=== PATIENT | male | born 1960 | race Caucasian/White ===

== ENCOUNTER → 2020-02-02 14:37 | Outpatient (BNVA) | payer BC, SELFPAY | PROVIDERS: Family Provider Nurse Practitioner Family; PCP Nurse Practitioner Family; Visit Provider Nurse Practitioner Family | DX: Z20.828 Contact with and (suspected) exposure to other viral communicable diseases (principal); R50.9 Fever, unspecified | CPT/HCPCS: 87400; 87635 ==

== ENCOUNTER 2020-03-08 12:53 | Emergency (ER) | payer BC, SELFPAY ==
[2020-03-08 13:03] VITALS: BP 117/81; PULSE 88; RESP 22; TEMP 36.5; O2SAT 94; BMI 27.3
--- NOTE | 2020-03-08 13:23 | XR_ITS ---
WS: [id number] PORTABLE CHEST HISTORY: dyspnea COMPARISON: None available. Chronic emphysema. No pneumonia. Normal vasculature. Benign-appearing granuloma RIGHT lower lobe. No pleural effusion or pneumothorax. Cardiac size: Normal. Mediastinum/Aorta: Mild atherosclerosis aorta. No osseous abnormality seen. XR/XR chest 1V portable [id number] IMPRESSION: Chronic emphysema. No pneumonia.
--- NOTE | 2020-03-08 13:25 | ECG_ITS ---
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1960 Requested By: Gerald Gonzalez Order Number: [id number] Reading MD: ALLYSON HUBER Measurements Intervals [place] Rate: 90 P: 60 LA: 179 QRS: 35 QRSD: 102 T: 56 QT: 361 QTc: 442 Interpretive Statements SINUS RHYTHM INFERIOR MYOCARDIAL INFARCTION , OF INDETERMINATE AGE [40+ ms Q WAVE AND/OR ST/T ABNORMALITY IN II/aVF] No previous ECG available for comparison Electronically Signed On 03-08-2020 18:36:05 ADVERTISING PRODUCTION MANAGER by ALLYSON HUBER [email or web address] [email or web address] county hospitalNexstimcleveland clinic union hospital.[employer]/store/NU/[id number] f
--- NOTE | 2020-03-08 13:31 | W.ED.SOB ---
HPI - SOB/Dyspnea General: Chief Complaint: Shortness of Breath/Dyspnea Stated Complaint: SOB Time Seen by Provider: 03/08/20 13:00 History of Present Illness: HPI Narrative: 60-year-old male comes in after being seen in the local clinic. He was complaining of a sore throat and being short of breath. He was short of breath and felt weak and had a near syncopal episode at the clinic EMS was called and he was brought into the ER. He has had nausea vomiting and diarrhea with diarrhea persisting. Denies any hematochezia melena hematemesis cough consciousness denies any productive cough no abdominal pain no anosmia. He was swabbed a month ago for Covid and it was negative he was reswabbed today not sure what type of swab was used other than that it was a send out PCR MD elicited complaint: shortness of breath Pertinent past history: COPD Onset (ago): day(s) Context: recent illness Timing: constant Severity: severe Exacerbating factors: exertion Relieving factors: rest and upright position Known history of: COPD Associated symptoms: Reports dizziness, lightheadedness, myalgias, nausea and vomiting; Deny abdominal pain, chest congestion, chest pain, cough, diaphoresis, extremity pain, fever(s), hemoptysis, orthopnea, palpitations, paresthesias, polydipsia, polyuria, rash, sense of impending doom or syncope Treatment prior to arrival: none Review of Systems Const: Denies: fever(s) or diaphoresis ENMT: Denies: throat pain, ear or mastoid pain, nasal discharge or nasal congestion Card: Reports: lightheadedness; Denies: chest pain, palpitations, syncope or orthopnea Resp: Denies: hemoptysis or chest congestion GI: Reports: nausea, vomiting and diarrhea; Denies: abdominal pain : Denies: flank pain, dysuria, urinary frequency or urinary urgency Musc: Denies: extremity pain Skin/Breast: Denies: rash or pruritus Neuro: Reports: dizziness Endo: Denies: polyuria or polydipsia PFSH ED PFSH: Medical History (Updated 03/08/20 @ 18:12 by Gerald Duenas DO) Chronic pharyngitis Close exposure to 2019 novel coronavirus Fatigue Lower respiratory infection Shortness of Breath Vitamin D deficiency Surgical History Status post cervical disc replacement Status post tonsillectomy Family History Brother Cancer Father Cancer Social History Smoking and tobacco status: current every day smoker Alcohol intake: never Physical Exam Const: COMMON NORMALS: no acute distress GENERAL APPEARANCE: cooperative and comfortable ORIENTATION/CONSCIOUSNESS: Yes awake, Yes oriented to person, Yes oriented to place and Yes oriented to time HENMT: COMMON NORMALS: normocephalic, atraumatic and hearing grossly normal bilaterally HEAD & SCALP: normocephalic and atraumatic Neck/C-Spine: COMMON NORMALS: no JVD Resp: COMMON NORMALS: normal respiratory effort, No retractions and No use of accessory muscles AUSCULTATION: rhonchi, wheezes and diminished lung sounds Cardio: COMMON NORMALS: no JVD, regular rate, regular rhythm and No murmurs present (Cardio) RATE: regular rate RHYTHM: regular rhythm GI: COMMON NORMALS: Soft to palpation and No hepatosplenomegaly present AUSCULTATION: Yes normoactive bowel sounds PALPATION: Yes Soft to palpation, No Tenderness to palpation present (GI), No Guarding due to palpation present (GI) and Yes No hepatosplenomegaly present Extremity: COMMON NORMALS: normal to inspection, capillary refill normal, no clubbing, cyanosis or edema, no calf tenderness and no pedal edema Neuro: SENSORIUM/ORIENTATION: Yes oriented to person, Yes oriented to place and Yes oriented to time Skin: COMMON NORMALS: no rashes or lesions noted GENERAL SKIN EXAM: no rashes or lesions noted Course Vital Signs: Vital signs: Vital Signs Temperature 97.7 F 03/08/20 13:03 Pulse Rate 84 03/08/20 16:53 Respiratory Rate 14 03/08/20 16:53 Blood Pressure 141/97 03/08/20 16:53 Pulse Oximetry 94 03/08/20 16:53 MDM - SOB/Dyspnea MDM Narrative: Medical decision making narrative: Rapid swab was negative I still strongly suspect he has Covid. Some of his inflammatory markers and D-dimer are elevated. His CTA of the chest looked okay. We will go and discharge him home on dexamethasone will also cover him with doxycycline use albuterol aggressively at home. He does have a finger sat monitor recommend that he monitor his saturations closely at home if he has any sats that dipped below 90 he should return to the emergency room. Discussed with him the possibility of monoclonal antibody therapy if he does have a positive PCR he is interested in pursuing that if it is positive. Lab Data: Attestation: I reviewed the patient's lab results. Labs: Lab Results 03/08/20 03/08/20 03/08/20 Range/Units 14:30 14:30 14:30 WBC Cancelled Corrected WBC Cancelled RBC Cancelled Hgb Cancelled Hct Cancelled MCV Cancelled MCH Cancelled MCHC Cancelled RDW Cancelled Plt Count Cancelled MPV Cancelled Gran % Cancelled Neut % (Auto) Cancelled Lymph % (Auto) Cancelled [place] % (Auto) Cancelled Eos % (Auto) Cancelled Baso % (Auto) Cancelled Neut # (Auto) Cancelled Lymph # (Auto) Cancelled [place] # (Auto) Cancelled Eos # (Auto) Cancelled Baso # (Auto) Cancelled Absolute Gran (aut o) Cancelled Nucleated RBC % (a uto) Cancelled Nucleated RBCs # Cancelled Fibrinogen 518 H (174-498) mg/dL D-Dimer 0.90 H (0-0.59) ug/mIFE U Sodium 140 (136-145) mmol/L Potassium 4.0 (3.5-5.1) mmol/L Chloride 100 (98-107) mmol/L Carbon Dioxide 29 (22-29) mmol/L Anion Gap 15.0 (5-19) BUN 10 (8-23) mg/dL Creatinine 0.7 (0.7-1.2) mg/dL GFR Calculation 114.6 (90-130) mL/min Glucose 122 H (65-115) mg/dL Calculated Osmolal ity 290 (285-295) mOsm/k g Lactic Acid (0.5-2.2) mmol/L Calcium 9.6 (8.5-10.5) mg/dL Total Bilirubin 0.4 (0.15-1.2) mg/dL AST 12 (0-40) U/L ALT 7 (0-41) U/L Alkaline Phosphata se 112 (40-130) IU/L Lactate Dehydrogen ase 182 (135-225) U/L Troponin T Baselin e (0-15) ng/L Troponin T 120 Min [place] (0-15) ng/L Delta Troponin T (0-10) ABS# C-Reactive Protein 25.5 H (0.0-4.9) mg/L Total Protein 7.2 (6.6-8.7) g/dL Albumin 4.3 (3.5-5.2) g/dL Globulin 2.9 (1.3-4.6) g/dL SARS-CoV-2 Ag (Rap id) (Negative) 03/08/20 03/08/20 03/08/20 Range/Units 14:30 14:30 14:48 WBC Corrected WBC RBC Hgb Hct MCV MCH MCHC RDW Plt Count MPV Gran % Neut % (Auto) Lymph % (Auto) [place] % (Auto) Eos % (Auto) Baso % (Auto) Neut # (Auto) Lymph # (Auto) [place] # (Auto) Eos # (Auto) Baso # (Auto) Absolute Gran (aut o) Nucleated RBC % (a uto) Nucleated RBCs # Fibrinogen (174-498) mg/dL D-Dimer (0-0.59) ug/mIFE U Sodium (136-145) mmol/L Potassium (3.5-5.1) mmol/L Chloride (98-107) mmol/L Carbon Dioxide (22-29) mmol/L Anion Gap (5-19) BUN (8-23) mg/dL Creatinine (0.7-1.2) mg/dL GFR Calculation (90-130) mL/min Glucose (65-115) mg/dL Calculated Osmolal ity (285-295) mOsm/k g Lactic Acid 0.7 (0.5-2.2) mmol/L Calcium (8.5-10.5) mg/dL Total Bilirubin (0.15-1.2) mg/dL AST (0-40) U/L ALT (0-41) U/L Alkaline Phosphata se (40-130) IU/L Lactate Dehydrogen ase (135-225) U/L Troponin T Baselin e 10 (0-15) ng/L Troponin T 120 Min [place] (0-15) ng/L Delta Troponin T (0-10) ABS# C-Reactive Protein (0.0-4.9) mg/L Total Protein (6.6-8.7) g/dL Albumin (3.5-5.2) g/dL Globulin (1.3-4.6) g/dL SARS-CoV-2 Ag (Rap id) Negative (Negative) 03/08/20 03/08/20 03/08/20 Range/Units 14:50 17:02 17:02 WBC Cancelled 12.3 H Corrected WBC Cancelled RBC Cancelled 4.63 Hgb Cancelled 14.2 Hct Cancelled 44.3 MCV Cancelled 95.7 H MCH Cancelled 30.7 MCHC Cancelled 32.1 RDW Cancelled 12.5 Plt Count Cancelled 210 MPV Cancelled 11.6 H Gran % Cancelled Neut % (Auto) Cancelled 77.2 Lymph % (Auto) Cancelled 16.4 [place] % (Auto) Cancelled 5.6 Eos % (Auto) Cancelled 0.1 Baso % (Auto) Cancelled 0.4 Neut # (Auto) Cancelled 9.46 H Lymph # (Auto) Cancelled 2.0 [place] # (Auto) Cancelled 0.7 Eos # (Auto) Cancelled 0.0 Baso # (Auto) Cancelled 0.1 Absolute Gran (aut o) Cancelled Nucleated RBC % (a uto) Cancelled 0 Nucleated RBCs # Cancelled 0.0 Fibrinogen (174-498) mg/dL D-Dimer (0-0.59) ug/mIFE U Sodium (136-145) mmol/L Potassium (3.5-5.1) mmol/L Chloride (98-107) mmol/L Carbon Dioxide (22-29) mmol/L Anion Gap (5-19) BUN (8-23) mg/dL Creatinine (0.7-1.2) mg/dL GFR Calculation (90-130) mL/min Glucose (65-115) mg/dL Calculated Osmolal ity (285-295) mOsm/k g Lactic Acid (0.5-2.2) mmol/L Calcium (8.5-10.5) mg/dL Total Bilirubin (0.15-1.2) mg/dL AST (0-40) U/L ALT (0-41) U/L Alkaline Phosphata se (40-130) IU/L Lactate Dehydrogen ase (135-225) U/L Troponin T Baselin e (0-15) ng/L Troponin T 120 Min [place] 9.44 (0-15) ng/L Delta Troponin T -0.56 L (0-10) ABS# C-Reactive Protein (0.0-4.9) mg/L Total Protein (6.6-8.7) g/dL Albumin (3.5-5.2) g/dL Globulin (1.3-4.6) g/dL SARS-CoV-2 Ag (Rap id) (Negative) Discharge Plan Discharge Patient Disposition: Home Clinical Impression: Acute exacerbation of chronic obstructive airways disease, Suspected COVID-19 virus infection Condition: Stable Prescriptions: New dexamethasone 6 mg tablet 6 mg PO DAILY Qty: 7 RF: 0 doxycycline hyclate 100 mg capsule 100 mg PO BID 10 Days Qty: 20 RF: 0 No Action guaifenesin [Mucinex] 600 mg tablet extended release 12hr 600 mg PO BID RF: 0 omeprazole 20 mg capsule,delayed release(DR/EC) 20 mg PO DAILY RF: 0 ibuprofen 200 mg Tablet 400 - 600 mg PO PRN RF: 0 Vitamin D3 6 cap PO BID RF: 0 Discharge Orders: Discharge ED (Routine); Ordered 03/08/20 Ordered By: Gerald Duenas Referrals: MIAN Jonas, REEL FED PRINTER [Primary Care Provider] - Discharge Diet: Usual diet Discharge Activity: Limit activity as instructed Activity Restrictions/Additional Instructions: You were tested today for COVID-19. Recommend that you maintain self quarantine until results are available. Monitor your oxygen sat at home if it falls below 90 consistently return to the emergency room. If you have any more difficulty breathing return to the emergency room. Take the steroids as prescribed as well as antibiotics you were given today. Continue to use albuterol aggressively at home to improve your breathing. If these are not successful return to the emergency room. Coding Level of Care Code ED 3D Specialist for Lili Ahn Exam Comprehensive
[2020-03-08 14:33] VITALS: BP 120/86; PULSE 93; RESP 18; O2SAT 94
[2020-03-08 14:56] LABS: SARS Covid-2 Antigen Negative (Negative)
[2020-03-08 15:08] LABS: Alanine Aminotransferase 7 U/L (0-41); Albumin Level 4.3 g/dL (3.5-5.2); Alkaline Phosphatase 112 IU/L (40-130); Aspartate Amino Transferase 12 U/L (0-40); Blood Urea Nitrogen 10 mg/dL (8-23); C Reactive Protein 25.5 mg/L (0.0-4.9); Calcium 9.6 mg/dL (8.5-10.5); Carbon Dioxide 29 mmol/L (22-29); Chloride 100 mmol/L (98-107); Globulin 2.9 g/dL (1.3-4.6); Glomerular Filtration Rate 114.6 mL/min (90-130); Glucose 122 mg/dL (65-115); Lactate Dehydrogenase 182 U/L (135-225); Osmolality Calculated 290 mOsm/kg (285-295); Sodium 140 mmol/L (136-145); Total Bilirubin 0.4 mg/dL (0.15-1.2); Total Protein 7.2 g/dL (6.6-8.7)
[2020-03-08 15:09] LABS: Troponin(5th) Baseline 10 ng/L (0-15)
[2020-03-08 15:17] VITALS: BP 137/93; PULSE 89; RESP 14; O2SAT 94
[2020-03-08 15:23] LABS: Lactic Sepsis W/Reflex 0.7 mmol/L (0.5-2.2)
[2020-03-08 15:23] LABS: Fibrinogen 518 mg/dL (174-498)
--- NOTE | 2020-03-08 15:25 | ECG_ITS ---
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 Measurements Intervals [place] Rate: 89 P: 61 UT: 176 QRS: 37 QRSD: 99 T: 51 QT: 375 QTc: 457 Interpretive Statements SINUS RHYTHM INFERIOR MYOCARDIAL INFARCTION , OF INDETERMINATE AGE [40+ ms Q WAVE AND/OR ST/T ABNORMALITY IN II/aVF] Compared to ECG 03/08/2020 14:20:32 No significant changes Electronically Signed On 03-09-2020 17:15:47 OPTICAL MANUFACTURING TECHNICIAN by Vivian Khan M.D. [email or web address] regional medical [email or web address] riverside methodist hospital.[employer]/store/NU/[id number]/ecg/[id number] f
[2020-03-08 15:41] VITALS: BP 140/83; PULSE 82; RESP 16; O2SAT 95
--- NOTE | 2020-03-08 16:24 | CT_ITS ---
WS: [id number] CT angio chest PE protcl [id number] REASON FOR EXAM: dyspnea TECHNIQUE: Coronal and sagittal 2-D and MIP reformations. IV CONTRAST ADMINISTERED: 74 mL of Omnipaque 350. TOTAL EXAM DLP: 724.[address] scans at [facility] use at least one of these dose optimization techniques: automat ed exposure control; mA and/or kV adjustment per patient size (includes targeted exams where dose is matched to clinical indication); or iterative reconstruction. FINDINGS: There are no pulmonary emboli. Thoracic aorta is moderately tortuous and ectatic. No aneurysmal dilat ation. No dissection identified. Moderate calcification within the coronary arteries. No mediastinal or hilar adenopathy. The lungs demonstrate multiple areas of cystic change. There are multiple calcified granulomas in the lungs without other lung nodule, lung mass, or infiltrate. There is irregular apical pleural thickening without definite mass. There is no pleural fluid. Moderate changes of degenerative spondylosis in the thoracic spine. CT/CT angio chest PE protcl [id number] IMPRESSION: Chronic lung disease, most likely central lobar emphysema. No acute abnormality identified.
[2020-03-08 16:53] VITALS: BP 141/97; PULSE 84; RESP 14; O2SAT 94
[2020-03-08 17:06] LABS: Basophils # 0.1 10^3/uL (0.0-0.1); Basophils % 0.4 %; Eosinophils % 0.1 %; Hematocrit 44.3 % (42.0-52.0); Hemoglobin 14.2 g/dL (11.7-16.6); Lymphocytes % 16.4 %; Mean Corpuscular HGB Conc 32.1 g/dL (30.0-36.0); Mean Corpuscular Hemoglobin 30.7 pg (28.0-34.0); Mean Corpuscular Volume 95.7 fL (80-94); Mean Platelet Volume 11.6 fL (7.4-10.4); Monocytes # 0.7 10^3/uL (0.2-0.9); Monocytes % 5.6 %; Neutrophils # 9.46 10^3/uL (1.8-7.7); Neutrophils % 77.2 %; Nucleated Red Blood Cells % 0 %; Platelet Count 210 10^3/cmm (130-400); Red Blood Count 4.63 10^6/uL (4.1-5.3); Red Cell Distribution Width 12.5 % (12.1-15.1); White Blood Count 12.3 10^3/uL (4.0-10.0)
[2020-03-08] MEDS: iohexol 350 mg/mL 100 mL Btl IV (17:20)
[2020-03-08 17:30] LABS: Troponin 5 2HR 9.44 ng/L (0-15)
[2020-03-08 17:32] LABS: Troponin 5 2HR Delta -0.56 ABS# (0-10)
[2020-03-08] MEDS: dexamethasone 4 mg/mL INJ 6 MG IVP (18:27)
[2020-03-08 19:00] VITALS: BP 123/91; PULSE 83; RESP 14; O2SAT 96
[2020-03-11 07:39] LABS: Coronavirus Lab Test PTC Negative
== END 2020-03-08 19:00 | disposition home or self-care (01) ==
PROVIDERS: Emergency Provider Family Medicine; PCP Nurse Practitioner Family
DX: J44.1 Chronic obstructive pulmonary disease with (acute) exacerbation (principal); Z20.828 Contact with and (suspected) exposure to other viral communicable diseases; F17.210 Nicotine dependence, cigarettes, uncomplicated
CPT/HCPCS: 12345; 36415; 71045; 71275; 80053; 83605; 83615; 84484; 85025; 85378; 85384; 86140; 87040; 87400; 87426; 87635; 93005; 96374; 99282; 99284; J1100; Q9967

== ENCOUNTER 2020-03-10 11:32 | Inpatient (IN) | payer BC, MEDICAID, SELFPAY ==
[2020-03-10] VITALS (14 sets, daily range): BP systolic 108–158; BP diastolic 60–101; PULSE 62–83; RESP 14–19; TEMP 36.4–37.1; O2SAT 91–98; BMI 29.2
--- NOTE | 2020-03-10 11:38 | CT_ITS ---
WS: [id number] CT HEAD NONCONTRAST HISTORY: cva TECHNIQUE: Contiguous axial imaging performed through the brain in 2.5 mm imaging. Bone and soft tiss ue windows. Sagittal and coronal reformats reviewed. All CT scans at [facility] use at ast one of these dose optimization techniques: automated exposure control; mA and/or kV adjustment pe r patient size (includes targeted exams where dose is matched to clinical indication); or iterative r econstruction. DLP: 1070.47 mGy.cm COMPARISON: None available. No acute intracranial hemorrhage, midline shift or mass effect. Mild atrophy and mild chronic microvascular ischemic disease. Prior lacunar infarct involving the an terior limb of the external capsule on the RIGHT. Ventricles: Normal size with no hydrocephalus. Paranasal sinuses: As visualized are clear. Mastoid air cells: Well pneumatized. Calvarium and scalp: Skull is intact with no soft tissue edema or swelling. CT/CT head wo con* [id number] IMPRESSION: 1. No acute intracranial hemorrhage or edema. 2. Remote lacunar infarct RIGHT external capsule. 3. Mild atrophy.
--- NOTE | 2020-03-10 11:38 | XR_ITS ---
WS: [id number] PORTABLE CHEST HISTORY: Chest pain and confusion. Facial drooping. COMPARISON: 03/08/2020 Hyperinflated lungs from emphysema. Benign granulomata RIGHT lower lobe. No pneumonia. Normal vascula ture. No pleural effusion or pneumothorax. Cardiac size: Normal. Mediastinum/Aorta: Normal mediastinum. No osseous abnormality seen. XR/XR chest 1V portable [id number] IMPRESSION: Chronic emphysema and prior granulomatous disease. No acute pneumonia.
--- NOTE | 2020-03-10 11:40 | ECG_ITS ---
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 Measurements Intervals [place] Rate: 78 P: 60 MA: 159 QRS: -10 QRSD: 105 T: 77 QT: 383 QTc: 437 Interpretive Statements SINUS RHYTHM PROBABLE INFERIOR WALL MYOCARDIAL INFARCTION [35 ms Q WAVE IN I/aVL/V5/V6], OF INDETERMINATE AGE Compared to ECG 03/08/2020 15:39:24 No significant changes Electronically Signed On 03-10-2020 19:41:19 PUBLIC WORKS INSPECTOR by Kailyn Waters M.D. [email or web address]/[id number] f
--- NOTE | 2020-03-10 11:44 | PC.NURSE ---
Pt to CT
--- NOTE | 2020-03-10 12:04 | ED_ITS ---
HPI - Weakness General: Chief complaint: Weakness Stated complaint: STROKE LIKE SYMPTOMS Time Seen by Provider: 03/10/20 11:37 Source: patient and EMS Mode of arrival: EMS Limitations: no limitations History of Present Illness: HPI Narrative: 10 is a 60-year-old male who presents here by EMS states that he has had some facial droop and drooling left- sided weakness over the last day. States he is also had some hallucinations. He states that he is improved and is able answer all my questions here appropriately. He also has a history of COPD and was recently diagnosed with bronchitis and started on doxycycline. He did have Covid testing that was negative. Denies any worsening improving factors. Associated symptoms: Denies chest pain, chills, dysuria, easy bruising, fever(s), headache(s), nausea or vomiting Review of Systems Const: Denies: fever(s), chills, body aches or change in appetite Eyes: Denies: blurry vision or eye discomfort ENMT: Denies: throat pain or dental pain Card: Denies: chest pain Resp: Denies: dyspnea GI: Denies: abdominal pain, nausea, vomiting or diarrhea : Denies: dysuria Musc: Denies: neck pain or back pain Skin/Breast: Denies: rash Neuro: Reports: weakness in extremities; Denies: headache(s) Psych: Denies: depression Ez/Lymph: Denies: easy bruising All/Imm: Denies: urticaria PFSH ED PFSH: Medical History Chronic pharyngitis Close exposure to 2019 novel coronavirus Fatigue Lower respiratory infection Shortness of Breath Vitamin D deficiency Surgical History Status post cervical disc replacement Status post tonsillectomy Family History Brother Cancer Father Cancer Social History Smoking and tobacco status: current every day smoker Alcohol intake: never Physical Exam Const: COMMON NORMALS: no acute distress, patient oriented x3 and healthy appearing HENMT: COMMON NORMALS: normocephalic and atraumatic HEAD & SCALP: normocephalic and atraumatic Eye: COMMON NORMALS: Equal, round and reactive pupils present and EOMs intact bilaterally PUPIL: Yes Equal, round and reactive pupils present Neck/C-Spine: COMMON NORMALS: full ROM and supple Chest: COMMONS NORMALS: normal inspection of the chest and normal palpation of entire chest wall Resp: COMMON NORMALS: normal respiratory effort, No retractions, No use of accessory muscles and clear to auscultation bilaterally AUSCULTATION: clear to auscultation bilaterally Cardio: COMMON NORMALS: regular rate, regular rhythm and No murmurs present (Cardio) RATE: regular rate RHYTHM: regular rhythm GI: COMMON NORMALS: Normal to inspection, nondistended, normoactive bowel sounds present, Soft to palpation, non-tender and no masses PALPATION: Yes Soft to palpation Extremity: COMMON NORMALS: normal to inspection and full ROM Neuro: COMMON NORMALS: patient oriented x3, moves all extremities and no focal motor deficits Psych: COMMON NORMALS: mental status grossly normal, Normal thought process present and cooperative THOUGHT PROCESS: Normal thought process present Skin: COMMON NORMALS: no rashes or lesions noted and no wounds GENERAL SKIN EXAM: no rashes or lesions noted Course Vital Signs: Vital signs: Vital Signs Temperature 97.6 F 03/10/20 11:33 Pulse Rate 73 03/10/20 11:43 Respiratory Rate 18 03/10/20 11:43 Blood Pressure 131/79 03/10/20 11:43 Pulse Oximetry 96 03/10/20 11:43 MDM - Weakness MDM Narrative: Medical decision making narrative: Patient presents here with some hallucinations and altered mental status. Seems to have resolved is able answer most my questions appropriately here. He also has a history of COPD and does have some cough. Patient's x-ray here is normal and CT head is normal. I spoke to hospitalist will admit for observation. Lab Data: Labs: Lab Results 03/10/20 03/10/20 03/10/20 Range/Units 10:20 10:20 10:20 WBC Cancelled Corrected WBC Cancelled RBC Cancelled Hgb Cancelled Hct Cancelled MCV Cancelled MCH Cancelled MCHC Cancelled RDW Cancelled Plt Count Cancelled MPV Cancelled Gran % Cancelled Neut % (Auto) Cancelled Lymph % (Auto) Cancelled [place] % (Auto) Cancelled Eos % (Auto) Cancelled Baso % (Auto) Cancelled Neut # (Auto) Cancelled Lymph # (Auto) Cancelled [place] # (Auto) Cancelled Eos # (Auto) Cancelled Baso # (Auto) Cancelled Absolute Gran (aut o) Cancelled Nucleated RBC % (a uto) Cancelled Nucleated RBCs # Cancelled PT Cancelled INR Cancelled Sodium 139 (136-145) mmol/L Potassium 4.3 (3.5-5.1) mmol/L Chloride 101 (98-107) mmol/L Carbon Dioxide 27 (22-29) mmol/L Anion Gap 15.3 (5-19) BUN 18 (8-23) mg/dL Creatinine 0.7 (0.7-1.2) mg/dL GFR Calculation 114.6 (90-130) mL/min Glucose 76 (65-115) mg/dL Calculated Osmolal ity 289 (285-295) mOsm/k g Calcium 9.8 (8.5-10.5) mg/dL Total Bilirubin 0.2 (0.15-1.2) mg/dL AST 11 (0-40) U/L ALT 9 (0-41) U/L Alkaline Phosphata se 94 (40-130) IU/L Total Protein 6.8 (6.6-8.7) g/dL Albumin 4.4 (3.5-5.2) g/dL Globulin 2.4 (1.3-4.6) g/dL Urine Color (Yellow) Urine Appearance (CLEAR) Urine pH (5-7) Ur Specific Gravit y (1.005-1.030) Urine Protein (Negative) Urine Glucose (UA) (Normal) Urine Ketones (Negative) Urine Blood (Negative) Urine Nitrate (Negative) Urine Bilirubin (Negative) Urine Urobilinogen (Negative) mg/dL Ur Leukocyte [place] ase (Negative) 03/10/20 03/10/20 03/10/20 Range/Units 12:14 12:18 12:20 WBC 14.2 H Corrected WBC RBC 4.44 Hgb 13.7 Hct 41.7 L MCV 93.9 MCH 30.9 MCHC 32.9 RDW 12.7 Plt Count 177 MPV 10.5 H Gran % Neut % (Auto) 89.6 Lymph % (Auto) 7.9 [place] % (Auto) 1.9 Eos % (Auto) 0.0 Baso % (Auto) 0.1 Neut # (Auto) 12.76 H Lymph # (Auto) 1.1 [place] # (Auto) 0.3 Eos # (Auto) 0.0 Baso # (Auto) 0.0 Absolute Gran (aut o) Nucleated RBC % (a uto) 0 Nucleated RBCs # 0.0 PT 13.00 INR 0.95 Sodium (136-145) mmol/L Potassium (3.5-5.1) mmol/L Chloride (98-107) mmol/L Carbon Dioxide (22-29) mmol/L Anion Gap (5-19) BUN (8-23) mg/dL Creatinine (0.7-1.2) mg/dL GFR Calculation (90-130) mL/min Glucose (65-115) mg/dL Calculated Osmolal ity (285-295) mOsm/k g Calcium (8.5-10.5) mg/dL Total Bilirubin (0.15-1.2) mg/dL AST (0-40) U/L ALT (0-41) U/L Alkaline Phosphata se (40-130) IU/L Total Protein (6.6-8.7) g/dL Albumin (3.5-5.2) g/dL Globulin (1.3-4.6) g/dL Urine Color Yellow (Yellow) Urine Appearance Clear (CLEAR) Urine pH 5 (5-7) Ur Specific Gravit y 1.025 (1.005-1.030) Urine Protein Neg (Negative) Urine Glucose (UA) Norm (Normal) Urine Ketones Negative (Negative) Urine Blood Neg (Negative) Urine Nitrate Negative (Negative) Urine Bilirubin Neg (Negative) Urine Urobilinogen Norm (Negative) mg/dL Ur Leukocyte Marion ase Negative (Negative) Imaging Data^: CXR: Attestation: I personally reviewed and interpreted this imaging study as follows: Radiologist's impression: [address] [address] XRay Report Signed Patient: Hitesh Dai Unit #: [id number] : 1960 Age/Sex: 60 / M ADM Date: 03/10/20 Loc: ER Room/Bed: Attending Dr: Ordering Provider/Ordering MD: Omar Valdovinos MD Date of Service: 03/10/20 Procedure(s): XR chest 1V portable [id number] Accession Number(s): [id number] Report Number: [id number] WS: [id number] PORTABLE CHEST HISTORY: Chest pain and confusion. Facial drooping. COMPARISON: 03/08/2020 Hyperinflated lungs from emphysema. Benign granulomata RIGHT lower lobe. No pneumonia. Normal vasculature. No pleural effusion or pneumothorax. Cardiac size: Normal. Mediastinum/Aorta: Normal mediastinum. No osseous abnormality seen. XR/XR chest 1V portable [id number] IMPRESSION: Chronic emphysema and prior granulomatous disease. No acute pneumonia. EKG Data^: EKG 1: Attestation: I personally reviewed and interpreted this EKG as follows: EKG interpretation date: 03/10/20 EKG interpretation time: 11:59 Interpretation: Normal sinus rhythm heart rate [address] or T wave abnormalities QRS 105 QTc 416 Discharge Plan Discharge Patient Disposition: Admitted As Inpatient Clinical Impression: Altered mental status, COPD exacerbation Condition: Stable Coding Level of Care Code ED Deputy Editor In Chief for Chg Fwd Exam Comprehensive
[2020-03-10 12:31] LABS: Basophils % 0.1 %; Hematocrit 41.7 % (42.0-52.0); Hemoglobin 13.7 g/dL (11.7-16.6); Lymphocytes # 1.1 10^3/uL (0.8-4.8); Lymphocytes % 7.9 %; Mean Corpuscular HGB Conc 32.9 g/dL (30.0-36.0); Mean Corpuscular Hemoglobin 30.9 pg (28.0-34.0); Mean Corpuscular Volume 93.9 fL (80-94); Mean Platelet Volume 10.5 fL (7.4-10.4); Monocytes # 0.3 10^3/uL (0.2-0.9); Monocytes % 1.9 %; Neutrophils # 12.76 10^3/uL (1.8-7.7); Neutrophils % 89.6 %; Nucleated Red Blood Cells % 0 %; Platelet Count 177 10^3/cmm (130-400); Red Blood Count 4.44 10^6/uL (4.1-5.3); Red Cell Distribution Width 12.7 % (12.1-15.1); White Blood Count 14.2 10^3/uL (4.0-10.0)
[2020-03-10 12:44] LABS: Add Urine Microscopic? NO
[2020-03-10 12:46] LABS: Alanine Aminotransferase 9 U/L (0-41); Albumin Level 4.4 g/dL (3.5-5.2); Alkaline Phosphatase 94 IU/L (40-130); Anion Gap 15.3 (5-19); Aspartate Amino Transferase 11 U/L (0-40); Blood Urea Nitrogen 18 mg/dL (8-23); Calcium 9.8 mg/dL (8.5-10.5); Carbon Dioxide 27 mmol/L (22-29); Chloride 101 mmol/L (98-107); Creatinine Clr Calc Pharmacy 149.8881; Globulin 2.4 g/dL (1.3-4.6); Glomerular Filtration Rate 114.6 mL/min (90-130); Glucose 76 mg/dL (65-115); Osmolality Calculated 289 mOsm/kg (285-295); Potassium 4.3 mmol/L (3.5-5.1); Sodium 139 mmol/L (136-145); Total Bilirubin 0.2 mg/dL (0.15-1.2); Total Protein 6.8 g/dL (6.6-8.7)
[2020-03-10 12:51] LABS: INR 0.95 (0.8-1.2)
[2020-03-10 13:10] LABS: Bilirubin Urine Neg (Negative); Blood Urine Neg (Negative); Glucose Urine UA Norm (Normal); Ketones Urine Negative (Negative); Leukocyte Esterase Urine Negative (Negative); Nitrate Urine Negative (Negative); Protein Urine Neg (Negative); Specific Gravity, Urine 1.025 (1.005-1.030); Urine Appearance Clear (CLEAR); Urine Color Yellow (Yellow); Urobilinogen Urine Norm (Negative); pH Urine 5 (5-7)
[2020-03-10] MEDS: nicotine 21 mg Patch 1 PATCH TRANSDERMA (13:57)
[2020-03-10] MEDS: morphine 4 mg/mL SDV 1 mL IVP (13:58)
[2020-03-10 14:19] LABS: ABG PCO2 44.1 mmHg (35-45); ABG PH Result 7.43 (7.35-7.45); Arterial Blood Gas Hematocrit 45.1 % (42-52); Base Excess ABG 4.3 mmol/L (-2.0-2.0); Blood Gas Allen Test Pos; Blood Gas Operator Identificat GD; Blood Gas Sample Site Radial, right; Blood Gas Sample Type Arterial; HCO3 ABG 29.3 mmol/L (22-26); Oxygen Device ROOM AIR; PO2 ABG 73.8 mmHg (80.0-100.0)
[2020-03-10 14:27] LABS: Ammonia 30 umol/L (16-60)
--- NOTE | 2020-03-10 15:47 | PM.HP ---
Providers/Chief Complaint Admitting Physician: Lorenzo Haley MD Primary Care Provider: ESTHER Peña Chief Complaint: STROKE LIKE SYMPTOMS History of Present Illness Hitesh Dai is a 60 year old male presents to emerge department with concern for facial droop and left-sided weakness over the last day and some confusion that was concerning to patient's . Patient denies any focal weakness. 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 Reports that last night he got slightly confused as to where [place] tree was standing and pulled the cord but otherwise he denies seeing or hearing things that are not there. He has a very hoarse and raspy voice for the last 1 month ever since he started having signs and symptoms of upper respiratory infection. Reports some sore throat but denies cough above his normal baseline with occasional clear phlegm production. He denies chest pain or shortness of breath at rest. He does have chronic dyspnea on exertion which is unchanged. He has been having diarrhea for the last 1 week but now it is improving and his bowel movements now soft without evidence of melena or hematochezia. He denies any difficulty swallowing except when he eats crackers or chips. He denies any night sweats. He smokes for 45 years, at least 1 pack/day. He has been recently checked multiple times for COVID-19 and always been negative. He denies previous history of diabetes, heart disease or stroke. Interestingly he always leans to the right whenever he sits and this been going on for many many years and confirmed by patient's daughter at bedside. He showed no evidence of focal neurological findings. He had no cerebellar signs and had good peripheral vision. He had episodes of fever and chills last weekend. Mother is alive and doing well. Father from complications of metastatic cancer of unknown primary. Reports occasionally he takes ibuprofen for phantom toothache after his teeth were pulled long time ago. Review of Systems Narrative: Except as mentioned in HPI. Eyes: Denies: change in vision (Has cataract that he was planning to address.) ENMT: Denies: throat pain or change in hearing Card: Denies: chest pain, edema or lightheadedness Resp: Denies: dyspnea or productive cough GI: Denies: abdominal pain, nausea, vomiting, dysphagia, diarrhea, constipation, hematochezia or melena Musc: Denies: joint pain or joint swelling Skin/Breast: Denies: rash or erythema Neuro: Denies: headache(s) or weakness in extremities Psych: Denies: depression Endo: Denies: excessive sweating Ez/Lymph: Denies: easy bleeding or tender lymph nodes All/Imm: Denies: throat swelling Medications/Allergies Home Medications Medication Instructions Recorded Confirmed Last Taken Type guaifenesin 600 mg tablet, 600 mg PO BID@1000,1800 01/30/20 03/10/20 03/09/20 History extended release 12 hr omeprazole 20 mg capsule,delayed 20 mg PO DAILY@1000 01/30/20 03/10/20 03/09/20 History release Vitamin D3 6 cap PO BID 03/08/20 03/10/20 03/09/20 History ibuprofen 400 - 600 mg PO PRN 03/08/20 03/10/20 03/09/20 History albuterol sulfate 2 puff INHALATION QID PRN 03/10/20 03/10/20 03/10/20 History dexamethasone 6 mg PO DAILY@1000 03/10/20 03/10/20 03/09/20 History doxycycline hyclate 100 mg PO BID@1000,1800 03/10/20 03/10/20 03/09/20 History Allergies Allergy/AdvReac Type Severity Reaction Status Date / Time cephalexin [From Keflex] Allergy hives Verified 03/08/20 13:41 PFSH Acute PFSH: Medical History Chronic pharyngitis Close exposure to 2019 novel coronavirus Fatigue Lower respiratory infection Shortness of Breath Vitamin D deficiency Surgical History Status post cervical disc replacement Status post tonsillectomy Family History Brother Cancer Father Cancer Social History Smoking and tobacco status: current every day smoker Alcohol intake: never Vitals/I&O/Wt Last Vital Signs Temp 97.6 F 03/10/20 11:33 Pulse 76 03/10/20 15:25 Resp 18 03/10/20 15:25 BP 158/101 03/10/20 15:25 Pulse Ox 93 03/10/20 15:25 Weight last 48 hrs Weight 108.862 kg Physical Exam Const: COMMON NORMALS: no acute distress, patient oriented x3 and alert HENMT: COMMON NORMALS: normocephalic and atraumatic HEAD & SCALP: normocephalic and atraumatic OTHER: Mucous membranes dry. Eye: COMMON NORMALS: EOMs intact bilaterally, conjunctivae normal and no scleral icterus CONJUNCTIVA: Yes conjunctivae normal Neck/C-Spine: COMMON NORMALS: no lymphadenopathy and no meningeal signs Lymph: LYMPHATIC: no lymphadenopathy noted Chest: COMMONS NORMALS: normal palpation of entire chest wall Resp: COMMON NORMALS: No use of accessory muscles and clear to auscultation bilaterally AUSCULTATION: clear to auscultation bilaterally Cardio: COMMON NORMALS: regular rate, regular rhythm and No murmurs present (Cardio) RATE: regular rate RHYTHM: regular rhythm OTHER: No lower extremity edema GI: COMMON NORMALS: Soft to palpation and non-tender PALPATION: Yes Soft to palpation RECTAL EXAM: Yes deferred : COMMON NORMALS: Yes no CVA tenderness BLADDER/KIDNEY EXAM: Yes no CVA tenderness Back/Pelvis: COMMON NORMALS: no CVA tenderness and thoracic and lumbar spine normal to inspection Extremity: COMMON NORMALS: normal to inspection and capillary refill normal Neuro: COMMON NORMALS: patient oriented x3 and no focal motor deficits SENSORIUM/ORIENTATION: Yes alert MENINGEAL SIGNS: Yes no meningeal signs Psych: COMMON NORMALS: mental status grossly normal, Normal thought process present and cooperative THOUGHT PROCESS: Normal thought process present Skin: COMMON NORMALS: no rashes or lesions noted GENERAL SKIN EXAM: no rashes or lesions noted Data : 03/10/20 12:20 03/10/20 10:20 A&P Assessment and plan (1) Pharyngitis: Status: Acute (2) Acute viral syndrome: Status: Acute (3) Tobacco abuse: Status: Acute (4) Dehydration, mild: Status: Acute (5) COPD (chronic obstructive pulmonary disease): Not in exacerbation. Status: Acute Additional A&P Information PLAN: We will request rapid strep test and continue doxycycline for now. Will gently hydrate with LR. Place patient for observation and obtain carotid artery ultrasound and echocardiogram for further evaluation. Cannot perform CT head and neck with contrast as patient already received contrast with chest exam. Start patient on statin and aspirin. Discussed regarding importance of smoking cessation. Patient voiced understanding and agreed to try nicotine patch. Patient will require to have outpatient ENT follow-up Attestations Medical Necessity Statement*: Patient with strokelike symptoms requires observation for monitoring, treatment and evaluation. I expect patient will require less than two midnights. Time Spent in Patient Care: Greater than 35 minutes Coding Level of Care Code Acute Channel Development Director for [facility] Diagnoses Pharyngitis J02.9 Acute viral syndrome B34.9 Tobacco abuse Z72.0 Dehydration, mild E86.0 COPD (chronic obstructive pulmonary disease) J44.9
[2020-03-10] MEDS: albuterol 8 gm MDI 2 PUFF INHALATION ×2 (17:53→19:27)
[2020-03-10] MEDS: enoxaparin 40 mg/0.4 mL Syringe SUBCUT (18:03)
[2020-03-10] MEDS: doxycycline 100 mg Tablet PO (18:03)
[2020-03-10] MEDS: guaiFENesin 600 mg Tablet PO (18:03)
[2020-03-10] MEDS: lactated ringers 1,000 ML 100 ML IV (18:03)
[2020-03-10] MEDS: atorvastatin 40 mg Tablet 20 MG PO (20:57)
[2020-03-11] VITALS (9 sets, daily range): BP systolic 134–166; BP diastolic 70–107; PULSE 65–95; RESP 17–18; TEMP 36.3–36.7; O2SAT 94–96
[2020-03-11] MEDS: lactated ringers 1,000 ML 100 ML IV ×2 (03:50→21:17)
[2020-03-11 05:14] LABS: Basophils % 0.3 %; Eosinophils % 0.1 %; Hematocrit 41.7 % (42.0-52.0); Hemoglobin 13.5 g/dL (11.7-16.6); Lymphocytes # 2.9 10^3/uL (0.8-4.8); Lymphocytes % 19.6 %; Mean Corpuscular HGB Conc 32.4 g/dL (30.0-36.0); Mean Corpuscular Hemoglobin 30.9 pg (28.0-34.0); Mean Corpuscular Volume 95.4 fL (80-94); Mean Platelet Volume 9.6 fL (7.4-10.4); Monocytes # 0.9 10^3/uL (0.2-0.9); Monocytes % 5.8 %; Neutrophils # 11.08 10^3/uL (1.8-7.7); Neutrophils % 73.7 %; Nucleated Red Blood Cells % 0 %; Platelet Count 119 10^3/cmm (130-400); Red Blood Count 4.37 10^6/uL (4.1-5.3); Red Cell Distribution Width 12.7 % (12.1-15.1)
[2020-03-11 05:39] LABS: Alanine Aminotransferase 8 U/L (0-41); Alkaline Phosphatase 84 IU/L (40-130); Aspartate Amino Transferase 12 U/L (0-40); Blood Urea Nitrogen 18 mg/dL (8-23); Calcium 9.5 mg/dL (8.5-10.5); Carbon Dioxide 29 mmol/L (22-29); Chloride 102 mmol/L (98-107); Creatinine Clr Calc Pharmacy 149.8881; Globulin 2.9 g/dL (1.3-4.6); Glomerular Filtration Rate 114.6 mL/min (90-130); Glucose 105 mg/dL (65-115); Osmolality Calculated 290 mOsm/kg (285-295); Sodium 139 mmol/L (136-145); Total Bilirubin 0.2 mg/dL (0.15-1.2); Total Protein 6.9 g/dL (6.6-8.7)
[2020-03-11 06:18] LABS: Rapid Strep A Test Negative (Negative)
[2020-03-11 06:30] LABS: Estmated Average Glucose 108; Hemoglobin A1C 5.4 % (4.0-6.0)
--- NOTE | 2020-03-11 08:40 | CT_ITS ---
WS: [id number] CT NECK WITH CONTRAST HISTORY: Prolonged laryngitis/pharyngitis TECHNIQUE: Contiguous 5 mm axial images are performed through the neck with intravenous contrast. Sag ittal and coronal reformats are also submitted. All CT scans at [facility] use at least o ne of these dose optimization techniques: automated exposure control; mA and/or kV adjustment per pat ient size (includes targeted exams where dose is matched to clinical indication); or iterative recons truction. CONTRAST: CONTRAST: Omnipaque 300; 95 mL IV. DLP: 862.76 mGy.cm COMPARISON: None available. Significant abnormal appearance of the pharyngeal mucosal space. There is circumferential soft tissue thickening greatest on the RIGHT measuring up to 1.4 cm. There is marked soft tissue thickening invo lving the epiglottis with obliteration or near obliteration of the vallecula and piriform sinuses ulysses aterally. There is extension posteriorly into the retropharyngeal space on the RIGHT. There is distor tion of the central airway and extension of tumor into the pharyngeal fat. This soft tissue mass abut s the hyoid bone with complete obliteration of the fat on the RIGHT. Near complete obliteration on th e LEFT. Soft tissue thickening continues into the larynx. At the level of the thyroid cartilage there is continued soft tissue thickening involving the vocal cords. There is significant compromise of th e airway and near complete obliteration at the level of the inferior hyoid bone. Large necrotic level 2 lymph nodes bilaterally measuring up to 18 mm transversely. LEFT level 3 lymph node measures 2.0 cm. Anterior cervical fusion at C5-6 with interbody spacer. 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 Visualized portions of the skull base demonstrate no abnormalities. Orbits and globes are within norm al limits. No soft tissue masses. Visualized paranasal sinuses and mastoid air cells are normal. Severe emphysema. CT/CT neck w con* [id number] IMPRESSION: 1. Circumferential soft tissue mass involving the larynx and supraglottic airw ay as described above. Causing significant narrowing of the airway at the level of the inferior hyoid bone. Suspect neoplasm. Recommend ENT evaluation and bio psy. 2. Level 2 lymphadenopathy and LEFT level 3 adenopathy. 3. Chronic emphysema.
--- NOTE | 2020-03-11 08:51 | PC.NURSE ---
Pt COVID results called to Med/Surg nurse Sheba.
[2020-03-11] MEDS: iohexol 300 mg/mL 100 mL Btl IV (09:31)
--- NOTE | 2020-03-11 09:31 | PC.OT ---
OT note: Attempted eval but pt not in room. Will attempt again later as able.
--- NOTE | 2020-03-11 09:36 | PC.NURSE ---
PT OFF UNIT FOR CT SCAN
[2020-03-11 10:06] LABS: Cholesterol 209 mg/dL (0-200); HDL Cholesterol 41 mg/dL (60-100); LDL Cholesterol Calculated 149 mg/dL (50-129); Triglycerides 97 mg/dL (0-150); VLDL Cholestrol Calculation 19 mg/dL (0-30)
[2020-03-11] MEDS: doxycycline 100 mg Tablet PO ×2 (10:20→19:20)
[2020-03-11] MEDS: pantoprazole DR 40 mg Tablet PO (10:20)
[2020-03-11] MEDS: guaiFENesin 600 mg Tablet PO ×2 (10:20→19:19)
[2020-03-11] MEDS: aspirin 81 mg EC Tablet PO (10:21)
[2020-03-11] MEDS: dexamethasone 4 mg Tablet 6 MG PO (10:25)
--- NOTE | 2020-03-11 10:52 | PC.CHAP ---
Pastoral Care Encounter/Spiritual Assessment Type of Contact [] Declined nuclear instructor visit [] Patient/Family/Request visit [] Outpatient visit [] Follow-up visit [] Physician referral [] Code/Alert [] Routine visit [] Staff referral [] Actively dying [] Patient sleeping [] Family support [] [] Out of room [] Palliative care [] [] Receiving care in room [] Pre-surgical visit [] Trauma [] Long length of stay [] ICU visit [x] Other: Isolation Relational/Emotional Strength [] Patient feels connected with others/family/visitors/staff [] Distress [] Loneliness/isolation [] Abandonment Spirituality of Patient [] Person of Radha [] Attends Druze of their Radha [] Believes in Prayer [] Reads Bible or Mu-Ism materials [] There are Spiritual issues to be addressed Dental Technologist Interventions [] Prayer [] Active listening [] Non-anxious presence [] Spiritual/emotional support [] Crisis/trauma care [] Spiritual counseling [] Bereavement support [] Provided bereavement packet [] Provided Bible/devotional materials [] Provided toy/stuffed animal, coloring book to patient or family member [] Provided Communion [] Anointing/Eagle [] Salvation [] Completed spiritual assessment [] Other: Impact on Illness or Injury [] Angry [] Fearful [] Anxious [] Often cries [] Exhaustion [] Unable to work [] Unable to attend adventism [] Unable to walk/stand [] Unable to read [] Unable to drive [] Unable to eat/drink [] Unable to sleep [] Unable to be with family [] Patient intubated [] Other: Summary Isolation Time spent with patient 5 mins
--- NOTE | 2020-03-11 10:58 | PC.OT ---
OT screen completed. Pt independently opened food container, ambulated to bathroom without device, completed toilet transfer independently, washed hands independently, and returned to bedside chair. BUE equal ROM and strength at this time. Pt voiced no concerns or needs for self-cares at this time. No further OT recommended.
--- NOTE | 2020-03-11 11:10 | PM.PN ---
Subjective Subjective: Interval history: Patient denies any change in his symptoms. Denies shortness of breath or chest pain at rest. He is getting echocardiogram this morning. His white blood cell count increased to 15 and platelets are down to 119. Patient had CT scan of the neck this morning showing soft tissue mass involving the larynx and supraglottic airway with evidence of significant narrowing and concerning for neoplasm. Vitals/I&O/Wt Last Vital Signs Temp 97.7 F 03/11/20 10:51 Pulse 65 03/11/20 10:51 Resp 18 03/11/20 10:51 BP 166/107 03/11/20 10:51 Pulse Ox 95 03/11/20 10:51 03/10/20 03/11/20 03/11/20 22:59 06:59 14:59 Intake Total 240 / 240 978.333 / 1218.333 Output Total 400 / 400 Balance -160 / -160 978.333 / 818.333 Weight last 48 hrs Weight 108.862 kg Physical Exam Narrative: EXAM NARRATIVE: Patient is alert and oriented x3. Lungs are clear and heart is regular. Patient continues to have very coarse and raspy voice. No lower extremity edema. Data : 03/11/20 04:54 03/11/20 04:54 Micro: Microbiology 03/11/20 06:12 Gram Stain - Final Sputum - Expectorated Sputum A&P Assessment and plan (1) Pharyngitis: Status: Acute (2) Acute viral syndrome: Status: Acute (3) Tobacco abuse: Status: Acute (4) Dehydration, mild: Status: Acute (5) COPD (chronic obstructive pulmonary disease): Not in exacerbation. Status: Acute (6) Laryngeal mass: Present on admission. Status: Acute Additional A&P Information PLAN: Given significant findings of CT scan patient's admission status will be changed to inpatient. Case discussed with Dr. Robledo who will see patient in consultation. Patient may require tracheostomy. At this point patient appears stable and breathing without any distress therefore he will not be transferred to ICU. Attestations Medical Necessity Statement*: Patient with laryngeal mass and airway obstruction requires close inpatient monitoring and treatment. 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
--- NOTE | 2020-03-11 16:38 | USCV_ITS ---
Hitesh Dai Age: 60 Gender: M : 1960 Exam Date: 03/11/2020 08:52 Ordering Phys: Lorenzo Haley MD Technologist: Ro Corbin Exam Location: [facility] [place] Indication: STROKE LIKE SIGNS BP: 151 / 81 HR: 74 Rhythm: Sinus Technical Quality: Adequate MEASUREMENTS (Male / Female) Normal Values 2D ECHO LV Diastolic Diameter PLAX 4.0 cm 4.2 - 5.9 / 3.9 - 5.3 cm LV Systolic Diameter PLAX 3.4 cm LV Chamber Size 4.3 cm IVS Diastolic Thickness 1.7 cm 0.6 - 1.0 / 0.6 - 0.9 cm IVS Systolic Thickness 2.1 cm LVPW Diastolic Thickness 2.5 cm 0.6 - 1.0 / 0.6 - 0.9 cm LVPW Systolic Thickness 2.8 cm RV Chamber Size 3.2 cm LVOT Diameter 2.1 cm LV Ejection Fraction 2D Teich 9.2 % LV Ejection Fraction MOD 2C 47.2 % LV Ejection Fraction 2C AL 45.4 % LA Diameter 3.9 cm LA Width 3.8 cm LA Height 4.7 cm RA Width 3.4 cm RA Height 4.0 cm M-MODE LV Diastolic Diameter MM 6.5 cm 4.2 - 5.9 / 3.9 - 5.3 cm LV Systolic Diameter MM 4.8 cm LV Ejection Fraction MM Teich 49.6 % IVS Diastolic Thickness MM 1.1 cm 0.6 - 1.0 / 0.6 - 0.9 cm IVS Systolic Thickness MM 1.6 cm LVPW Diastolic Thickness MM 1.1 cm 0.6 - 1.0 / 0.6 - 0.9 cm LVPW Systolic Thickness MM 1.7 cm Aortic Annulus Diameter 3.8 cm LA Ao Ratio MM 1.2 MV E Point Septal Separation 2.0 cm DOPPLER AV Peak Velocity 103.0 cm/s LVOT Peak Velocity 82.0 cm/s AV Area Cont Eq vti 2.9 cm squared AV Area Cont Eq pk 2.7 cm squared MV Area PHT 4.9 cm squared Mitral E to A Ratio 1.4 MV E' Velocity 42.0 cm/s Mitral E to MV E' Ratio 4.5 Mitral E to LV E' Lateral Ratio 3.7 Mitral E to LV E' Septal Ratio 5.8 TR Peak Velocity 149.0 cm/s TR Peak Gradient 8.9 mmHg TV Peak E Velocity 51.0 cm/s Right Atrial Pressure 3.0 mmHg Pulmonary Artery Systolic Pressu 11.9 mmHg PV Peak Velocity 55.0 cm/s RV Acceleration Time 0.2 s RV Ejection Time 0.3 s RV AcT/ET 0.6 FINDINGS Left Ventricle LV size with diminished ejection fraction of 45%. Severe hypokinesis of the mid and apical septum and anteroseptal segments. Right Ventricle The right ventricle is normal in size and function. Right Atrium The right atrium is normal in size. Left Atrium The left atrium is normal in size. Mitral Valve Thickened mitral valve. Mild mitral valve regurgitation. Aortic Valve Thickened aortic valve. Tricuspid Valve No gross abnormalities noted Pulmonic Valve No gross abnormalities noted Pericardium Normal pericardium without effusion. Aorta Normal ascending aorta dimension. CONCLUSIONS LV size with diminished ejection fraction of 45%. Severe hypokinesis of the mid and apical septum and anteroseptal segments. Thickened mitral valve. Mild mitral valve regurgitation. Thickened aortic valve. There is no pericardial effusion. There are no intracardiac masses. No previous study is available for comparison. Dr Kailyn Waters MD [facility] (Electronically Signed) Final Date: 11 March 2020 20:28 S
--- NOTE | 2020-03-11 16:38 | USCV_ITS ---
SuhasHitesh Age: 60 Gender: M : 1960 Exam Date: 03/11/2020 09:04 Ordering Phys: Lorenzo Haley MD Technologist: Ro Corbin [place] [facility] [place]: STROKE LIKE SIGNS Risk Factors: Previous Vascular Surgery: Right Brachial BP: / Left Brachial BP: / Right Left Velocity (cm/s) Spectral Plaque Velocity (cm/s) Spectral Plaque Syst/Diast Broadening Syst/Diast Broadening 86.00/ 4.40 Prox CCA 70.60 / 5.50 63.90/ 20.90 Mid CCA 57.30 / 17.60 54.40/ 10.10 Distal CCA 30.30 / 10.10 30.30/ 10.90 Prox ICA 41.60 / 17.80 64.50/ 18.60 Mid ICA 47.00 / 17.80 51.30/ 19.40 Distal ICA 56.20 / 18.90 61.40 ECA 66.80 1.01 ICA/CCA 0.98 Antegrade Vertebral Antegrade 21.00/ 7.90 cm/s 50.20/ 12.40 cm/s Tri Subclavian Tri 89.30 72.20 FINDINGS Intimal thickening in the common carotid and internal carotid arteries bilaterally. Minimal plaques of the bifurcations bilaterally antegrade flow in the vertebral arteries bilaterally. Normal Doppler flow velocities in the external carotid arteries bilaterally CONCLUSIONS Intimal thickening in the common carotid and internal carotid arteries bilaterally. Minimal plaques of the bifurcations bilaterally . No significant stenosis, based on the above findings. Dr Kailyn Waters MD [facility] (Electronically Signed) Final Date: 11 March 2020 20:31 S
--- NOTE | 2020-03-11 18:05 | P.CONIM_ITS ---
Providers/Reason For Consult Consulting Physican/Specialty*: Dr. Rodney Robledo MD Otolaryngology, Head & Neck Surgery Reason for Consult*: Throat pain, Hoarseness Requesting Physcian: Dr. Lorenzo Haley MD Attending Physician: Lorenzo Haley MD Primary Care Provider: ESTHER Peña History of Present Illness History of Present Illness Hitesh Dai is a 60 year old male with a h/o tobacco abuse with a one month h/o throat pain and hoarseness. I was consulted to further evaluate the patient's larynx. The patient reports some difficulty swallowing and mild shortness of breath. The patient denies any noted neck masses, odynophagia, or other related symptoms. He denies any other known palliative or provcative factors, and describes his current symptoms as moderate. He just at his supper. Review of Systems General: Reports: 10 or more systems reviewed and unremarkable except in HPI and below Meds/Allergies Home Medications and Allergies Home Medications Medication Instructions Recorded Confirmed Last Taken Type guaifenesin 600 mg tablet, 600 mg PO BID@1000,1800 01/30/20 03/10/20 03/09/20 History extended release 12 hr omeprazole 20 mg capsule,delayed 20 mg PO DAILY@1000 01/30/20 03/10/20 03/09/20 History release Vitamin D3 6 cap PO BID 03/08/20 03/10/20 03/09/20 History ibuprofen 400 - 600 mg PO PRN 03/08/20 03/10/20 03/09/20 History albuterol sulfate 2 puff INHALATION QID PRN 03/10/20 03/10/20 03/10/20 History dexamethasone 6 mg PO DAILY@1000 03/10/20 03/10/20 03/09/20 History doxycycline hyclate 100 mg PO BID@1000,1800 03/10/20 03/10/20 03/09/20 History Allergies Allergy/AdvReac Type Severity Reaction Status Date / Time cephalexin [From Keflex] Allergy hives Verified 03/08/20 13:41 Current Medications Current Medications Generic Name Dose Route Start Last Admin Trade Name Freq PRN Reason Stop Dose Admin Albuterol Sulfate 2 puff 03/10/20 16:35 03/10/20 19:27 Albuterol 8 Gm Mdi INHALATION 2 puff QID.RESPIRATORY PRN Administration Shortness Of Breath Aspirin 81 mg 03/11/20 09:00 03/11/20 10:21 Aspirin 81 Mg Ec Tablet PO 81 mg DAILY KEVIN Administration Atorvastatin Calcium 20 mg 03/10/20 21:00 03/10/20 20:57 Atorvastatin 40 Mg Tablet PO 20 mg BEDTIME KEVIN Administration Dexamethasone 6 mg 03/11/20 10:00 03/11/20 10:25 Dexamethasone 4 Mg Tablet PO 6 mg DAILY@1000 KEVIN Administration Doxycycline Monohydrate 100 mg 03/10/20 18:00 03/11/20 10:20 Doxycycline 100 Mg Tablet PO 100 mg BID@1000,1800 KEVIN Administration Enoxaparin Sodium 40 mg 03/10/20 18:00 03/10/20 18:03 Enoxaparin 40 Mg/0.4 Ml Syringe SUBCUT 40 mg Q24H KEVIN Administration Guaifenesin 600 mg 03/10/20 18:00 03/11/20 10:20 Guaifenesin 600 Mg Tablet PO 600 mg BID@1000,1800 KEVIN Administration Lactated Ringer's 1,000 mls @ 100 mls/hr 03/10/20 16:45 03/11/20 03:50 Lactated Ringers IV 100 mls/hr .Q10H KEVIN Administration Pantoprazole Sodium 40 mg 03/11/20 10:00 03/11/20 10:[address] 40 Mg Tablet PO 40 mg DAILY@1000 KEVIN Administration PFSH Acute PFSH: Medical History (Updated 03/11/20 @ 11:16 by Lorenzo Haley MD) Chronic pharyngitis Close exposure to 2019 novel coronavirus Fatigue Lower respiratory infection Shortness of Breath Tobacco abuse Vitamin D deficiency Surgical History Status post cervical disc replacement Status post tonsillectomy Family History Brother Cancer Father Cancer Social History Smoking and tobacco status: current every day smoker Alcohol intake: never Vitals/I&O/Wt Last Vital Signs Temp 98.1 F 03/11/20 15:28 Pulse 65 03/11/20 15:28 Resp 18 12/10/20 15:28 BP 134/76 03/11/20 15:28 Pulse Ox 94 03/11/20 15:28 03/11/20 03/11/20 03/11/20 06:59 14:59 22:59 Intake Total 978.333 / 1218.333 Balance 978.333 / 818.333 Weight last 48 hrs Weight 108.862 kg Physical Exam Const: COMMON NORMALS: no acute distress, patient oriented x3 and well nourished GENERAL APPEARANCE: cooperative HENMT: COMMON NORMALS: normocephalic HEAD & SCALP: normocephalic Eye: COMMON NORMALS: EOMs intact bilaterally, conjunctivae normal and no scleral icterus CONJUNCTIVA: Yes conjunctivae normal Neck/C-Spine: COMMON NORMALS: full ROM, supple and Thyroid normal GENERAL: Yes trachea midline and Yes lymphadenopathy (Mild bilateral jugulodigastric adenopathy) THYROID: Thyroid normal CAROTIDS: Yes normal carotid upstroke Resp: COMMON NORMALS: normal respiratory effort, No use of accessory muscles and clear to auscultation bilaterally AUSCULTATION: clear to auscultation bilaterally Cardio: COMMON NORMALS: regular rate and regular rhythm RATE: regular rate RHYTHM: regular rhythm GI: COMMON NORMALS: Normal to inspection, nondistended, normoactive bowel sounds present Extremity: COMMON NORMALS: normal to inspection GENERAL: Yes normal exam except as noted Neuro: COMMON NORMALS: patient oriented x3 and CN's II-XII intact bilaterally Psych: COMMON NORMALS: mental status grossly normal, Normal thought process present, cooperative and normal affect ATTITUDE: Yes calm THOUGHT PROCESS: Normal thought process present Skin: COMMON NORMALS: no rashes or lesions noted GENERAL SKIN EXAM: no rashes or lesions noted Data Micro: Micro: Microbiology 03/11/20 06:12 Gram Stain - Final Sputum - Expector ated Sputum Other Data: Attestation for Other Data: I personally reviewed and interpreted the following: (Neck CT: partially obstructing supraglottic mass suspicious for supraglottic malignancy; bilateral J-D adenopathy) A&P Additional A&P Information Impression: 60 yo wm with a h/o tobacco abuse and a suspicious partially obstructing supraglottic mass with associated cervical adenopathy. 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 Plan: I recommend the following: - Transfer to the ICU for Cardiopulmonary monitoring and oxygen therapy - NPO after midnight - Awake tracheotomy with Direct/microdirect laryngoscopy and esophagoscopy with biopsy/biopsies under anesthesia tomorrow - I will make further recommendations after the laryngoscopy with biopsies Consult Attestations Medical Necessity Statement: I was consulted to evaluate the patient's airway Coding Level of Care Code Acute Named Account Executive for Lili Ahn
--- NOTE | 2020-03-11 18:20 | P.ANESASSM_ITS ---
Pre-Anesthetic Assessment Pre-Anesthetic Assessment: Height/Weight: Height 1.93 m Weight 108.862 kg Temp Pulse Resp BP Pulse Ox 98.1 F 65 18 134/76 94 03/11/20 15:28 03/11/20 15:28 03/11/20 15:28 03/11/20 15:28 03/11/20 15:28 Was Beta Corina taken within 24 hours: N/A Social: Social History: Tobacco and No alcohol Exam: Pre-Anes Outpt Exam: alert, oriented x 3 and regular rate & rhythm Additional Exam Findings (including area of procedure): Decreased BS, Rhonchi- heavy smoker Airway: Cervical ROM: Other (Some limitation to extenson--h/o ACDF) MP: 3 Additional comments: upper denture, lower partial--laryngeal mass with airway obstruction Pulmonary: Pulmonary: COPD CV/HEM: CV/HEM: None reported : : None reported Hepatic: Hepatic: None reported GI: GI: GERD Metabolic: Metabolic: None reported Musc/skel: Musc/skel: None reported Neuropsych: Neuropsych: None reported Anesthetic Plan: ASA status: 3 Anesthesia: Local Only Other: Scheduled for awake trach Risk of > 500 ml blood loss (7ml/kg in children): No Meds/Allergies Current Medications: Current Medications Generic Name Dose Route Start Last Admin Trade Name Larsq PRN Reason Stop Dose Admin Albuterol Sulfate 2 puff 03/10/20 16:35 03/10/20 19:27 Albuterol 8 Gm M di INHALATION 2 puff QID.RESPIRATORY P RN Administration Shortness Of Jaylin th Aspirin 81 mg 03/11/20 09:00 03/11/20 10:21 Aspirin 81 Mg Ec Tablet PO 81 mg DAILY KEVIN Administration Atorvastatin Calci um 20 mg 03/10/20 21:00 03/10/20 20:57 Atorvastatin 40 Mg Tablet PO 20 mg BEDTIME KEVIN Administration Dexamethasone 6 mg 03/11/20 10:00 03/11/20 10:25 Dexamethasone 4 Mg Tablet PO 6 mg DAILY@1000 KEVIN Administration Doxycycline Monohy drate 100 mg 03/10/20 18:00 03/11/20 10:20 Doxycycline 100 Mg Tablet PO 100 mg BID@1000,1800 KEVIN Administration Enoxaparin Sodium 40 mg 03/10/20 18:00 03/10/20 18:03 Enoxaparin 40 Mg /0.4 Ml Syringe SUBCUT 40 mg Q24H KEVIN Administration Guaifenesin 600 mg 03/10/20 18:00 03/11/20 10:20 Guaifenesin 600 Mg Tablet PO 600 mg BID@1000,1800 KEVIN Administration Lactated Ringer's 1,000 mls @ 100 m ls/hr 03/10/20 16:45 03/11/20 03:50 Lactated Ringers IV 100 mls/hr .Q10H KEVIN Administration Pantoprazole Sodiu m 40 mg 03/11/20 10:00 03/11/20 10:[address] 40 Mg Tablet PO 40 mg DAILY@1000 KEVIN Administration PFSH Anesthesia PFSH: Medical History (Updated 03/11/20 @ 11:16 by Lorenzo Haley MD) Chronic pharyngitis Close exposure to 2019 novel coronavirus Fatigue Lower respiratory infection Shortness of Breath Tobacco abuse Vitamin D deficiency Surgical History Status post cervical disc replacement Status post tonsillectomy Family History Brother Cancer Father Cancer Social History Smoking and tobacco status: current every day smoker Alcohol intake: never Data Anesthesia CBC & Chem 7: 03/11/20 04:54 03/11/20 04:54 Other Labs: Laboratory Results - last 48 hr 03/10/20 03/10/20 03/10/20 10:20 10:20 10:20 WBC Cancelled Corrected WBC Cancelled RBC Cancelled Hgb Cancelled Hct Cancelled MCV Cancelled MCH Cancelled MCHC Cancelled RDW Cancelled Plt Count Cancelled MPV Cancelled Gran % Cancelled Neut % (Auto) Cancelled Lymph % (Auto) Cancelled [place] % (Auto) Cancelled Eos % (Auto) Cancelled Baso % (Auto) Cancelled Neut # (Auto) Cancelled Lymph # (Auto) Cancelled [place] # (Auto) Cancelled Eos # (Auto) Cancelled Baso # (Auto) Cancelled Absolute Gran (auto) Cancelled Nucleated RBC % (auto) Cancelled Nucleated RBCs # Cancelled PT Cancelled INR Cancelled Specimen Type Sample Site ABG pH ABG pCO2 ABG pO2 ABG HCO3 ABG Base Excess Tarik Test Hematocrit O2 Delivery Device Nurse Executive ID Sodium 139 Potassium 4.3 Chloride 101 Carbon Dioxide 27 Anion Gap 15.3 BUN 18 Creatinine 0.7 GFR Calculation 114.6 Glucose 76 Estimat Average Glucose Hemoglobin A1c Calculated Osmolality 289 Calcium 9.8 Magnesium Total Bilirubin 0.2 AST 11 ALT 9 Alkaline Phosphatase 94 Ammonia Total Protein 6.8 Albumin 4.4 Globulin 2.4 Triglycerides Cholesterol LDL Cholesterol, Calc Total VLDL Cholesterol HDL Cholesterol Cholesterol/HDL Ratio Urine Color Urine Appearance Urine pH Ur Specific [place] Urine Protein Urine Glucose (UA) Urine Ketones Urine Blood Urine Nitrate Urine Bilirubin Urine Urobilinogen Ur Leukocyte Esterase Group A Strep Rapid 03/10/20 03/10/20 03/10/20 12:14 12:18 12:20 WBC 14.2 H Corrected WBC RBC 4.44 Hgb 13.7 Hct 41.7 L MCV 93.9 MCH 30.9 MCHC 32.9 RDW 12.7 Plt Count 177 MPV 10.5 H Gran % Neut % (Auto) 89.6 Lymph % (Auto) 7.9 [place] % (Auto) 1.9 Eos % (Auto) 0.0 Baso % (Auto) 0.1 Neut # (Auto) 12.76 H Lymph # (Auto) 1.1 [place] # (Auto) 0.3 Eos # (Auto) 0.0 Baso # (Auto) 0.0 Absolute Gran (auto) Nucleated RBC % (auto) 0 Nucleated RBCs # 0.0 PT 13.00 INR 0.95 Specimen Type Sample Site ABG pH ABG pCO2 ABG pO2 ABG HCO3 ABG Base Excess Tarik Test Hematocrit O2 Delivery Device Nurse Executive ID Sodium Potassium Chloride Carbon Dioxide Anion Gap BUN Creatinine GFR Calculation Glucose Estimat Average Glucose Hemoglobin A1c Calculated Osmolality Calcium Magnesium Total Bilirubin AST ALT Alkaline Phosphatase Ammonia Total Protein Albumin Globulin Triglycerides Cholesterol LDL Cholesterol, Calc Total VLDL Cholesterol HDL Cholesterol Cholesterol/HDL Ratio Urine Color Yellow Urine Appearance Clear Urine pH 5 Ur Specific [place] 1.025 Urine Protein Neg Urine Glucose (UA) Norm Urine Ketones Negative Urine Blood Neg Urine Nitrate Negative Urine Bilirubin Neg Urine Urobilinogen Norm Ur Leukocyte Esterase Negative Group A Strep Rapid 03/10/20 03/10/20 03/11/20 13:50 14:03 04:54 WBC 15.0 H Corrected WBC RBC 4.37 Hgb 13.5 Hct 41.7 L MCV 95.4 H MCH 30.9 MCHC 32.4 RDW 12.7 Plt Count 119 L MPV 9.6 Gran % Neut % (Auto) 73.7 Lymph % (Auto) 19.6 [place] % (Auto) 5.8 Eos % (Auto) 0.1 Baso % (Auto) 0.3 Neut # (Auto) 11.08 H Lymph # (Auto) 2.9 [place] # (Auto) 0.9 Eos # (Auto) 0.0 Baso # (Auto) 0.0 Absolute Gran (auto) Nucleated RBC % (auto) 0 Nucleated RBCs # 0.0 PT INR Specimen Type Arterial Sample Site Radial, right ABG pH 7.43 ABG pCO2 44.1 ABG pO2 73.8 L ABG HCO3 29.3 H ABG Base Excess 4.3 H Tarik Test Pos Hematocrit 45.1 O2 Delivery Device Room air Nurse Executive ID Gd Sodium Potassium Chloride Carbon Dioxide Anion Gap BUN Creatinine GFR Calculation Glucose Estimat Average Glucose Hemoglobin A1c Calculated Osmolality Calcium Magnesium Total Bilirubin AST ALT Alkaline Phosphatase Ammonia 30 Total Protein Albumin Globulin Triglycerides Cholesterol LDL Cholesterol, Calc Total VLDL Cholesterol HDL Cholesterol Cholesterol/HDL Ratio Urine Color Urine Appearance Urine pH Ur Specific [place] Urine Protein Urine Glucose (UA) Urine Ketones Urine Blood Urine Nitrate Urine Bilirubin Urine Urobilinogen Ur Leukocyte Esterase Group A Strep Rapid 03/11/20 03/11/20 03/11/20 04:54 04:54 04:54 WBC Corrected WBC RBC Hgb Hct MCV MCH MCHC RDW Plt Count MPV Gran % Neut % (Auto) Lymph % (Auto) [place] % (Auto) Eos % (Auto) Baso % (Auto) Neut # (Auto) Lymph # (Auto) [place] # (Auto) Eos # (Auto) Baso # (Auto) Absolute Gran (auto) Nucleated RBC % (auto) Nucleated RBCs # PT INR Specimen Type Sample Site ABG pH ABG pCO2 ABG pO2 ABG HCO3 ABG Base Excess Tarik Test Hematocrit O2 Delivery Device Nurse Executive ID Sodium 139 Potassium 4.0 Chloride 102 Carbon Dioxide 29 Anion Gap 12.0 BUN 18 Creatinine 0.7 GFR Calculation 114.6 Glucose 105 Estimat Average Glucose 108 Hemoglobin A1c 5.4 Calculated Osmolality 290 Calcium 9.5 Magnesium 2.0 Total Bilirubin 0.2 AST 12 ALT 8 Alkaline Phosphatase 84 Ammonia Total Protein 6.9 Albumin 4.0 Globulin 2.9 Triglycerides 97 Cholesterol 209 H LDL Cholesterol, Calc 149 H Total VLDL Cholesterol 19 HDL Cholesterol 41 L Cholesterol/HDL Ratio 5.10 H Urine Color Urine Appearance Urine pH Ur Specific [place] Urine Protein Urine Glucose (UA) Urine Ketones Urine Blood Urine Nitrate Urine Bilirubin Urine Urobilinogen Ur Leukocyte Esterase Group A Strep Rapid 03/11/20 05:43 WBC Corrected WBC RBC Hgb Hct MCV MCH MCHC RDW Plt Count MPV Gran % Neut % (Auto) Lymph % (Auto) [place] % (Auto) Eos % (Auto) Baso % (Auto) Neut # (Auto) Lymph # (Auto) [place] # (Auto) Eos # (Auto) Baso # (Auto) Absolute Gran (auto) Nucleated RBC % (auto) Nucleated RBCs # PT INR Specimen Type Sample Site ABG pH ABG pCO2 ABG pO2 ABG HCO3 ABG Base Excess Tarik Test Hematocrit O2 Delivery Device Nurse Executive ID Sodium Potassium Chloride Carbon Dioxide Anion Gap BUN Creatinine GFR Calculation Glucose Estimat Average Glucose Hemoglobin A1c Calculated Osmolality Calcium Magnesium Total Bilirubin AST ALT Alkaline Phosphatase Ammonia Total Protein Albumin Globulin Triglycerides Cholesterol LDL Cholesterol, Calc Total VLDL Cholesterol HDL Cholesterol Cholesterol/HDL Ratio Urine Color Urine Appearance Urine pH Ur Specific [place] Urine Protein Urine Glucose (UA) Urine Ketones Urine Blood Urine Nitrate Urine Bilirubin Urine Urobilinogen Ur Leukocyte Esterase Group A Strep Rapid Negative Micro: Microbiology 03/11/20 06:12 Gram Stain - Final Sputum - Expectorated Sputum Cardiac Studies: No Data to Display
--- NOTE | 2020-03-11 18:33 | PC.NURSE ---
PT HAS CHANGED HIS MIND ON HIS VISITOR, HE WAS UNCLEAR ON THE POLICY. HE WOULD LIKE FOR HIS MORAIMA CRUZ TO BE HIS VISITOR.
[2020-03-11] MEDS: enoxaparin 40 mg/0.4 mL Syringe SUBCUT (19:20)
[2020-03-11] MEDS: atorvastatin 40 mg Tablet 20 MG PO (21:13)
[2020-03-11] MEDS: nicotine 21 mg Patch 1 PATCH TRANSDERMA (21:13)
[2020-03-11] MEDS: albuterol 8 gm MDI 2 PUFF INHALATION (22:14)
[2020-03-12] VITALS (27 sets, daily range): BP systolic 96–167; BP diastolic 79–116; PULSE 66–122; RESP 13–32; TEMP 36–36.7; O2SAT 92–96
--- NOTE | 2020-03-12 00:16 | PC.NURSE ---
arrived from med surg via wheel chair, ambulated self to bed, AO x4, no C/O of pain or SOB RA, answers questions appropriately, follows commands, supine 45 degrees call light within reach
[2020-03-12 04:22] LABS: Basophils % 0.2 %; Hemoglobin 13.4 g/dL (11.7-16.6); Lymphocytes # 2.3 10^3/uL (0.8-4.8); Lymphocytes % 17.6 %; Mean Corpuscular HGB Conc 32.7 g/dL (30.0-36.0); Mean Corpuscular Hemoglobin 30.5 pg (28.0-34.0); Mean Corpuscular Volume 93.4 fL (80-94); Monocytes # 0.9 10^3/uL (0.2-0.9); Monocytes % 6.5 %; Neutrophils # 9.95 10^3/uL (1.8-7.7); Neutrophils % 75.5 %; Nucleated Red Blood Cells % 0 %; Platelet Count 354 10^3/cmm (130-400); Red Blood Count 4.39 10^6/uL (4.1-5.3); Red Cell Distribution Width 12.3 % (12.1-15.1); White Blood Count 13.2 10^3/uL (4.0-10.0)
[2020-03-12 04:42] LABS: Alanine Aminotransferase 8 U/L (0-41); Alkaline Phosphatase 85 IU/L (40-130); Aspartate Amino Transferase 11 U/L (0-40); Blood Urea Nitrogen 19 mg/dL (8-23); Calcium 9.6 mg/dL (8.5-10.5); Carbon Dioxide 28 mmol/L (22-29); Chloride 99 mmol/L (98-107); Creatinine Clr Calc Pharmacy 149.8881; Globulin 2.6 g/dL (1.3-4.6); Glomerular Filtration Rate 114.6 mL/min (90-130); Glucose 102 mg/dL (65-115); Magnesium 2.1 mg/dL (1.7-2.3); Osmolality Calculated 286 mOsm/kg (285-295); Sodium 137 mmol/L (136-145); Total Bilirubin 0.3 mg/dL (0.15-1.2); Total Protein 6.6 g/dL (6.6-8.7)
--- NOTE | 2020-03-12 05:11 | PC.NURSE ---
Refusing to wear VS leads, pacing around unit, requesting a cigarette, denied wanting an increase in nicotine patch or gum, request for anti anxiety medication sent to Hospitalist
[2020-03-12] MEDS: LORazepam 2 mg/mL INJ 1 mL 1 MG IVP (05:29)
--- NOTE | 2020-03-12 05:39 | PC.NURSE ---
Dr. Love ordered PRN Lorazepam for anxiety, administered per order, patient currently sitting up to chair in room
--- NOTE | 2020-03-12 06:04 | PC.NURSE ---
patient rook of VS leads, had Assistant Director Of Nursing in hand, refuses to give to this nurse, refuses to wear gown and leave IV NS hooked up
--- NOTE | 2020-03-12 06:19 | PC.NURSE ---
Dr. Robledo notified of patient's status and refusing care, this nurse advised to call the hospitalist
--- NOTE | 2020-03-12 06:26 | PC.NURSE ---
Dr. Herbert notified of patient refusing IV fluids, VS, increasing anxiety, PRN ativan not decreasing anxiety, this nurse was advised to give patient anything to make him happy except giving food
--- NOTE | 2020-03-12 06:41 | PC.NURSE ---
This nurse contacted anaesthesia and was informed that patient could eat this AM if it is a light meal
--- NOTE | 2020-03-12 06:44 | PC.NURSE ---
Nursing Shift Report given to Malika SORIANO, Security notified of patient condition
--- NOTE | 2020-03-12 06:48 | PC.NURSE ---
Cigarettes and rn pediatric icu placed chart folder, patient attempted to self ambulate off unit, redirected to room
--- NOTE | 2020-03-12 07:50 | PC.PT ---
late entry for 03/11 ; PT note;PT screen completed. Pt demonstrated good safety awareness and abilities without deficits, ambulated to bathroom without device, completed toilet transfer independently, washed hands independently, and returned to bedside chair. No further PT recommended
--- NOTE | 2020-03-12 07:55 | PC.NURSE ---
recd. very restless. up walking. indicated he wanted some fresh air. ambulated around hospital with pt. w.c. obtained and pt. taken outside for about 1 min. then back to room. is back and forth from bed to up ambulating.
--- NOTE | 2020-03-12 08:44 | PC.NURSE ---
recd. dressed in full clothing.
[2020-03-12] MEDS: nicotine 21 mg Patch 1 PATCH TRANSDERMA (09:35)
--- NOTE | 2020-03-12 09:35 | PC.NURSE ---
unable to scan. oral meds not given d/t npo
--- NOTE | 2020-03-12 09:47 | PC.NURSE ---
v not hooked up d/t pt. ambulating, truing to leave.
--- NOTE | 2020-03-12 10:29 | PM.PN ---
Subjective Subjective: Interval history: Patient denies any change in his symptoms. Patient has been hallucinating and seeing things that are not there. He received Ativan earlier today and during my evaluation he is somnolent. He denies any chest pain or abdominal pain. He is ambulating without difficulty as per nursing staff. He wanted to go home. I had extensive discussion with patient this morning regarding importance of appropriate evaluation of his laryngeal mass and very high risk for airway compromise requiring tracheostomy placement today. This mass is likely a neoplasm and I will go ahead and request MRI to evaluate for metastasis. Patient will also need chest abdomen pelvis CT imaging. Vitals/I&O/Wt Last Vital Signs Temp 98.0 F 03/12/20 00:20 Pulse 82 03/12/20 09:30 Resp 18 03/12/20 09:30 BP 160/102 03/12/20 07:09 Pulse Ox 94 03/12/20 09:30 03/11/20 03/12/20 03/12/20 22:59 06:59 14:59 Intake Total 1000 / 1000 Output Total 400 / 400 Balance -400 / 1020 1000 / 1000 Weight last 48 hrs Weight 108.862 kg Physical Exam Narrative: EXAM NARRATIVE: Patient is alert and oriented x3. Lungs are clear and heart is regular. Patient continues to have very coarse and raspy voice. No lower extremity edema. Data : 03/12/20 03:50 03/12/20 03:50 Micro: Microbiology 03/11/20 05:43 Group A Streptococcus Rapid Screen - Preliminary Throat 03/11/20 06:12 Gram Stain - Final Sputum - Expectorated Sputum A&P Assessment and plan (1) Pharyngitis: Status: Acute (2) Acute viral syndrome: Status: Acute (3) Tobacco abuse: Status: Acute (4) Dehydration, mild: Status: Acute (5) COPD (chronic obstructive pulmonary disease): Not in exacerbation. Status: Acute (6) Laryngeal mass: Present on admission. Status: Acute Additional A&P Information PLAN: Patient scheduled for tracheostomy later today. Patient reports having claustrophobia and is not sure if he will be able to tolerate the MRI procedure but agreed to try. We will give patient hydroxyzine 50 mg prior to procedure and have 0.5 mg Ativan ready if needed. Patient will also need to have CT scan of abdomen/pelvis if diagnosed with malignancy and this can be done on outpatient basis. Discussed case with patient's at bedside and updated. Attestations Medical Necessity Statement*: Patient with laryngeal mass and airway obstruction requires close ICU monitoring and treatment due to risk of deterioration. Coding Level of Care Code Acute Welding Inspector for Chg Fwd Diagnoses Pharyngitis J02.9 Acute viral syndrome B34.9 Tobacco abuse Z72.0 Dehydration, mild E86.0 COPD (chronic obstructive pulmonary disease) J44.9 Laryngeal mass J38.7
--- NOTE | 2020-03-12 10:34 | PC.NURSE ---
here. says pt. doesnt drink and his attitude is very abnormal.
--- NOTE | 2020-03-12 11:22 | PC.NURSE ---
more content since here. she states his behavior is not normal for him at all.
--- NOTE | 2020-03-12 13:30 | PC.RESP ---
Smoking Cessation and Pulmonary Rehab treatment information sent to patient.
[2020-03-12] MEDS: hyDROXYzine 25 mg Capsule 50 MG PO (14:07)
--- NOTE | 2020-03-12 14:08 | PC.NURSE ---
hydroxyzine given at 1145 prior to going to MRI. 2 mg ativan given over in mri. still unable to get pt. to lay still long enough to get mri.
--- NOTE | 2020-03-12 14:24 | PC.NURSE ---
remains very restless in bed. stridor at times.
[2020-03-12] MEDS: LORazepam 2 mg/mL INJ 1 mL 1 MG IV (14:39)
--- NOTE | 2020-03-12 15:18 | PC.NURSE ---
becoming more restless. wants to go smoke. at bedside. attempting to keep pt. quiet.
[2020-03-12] MEDS: haloperidol inj 5 mg/mL INJ 1 mL IM (15:50)
[2020-03-12] MEDS: haloperidol inj 5 mg/mL INJ 1 mL (16:10)
--- NOTE | 2020-03-12 16:16 | PC.NURSE ---
pt. anxious trying to go in pt. rm. next door. ambulated to waiting room with and nurse, became agitated when staff tried to assist him back to bed. code ten called. security came, pt pulled iv out after 2 mg. ativan given. restarted 18 ga. to right forearm. dr. marc here and haldol given im.
--- NOTE | 2020-03-12 17:14 | P.PN_ITS ---
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 The patient was scheduled for awake tracheotomy with direct/microdirect laryngoscopy with biopsy tonight, but has had progressive, worsening mental status changes throughout the day requiring 4 point restraints. The patient is partially sedated and combative at present. Vitals/I&O/Wt Last Vital Signs Temp 98.0 F 03/12/20 00:20 Pulse 82 03/12/20 09:30 Resp 18 03/12/20 09:30 BP 151/107 03/12/20 14:00 Pulse Ox 94 03/12/20 13:56 03/12/20 03/12/20 03/12/20 06:59 14:59 22:59 Intake Total 1000 / 1000 Balance 1000 / 1000 Physical Exam Const: GENERAL APPEARANCE: other (The patient is sedated and combative.) ORIENTATION/CONSCIOUSNESS: Yes confused and Yes patient obtunded HENMT: HEAD & SCALP: other (The patient's head and neck exam is unchanged.) Data : 03/12/20 03:50 03/12/20 03:50 Micro: Microbiology 03/11/20 06:12 Gram Stain - Final Sputum - Expectorated Sputum Sputum Culture - Preliminary Gram Negative Rods Gram Negative Rods#2 03/11/20 05:43 Group A Streptococcus Rapid Screen - Preliminary Throat A&P Additional A&P Information Impression: 1) 60 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 Haley. I do not feel that the patient would be safe post operatively given his current level of distress as he would most likely self d/c the trachetomy tube. I recommend that we defer surgery until the patient's mental status can be stabilized. 2) Dr. Haley to work to stablize the patient's mental status. He will contact me once this is stabilized. I emphasized that time is of the essence. Attestations Medical Necessity Statement*: I was consulted to manage the patient's airway. Coding Level of Care Code Acute General Car Supervisor Yard for Lili Ahn
[2020-03-12] MEDS: haloperidol inj 5 mg/mL INJ 1 mL IVP (17:53)
[2020-03-12] MEDS: enoxaparin 40 mg/0.4 mL Syringe SUBCUT (18:05)
--- NOTE | 2020-03-12 18:08 | PC.NURSE ---
erum sal work for [employer]
[2020-03-12] MEDS: ziprasidone 20 mg/mL SDV 10 MG IM (18:50)
--- NOTE | 2020-03-12 18:52 | PC.NURSE ---
antwan started. scanner isnt working, nor all day. remais restless, pulling at restraints. upper denture and lower partial.
[2020-03-12] MEDS: efferdent effervescent 1 EACH DENTAL (19:06)
--- NOTE | 2020-03-12 20:35 | PC.NURSE ---
Patient more audible so far thus shift. Nurse has reorientated patient several times, when informing patient he was in the hospital and was sick, patient stated again? 1:1 staff still present and patient is in 4 point restraints. Patient continues to try to remove all lines and and consistently becomes aggressive and behavioral, and pulls on restraints and shakes rails to attempt to exit bed.
[2020-03-12] MEDS: diphenhydrAMINE 50 mg/mL SDV 1mL 25 MG IVP (22:39)
[2020-03-12] MEDS: dexmedetomidine 400 MCG in sodium chloride 0.9% (100 ml) 100 ML IV (23:45)
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
[2020-03-12 23:50] LABS: Glucose Point of Care 115 mg/dL (70-110)
[2020-03-13] VITALS (36 sets, daily range): BP systolic 101–182; BP diastolic 62–122; PULSE 74–113; RESP 16–31; TEMP 36.4–36.8; O2SAT 90–100
--- NOTE | 2020-03-13 03:07 | PC.NURSE ---
Patient still agitated. Any attempt to reposition or move patient for comfort measures patient becomes combative and pulls constantly at restraints. Patient still have 1:1 sitter. Precedex is currently running per protocol. Continue care.
--- NOTE | 2020-03-13 04:57 | PC.NURSE ---
Dr. Navarro at bedside at 0430 for face to face, gave verbal orders to administer zyprexa 10mg IM one time order for patients continued agitation and behaviors of pulling lines, and leads, even with 1:1 sitter at bedside. Precedex still running per protocol. Continue care.
[2020-03-13] MEDS: OLANZapine 10 mg VIAL IM (05:02)
[2020-03-13 05:18] LABS: Glucose Point of Care 99 mg/dL (70-110)
[2020-03-13 05:19] LABS: Alanine Aminotransferase 13 U/L (0-41); Alkaline Phosphatase 103 IU/L (40-130); Anion Gap 15.7 (5-19); Aspartate Amino Transferase 22 U/L (0-40); Blood Urea Nitrogen 15 mg/dL (8-23); Calcium 9.4 mg/dL (8.5-10.5); Carbon Dioxide 29 mmol/L (22-29); Chloride 97 mmol/L (98-107); Globulin 3.4 g/dL (1.3-4.6); Glucose 112 mg/dL (65-115); Magnesium 2.1 mg/dL (1.7-2.3); Osmolality Calculated 288 mOsm/kg (285-295); Potassium 3.7 mmol/L (3.5-5.1); Sodium 138 mmol/L (136-145); Total Bilirubin 0.6 mg/dL (0.15-1.2); Total Protein 7.4 g/dL (6.6-8.7)
[2020-03-13] MEDS: dexmedetomidine 400 MCG in sodium chloride 0.9% (100 ml) 100 ML 19.8 MCG IV (05:24)
--- NOTE | 2020-03-13 06:03 | PC.NURSE ---
Patient continues to struggle against restraints and staff when performing cares and becomes aggressive. Patient was given Zyprexa per orders, so held Geodon order at 0600 to decrease chances of over sedation. Patient continues on precedex gtt per protocol. Patient still has 1:1 sitter and restraints in place. Continue care.
--- NOTE | 2020-03-13 06:33 | PC.NURSE ---
Patient now resting soundly after zyprexa administration. Patient now in non violent wrist restraints per orders and DC'd violent restraint protocol at 0625. Continue care.
[2020-03-13 07:36] LABS: Basophils % 0.1 %; Hematocrit 43.9 % (42.0-52.0); Hemoglobin 14.4 g/dL (11.7-16.6); Lymphocytes # 1.3 10^3/uL (0.8-4.8); Lymphocytes % 8.5 %; Mean Corpuscular HGB Conc 32.8 g/dL (30.0-36.0); Mean Corpuscular Hemoglobin 30.6 pg (28.0-34.0); Mean Corpuscular Volume 93.2 fL (80-94); Mean Platelet Volume 10.6 fL (7.4-10.4); Monocytes # 0.9 10^3/uL (0.2-0.9); Monocytes % 5.6 %; Neutrophils # 13.15 10^3/uL (1.8-7.7); Neutrophils % 85.5 %; Nucleated Red Blood Cells % 0 %; Platelet Count 210 10^3/cmm (130-400); Red Blood Count 4.71 10^6/uL (4.1-5.3); Red Cell Distribution Width 12.1 % (12.1-15.1); White Blood Count 15.4 10^3/uL (4.0-10.0)
--- NOTE | 2020-03-13 08:22 | PC.NURSE ---
titrated precedex down 0.1mg. pt. more active, resp. became more tachynepic.
[2020-03-13] MEDS: LORazepam 2 mg/mL INJ 1 mL IVP (10:02)
[2020-03-13] MEDS: efferdent effervescent 1 EACH DENTAL (10:27)
[2020-03-13] MEDS: lactated ringers 1,000 ML 100 ML IV (10:28)
--- NOTE | 2020-03-13 10:44 | PM.PN ---
Subjective Subjective: Interval history: Patient was quite agitated and restless throughout the night and was started on Precedex drip. This morning patient is tachycardic, hypotensive and diaphoretic. Patient behaves like he is withdrawing from alcohol although patient and his yesterday denied drinking alcohol. Continues to have four-point restraints. He pulled his IV line yesterday. He still remains at risk for harming self and nursing staff. Vitals/I&O/Wt Last Vital Signs Temp 97.7 F 03/13/20 08:34 Pulse 94 03/13/20 09:00 Resp 22 H 03/13/20 09:00 BP 167/101 03/13/20 09:00 Pulse Ox 91 03/13/20 09:00 03/12/20 03/13/20 03/13/20 22:59 06:59 14:59 Intake Total 30 / 1030 91.09 / 1121.09 35.184 / 35.184 Output Total 1500 / 1500 180 / 180 Balance 30 / 1030 -1408.91 / -378.91 -144.816 / -144.816 Physical Exam Resp: COMMON NORMALS: normal respiratory effort and clear to auscultation bilaterally AUSCULTATION: clear to auscultation bilaterally Cardio: COMMON NORMALS: regular rate, regular rhythm and S2 normal heart sound present RATE: regular rate RHYTHM: regular rhythm HEART SOUNDS: S2 normal heart sound present OTHER: No lower extremity edema GI: COMMON NORMALS: Normal to inspection, nondistended, normoactive bowel sounds present, Soft to palpation and non-tender PALPATION: Yes Soft to palpation Neuro: COMMON NORMALS: no focal motor deficits OTHER: Sedated and restless. Not responding or following commands. Urinary Catheter Management^: Ramirez: Cath Placed During This Visit: yes Reason for Continuing Indwelling Catheter: Accurate Measurement of Urinary Output in Critically Ill Patients Urinary Catheter Date of Insertion: 03/12/20 Urinary Catheter Time of Insertion: 22:47 Data : 03/13/20 07:10 03/13/20 03:57 Micro: Microbiology 03/11/20 05:43 Group A Streptococcus Rapid Screen - Final Throat 03/11/20 06:12 Gram Stain - Final Sputum - Expectorated Sputum Sputum Culture - Preliminary Klebsiella pneumoniae Gram Negative Rods#2 A&P Assessment and plan (1) Pharyngitis: Status: Acute (2) Acute viral syndrome: Status: Acute (3) Tobacco abuse: Status: Acute (4) Dehydration, mild: Status: Acute (5) COPD (chronic obstructive pulmonary disease): Not in exacerbation. Status: Acute (6) Laryngeal mass: Present on admission. Status: Acute Additional A&P Information PLAN: Tracheostomy will need to be postponed. Awaiting psychiatric evaluation later today. Continue patient on LR at 100 mill per hour. We will try to milligrams Ativan with close monitoring of his respiratory status. He is definitely at risk and will need to be closely monitored. Attestations Medical Necessity Statement*: Patient with acute psychosis requires close ICU monitoring and treatment due to airway obstruction and risk for deterioration. Time Spent in Patient Care: 16 - 35 minutes Coding Level of Care Code Acute Surveillance Camera Technician for [facility] Fwd Diagnoses Pharyngitis J02.9 Acute viral syndrome B34.9 Tobacco abuse Z72.0 Dehydration, mild E86.0 COPD (chronic obstructive pulmonary disease) J44.9 Laryngeal mass J38.7
[2020-03-13] MEDS: nicotine 21 mg Patch 1 PATCH TRANSDERMA (10:47)
--- NOTE | 2020-03-13 10:50 | PC.NURSE ---
approx. 1 hr after precedex turned to 0.5 mcg/kg/hr pt. became increasingly restless to a point of kicking and setting straight up in bed. o2 sat dropped to 84% flow increased to 6l, cannula remains in his mouth d/t mouth breather. haldol drawn up and in meantime dr. tracey here and orders to give onetime dose of ativan instead of haldol. as per wifes instructions informed of pt having adverse reaction to sedatives when he was 17 yrs old. diaphoretic and becoming more calm.
--- NOTE | 2020-03-13 11:21 | PC.NURSE ---
aware of b/p and diaphoresis
[2020-03-13] MEDS: dexmedetomidine 400 MCG in sodium chloride 0.9% (100 ml) 100 ML 11.3 MCG IV (12:06)
--- NOTE | 2020-03-13 12:25 | P.TS_ITS ---
Transfer Summary Providers Date of Admission: 03/11/20 11:36 Date of Discharge: 03/13/20 Attending Provider at Admission: Lorenzo Haley MD Attending Provider at Transfer: Lorenzo Haley MD Primary Care Provider: ESTHER Peña Anticipated Date of Transfer: Anticipated date of transfer: 03/13/20 Receiving Facility & Provider: Receiving Provider: [] Receiving facility: [] Diagnoses at Discharge Discharge Diagnosis (1) Pharyngitis: Status: Acute (2) Acute viral syndrome: Status: Acute (3) Tobacco abuse: Status: Acute (4) Dehydration, mild: Status: Acute (5) COPD (chronic obstructive pulmonary disease): Status: Acute (6) Laryngeal mass: Status: Acute (7) Acute psychosis: Status: Acute (8) Cardiomyopathy: Status: Acute Permanent problem details: Systolic, present on admission. Chronicity unknown. Currently compensated. Reason for Visit Reason for Visit: STROKE LIKE SYMPTOMS Hospital Course Hospital Course Patient presented with 1 month off and on visual hallucinations as per family and hoarse voice. He had several COVID-19 test performed in the last several weeks which were all negative. 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 He was seen by Dr. Robledo, ENT and tracheostomy was recommended but unfortunately can only be done while locally sedated as patient cannot be intubated. Unfortunately right before procedure patient became acutely psychotic requiring involvement of security and four-point restraints. He has been treated with Haldol and started on 10 mg Geodon twice daily. Overnight Precedex drip was started. Patient still somewhat restless and requires to be restrained for now. Dr. Robledo wants to postpone tracheostomy placement until patient's mental status improves as he can pull tracheostomy tube out. He was tachycardic and hypertensive as well as diaphoretic this morning and last night as per RN. Withdrawal was suspected and patient improved after he was given 2 mg Ativan. Patient absolutely denied drinking alcohol and this was also confirmed by patient's . We were unable to obtain MRI yesterday as patient could not keep himself still. His head CT on presentation showed remote lacunar infarct of right external capsule but otherwise no acute findings. I have requested repeat troponin and gave 1 dose of Levaquin. Family requested transfer to [facility] and I have discussed with family services coordinator who graciously accepted patient for transfer pending bed availability. Physical Exam Narrative: EXAM NARRATIVE: Patient is currently calm after he received Ativan. He was agitated despite being on Precedex drip prior to that. He is saturating in the mid 90s on 4 L by nasal cannula. His lungs otherwise clear. Heart is regular. No lower extremity edema. Abdomen is soft and nontender with positive bowel sounds. Urinary Catheter Management^: Ramirez: Cath Placed During This Visit: yes Reason for Continuing Indwelling Catheter: Accurate Measurement of Urinary Output in Critically Ill Patients Urinary Catheter Date of Insertion: 03/12/20 Urinary Catheter Time of Insertion: 22:47 TS Data Data Completed and Pending: Completed Studies During Hospitalization Category Date Time Status CT head wo con* 7 0450 Urgent Cat Scan 03/10/20 11:[address] neck w con* 70 491 Routine Cat Scan 03/11/20 08:40 Completed XR chest 1V katelyn ble [id number] Urgent Exams 03/10/20 11:38 Completed CV carotid duplex BI* [id number] Routine Ultrasound 03/11/20 16:38 Completed CV echo complete* [id number] Routine Ultrasound 03/11/20 16:38 Completed Pending at discharge Category Date Time Status ES surgery / GI i mages Routine Exams 03/12/20 14:03 Ordered Enteric Bacterial Panel by PCR Antonio ine Lab 03/11/20 05:50 Received Sputum Culture an d Gram Stain Desiree ne Lab 03/11/20 06:12 Results Troponin(5th) 2 H our. Timed Lab 03/13/20 13:35 Ordered Troponin(5th) 6 h our. Timed Lab 03/13/20 17:35 Ordered Troponin(5th) Tigre frank Stat Lab 03/13/20 11:35 Ordered Labs from last 24 hours 03/13/20 03/13/20 03/13/20 07:10 03:57 03:57 WBC 15.4 H Cancelled Corrected WBC Cancelled RBC 4.71 Cancelled Hgb 14.4 Cancelled Hct 43.9 Cancelled MCV 93.2 Cancelled MCH 30.6 Cancelled MCHC 32.8 Cancelled RDW 12.1 Cancelled Plt Count 210 Cancelled MPV 10.6 H Cancelled Gran % Cancelled Neut % (Auto) 85.5 Cancelled Lymph % (Auto) 8.5 Cancelled Trego % (Auto) 5.6 Cancelled Eos % (Auto) 0.0 Cancelled Baso % (Auto) 0.1 Cancelled Neut # (Auto) 13.15 H Cancelled Lymph # (Auto) 1.3 Cancelled Trego # (Auto) 0.9 Cancelled Eos # (Auto) 0.0 Cancelled Baso # (Auto) 0.0 Cancelled Absolute Gran (aut o) Cancelled Nucleated RBC % (a uto) 0 Cancelled Nucleated RBCs # 0.0 Cancelled Sodium 138 Potassium 3.7 Chloride 97 L Carbon Dioxide 29 Anion Gap 15.7 BUN 15 Creatinine 0.6 L GFR Calculation 137.0 H Glucose 112 POC Glucose Calculated Osmolal ity 288 Calcium 9.4 Magnesium 2.1 Total Bilirubin 0.6 AST 22 ALT 13 Alkaline Phosphata se 103 Total Protein 7.4 Albumin 4.0 Globulin 3.4 03/13/20 03/12/20 03:31 23:40 WBC Corrected WBC RBC Hgb Hct MCV MCH MCHC RDW Plt Count MPV Gran % Neut % (Auto) Lymph % (Auto) Trego % (Auto) Eos % (Auto) Baso % (Auto) Neut # (Auto) Lymph # (Auto) Trego # (Auto) Eos # (Auto) Baso # (Auto) Absolute Gran (aut o) Nucleated RBC % (a uto) Nucleated RBCs # Sodium Potassium Chloride Carbon Dioxide Anion Gap BUN Creatinine GFR Calculation Glucose POC Glucose 99 115 Calculated Osmolal ity Calcium Magnesium Total Bilirubin AST ALT Alkaline Phosphata se Total Protein Albumin Globulin Vitals: Last Vital Signs Temp 97.7 F 03/13/20 08:34 Pulse 97 03/13/20 11:00 Resp 23 H 03/13/20 11:00 BP 182/122 03/13/20 11:00 Pulse Ox 92 03/13/20 11:00 TS Medications Medications Home Medications guaifenesin 600 mg tablet, extended release 12 hr 600 mg PO BID@1000,1800 01/30/20 [History Confirmed 03/10/20] omeprazole 20 mg capsule,delayed release 20 mg PO DAILY@1000 01/30/20 [History Confirmed 03/10/20] Vitamin D3 6 cap PO BID 03/08/20 [History Confirmed 03/10/20] ibuprofen 400 - 600 mg PO PRN 03/08/20 [History Confirmed 03/10/20] albuterol sulfate 2 puff INHALATION QID PRN 03/10/20 [History Confirmed 03/10/20] dexamethasone 6 mg PO DAILY@1000 03/10/20 [History Confirmed 03/10/20] doxycycline hyclate 100 mg PO BID@1000,1800 03/10/20 [History Confirmed 03/10/20] Active Medications Acetaminophen (Acetaminophen 325 Mg Tablet) 650 mg PO Q6H PRN PRN Reason: Mild/Mod Pain Or Temp >/= 101 Albuterol Sulfate (Albuterol 8 Gm Mdi) 2 puff INHALATION QID.RESPIRATORY PRN PRN Reason: Shortness Of Breath Last Admin: 03/11/20 22:14 Dose: 2 puff Documented by: Aspirin (Aspirin 81 Mg Ec Tablet) 81 mg PO DAILY [facility] Last Admin: 03/13/20 10:38 Dose: Not Given Documented by: Atorvastatin Calcium (Atorvastatin 40 Mg Tablet) 20 mg PO BEDTIME [facility] Last Admin: 03/12/20 20:22 Dose: Not Given Documented by: Bisacodyl (Bisacodyl 5 Mg Tablet) 10 mg PO DAILY PRN PRN Reason: CONSTIPATION Dexamethasone (Dexamethasone 4 Mg Tablet) 6 mg PO DAILY@1000 [facility] Last Admin: 03/13/20 10:38 Dose: Not Given Documented by: Doxycycline Monohydrate (Doxycycline 100 Mg Tablet) 100 mg PO BID@1000,1800 [facility] Last Admin: 03/13/20 10:38 Dose: Not Given Documented by: Enoxaparin Sodium (Enoxaparin 40 Mg/0.4 Ml Syringe) 40 mg SUBCUT Q24H [facility] Last Admin: 03/12/20 18:05 Dose: 40 mg Documented by: Guaifenesin (Guaifenesin 600 Mg Tablet) 600 mg PO BID@1000,1800 [facility] Last Admin: 03/13/20 10:39 Dose: Not Given Documented by: Haloperidol Lactate (Haloperidol Inj 5 Mg/Ml Inj 1 Ml) 5 mg IVP Q4H PRN PRN Reason: AGITATION Last Admin: 03/12/20 17:53 Dose: 5 mg Documented by: Sodium Chloride (Sodium Chloride 0.9%) 1,000 mls @ 30 mls/hr IV .Q24H ONE Stop: 03/13/20 16:32 Last Admin: 03/13/20 08:20 Dose: Not Given Documented by: Dexmedetomidine HCl 400 mcg/ (Sodium Chloride) 104 mls @ 0 mls/hr IV .Q0M [facility]; Protocol Last Titration: 03/13/20 12:14 Dose: 0.2 mcg/kg/hr, 5.7 mls/hr Documented by: Levofloxacin/Dextrose (Levaquin-D5w) 750 mg in 150 mls @ 100 mls/hr IV Q24H [facility]; Protocol Lorazepam (Lorazepam 2 Mg/Ml Inj 1 Ml) 1 mg IVP Q8H PRN PRN Reason: ANXIETY Last Admin: 03/12/20 05:29 Dose: 1 mg Documented by: Nicotine (Nicotine 21 Mg Patch) 1 patch TRANSDERMA DAILY [facility] Last Admin: 03/13/20 10:47 Dose: 1 patch Documented by: Ondansetron HCl (Ondansetron 2 Mg/Ml Sdv 2 Ml) 4 mg IVP Q8H PRN PRN Reason: vomiting, or N/V if npo Pantoprazole Sodium (Pantoprazole Dr 40 Mg Tablet) 40 mg PO DAILY@1000 [facility] Last Admin: 03/13/20 10:39 Dose: Not Given Documented by: Ziprasidone (Ziprasidone 20 Mg/Ml Sdv) 10 mg IM Q12H [facility] Last Admin: 03/13/20 05:42 Dose: Not Given Documented by: Discharge Plan Discharge Patient Disposition: Home Condition: Stable Prescriptions: No Action guaifenesin [Mucinex] 600 mg tablet extended release 12hr 600 mg PO BID@1000,1800 RF: 0 omeprazole 20 mg capsule,delayed release(DR/EC) 20 mg PO DAILY@1000 RF: 0 albuterol sulfate 90 mcg/actuation Hfa Aerosol Inhaler 2 puff INHALATION QID PRN (Reason: Shortness Of Breath) RF: 0 doxycycline hyclate 100 mg capsule 100 mg PO BID@1000,1800 RF: 0 dexamethasone 6 mg tablet 6 mg PO DAILY@1000 RF: 0 ibuprofen 200 mg Tablet 400 - 600 mg PO PRN RF: 0 Vitamin D3 6 cap PO BID RF: 0 Referrals: MIAN Jonas, DRINKING WATER TECHNICIAN [Primary Care Provider] - Activity Restrictions/Additional Instructions: You will be given further instructions upon discharge from [facility]. Transfer Attestations Time Spent in Transfer Care*: greater than 30 min Quality Metrics Clinical Quality Measures: During this hospital stay, did patient experience: None Coding Level of Care Code Acute Food Safety Auditor for [facility] Fwd Diagnoses Pharyngitis J02.9 Acute viral syndrome B34.9 Tobacco abuse Z72.0 Dehydration, mild E86.0 COPD (chronic obstructive pulmonary disease) J44.9 Laryngeal mass J38.7 Acute psychosis F23 Cardiomyopathy I42.9
[2020-03-13] MEDS: levofloxacin-dextrose 5 % 750 MG/150 ML PREMIX 100 MG IV (12:30)
--- NOTE | 2020-03-13 13:22 | PC.NURSE ---
rapid covid to lab.
[2020-03-13 13:23] LABS: Troponin(5th) Baseline 16 ng/L (0-15)
--- NOTE | 2020-03-13 13:35 | ECG_ITS ---
[facility] Test Date: 2020-03-13 Pat Name: Hitesh Dai Department: Room: ICU07 Gender: Male Cooker Chip: : 1960 Requested By: Lorenzo Haley Order Number: [id number] Reading MD: ALLYSON HUBER Measurements Intervals [place] Rate: 82 P: 63 GA: 183 QRS: 15 QRSD: 102 T: 80 QT: 388 QTc: 455 Interpretive Statements SINUS RHYTHM WITH SINUS ARRHYTHMIA INFERIOR MYOCARDIAL INFARCTION [40+ ms Q WAVE AND/OR ST/T ABNORMALITY IN II/aVF], OF INDETERMINATE AGE Compared to ECG 03/13/2020 11:50:59 No significant changes Electronically Signed On 03-13-2020 18:55:30 ACCOUNT RELATIONSHIP MANAGER by ALLYSON HUBER [id number]
[2020-03-13 15:16] LABS: Troponin 5 2HR 23.61 ng/L (0-15); Troponin 5 2HR Delta 7.61 ABS# (0-10)
--- NOTE | 2020-03-13 15:16 | PC.NURSE ---
resting much quieter only0.2 of precedex. resp remain hard.
[2020-03-13 15:34] LABS: SARS Covid-2 Antigen Negative (Negative)
--- NOTE | 2020-03-13 17:35 | ECG_ITS ---
[facility] Test Date: 2020-03-13 Pat Name: Hitesh Dai Department: Room: ICU07 Gender: Male Metal Can Inspector: : 1960 Requested By: Lorenzo Haley Order Number: [id number] Reading MD: ALLYSON HUBER Measurements Intervals [place] Rate: 93 P: 56 WV: 179 QRS: 13 QRSD: 112 T: 55 QT: 357 QTc: 446 Interpretive Statements SINUS RHYTHM WITH OCCASIONAL SUPRAVENTRICULAR PREMATURE COMPLEXES INFERIOR MYOCARDIAL INFARCTION [40+ ms Q WAVE AND/OR ST/T ABNORMALITY IN II/aVF], PROBABLY OLD Compared to ECG 03/10/2020 11:59:50 No significant changes Electronically Signed On 03-13-2020 18:55:37 BILINGUAL ACCOUNT MANAGER by ALLYSON HUBER [id number]
[2020-03-13] MEDS: enoxaparin 40 mg/0.4 mL Syringe SUBCUT (17:59)
[2020-03-13 18:10] LABS: Glucose Point of Care 146 mg/dL (70-110)
[2020-03-13 18:10] LABS: Glucose Point of Care 106 mg/dL (70-110)
[2020-03-13 18:10] LABS: Glucose Point of Care 188 mg/dL (70-110)
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
[2020-03-13] MEDS: LORazepam 2 mg/mL INJ 1 mL 1 MG IVP (20:00)
--- NOTE | 2020-03-13 20:05 | PC.NURSE ---
transpor instructed to not give any more than 1 mg. ativan at a time enroute to [facility]
--- NOTE | 2020-03-13 20:37 | PC.NURSE ---
Flight crew arrived to ICU at 193. Got patient ready for transport and patient left with flight crew at 1999. Malika SORIANO called with update.
--- NOTE | 2020-03-13 20:38 | PC.NURSE ---
Patient had a 1mg ativan IVP order for transport from Dr. Haley, 1 mg ativan IVP pulled from [facility] sent with flight nurse.
--- NOTE | 2020-03-22 09:08 | PC.SOCIAL ---
Called [facility] to update of sputum culture results. Asked to be connected to nurses station where patient is currently located which is [phone] spoke with Jillian. Explained sputum culture results returned after patient was transferred and requested who to send results to and fax number so they can be reviewed with attending provider. Fax number given is [phone] and pt to Att[facility] Walsh and she will make sure the correct team gets the information. Faxed results with confirmation that fax was transmitted successfully.
== END 2020-03-13 20:00 | disposition short-term general hospital (02) | DRG 181 ==
LOC: ER 13:43 → MEDSURG 15:18 → ICU 03-11 23:55
PROVIDERS: Specialist; Admitting Provider Internal Medicine; Emergency Provider Emergency Medicine; PCP Nurse Practitioner Family; Visit Provider Internal Medicine
PROC: 0CJS8ZZ Inspection of Larynx, Via Natural or Artificial Opening Endoscopic (ICD-10-PCS; 2020-03-12 18:00)
DX: D49.1 Neoplasm of unspecified behavior of respiratory system (principal); F23 Brief psychotic disorder; I42.9 Cardiomyopathy, unspecified; J38.7 Other diseases of larynx; J02.9 Acute pharyngitis, unspecified; B34.9 Viral infection, unspecified; E86.0 Dehydration; J44.9 Chronic obstructive pulmonary disease, unspecified; F17.210 Nicotine dependence, cigarettes, uncomplicated
CPT/HCPCS: 12345; 36415; 36416; 36600; 51702; 70450; 70491; 71045; 80053; 80061; 81003; 82140; 82803; 82962; 83036; 83735; 84484; 85025; 85610; 87070; 87077; 87081; 87186; 87205; 87426; 87506; 87880; 92523; 92524; 92610; 93005; 93306; 93880; 94640; 96372; 96375; 99282; G0378; J1200; J1630; J1650; J1956; J2060; J2270; J3486; J3490; J3535; J8540; Q9967

== ENCOUNTER 2020-03-26 01:29 | Inpatient (IN) | payer BC, MEDICAID, SELFPAY ==
[2020-03-26] VITALS (232 sets, daily range): BP systolic 111–159; BP diastolic 64–105; PULSE 67–114; RESP 0–35; TEMP 36.7–37.6; O2SAT 87–100; BMI 26.3
--- NOTE | 2020-03-26 02:59 | P.HP_ITS ---
Providers/Chief Complaint Admitting Physician: Vanita Navarro MD Primary Care Provider: ESTHER Peña Chief Complaint: post surgery History of Present Illness Hitesh Dai is a 60 year old male who was transferred to [facility] 03/13 for placement of tracheostomy tube for supraglottic mass(small cell neuroendocrine tumor). Patient was admitted at [facility] on 03/10 for work-up for stroke and pharyngitis, his hospital course got complicated due to psychosis, he could not finish his work-up other than the neck and head CT scan which showed supraglottic mass because he was requiring four-point restraints, could not get MRI of brain and there was concern that if we had placed tracheostomy tube during his psychosis he could have pulled it out. Carotid Doppler did not reveal any stenosis, echo showed ejection fraction 45% with severe hypokinesia of mid and apical septum. 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, MRI 03/14 showed multiple scattered areas of acute infarct involving supra tentorial and infratentorial brain including left internal capsule erwin radiata bilateral occipital lobe cerebral hemispheres no intraparenchymal hemorrhage was identified he was started on aspirin and atorvastatin, 03/16 left ventricular thrombus noted on TTE which possibly is the source of multiple embolic strokes, he could not tolerate cardiac MRI, he was started on metoprolol along aspirin and atorvastatin initially he was treated with heparin after ruling out intrapa renchymal hemorrhage then was switched to Lovenox 1 mg/kg twice a day, oncology service wanted to start chemoradiotherapy which was put on hold secondary to tracheitis which was diagnosed 03/22 after copious thick secretions and worsening cough and rising white count chest x-ray right middle lobe op acification, pleural effusion, showed changes concerning with aspiration versus atelectasis, cultures were taken(Gram stain of secretions noted mixed valdemar and contaminated specimen), cisplatin/etoposide chemotherapy regimen was put on hold secondary to tracheitis and Dr. Hernandez was asked to follow-up, they also recommended speech evaluation for dysphagia and oromaxillary facial consult for tooth extraction before initiation of palliative radiation, patient has Shiley #6 uncuffed trach, uses speaking valve, patient remained on 4 L oxygen via trach collar, his trach collar was dislodged multiple times which was replaced by ENT, PEG tube was placed 03/22 by interventional radiologist At the time of my evaluation normal hemodynamics patient is very somnolent, but opens his eyes move all of his extremities but will not cooperate and give me detailed answers. Documents reviewed, will notify Dr. Hernandez in the morning Review of Systems General: Reports: Other (Patient is very somnolent not able to give me detailed answers) Medications/Allergies Home Medications Medication Instructions Recorded Confirmed Last Taken Type aspirin 81 mg PEG-TUBE DAILY 03/26/20 03/26/20 Unknown History atorvastatin 80 mg G-TUBE BEDTIME 03/26/20 03/26/20 Unknown History bisacodyl 10 mg DIRECTED PRN 03/26/20 03/26/20 Unknown History cefepime 1 g IV BID 03/26/20 03/26/20 Unknown History enoxaparin 110 mg SUBCUT BID 03/26/20 03/26/20 Unknown History metoprolol tartrate 12.5 mg G-TUBE BID 03/26/20 03/26/20 Unknown History nicotine 7 mg TOPICAL DAILY 03/26/20 03/26/20 Unknown History olanzapine 5 mg G-TUBE BEDTIME PRN 03/26/20 03/26/20 Unknown History oxycodone 5 mg G-TUBE Q4H PRN 03/26/20 03/26/20 Unknown History polyethylene glycol 17 g G-TUBE DAILY 03/26/20 03/26/20 Unknown History vancomycin in 0.9 % sodium chl 1.5 g IV BID 03/26/20 03/26/20 Unknown History Allergies Allergy/AdvReac Type Severity Reaction Status Date / Time cephalexin [From Keflex] Allergy hives Verified 03/08/20 13:41 PFSH Acute PFSH: Medical History (Updated 03/26/20 @ 03:56 by Vanita Navarro MD) Chronic pharyngitis Close exposure to 2019 novel coronavirus Fatigue Laryngeal mass Lower respiratory infection Shortness of Breath Tobacco abuse Vitamin D deficiency Surgical History Status post cervical disc replacement Status post tonsillectomy Family History Brother Cancer Father Cancer Social History (Updated 03/26/20 @ 03:56 by Vanita Navarro MD) Smoking and tobacco status: current every day smoker Alcohol intake: never Substance/Drug Use: never Household members: spouse Housing: House Physical Exam Narrative: EXAM NARRATIVE: Middle-age male who appears more than stated age Does not look dehydrated In deep sleep not cooperative during my evaluation Shiley #6 trach collar, humidified 4 L oxygen saturating well Heart rate in 70s sinus rhythm S1, S2 I was not able to appreciate any murmur Abdomen soft, PEG tube site without active drainage no signs of peritonitis Bilateral breath sounds with rhonchi at the bases bilaterally, his breathing is not labored no acute respite distress Lower extremity no edema gangrene or ulcer noted Neuro exam is limited however he open his eyes to verbal command able to move all of his extremity, slight deviation of angle of mouth, right-sided hemiparesis Somnolent behavior Data : 03/26/20 04:18 03/26/20 04:18 A&P Assessment and plan (1) Supraglottic mass: Status: Acute (2) Tracheitis: Status: Acute (3) Embolic stroke: Status: Acute (4) Left ventricular thrombus: Status: Acute (5) Dysphagia: Status: Acute Additional A&P Information Supraglottic mass, Biopsy 03/14 small cell neuroendocrine tumor, status post tracheostomy 03/14 Cisplatin/etoposide treatment was not initiated secondary to tracheitis, OMF consult was requested for tooth extraction as well before starting palliative radiotherapy Status post Shiley #6 uncuffed trach no active secretions currently saturating well on 4 L trach collar We will inform Dr. Hernandez in the morning We will need speech pathology for dysphagia as well, from the records it seems that he has been trying to eat orally and does not like tube feeding Tracheitis Vancomycin and cefepime started on 03/22 Would obtain cultures, previous Gram stain of secretions noted mixed valdemar and contaminated specimens Continue regimen for at least 7 days Obtain chest x-ray tomorrow Trach collar dislodged 03/23 #6 cuffless which was replaced by ENT Embolic stroke Most likely source left ventricular thrombus continue Lovenox therapeutic dose Patient has been having intermittent hallucinations with impulsive behavior Continue aspirin, statins Will need long-term rehab as well right-sided hemiparesis Left ventricular thrombus Noted 03/16 TTE was not clearly visualized but left apical expansion and akinesia noted, patient did not tolerate cardiac MRI, was started on metoprolol 12.5 twice daily along aspirin and statin COPD without acute exacerbation We will keep him on DuoNeb for as needed use Full code Tube feeding diet, resume oral diet once cleared by speech evaluation DVT prophylaxis not needed currently on therapeutic dose of Lovenox Attestations Medical Necessity Statement*: Anticipating stay in the hospital cross more than 2 midnights will need initiation of chemoradiotherapy and need ENT consult Time Spent in Patient Care: (>than 50% of time spent in counselling and/or direct pt care on unit) . 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
--- NOTE | 2020-03-26 03:41 | ECG_ITS ---
[facility] Test Date: 2020-03-26 Pat Name: Hitesh Dai Department: Room: ICU11 Gender: Male Founder And President: : 1960 Requested By: Vanita Navarro Order Number: [id number] Earnest MD: Brandon Streeter M.D. Measurements Intervals [place] Rate: 80 P: 55 [place]: 168 QRS: 34 QRSD: 107 T: 70 QT: 385 QTc: 445 Interpretive Statements SINUS RHYTHM WITH OCCASIONAL SUPRAVENTRICULAR PREMATURE COMPLEXES INFERIOR MYOCARDIAL INFARCTION [40+ ms Q WAVE AND/OR ST/T ABNORMALITY IN II/aVF], PROBABLY OLD Compared to ECG 03/13/2020 15:21:46 Sinus arrhythmia no longer present Myocardial infarct finding still present Electronically Signed On 03-28-2020 11:12:06 [employer] by Brandon Streeter M.D. [id number]
[2020-03-26 04:35] LABS: Basophils % 0.3 %; Eosinophils # 0.1 10^3/uL (0.0-0.8); Eosinophils % 0.6 %; Hematocrit 36.8 % (42.0-52.0); Hemoglobin 11.8 g/dL (11.7-16.6); Lymphocytes # 1.1 10^3/uL (0.8-4.8); Lymphocytes % 12.9 %; Mean Corpuscular HGB Conc 32.1 g/dL (30.0-36.0); Mean Corpuscular Hemoglobin 30.5 pg (28.0-34.0); Mean Corpuscular Volume 95.1 fL (80-94); Mean Platelet Volume 9.9 fL (7.4-10.4); Monocytes # 0.8 10^3/uL (0.2-0.9); Monocytes % 9.4 %; Neutrophils # 6.64 10^3/uL (1.8-7.7); Neutrophils % 76.6 %; Nucleated Red Blood Cells % 0 %; Platelet Count 180 10^3/cmm (130-400); Red Blood Count 3.87 10^6/uL (4.1-5.3); Red Cell Distribution Width 12.7 % (12.1-15.1); White Blood Count 8.7 10^3/uL (4.0-10.0)
[2020-03-26] MEDS: enoxaparin 100 mg/mL Syringe SUBCUT ×2 (04:46→16:04)
[2020-03-26] MEDS: cefepime 2,000 MG in sodium chloride 0.9% (plus) 50 ML 100 MG IV ×2 (04:46→16:05)
[2020-03-26 04:59] LABS: Anion Gap 12.2 (5-19); Blood Urea Nitrogen 9 mg/dL (8-23); Calcium 8.5 mg/dL (8.5-10.5); Carbon Dioxide 29 mmol/L (22-29); Chloride 103 mmol/L (98-107); Glucose 94 mg/dL (65-115); Osmolality Calculated 290 mOsm/kg (285-295); Potassium 3.2 mmol/L (3.5-5.1); Sodium 141 mmol/L (136-145)
[2020-03-26 06:26] LABS: Phosphorus 3.8 mg/dL (2.5-4.5); Triglycerides 69 mg/dL (0-150)
[2020-03-26] MEDS: lidocaine 1% 5 ML in potassium chloride premix 100 ML 25 ML IV (06:28)
[2020-03-26 07:07] LABS: Lactate (Lactic Acid level) 0.6 mmol/L (0.5-2.2)
--- NOTE | 2020-03-26 07:59 | XRR_ITS ---
PROCEDURE INFORMATION: Exam: XR Chest, 1 View Exam date and time: 03/26/2020 8:15 AM Age: 60 years old Clinical indication: Chest pain; Additional info: SOB TECHNIQUE: Imaging protocol: XR of the chest Views: 1 view. COMPARISON: CR XR chest 1V portable [id number] 03/10/2020 11:44 AM FINDINGS: Tubes, catheters and devices: Placement of a tracheostomy cannula tip residing 7.9 cm above the ignacio. Tracheostomy cannula material obscures the right upper lung superiorly. Lungs: Small infiltrate or atelectasis right lower lobe with possible adjacent pleural effusion blunting the right costophrenic angle. Mild elevation of right hemidiaphragm. Linear scarring or chronic bronchiectasis left upper lobe. Pleural space: No pneumothorax. Heart/Mediastinum: Unremarkable. No cardiomegaly. Bones/joints: Degenerative change of the spine. XR/XR chest 1V portable [id number] IMPRESSION: Infiltrate or atelectasis right lower lobe with pleural thickening or small right pleural effusion.
[2020-03-26 08:48] LABS: NT Pro B Type Natriuretic Pept 2565 pg/mL (0-125); Procalcitonin 0.15 ng/mL (0-0.5)
[2020-03-26] MEDS: metoprolol tartrate 25 mg Tablet 12.5 MG PO ×2 (08:53→21:14)
[2020-03-26] MEDS: nicotine 21 mg Patch 1 PATCH TRANSDERMA (08:53)
[2020-03-26] MEDS: sennosides-docusate Tablet 1 TAB PO (08:53)
[2020-03-26] MEDS: aspirin 325 mg EC Tablet PO (08:53)
[2020-03-26] MEDS: vancomycin 1,500 MG/300 ML PIGGYBACK 200 MG IV ×2 (08:53→21:13)
--- NOTE | 2020-03-26 09:48 | PC.CHAP ---
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 [] Patient/Family/Request visit [] Outpatient visit [] Follow-up visit [] Physician referral [] Code/Alert [] Routine visit [] Staff referral [] Actively dying [] Patient sleeping [] Family support [] [] Out of room [] Palliative care [] [] Receiving care in room [] Pre-surgical visit [] Trauma [] Long length of stay [x] ICU visit [] Other: Relational/Emotional Strength [] Patient feels connected with others/family/visitors/staff [] Distress [] Loneliness/isolation [] Abandonment Spirituality of Patient [] Person of Radha [] Attends Protestant of their Radha [] Believes in Prayer [] Reads Bible or Adventist materials [] There are Spiritual issues to be addressed Hoop Machine Operator Interventions [x] Prayer [] Active listening [] Non-anxious presence [] Spiritual/emotional support [] Crisis/trauma care [] Spiritual counseling [] Bereavement support [] Provided bereavement packet [] Provided Bible/devotional materials [] Provided toy/stuffed animal, coloring book to patient or family member [] Provided Communion [] Anointing/[place] [] Salvation [x] Completed spiritual assessment [] Other: Impact on Illness or Injury [] Angry [] Fearful [] Anxious [] Often cries [] Exhaustion [] Unable to work [] Unable to attend tenriism [] Unable to walk/stand [] Unable to read [] Unable to drive [] Unable to eat/drink [] Unable to sleep [] Unable to be with family [] Patient intubated [] Other: Summary Time spent with patient
[2020-03-26] MEDS: ipratropium-albuterol 3 mL Neb INHALATION ×3 (10:46→20:10)
--- NOTE | 2020-03-26 10:59 | PC.NURSE ---
Cares Patient is resting in bed this shift. PT and ST have been with patient. Alert and oriented x 4. Pt is calm and pleasant with staff. Moderate weakness is noted to right extremities.
[2020-03-26 11:41] LABS: ABG PCO2 40.9 mmHg (35-45); ABG PH Result 7.47 (7.35-7.45); Base Excess ABG 5.3 mmol/L (-2.0-2.0); Blood Gas Allen Test Pos; Blood Gas Operator Identificat AMH; Blood Gas Sample Site Radial, right; Blood Gas Sample Type Arterial; HCO3 ABG 29.6 mmol/L (22-26); Oxygen Device HAG; PO2 ABG 64.3 mmHg (80.0-100.0)
--- NOTE | 2020-03-26 14:11 | P.PN_ITS ---
Subjective Subjective: Interval history: This morning patient was examined in the ICU, trach is in place, has copious secretions, PEG tube is in place, PEG tube feedings have not been started, patient follows commands, squeezes my fingers, to voice understanding, no episodes of agitation overnight, he did not try to pull out his trach overnight, currently is on 6 L, nods no to shortness of davida th, nods yes to pain Vitals/I&O/Wt Last Vital Signs Temp 98.0 F 03/26/20 02:30 Pulse 80 03/26/20 11:00 Resp 27 H 03/26/20 11:00 BP 138/64 03/26/20 09:15 Pulse Ox 97 03/26/20 11:00 03/25/20 03/26/20 03/26/20 22:59 06:59 14:59 Output Total 400 / 400 550 / 550 Balance -400 / -400 -550 / -550 Weight last 48 hrs Weight 98.118 kg Physical Exam Narrative: EXAM NARRATIVE: Trach in place, copious secretions around trach Const: COMMON NORMALS: no acute distress ORIENTATION/CONSCIOUSNESS: Yes awake and Yes oriented to person; not oriented to place and not oriented to time HENMT: COMMON NORMALS: normocephalic HEAD & SCALP: normocephalic Neck/C-Spine: COMMON NORMALS: no JVD Resp: COMMON NORMALS: normal respiratory effort, No retractions, No use of accessory muscles and clear to auscultation bilaterally AUSCULTATION: clear to auscultation bilaterally Cardio: COMMON NORMALS: no JVD, regular rate, regular rhythm, S1 normal heart sound present and S2 normal heart sound present RATE: regular rate RHYTHM: regular rhythm HEART SOUNDS: S1 normal heart sound present and S2 normal heart sound present GI: COMMON NORMALS: Normal to inspection, nondistended, normoactive bowel sounds present, Soft to palpation, non-tender, No hepatosplenomegaly present, no masses and no bruits PALPATION: Yes Soft to palpation and Yes No hepatosplenomegaly present Extremity: COMMON NORMALS: capillary refill normal, no clubbing, cyanosis or edema, no calf tenderness and no pedal edema Neuro: SENSORIUM/ORIENTATION: Yes oriented to person, No oriented to place and No oriented to time OTHER: Right upper extremity strength 3 out of 5 compared to 5 out of 5 on the left Right lower extremity strength 3 out of 5 compared to 5 out of 5 on the left No facial droop Psych: COMMON NORMALS: mental status grossly normal Data : 03/26/20 04:18 03/26/20 04:18 Micro: Microbiology 03/26/20 09:00 Gram Stain - Final Sputum - Expectorated Sputum 03/26/20 09:14 Blood Culture - Preliminary Blood SPECIMEN COLLECTED 03/26/20 09:18 Blood Culture - Preliminary Blood SPECIMEN COLLECTED A&P Assessment and plan (1) Supraglottic mass: Status: Acute (2) Tracheitis: Status: Acute (3) Embolic stroke: Status: Acute (4) Left ventricular thrombus: Status: Acute (5) Dysphagia: Status: Acute Additional A&P Information Supraglottic mass, Biopsy 03/14 small cell neuroendocrine tumor, status post tracheostomy 03/14 Cisplatin/etoposide treatment was not initiated secondary to tracheitis, OMF consult was requested for tooth extraction as well before starting palliative radiotherapy Status post Shiley #6 uncuffed trach no active secretions currently saturating well on [address] Hernandez has been informed, he will kindly see the patient Speech pathology has been consulted Tracheitis Vancomycin and cefepime started on 03/22 Follow blood cultures, sputum cultures Continue regimen for at least 7 days Obtain a chest x-ray this morning Trach collar dislodged 03/23 #6 cuffless which was replaced by ENT Embolic stroke Most likely source left ventricular thrombus continue Lovenox therapeutic dose Patient has been having intermittent hallucinations with impulsive behavior Continue aspirin, statins Will need long-term rehab as well right-sided hemiparesis PT OT Left ventricular thrombus Noted 03/16 TTE was not clearly visualized but left apical expansion and akinesia noted, patient did not tolerate cardiac MRI, was started on metoprolol 12.5 twice daily along aspirin and statin COPD without acute exacerbation We will keep him on DuoNeb for as needed use Full code Tube feeding diet, resume oral diet once cleared by speech evaluation DVT prophylaxis not needed currently on therapeutic dose of Lovenox Attestations Medical Necessity Statement*: Patient requires hospitalization for supraglottic mass, tracheitis, embolic stroke, left ventricular thrombus, receiving inpatient chemotherapy Coding Level of Care Code Acute It Communications Specialist for [facility] Diagnoses Supraglottic mass J38.7 Tracheitis J04.10 Embolic stroke I63.9 Left ventricular thrombus I51.3 Dysphagia R13.10
--- NOTE | 2020-03-26 14:24 | PM.CONSULT ---
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 On 03/10/2020 he was admitted to the hospital after presenting to the emergency room with weakness and confusion. He has been having gradually worsening sore throat, hoarseness, cough, and difficulty swallowing. His CT pulmonary angiogram showed evidence of chronic lung disease, but there was no acute pathology noted. Noncontrasted head CT showed no acute intracranial hemorrhage or edema. There was remote lacunar infarct involving the right external capsule. His neck CT showed marked soft tissue thickening involving the epiglottis with obliteration or near obliteration of the vallecula and piriform sinuses bilaterally. There was extension posteriorly into the retropharyngeal space on the right and there was distortion of the central airway and extension of tumor into the pharyngeal fat. The soft tissue mass was noted to abut the hyoid bone with complete obliteration of the fat plane on the right. There was near complete obliteration on the left. Soft tissue thickening was noted to continue into the larynx. At the level of the thyroid cartilage there was continued soft tissue thickening involving the vocal cords. Overall the findings were consistent with neoplasm involving the larynx and supraglottic airway with significant narrowing of the airway at the level of the inferior hyoid bone. Enlarged level 2 lymph nodes were noted bilaterally measuring up to 18 mm and a level 3 lymph node on the left measured 2.0 cm. His further management was complicated by acute psychosis, necessitating transfer to [facility] for further management. He subsequently underwent tracheostomy placement and biopsy of the mass, with pathology showing invasive poorly differentiated carcinoma felt to be most consistent with small cell neuroendocrine carcinoma. His staging PET/CT on 03/18/2020 showed primary malignancy in the supraglottic larynx with local regional cervical lymph node involvement. There was indeterminate uptake noted in the distal sigmoid colon. His brain MRI showed multiple infarcts but no evidence of metastatic involvement. There was suspected left ventricular thrombus, presumed to be a source of embolic strokes. During that time, he had developed right hemiparesis. He began on anticoagulation with a heparin infusion, subsequently transitioned to therapeutic Lovenox. During the hospitalization he also underwent PEG tube placement, and he was started on IV antibiotic therapy for tracheitis. Is now returned to [facility] to continue further management. At this point he has very limited activity. His ECOG score is 3. He does have appetite, and he has been allowed oral intake under supervision. He has not had fever or night sweats. He does have cough. He does not complain of shortness of breath or chest pain. He has not been having nausea. He does have acid reflux symptoms, that has been a longstanding complaint. Bowel and bladder function have been okay. He reports having soreness from sitting, but he is not having any significant joint or bone pain. He does not complain of headache. He still has weakness in the right arm and right leg. Review of Systems Const: Reports: fatigue; Denies: fever(s), night sweats or other (no hot flashes) Eyes: Denies: change in vision ENMT: Reports: throat pain and hoarseness; Denies: odynophagia, oral sores, change in hearing or tinnitus Card: Reports: lightheadedness; Denies: chest pain, palpitations, swelling of feet/ankles, orthopnea or leg pain with exertion Resp: Reports: productive cough; Denies: dyspnea, wheezing, pain on inspiration or hemoptysis GI: Reports: dysphagia and heartburn; Denies: abdominal pain, nausea, vomiting, diarrhea, constipation, hematochezia or melena : Denies: difficulty urinating, dysuria, urinary frequency, urinary urgency, urinary hesitancy, urinary incontinence or hematuria Musc: Denies: neck pain, back pain, joint pain, joint stiffness or muscle cramps Skin/Breast: Denies: rash or new lesions Neuro: Reports: weakness in extremities; Denies: headache(s), sensory changes or dizziness Psych: Denies: anxiety or depression Ez/Lymph: Denies: easy bruising or easy bleeding Meds/Allergies Home Medications and Allergies Home Medications Medication Instructions Recorded Confirmed Last Taken Type aspirin 81 mg PEG-TUBE DAILY 03/26/20 03/26/20 Unknown History atorvastatin 80 mg G-TUBE BEDTIME 03/26/20 03/26/20 Unknown History bisacodyl 10 mg DIRECTED PRN 03/26/20 03/26/20 Unknown History cefepime 1 g IV BID 03/26/20 03/26/20 Unknown History enoxaparin 110 mg SUBCUT BID 03/26/20 03/26/20 Unknown History metoprolol tartrate 12.5 mg G-TUBE BID 03/26/20 03/26/20 Unknown History nicotine 7 mg TOPICAL DAILY 03/26/20 03/26/20 Unknown History olanzapine 5 mg G-TUBE BEDTIME PRN 03/26/20 03/26/20 Unknown History oxycodone 5 mg G-TUBE Q4H PRN 03/26/20 03/26/20 Unknown History polyethylene glycol 17 g G-TUBE DAILY 03/26/20 03/26/20 Unknown History vancomycin in 0.9 % sodium chl 1.5 g IV BID 03/26/20 03/26/20 Unknown History Allergies Allergy/AdvReac Type Severity Reaction Status Date / Time cephalexin [From [place]asso] Allergy hives Verified 03/08/20 13:41 Current Medications Current Medications Generic Name Dose Route Start Last Admin Trade Name Freq PRN Reason Stop Dose Admin Albuterol/Ipratropium 3 ml 03/26/20 09:00 03/26/20 10:46 Ipratropium-Albuterol 3 Ml Neb INHALATION 3 ml Q6H.RESPIRATORY KEVIN Administration Aspirin 325 mg 03/26/20 09:00 03/26/20 08:53 Aspirin 325 Mg Ec Tablet PO 325 mg DAILY KEVIN Administration Enoxaparin Sodium 100 mg 03/26/20 04:45 03/26/20 04:46 Enoxaparin 100 Mg/Ml Syringe SUBCUT 100 mg Q12H KEVIN Administration Cefepime HCl 2,000 mg/ Sodium 50 mls @ 100 mls/hr 03/26/20 04:45 03/26/20 04:46 Chloride IV 100 mls/hr Q12H KEVIN Administration Vancomycin/PEG/NADA/Lysine/Water 1,500 mg in 300 mls @ 200 mls/hr 03/26/20 07:30 03/26/20 08:53 Vancocin IV 200 mls/hr Q12H KEVIN Administration Metoprolol Tartrate 12.5 mg 03/26/20 09:00 03/26/20 08:53 Metoprolol Tartrate 25 Mg Tablet PO 12.5 mg BID@0900,2100 KEVIN Administration Nicotine 1 patch 03/26/20 09:00 03/26/20 08:53 Nicotine 21 Mg Patch TRANSDERMA 1 patch DAILY KEVIN Administration Senna/Docusate Sodium 1 tab 03/26/20 09:00 03/26/20 08:53 Sennosides-Docusate Tablet PO 1 tab DAILY KEVIN Administration PFSH Acute PFSH: Medical History (Updated 03/26/20 @ 14:58 by Linwood Hernandez MD) Chronic pharyngitis Close exposure to 2019 novel coronavirus Fatigue Laryngeal mass Lower respiratory infection Shortness of Breath Tobacco abuse Vitamin D deficiency Surgical History Status post cervical disc replacement Status post tonsillectomy Family History Brother Cancer Father Cancer Social History (Updated 03/26/20 @ 03:56 by Vanita Navarro MD) Smoking and tobacco status: current every day smoker Alcohol intake: never Substance/Drug Use: never Household members: spouse Housing: House Vitals/I&O/Wt Last Vital Signs Temp 98.0 F 03/26/20 02:30 Pulse 80 03/26/20 11:00 Resp 27 H 03/26/20 11:00 BP 138/64 03/26/20 09:15 Pulse Ox 97 03/26/20 11:00 03/25/20 03/26/20 03/26/20 22:59 06:59 14:59 Output Total 400 / 400 550 / 550 Balance -400 / -400 -550 / -550 Weight last 48 hrs Weight 98.118 kg Physical Exam Const: COMMON NORMALS: no acute distress HENMT: MOUTH: Normal oral and palatal mucosa present TEETH & GINGIVA: Yes other (There are 3 remaining lower teeth which are in poor repair.) THROAT: posterior oropharynx normal Eye: COMMON NORMALS: conjunctivae normal and no scleral icterus CONJUNCTIVA: Yes conjunctivae normal Lymph: LYMPHATIC: no lymphadenopathy noted (No cervical, clavicular, axillary, or inguinal lymphadenopathy) Resp: OTHER: Lungs show coarse upper airway noise bilaterally. Cardio: COMMON NORMALS: regular rate, regular rhythm, No gallops present (Cardio), No murmurs present (Cardio) and No rub (Cardio) RATE: regular rate RHYTHM: regular rhythm GI: COMMON NORMALS: Soft to palpation, non-tender, No hepatosplenomegaly present and no masses PALPATION: Yes Soft to palpation and Yes No hepatosplenomegaly present : COMMON NORMALS: Yes no CVA tenderness BLADDER/KIDNEY EXAM: Yes no CVA tenderness Back/Pelvis: COMMON NORMALS: no CVA tenderness and no thoracic nor lumbar tenderness Extremity: NARRATIVE EXTREMITY EXAM: No edema. Pedal pulses are palpable bilaterally. Neuro: OTHER: There is significant weakness of the right arm and right leg. Skin: NARRATIVE SKIN EXAM: No evidence of skin eruption. No suspicious skin lesions noted. Data Micro: Micro: Microbiology 03/26/20 09:00 Gram Stain - Final Sputum - Expector ated Sputum 03/26/20 09:14 Blood Culture - Pr eliminary Blood SPECIMEN [facility] 03/26/20 09:18 Blood Culture - Pr eliminary Blood SPECIMEN [facility] A&P Assessment and plan (1) Tracheitis: Status: Acute (2) Left ventricular thrombus: Status: Acute (3) Embolic stroke: Status: Acute (4) Cardiomyopathy: Status: Acute (5) Acute psychosis: Status: Acute (6) COPD (chronic obstructive pulmonary disease): Status: Acute (7) Primary malignant neoplasm of supraglottis: Status: Acute Additional A&P Information Patient with recently diagnosed 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 He had associated airway obstruction requiring tracheostomy placement. His management was complicated by acute psychosis and subsequently by right hemiparesis. He was found on MRI to have multiple embolic strokes, apparently originating from a left ventricular thrombus. There was no evidence of metastatic involvement in the brain. His staging PET/CT showed the primary malignancy in the supraglottic larynx with regional cervical lymph node involvement but with no evidence of other metastatic disease. Uptake in the sigmoid colon was indeterminate. He currently is on anticoagulation with Lovenox for the embolic strokes, and he is on antibiotic therapy for tracheitis. It has been recommended that he proceed with cisplatin/etoposide chemotherapy for the small cell neuroendocrine carcinoma, with addition of concurrent radiation beginning at cycle 2. The recommended dosages of chemotherapy will be 75 mg of cisplatin by IV infusion on day 1 together with etoposide 100 mg by IV infusion on days 1, 2, and 3. He will require some type of IV access for the chemotherapy, as his peripheral venous access appears to be poor. I have discussed this with Dr. Krause, and the tentative plan is to proceed with placement of Port-A-Cath venous access device tomorrow. His Lovenox will be held temporarily for the procedure. I did review anticipated side effects with the chemotherapy including the potential for neutropenia/infection. Coding Level of Care Code Acute Programs Director for [employer] Fwd Exam Comprehensive Diagnoses Tracheitis J04.10 Left ventricular thrombus I51.3 Embolic stroke I63.9 Cardiomyopathy I42.9 Acute psychosis F23 COPD (chronic obstructive pulmonary disease) J44.9 Primary malignant neoplasm of supraglottis C32.1
--- NOTE | 2020-03-26 16:12 | PM.CONSULT ---
Providers/Reason For Consult Consulting Physican/Specialty*: General Surgery Kole Krause MD Reason for Consult*: Requesting Port-A-Cath for treatment of supraglottic small cell neuroendocrine tumor. Attending Physician: Denver Lynch MD Primary Care Provider: ESTHER Peña History of Present Illness History of Present Illness Hitesh Dai is a 60 year old male who was recently diagnosed with a supraglottic small cell neuroendocrine tumor. He was recently seen here for work-up which followed a CVA and pharyngitis. He ended up having problem with psychosis and eventually had to be transferred to [facility] for placement of a tracheostomy. He is now back and Dr. Hernandez has requested Port-A-Cath placement for treatment. The patient denies any previous history of central line placement. He denies any history of clavicular injury. Review of Systems Const: Denies: fever(s) ENMT: Reports: throat pain GI: Denies: abdominal pain Meds/Allergies Home Medications and Allergies Home Medications Medication Instructions Recorded Confirmed Last Taken Type aspirin 81 mg PEG-TUBE DAILY 03/26/20 03/26/20 Unknown History atorvastatin 80 mg G-TUBE BEDTIME 03/26/20 03/26/20 Unknown History bisacodyl 10 mg DIRECTED PRN 03/26/20 03/26/20 Unknown History cefepime 1 g IV BID 03/26/20 03/26/20 Unknown History enoxaparin 110 mg SUBCUT BID 03/26/20 03/26/20 Unknown History metoprolol tartrate 12.5 mg G-TUBE BID 03/26/20 03/26/20 Unknown History nicotine 7 mg TOPICAL DAILY 03/26/20 03/26/20 Unknown History olanzapine 5 mg G-TUBE BEDTIME PRN 03/26/20 03/26/20 Unknown History oxycodone 5 mg G-TUBE Q4H PRN 03/26/20 03/26/20 Unknown History polyethylene glycol 17 g G-TUBE DAILY 03/26/20 03/26/20 Unknown History vancomycin in 0.9 % sodium chl 1.5 g IV BID 03/26/20 03/26/20 Unknown History Allergies Allergy/AdvReac Type Severity Reaction Status Date / Time cephalexin [From Keflex] Allergy hives Verified 03/08/20 13:41 Current Medications Current Medications Generic Name Dose Route Start Last Admin Trade Name Freq PRN Reason Stop Dose Admin Albuterol/Ipratropium 3 ml 03/26/20 09:00 03/26/20 15:22 Ipratropium-Albuterol 3 Ml Neb INHALATION 3 ml Q6H.RESPIRATORY KEVIN Administration Aspirin 325 mg 03/26/20 09:00 03/26/20 08:53 Aspirin 325 Mg Ec Tablet PO 325 mg DAILY KEVIN Administration Enoxaparin Sodium 100 mg 03/26/20 04:45 03/26/20 16:04 Enoxaparin 100 Mg/Ml Syringe SUBCUT 100 mg Q12H KEVIN Administration Cefepime HCl 2,000 mg/ Sodium 50 mls @ 100 mls/hr 03/26/20 04:45 03/26/20 16:05 Chloride IV 100 mls/hr Q12H KEVIN Administration Vancomycin/PEG/NADA/Lysine/Water 1,500 mg in 300 mls @ 200 mls/hr 03/26/20 07:30 03/26/20 15:55 Vancocin IV Infused Q12H KEVIN Infusion Metoprolol Tartrate 12.5 mg 03/26/20 09:00 03/26/20 08:53 Metoprolol Tartrate 25 Mg Tablet PO 12.5 mg BID@0900,2100 KEVIN Administration Nicotine 1 patch 03/26/20 09:00 03/26/20 08:53 Nicotine 21 Mg Patch TRANSDERMA 1 patch DAILY KEVIN Administration Senna/Docusate Sodium 1 tab 03/26/20 09:00 03/26/20 08:53 Sennosides-Docusate Tablet PO 1 tab DAILY KEVIN Administration PFSH Acute PFSH: Medical History Chronic pharyngitis Close exposure to 2019 novel coronavirus Fatigue Laryngeal mass Lower respiratory infection Shortness of Breath Tobacco abuse Vitamin D deficiency Surgical History Status post cervical disc replacement Status post tonsillectomy Family History Brother Cancer Father Cancer Social History Smoking and tobacco status: current every day smoker Alcohol intake: never Substance/Drug Use: never Household members: spouse Housing: House Vitals/I&O/Wt Last Vital Signs Temp 98.0 F 03/26/20 02:30 Pulse 95 03/26/20 15:24 Resp 20 H 03/26/20 15:22 BP 138/64 03/26/20 09:15 Pulse Ox 95 03/26/20 15:22 03/26/20 03/26/20 03/26/20 06:59 14:59 22:59 Intake Total 50 / 50 300 / 300 Output Total 400 / 400 550 / 550 Balance -350 / -350 -550 / -250 300 / -250 Weight last 48 hrs Weight 216 lb 5 oz Physical Exam Narrative: EXAM NARRATIVE: The patient was encountered in his ICU room. He is sitting up in the chair and does not appear to be in any distress. The pupils are equal. No carotid bruits are heard. There is a tracheostomy in place. The chest seems clear but he has diminished breath sounds bilaterally. The heart seems regular. The abdomen is mildly obese but is soft and nontender. There is a gastrostomy in place. The extremities reveal no significant edema. The patient can move all limbs to command. Data Micro: Micro: Microbiology 03/26/20 09:00 Gram Stain - Final Sputum - Expector ated Sputum 03/26/20 09:14 Blood Culture - Pr eliminary Blood SPECIMEN [facility] 03/26/20 09:18 Blood Culture - Pr eliminary Blood SPECIMEN [facility] A&P Assessment and plan (1) Primary malignant neoplasm of supraglottis: I discussed Port-A-Cath and Port-A-Cath placement with the patient in some detail. Risks of placement including pneumothorax with possible need for chest tube, bleeding, infection, thrombosis, etc. were all gone over. The patient seems understand and is agreeable to undergoing Port-A-Cath placement tomorrow morning. After discussing the situation with Dr. Hernandez, I am going to hold the patient's Lovenox after his afternoon dose today (currently receiving every 12 hours) in preparation for surgery tomorrow morning. This can be safely resumed after the Port-A-Cath is in place tomorrow. The patient apparently has a cuffed tracheostomy in place, but I am still going to hold the patient's tube feeding after midnight tonight until after the procedure. Status: Acute Consult Attestations Medical Necessity Statement: See admitting service's notation. Coding Level of Care Code Acute Tester Waste Disposal Leakage for g Fwd Diagnoses Primary malignant neoplasm of supraglottis C32.1
[2020-03-26] MEDS: OLANZapine 10 mg TABLET PO (21:13)
[2020-03-26] MEDS: atorvastatin 40 mg Tablet 80 MG PO (21:13)
[2020-03-26 23:03] LABS: Gastricult Occult Blood Positive (Negative)
[2020-03-26 23:04] LABS: Glucose Point of Care 102 mg/dL (70-110)
[2020-03-27] VITALS (25 sets, daily range): BP systolic 113–138; BP diastolic 71–88; PULSE 79–107; RESP 15–22; TEMP 36.2–36.9; O2SAT 90–98
--- NOTE | 2020-03-27 | SCC_ITS ---
Procedure Done: Port-A-Cath placement into the right subclavian vein with intraoperative fluoroscopy interpretation. 11.2 seconds of fluoroscopic guidance, for a cumulative dose of 1.13 mGy, was provided to Dr. Krause by the radiology department. C-arm images of the chest were saved for the patient's permanent record. LATOYA
--- NOTE | 2020-03-27 | SC_ITS ---
WS: [id number] Limited C-arm images of the upper right chest are submitted for evaluation. Final images depict a rig ht subclavian port in place extending into the SVC. The tip of the catheter is difficult to identify. No pneumothorax is seen. SC/C-arm FL for CVA 16901 IMPRESSION: 1. Right subclavian port extending into the SVC. The distal tip of the catheter is out of the [id number].
[2020-03-27] MEDS: ipratropium-albuterol 3 mL Neb INHALATION ×4 (02:00→20:11)
--- NOTE | 2020-03-27 02:10 | PC.NURSE ---
Trach suctioning Pt has productive sputum, suctioned pt 2 times, IV flushed. Pt tolerated well. will continue to monitor o2 stats. improved from 90 to 96.
[2020-03-27] MEDS: cefepime 2,000 MG in sodium chloride 0.9% (plus) 50 ML 100 MG IV ×2 (06:05→19:02)
[2020-03-27 06:45] LABS: Glucose Point of Care 110 mg/dL (70-110)
[2020-03-27 07:05] LABS: Basophils % 0.3 %; Eosinophils % 0.2 %; Hematocrit 38.9 % (42.0-52.0); Hemoglobin 12.4 g/dL (11.7-16.6); Lymphocytes # 1.4 10^3/uL (0.8-4.8); Mean Corpuscular HGB Conc 31.9 g/dL (30.0-36.0); Mean Corpuscular Hemoglobin 30.5 pg (28.0-34.0); Mean Corpuscular Volume 95.8 fL (80-94); Mean Platelet Volume 10.7 fL (7.4-10.4); Monocytes # 0.7 10^3/uL (0.2-0.9); Monocytes % 6.2 %; Neutrophils # 9.08 10^3/uL (1.8-7.7); Neutrophils % 80.9 %; Nucleated Red Blood Cells % 0 %; Platelet Count 193 10^3/cmm (130-400); Positive C 1; Red Blood Count 4.06 10^6/uL (4.1-5.3); Red Cell Distribution Width 12.5 % (12.1-15.1); White Blood Count 11.2 10^3/uL (4.0-10.0)
[2020-03-27 07:34] LABS: Vancomycin Trough 10.8 ug/mL (10-15)
[2020-03-27 07:35] LABS: Blood Urea Nitrogen 14 mg/dL (8-23); Calcium 8.4 mg/dL (8.5-10.5); Carbon Dioxide 25 mmol/L (22-29); Chloride 102 mmol/L (98-107); Glucose 101 mg/dL (65-115); Osmolality Calculated 289 mOsm/kg (285-295); Sodium 139 mmol/L (136-145)
[2020-03-27 07:40] LABS: Anion Gap 15.4 (5-19); Potassium 3.4 mmol/L (3.5-5.1)
--- NOTE | 2020-03-27 07:57 | PM.PN ---
Subjective Subjective: Interval history: The patient indicates he is ready to proceed with a Port-A-Cath placement today. Vitals/I&O/Wt Last Vital Signs Temp 98.5 F 03/27/20 05:00 Pulse 96 03/27/20 06:00 Resp 20 H 03/27/20 05:00 BP 117/78 03/27/20 05:00 Pulse Ox 93 03/27/20 05:00 03/26/20 03/27/20 03/27/20 22:59 06:59 14:59 Intake Total 350 / 350 Output Total 1100 / 1950 300 / 1950 Balance -750 / -1600 -300 / -1600 Weight last 48 hrs Weight 208 lb Weight 216 lb 5 oz Physical Exam Narrative: EXAM NARRATIVE: No significant change. Data : 03/27/20 06:47 03/27/20 06:47 Micro: Microbiology 03/26/20 09:00 Gram Stain - Final Sputum - Expectorated Sputum 03/26/20 09:14 Blood Culture - Preliminary Blood SPECIMEN COLLECTED 03/26/20 09:18 Blood Culture - Preliminary Blood SPECIMEN COLLECTED A&P Assessment and plan (1) Primary malignant neoplasm of supraglottis: Port-A-Cath placement later this morning. Nursing has asked if we will access the port and surgery so that they can start chemotherapy right afterwards. Status: Acute Attestations Medical Necessity Statement*: See admitting service's notation. Coding Level of Care Code Acute Optometric Coordinator for Lili Ahn Diagnoses Primary malignant neoplasm of supraglottis C32.1
[2020-03-27] MEDS: vancomycin 1,500 MG/300 ML PIGGYBACK 200 MG IV ×2 (08:51→22:20)
--- NOTE | 2020-03-27 11:05 | ANES.PREANE2 ---
Pre-Anesthetic Assessment Pre-Anesthetic Assessment: Height/Weight: Height 1.93 m Weight 94.347 kg Temp Pulse Resp BP Pulse Ox 97.6 F 84 18 126/81 93 03/27/20 11:00 03/27/20 10:59 03/27/20 10:59 03/27/20 10:59 03/27/20 10:59 Proposed Procedure: Operation Date: 03/27/20 10:50 Proposed Procedures p Portacath Placement(Not Applicable) - Kole Krause MD Was Beta Corina taken within 24 hours: Yes Last intake: Intake Last Liquid Date 03/26/20 Last Liquid Time 18:00 Last Solid Date 03/26/20 Last Solid Time 18:00 Social: Social History: Tobacco and No alcohol Comment: h/o smoking Exam: Pre-Anes Outpt Exam: alert, oriented x 3 and regular rate & rhythm Additional Exam Findings (including area of procedure): Rhonchi Airway: Submandibular: WNL Cervical ROM: WNL MP: 2 Dentition: False Additional comments: Mature trach, Moran Pulmonary: Pulmonary: COPD CV/HEM: CV/HEM: HTN : : None reported Hepatic: Hepatic: None reported GI: GI: None reported Metabolic: Metabolic: None reported Musc/skel: Comments: Right paraparesis Neuropsych: Neuropsych: Anxiety and CVA Anesthetic Plan: ASA status: 3 Anesthesia: MAC Risk of > 500 ml blood loss (7ml/kg in children): No Meds/Allergies Current Medications: Current Medications Generic Name Dose Route Start Last Admin Trade Name Freq PRN Reason Stop Dose Admin Albuterol/Ipratrop ium 3 ml 03/26/20 09:00 03/27/20 09:26 Ipratropium-Albu terol 3 Ml Neb INHALATION 3 ml Q6H.RESPIRATORY S CH Administration Aspirin 325 mg 03/26/20 09:00 03/27/20 10:39 Aspirin 325 Mg E c Tablet PO Not Given DAILY KEVIN Atorvastatin Calci um 80 mg 03/26/20 21:00 03/26/20 21:13 Atorvastatin 40 Mg Tablet PO 80 mg BEDTIME KEVIN Administration Enoxaparin Sodium 100 mg 03/26/20 04:45 03/26/20 16:04 Enoxaparin 100 M g/Ml Syringe SUBCUT 100 mg Q12H KEVIN Administration Cefepime HCl 2,000 mg/ Sodium 50 mls @ 100 mls/ hr 03/26/20 04:45 03/27/20 06:05 Chloride IV 100 mls/hr Q12H KEVIN Administration Vancomycin/PEG/NAD A/Lysine/Water 1,500 mg in 300 m ls @ 200 mls/hr 03/26/20 07:30 03/27/20 08:51 Vancocin IV 200 mls/hr Q12H KEIVN Administration Metoprolol Tartrat e 12.5 mg 03/26/20 09:00 03/27/20 10:44 Metoprolol Tartr ate 25 Mg Tablet PO Not Given BID@0900,2100 KEVIN Nicotine 1 patch 03/26/20 09:00 03/27/20 10:44 Nicotine 21 Mg P atch TRANSDERMA Not Given DAILY KEVIN Olanzapine 10 mg 03/26/20 21:00 03/26/20 21:13 Olanzapine 10 Mg Tablet PO 10 mg BEDTIME KEVIN Administration Senna/Docusate Sod ium 1 tab 03/26/20 09:00 03/27/20 10:44 Sennosides-Docus ate Tablet PO Not Given DAILY KEVIN PFSH Anesthesia PFSH: Medical History Chronic pharyngitis Close exposure to 2019 novel coronavirus Fatigue Laryngeal mass Lower respiratory infection Shortness of Breath Tobacco abuse Vitamin D deficiency Surgical History Status post cervical disc replacement Status post tonsillectomy Family History Brother Cancer Father Cancer Social History Smoking and tobacco status: current every day smoker Alcohol intake: never Substance/Drug Use: never Household members: spouse Housing: House Data Anesthesia CBC & Chem 7: 03/27/20 06:47 03/27/20 06:47 Other Labs: Laboratory Results - last 48 hr 03/26/20 03/26/20 03/26/20 04:18 04:18 04:18 WBC 8.7 RBC 3.87 L Hgb 11.8 Hct 36.8 L MCV 95.1 H MCH 30.5 MCHC 32.1 RDW 12.7 Plt Count 180 MPV 9.9 Neut % (Auto) 76.6 Lymph % (Auto) 12.9 Wright % (Auto) 9.4 Eos % (Auto) 0.6 Baso % (Auto) 0.3 Neut # (Auto) 6.64 Lymph # (Auto) 1.1 Wright # (Auto) 0.8 Eos # (Auto) 0.1 Baso # (Auto) 0.0 Nucleated RBC % (auto) 0 Nucleated RBCs # 0.0 Specimen Type Sample Site ABG pH ABG pCO2 ABG pO2 ABG HCO3 ABG Base Excess Tarik Test Hematocrit O2 Delivery Device FiO2 Application Internship ID Sodium 141 Potassium 3.2 L Chloride 103 Carbon Dioxide 29 Anion Gap 12.2 BUN 9 Creatinine 0.6 L GFR Calculation 137.0 H Glucose 94 POC Glucose Calculated Osmolality 290 Lactate Calcium 8.5 Phosphorus 3.8 Magnesium 2.0 C-Reactive Protein NT-Pro-B Natriuret Pep Triglycerides 69 Procalcitonin Gastric Occult Blood 03/26/20 03/26/20 03/26/20 04:18 06:38 11:29 WBC RBC Hgb Hct MCV MCH MCHC RDW Plt Count MPV Neut % (Auto) Lymph % (Auto) Wright % (Auto) Eos % (Auto) Baso % (Auto) Neut # (Auto) Lymph # (Auto) Wright # (Auto) Eos # (Auto) Baso # (Auto) Nucleated RBC % (auto) Nucleated RBCs # Specimen Type Arterial Sample Site Radial, right ABG pH 7.47 H ABG pCO2 40.9 ABG pO2 64.3 L ABG HCO3 29.6 H ABG Base Excess 5.3 H Tarik Test Pos Hematocrit 41.0 L O2 Delivery Device Hag FiO2 28.0 Application Internship ID Amh Sodium Potassium Chloride Carbon Dioxide Anion Gap BUN Creatinine GFR Calculation Glucose POC Glucose Calculated Osmolality Lactate 0.6 Calcium Phosphorus Magnesium C-Reactive Protein 34.0 H NT-Pro-B Natriuret Pep 2565 H Triglycerides Procalcitonin 0.15 Gastric Occult Blood 03/26/20 03/26/20 03/27/20 21:50 22:59 06:40 WBC RBC Hgb Hct MCV MCH MCHC RDW Plt Count MPV Neut % (Auto) Lymph % (Auto) Wright % (Auto) Eos % (Auto) Baso % (Auto) Neut # (Auto) Lymph # (Auto) Wright # (Auto) Eos # (Auto) Baso # (Auto) Nucleated RBC % (auto) Nucleated RBCs # Specimen Type Sample Site ABG pH ABG pCO2 ABG pO2 ABG HCO3 ABG Base Excess Tarik Test Hematocrit O2 Delivery Device FiO2 Application Internship ID Sodium Potassium Chloride Carbon Dioxide Anion Gap BUN Creatinine GFR Calculation Glucose POC Glucose 102 110 Calculated Osmolality Lactate Calcium Phosphorus Magnesium C-Reactive Protein NT-Pro-B Natriuret Pep Triglycerides Procalcitonin Gastric Occult Blood Positive H 03/27/20 03/27/20 06:47 06:47 WBC 11.2 H RBC 4.06 L Hgb 12.4 Hct 38.9 L MCV 95.8 H MCH 30.5 MCHC 31.9 RDW 12.5 Plt Count 193 MPV 10.7 H Neut % (Auto) 80.9 Lymph % (Auto) 12.0 Wright % (Auto) 6.2 Eos % (Auto) 0.2 Baso % (Auto) 0.3 Neut # (Auto) 9.08 H Lymph # (Auto) 1.4 Wright # (Auto) 0.7 Eos # (Auto) 0.0 Baso # (Auto) 0.0 Nucleated RBC % (auto) 0 Nucleated RBCs # 0.0 Specimen Type Sample Site ABG pH ABG pCO2 ABG pO2 ABG HCO3 ABG Base Excess Tarik Test Hematocrit O2 Delivery Device FiO2 Application Internship ID Sodium 139 Potassium 3.4 L Chloride 102 Carbon Dioxide 25 Anion Gap 15.4 BUN 14 Creatinine 0.6 L GFR Calculation 137.0 H Glucose 101 POC Glucose Calculated Osmolality 289 Lactate Calcium 8.4 L Phosphorus Magnesium C-Reactive Protein NT-Pro-B Natriuret Pep Triglycerides Procalcitonin Gastric Occult Blood Micro: Microbiology 03/26/20 09:00 Gram Stain - Final Sputum - Expectorated Sputum Sputum Culture - Preliminary 03/26/20 09:14 Blood Culture - Preliminary Blood NEGATIVE TO DATE 03/26/20 09:18 Blood Culture - Preliminary Blood NEGATIVE TO DATE Cardiac Studies: No Data to Display
[2020-03-27] MEDS: sodium chloride 0.9% 1,000 ML 30 ML IV (11:11)
[2020-03-27] MEDS: clindamycin 900 MG/50 ML PREMIX 100 MG IV (11:35)
[2020-03-27] MEDS: heparin, porcine 1,000 unit/mL INJ 10 mL 10000 UNIT (11:59)
--- NOTE | 2020-03-27 12:03 | XRR_ITS ---
PROCEDURE INFORMATION: Exam: XR Chest, 1 View Exam date and time: 03/27/2020 12:32 PM Age: 60 years old Clinical indication: Other vascular access device placement or adjustment; Port; Additional info: Post op TECHNIQUE: Imaging protocol: XR of the chest Views: 1 view. COMPARISON: CR XR chest 1V portable [id number] 03/26/2020 8:03 AM FINDINGS: Tubes, catheters and devices: A right central line extends into the right atrium. A tracheostomy tube is in place the tip is above the ignacio. Lungs: There is a interstitial congestion right apical region. Pleural space: Unremarkable. No pleural effusion. No pneumothorax. Heart/Mediastinum: Unremarkable. No cardiomegaly. Bones/joints: Metallic hardware is seen in the cervical spine. XR/XR chest 1V portable [id number] IMPRESSION: 1. Nonspecific right apical interstitial congestion. 2. Tracheostomy tube is in place above the ignacio. 3. Right central line extends into the right atrium
--- NOTE | 2020-03-27 12:08 | PM.OP ---
Operative Report Date of procedure: March 27, 2020 Pre-op Diagnosis: 1. Supraglottic small cell neuroendocrine tumor. 2. Poor peripheral venous access. Post-op diagnosis: same Procedure Done: Port-A-Cath placement into the right subclavian vein with intraoperative fluoroscopy interpretation. Specimens removed/disposition: None. Surgeon: Kole Krause Anesthesia: General Estimated blood loss (mL): 5 Complications: No immediate complications encountered. Condition: stable Disposition: PACU Procedure: The patient was brought to the Operating Room and was placed in a supine position on the operating room table. General anesthesia was induced via the patient's tracheostomy that was already in place. The shoulders were extended by means of a posterior shoulder roll. The anterior surface of both sides of the chest were prepped and draped in a sterile fashion. Attention was first directed to the left side. 0.5% bupivacaine was used to anesthetize a small area underneath the left clavicle. An attempt was made to access the left subclavian vein. After several passes no blood return was ever encountered. Attention was then directed to the right side. Once again, 0.5% bupivacaine was used to anesthetize a small area under the right clavicle. The right subclavian vein was accessed on the first pass with a needle and syringe as evidenced by the return of dark nonpulsatile blood. The J-wire was passed down the needle and the needle was removed. The C-arm was positioned and showed the wire extending down the vena cava. A site just inferiorly on the chest wall was anesthetized using a combination of 1% lidocaine and 0.5% bupivacaine with 1:200,000 parts of epinephrine. A transverse incision was made and an inferior pocket was created in the subcutaneous layer using cautery in preparation for port placement. The Port-A-Cath tubing was passed from the incision through the subcutaneous layer to the exit point of the J-wire. The tubing was attached to the port and was cut to an appropriate length. The introducer and sheath were passed over the J-wire, and the introducer and J-wire were removed. The Port-A-Cath tubing was passed down the sheath, which was torn away. The C-arm was positioned and showed good placement of the Port-A-Cath tubing tip in the superior vena cava. The port aspirated easily and flushed well with hep flush solution. The port was sewn in place with some interrupted sutures of 3-0 PDS. The transverse incision was closed at the dermis using a single inverted suture of 3-0 Vicryl and the skin was approximated using a running subcuticular suture of 4-0 Vicryl. The small incision under the clavicle at the previous insertion site of the J wire was closed using a single inverted suture of 4-0 Vicryl. Benzoin and Steri-Strips were placed over the incisions and a sterile bandage followed. The patient was taken to the recovery area in stable condition postoperatively. INTRAOPERATIVE FLUOROSCOPY FINDINGS: Intraoperative fluoroscopic images of a Port-A-Cath placement were reviewed. An initial image reveals a J-wire entering the right subclavian vein and extending down the vena cava. Subsequent images reveal a Port-A-Cath on that side of the chest with its tubing tip in good location in the superior vena cava. No obvious pneumothorax is identified.
--- NOTE | 2020-03-27 12:20 | ANE.PACU2 ---
Inpatient post-anesthesia follow up: Airway intact: Yes Vital signs: Temperature 97.6 F Pulse Rate 84 Respiratory Rate 18 Blood Pressure 126/81 Pulse Oximetry 93 Oxygen Delivery Me thod Room Air Oxygen Flow Rate 6 Fraction of Inspir ed Oxygen 28 Hydration adequate: Yes Nausea and vomiting: No Pain level: 1 Mental status: Baseline
--- NOTE | 2020-03-27 13:03 | PC.NURSE ---
Patient back from surgery at 2721)
[2020-03-27 14:19] LABS: INR 1.01 (0.8-1.2)
[2020-03-27 14:35] LABS: Alanine Aminotransferase 17 U/L (0-41); Albumin Level 2.9 g/dL (3.5-5.2); Alkaline Phosphatase 65 IU/L (40-130); Anion Gap 11.5 (5-19); Aspartate Amino Transferase 21 U/L (0-40); Blood Urea Nitrogen 12 mg/dL (8-23); Calcium 8.1 mg/dL (8.5-10.5); Carbon Dioxide 27 mmol/L (22-29); Chloride 104 mmol/L (98-107); Globulin 2.7 g/dL (1.3-4.6); Glucose 106 mg/dL (65-115); Magnesium 2.4 mg/dL (1.7-2.3); Osmolality Calculated 288 mOsm/kg (285-295); Phosphorus 3.7 mg/dL (2.5-4.5); Potassium 3.5 mmol/L (3.5-5.1); Sodium 139 mmol/L (136-145); Total Bilirubin 0.2 mg/dL (0.15-1.2); Total Protein 5.6 g/dL (6.6-8.7)
--- NOTE | 2020-03-27 14:38 | PC.NURSE ---
Patient given applesauce and tonya crackers. His daughter is feeding him
[2020-03-27] MEDS: ondansetron 2 mg/ML SDV 2 mL 8 MG IV (15:20)
[2020-03-27] MEDS: diphenhydrAMINE 50 mg/mL SDV 1mL 25 MG IV (15:21)
[2020-03-27] MEDS: famotidine 20 mg/2 mL INJ IVP (15:21)
--- NOTE | 2020-03-27 16:08 | PM.PN ---
Subjective Subjective: Interval history: No acute events overnight, did have a low-grade temperature overnight, patient tells me that he is doing okay, will have his port placement today Vitals/I&O/Wt Last Vital Signs Temp 98.1 F 03/27/20 12:45 Pulse 79 03/27/20 14:29 Resp 20 H 03/27/20 14:25 BP 129/81 03/27/20 12:45 Pulse Ox 95 03/27/20 14:25 03/27/20 03/27/20 03/27/20 06:59 14:59 22:59 Intake Total 350 / 350 Output Total 300 / 1950 Balance -300 / -1300 346 / 346 Weight last 48 hrs Weight 94.347 kg Weight 98.118 kg Physical Exam Narrative: EXAM NARRATIVE: Trach in place, copious secretions around trach Const: COMMON NORMALS: no acute distress and patient oriented x3 ORIENTATION/CONSCIOUSNESS: not oriented to place and not oriented to time HENMT: COMMON NORMALS: normocephalic HEAD & SCALP: normocephalic Neck/C-Spine: COMMON NORMALS: no JVD Resp: COMMON NORMALS: normal respiratory effort, No retractions, No use of accessory muscles and clear to auscultation bilaterally AUSCULTATION: clear to auscultation bilaterally Cardio: COMMON NORMALS: no JVD, regular rate, regular rhythm, S1 normal heart sound present and S2 normal heart sound present RATE: regular rate RHYTHM: regular rhythm HEART SOUNDS: S1 normal heart sound present and S2 normal heart sound present GI: COMMON NORMALS: Normal to inspection, nondistended, normoactive bowel sounds present, Soft to palpation, non-tender, No hepatosplenomegaly present, no masses and no bruits PALPATION: Yes Soft to palpation and Yes No hepatosplenomegaly present Extremity: COMMON NORMALS: capillary refill normal, no clubbing, cyanosis or edema, no calf tenderness and no pedal edema Neuro: COMMON NORMALS: patient oriented x3 SENSORIUM/ORIENTATION: No oriented to place and No oriented to time OTHER: Right upper extremity strength 3 out of 5 compared to 5 out of 5 on the left Right lower extremity strength 3 out of 5 compared to 5 out of 5 on the left No facial droop Psych: COMMON NORMALS: mental status grossly normal Urinary Catheter Management^: Ramirez: Cath Placed During This Visit: yes Urinary Catheter Date of Insertion: 03/27/20 Urinary Catheter Time of Insertion: 10:49 Data : 03/27/20 06:47 03/27/20 13:51 Micro: Microbiology 03/26/20 09:00 Gram Stain - Final Sputum - Expectorated Sputum Sputum Culture - Preliminary 03/26/20 09:14 Blood Culture - Preliminary Blood NEGATIVE TO DATE 03/26/20 09:18 Blood Culture - Preliminary Blood NEGATIVE TO DATE A&P Assessment and plan (1) Supraglottic mass: Status: Acute (2) Tracheitis: Status: Acute (3) Embolic stroke: Status: Acute (4) Left ventricular thrombus: Status: Acute (5) Dysphagia: Status: Acute Additional A&P Information Supraglottic mass, Biopsy 03/14 small cell neuroendocrine tumor, status post tracheostomy 03/14 Cisplatin/etoposide treatment was not initiated secondary to tracheitis, OMF consult was requested for tooth extraction as well before starting palliative radiotherapy Status post Shiley #6 uncuffed trach no active secretions currently saturating well on [address] Hernandez on consult Dr. Krause has been consulted for port placement Speech pathology has been consulted Tracheitis Vancomycin and cefepime started on 03/22 Follow blood cultures, sputum cultures Continue regimen for at least 7 days Temp 99.7 last night, continue to monitor Trach collar dislodged 03/23 #6 cuffless which was replaced by ENT Embolic stroke Most likely source left ventricular thrombus continue Lovenox therapeutic dose Patient has been having intermittent hallucinations with impulsive behavior Continue aspirin, statins Will need long-term rehab as well right-sided hemiparesis PT OT Left ventricular thrombus Noted 03/16 TTE was not clearly visualized but left apical expansion and akinesia noted, patient did not tolerate cardiac MRI, was started on metoprolol 12.5 twice daily along aspirin and statin COPD without acute exacerbation We will keep him on DuoNeb for as needed use Full code Tube feeding diet, resume oral diet once cleared by speech evaluation DVT prophylaxis not needed currently on therapeutic dose of Lovenox Attestations Medical Necessity Statement*: Patient requires hospitalization for supraglottic mass, tracheitis, embolic stroke, elliptical thrombus Coding Level of Care Code 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
--- NOTE | 2020-03-27 16:20 | PC.OT ---
OT tx attempted 2x today. Pt out of room getting picc line and now receiving chemo. Nursing requests OT to hold tx for today. Will attempt again tomorrow.
[2020-03-27 17:19] LABS: Glucose Point of Care 110 mg/dL (70-110)
--- NOTE | 2020-03-27 17:55 | W.ED.GENADLT ---
PFSH ED PFSH: Medical History Chronic pharyngitis Close exposure to 2019 novel coronavirus Fatigue Laryngeal mass Lower respiratory infection Shortness of Breath Tobacco abuse Vitamin D deficiency Surgical History Status post cervical disc replacement Status post tonsillectomy Family History Brother Cancer Father Cancer Social History Smoking and tobacco status: current every day smoker Alcohol intake: never Substance/Drug Use: never Household members: spouse Housing: House Course Vital Signs: Vital signs: Vital Signs Temperature 98.1 F 03/27/20 12:45 Pulse Rate 79 03/27/20 14:29 Respiratory Rate 20 H 03/27/20 14:25 Blood Pressure 129/81 03/27/20 12:45 Pulse Oximetry 95 03/27/20 14:25 MDM - General Adult MDM Narrative: Medical decision making narrative: 60-year-old male who is on the [facility] floor getting chemotherapy he has a tracheostomy tube in place I was called emergently by the staff concerned about the tracheostomy RT was at the bedside and arrived holding tracheostomy manually in place it was at the verge of coming out. The introducer was replaced into the tube and the tube was carefully advanced. Were able to get it back into position with minimal effort. Immediately after positioning and removing the introducer there was a significant amount of secretions that were expectorated. Suction was then done. Patient maintained good sats has bilateral good breath sounds. Lab Data: Labs: Lab Results 03/26/20 03/26/20 03/26/20 Range/Units 04:18 04:18 04:18 WBC 8.7 (4.0-10.0) 10^3/ uL RBC 3.87 L (4.1-5.3) 10^6/u L Hgb 11.8 (11.7-16.6) g/dL Hct 36.8 L (42.0-52.0) % MCV 95.1 H (80-94) fL MCH 30.5 (28.0-34.0) pg MCHC 32.1 (30.0-36.0) g/dL RDW 12.7 (12.1-15.1) % Plt Count 180 (130-400) 10^3/c mm MPV 9.9 (7.4-10.4) fL Neut % (Auto) 76.6 % Lymph % (Auto) 12.9 % [facility] % (Auto) 9.4 % Eos % (Auto) 0.6 % Baso % (Auto) 0.3 % Neut # (Auto) 6.64 (1.8-7.7) 10^3/u L Lymph # (Auto) 1.1 (0.8-4.8) 10^3/u L [facility] # (Auto) 0.8 (0.2-0.9) 10^3/u L Eos # (Auto) 0.1 (0.0-0.8) 10^3/u L Baso # (Auto) 0.0 (0.0-0.1) 10^3/u L Nucleated RBC % (a uto) 0 % Nucleated RBCs # 0.0 /100WBC PT (12.1-14.9) SECO NDS INR (0.8-1.2) Specimen Type Sample Site ABG pH (7.35-7.45) ABG pCO2 (35-45) mmHg ABG pO2 (80.0-100.0) mmH g ABG HCO3 (22-26) mmol/L ABG Base Excess (-2.0-2.0) mmol/ L Tarik Test Hematocrit (42-52) % O2 Delivery Device FiO2 % Eyeglass Lens Grinder ID Sodium 141 (136-145) mmol/L Potassium 3.2 L (3.5-5.1) mmol/L Chloride 103 (98-107) mmol/L Carbon Dioxide 29 (22-29) mmol/L Anion Gap 12.2 (5-19) BUN 9 (8-23) mg/dL Creatinine 0.6 L (0.7-1.2) mg/dL GFR Calculation 137.0 H (90-130) mL/min Glucose 94 (65-115) mg/dL POC Glucose (70-110) mg/dL Calculated Osmolal ity 290 (285-295) mOsm/k g Lactate (0.5-2.2) mmol/L Calcium 8.5 (8.5-10.5) mg/dL Phosphorus 3.8 (2.5-4.5) mg/dL Magnesium 2.0 (1.7-2.3) mg/dL Total Bilirubin (0.15-1.2) mg/dL AST (0-40) U/L ALT (0-41) U/L Alkaline Phosphata se (40-130) IU/L C-Reactive Protein (0.0-4.9) mg/L NT-Pro-B Natriuret Pep (0-125) pg/mL Total Protein (6.6-8.7) g/dL Albumin (3.5-5.2) g/dL Globulin (1.3-4.6) g/dL Triglycerides 69 (0-150) mg/dL Procalcitonin (0-0.5) ng/mL Gastric Occult Blo od (Negative) Vancomycin Trough (10-15) ug/mL 03/26/20 03/26/20 03/26/20 Range/Units 04:18 06:38 11:29 WBC (4.0-10.0) 10^3/ uL RBC (4.1-5.3) 10^6/u L Hgb (11.7-16.6) g/dL Hct (42.0-52.0) % MCV (80-94) fL MCH (28.0-34.0) pg MCHC (30.0-36.0) g/dL RDW (12.1-15.1) % Plt Count (130-400) 10^3/c mm MPV (7.4-10.4) fL Neut % (Auto) % Lymph % (Auto) % [facility] % (Auto) % Eos % (Auto) % Baso % (Auto) % Neut # (Auto) (1.8-7.7) 10^3/u L Lymph # (Auto) (0.8-4.8) 10^3/u L [facility] # (Auto) (0.2-0.9) 10^3/u L Eos # (Auto) (0.0-0.8) 10^3/u L Baso # (Auto) (0.0-0.1) 10^3/u L Nucleated RBC % (a uto) % Nucleated RBCs # /100WBC PT (12.1-14.9) SECO NDS INR (0.8-1.2) Specimen Type Arterial Sample Site Radial, right ABG pH 7.47 H (7.35-7.45) ABG pCO2 40.9 (35-45) mmHg ABG pO2 64.3 L (80.0-100.0) mmH g ABG HCO3 29.6 H (22-26) mmol/L ABG Base Excess 5.3 H (-2.0-2.0) mmol/ L Tarik Test Pos Hematocrit 41.0 L (42-52) % O2 Delivery Device Hag FiO2 28.0 % Eyeglass Lens Grinder ID Amh Sodium (136-145) mmol/L Potassium (3.5-5.1) mmol/L Chloride (98-107) mmol/L Carbon Dioxide (22-29) mmol/L Anion Gap (5-19) BUN (8-23) mg/dL Creatinine (0.7-1.2) mg/dL GFR Calculation (90-130) mL/min Glucose (65-115) mg/dL POC Glucose (70-110) mg/dL Calculated Osmolal ity (285-295) mOsm/k g Lactate 0.6 (0.5-2.2) mmol/L Calcium (8.5-10.5) mg/dL Phosphorus (2.5-4.5) mg/dL Magnesium (1.7-2.3) mg/dL Total Bilirubin (0.15-1.2) mg/dL AST (0-40) U/L ALT (0-41) U/L Alkaline Phosphata se (40-130) IU/L C-Reactive Protein 34.0 H (0.0-4.9) mg/L NT-Pro-B Natriuret Pep 2565 H (0-125) pg/mL Total Protein (6.6-8.7) g/dL Albumin (3.5-5.2) g/dL Globulin (1.3-4.6) g/dL Triglycerides (0-150) mg/dL Procalcitonin 0.15 (0-0.5) ng/mL Gastric Occult Blo od (Negative) Vancomycin Trough (10-15) ug/mL 03/26/20 03/26/20 03/27/20 Range/Units 21:50 22:59 06:40 WBC (4.0-10.0) 10^3/ uL RBC (4.1-5.3) 10^6/u L Hgb (11.7-16.6) g/dL Hct (42.0-52.0) % MCV (80-94) fL MCH (28.0-34.0) pg MCHC (30.0-36.0) g/dL RDW (12.1-15.1) % Plt Count (130-400) 10^3/c mm MPV (7.4-10.4) fL Neut % (Auto) % Lymph % (Auto) % [facility] % (Auto) % Eos % (Auto) % Baso % (Auto) % Neut # (Auto) (1.8-7.7) 10^3/u L Lymph # (Auto) (0.8-4.8) 10^3/u L [facility] # (Auto) (0.2-0.9) 10^3/u L Eos # (Auto) (0.0-0.8) 10^3/u L Baso # (Auto) (0.0-0.1) 10^3/u L Nucleated RBC % (a uto) % Nucleated RBCs # /100WBC PT (12.1-14.9) SECO NDS INR (0.8-1.2) Specimen Type Sample Site ABG pH (7.35-7.45) ABG pCO2 (35-45) mmHg ABG pO2 (80.0-100.0) mmH g ABG HCO3 (22-26) mmol/L ABG Base Excess (-2.0-2.0) mmol/ L Tarik Test Hematocrit (42-52) % O2 Delivery Device FiO2 % Eyeglass Lens Grinder ID Sodium (136-145) mmol/L Potassium (3.5-5.1) mmol/L Chloride (98-107) mmol/L Carbon Dioxide (22-29) mmol/L Anion Gap (5-19) BUN (8-23) mg/dL Creatinine (0.7-1.2) mg/dL GFR Calculation (90-130) mL/min Glucose (65-115) mg/dL POC Glucose 102 110 (70-110) mg/dL Calculated Osmolal ity (285-295) mOsm/k g Lactate (0.5-2.2) mmol/L Calcium (8.5-10.5) mg/dL Phosphorus (2.5-4.5) mg/dL Magnesium (1.7-2.3) mg/dL Total Bilirubin (0.15-1.2) mg/dL AST (0-40) U/L ALT (0-41) U/L Alkaline Phosphata se (40-130) IU/L C-Reactive Protein (0.0-4.9) mg/L NT-Pro-B Natriuret Pep (0-125) pg/mL Total Protein (6.6-8.7) g/dL Albumin (3.5-5.2) g/dL Globulin (1.3-4.6) g/dL Triglycerides (0-150) mg/dL Procalcitonin (0-0.5) ng/mL Gastric Occult Blo od Positive H (Negative) Vancomycin Trough (10-15) ug/mL 03/27/20 03/27/20 03/27/20 Range/Units 06:47 06:47 06:47 WBC 11.2 H (4.0-10.0) 10^3/ uL RBC 4.06 L (4.1-5.3) 10^6/u L Hgb 12.4 (11.7-16.6) g/dL Hct 38.9 L (42.0-52.0) % MCV 95.8 H (80-94) fL MCH 30.5 (28.0-34.0) pg MCHC 31.9 (30.0-36.0) g/dL RDW 12.5 (12.1-15.1) % Plt Count 193 (130-400) 10^3/c mm MPV 10.7 H (7.4-10.4) fL Neut % (Auto) 80.9 % Lymph % (Auto) 12.0 % [facility] % (Auto) 6.2 % Eos % (Auto) 0.2 % Baso % (Auto) 0.3 % Neut # (Auto) 9.08 H (1.8-7.7) 10^3/u L Lymph # (Auto) 1.4 (0.8-4.8) 10^3/u L [facility] # (Auto) 0.7 (0.2-0.9) 10^3/u L Eos # (Auto) 0.0 (0.0-0.8) 10^3/u L Baso # (Auto) 0.0 (0.0-0.1) 10^3/u L Nucleated RBC % (a uto) 0 % Nucleated RBCs # 0.0 /100WBC PT (12.1-14.9) SECO NDS INR (0.8-1.2) Specimen Type Sample Site ABG pH (7.35-7.45) ABG pCO2 (35-45) mmHg ABG pO2 (80.0-100.0) mmH g ABG HCO3 (22-26) mmol/L ABG Base Excess (-2.0-2.0) mmol/ L Tarik Test Hematocrit (42-52) % O2 Delivery Device FiO2 % Eyeglass Lens Grinder ID Sodium 139 (136-145) mmol/L Potassium 3.4 L (3.5-5.1) mmol/L Chloride 102 (98-107) mmol/L Carbon Dioxide 25 (22-29) mmol/L Anion Gap 15.4 (5-19) BUN 14 (8-23) mg/dL Creatinine 0.6 L (0.7-1.2) mg/dL GFR Calculation 137.0 H (90-130) mL/min Glucose 101 (65-115) mg/dL POC Glucose (70-110) mg/dL Calculated Osmolal ity 289 (285-295) mOsm/k g Lactate (0.5-2.2) mmol/L Calcium 8.4 L (8.5-10.5) mg/dL Phosphorus (2.5-4.5) mg/dL Magnesium (1.7-2.3) mg/dL Total Bilirubin (0.15-1.2) mg/dL AST (0-40) U/L ALT (0-41) U/L Alkaline Phosphata se (40-130) IU/L C-Reactive Protein (0.0-4.9) mg/L NT-Pro-B Natriuret Pep (0-125) pg/mL Total Protein (6.6-8.7) g/dL Albumin (3.5-5.2) g/dL Globulin (1.3-4.6) g/dL Triglycerides (0-150) mg/dL Procalcitonin (0-0.5) ng/mL Gastric Occult Blo od (Negative) Vancomycin Trough 10.8 (10-15) ug/mL 03/27/20 03/27/20 03/27/20 Range/Units 13:51 13:51 17:14 WBC (4.0-10.0) 10^3/ uL RBC (4.1-5.3) 10^6/u L Hgb (11.7-16.6) g/dL Hct (42.0-52.0) % MCV (80-94) fL MCH (28.0-34.0) pg MCHC (30.0-36.0) g/dL RDW (12.1-15.1) % Plt Count (130-400) 10^3/c mm MPV (7.4-10.4) fL Neut % (Auto) % Lymph % (Auto) % [facility] % (Auto) % Eos % (Auto) % Baso % (Auto) % Neut # (Auto) (1.8-7.7) 10^3/u L Lymph # (Auto) (0.8-4.8) 10^3/u L [facility] # (Auto) (0.2-0.9) 10^3/u L Eos # (Auto) (0.0-0.8) 10^3/u L Baso # (Auto) (0.0-0.1) 10^3/u L Nucleated RBC % (a uto) % Nucleated RBCs # /100WBC PT 13.60 (12.1-14.9) SECO NDS INR 1.01 (0.8-1.2) Specimen Type Sample Site ABG pH (7.35-7.45) ABG pCO2 (35-45) mmHg ABG pO2 (80.0-100.0) mmH g ABG HCO3 (22-26) mmol/L ABG Base Excess (-2.0-2.0) mmol/ L Tarik Test Hematocrit (42-52) % O2 Delivery Device FiO2 % Eyeglass Lens Grinder ID Sodium 139 (136-145) mmol/L Potassium 3.5 (3.5-5.1) mmol/L Chloride 104 (98-107) mmol/L Carbon Dioxide 27 (22-29) mmol/L Anion Gap 11.5 (5-19) BUN 12 (8-23) mg/dL Creatinine 0.6 L (0.7-1.2) mg/dL GFR Calculation 137.0 H (90-130) mL/min Glucose 106 (65-115) mg/dL POC Glucose 110 (70-110) mg/dL Calculated Osmolal ity 288 (285-295) mOsm/k g Lactate (0.5-2.2) mmol/L Calcium 8.1 L (8.5-10.5) mg/dL Phosphorus 3.7 (2.5-4.5) mg/dL Magnesium 2.4 H (1.7-2.3) mg/dL Total Bilirubin 0.2 (0.15-1.2) mg/dL AST 21 (0-40) U/L ALT 17 (0-41) U/L Alkaline Phosphata se 65 (40-130) IU/L C-Reactive Protein (0.0-4.9) mg/L NT-Pro-B Natriuret Pep (0-125) pg/mL Total Protein 5.6 L (6.6-8.7) g/dL Albumin 2.9 L (3.5-5.2) g/dL Globulin 2.7 (1.3-4.6) g/dL Triglycerides (0-150) mg/dL Procalcitonin (0-0.5) ng/mL Gastric Occult Blo od (Negative) Vancomycin Trough (10-15) ug/mL Discharge Plan Discharge Prescriptions: No Action aspirin 81 mg peg-tube DAILY RF: 0 atorvastatin 80 mg G-tube BEDTIME RF: 0 bisacodyl 10 mg as directed PRN RF: 0 cefepime 1 g IV BID RF: 0 enoxaparin 110 mg SUBCUT BID RF: 0 metoprolol tartrate 12.5 mg G-tube BID RF: 0 nicotine 7 mg topical DAILY RF: 0 olanzapine 5 mg G-tube BEDTIME PRN (Reason: Agitation) RF: 0 oxycodone 5 mg G-tube Q4H PRN (Reason: Pain) RF: 0 polyethylene glycol 17 g G-tube DAILY RF: 0 vancomycin in 0.9 % sodium chl 1.5 g IV BID RF: 0 Coding Level of Care Code ED Food Sales Clerk for [facility] Fwluis e
--- NOTE | 2020-03-27 18:12 | PC.NURSE ---
SHIFT SUMMARY Patient had port placement today with Dr. Krause. Tolerated procedure well. Has been alert and oriented x3 throughout shift. Had an issue where his trach had worked itself out a few inches, so had respiratory and Dr. Duenas come up and fix it. Patient tolerated it well. Patient received first chemotherapy treatment with cisplatin and etoposide. I education the patient and his daughter regarding common side effects of this treatment, including nausea/vomitting, hair loss, peripheral neuropathy, and possible kidney damage. Pre and post-hydration given. I notified the patient and his daughter that his urine/stool can be sources of chemotherapy secretion and should be disposed of properly for the next 72 hours. Once patient requested to sit on the bedside commode; nurse and ACTUARIAL MATHEMATICIAN transferred to bedside commode, but no output. Patient likes to drink tea and uses a stress ball in his right hand (side effected by stroke) in order to help build up his strength.
[2020-03-27] MEDS: sodium chlor 0.9% + KCl 20 mEq 20 MEQ/1,000 ML BAG 1000 MEQ IV (18:23)
[2020-03-27] MEDS: FUROsemide 10 mg/mL SDV 2mL 20 MG IV (18:31)
[2020-03-27] MEDS: enoxaparin 100 mg/mL Syringe SUBCUT (18:36)
[2020-03-27 21:05] LABS: Glucose Point of Care 152 mg/dL (70-110)
[2020-03-27] MEDS: atorvastatin 40 mg Tablet 80 MG PO (23:58)
[2020-03-27] MEDS: OLANZapine 10 mg TABLET PO (23:59)
[2020-03-27] MEDS: metoprolol tartrate 25 mg Tablet 12.5 MG PO (23:59)
[2020-03-28] VITALS (12 sets, daily range): BP systolic 96–125; BP diastolic 59–84; PULSE 68–82; RESP 16–19; TEMP 36.3–36.6; O2SAT 90–95
[2020-03-28 02:07] LABS: Gastricult Occult Blood Positive (Negative)
[2020-03-28] MEDS: ipratropium-albuterol 3 mL Neb INHALATION ×4 (03:05→20:30)
[2020-03-28] MEDS: enoxaparin 100 mg/mL Syringe SUBCUT ×2 (04:34→17:52)
[2020-03-28] MEDS: cefepime 2,000 MG in sodium chloride 0.9% (plus) 50 ML 100 MG IV (04:34)
[2020-03-28 06:09] LABS: Alanine Aminotransferase 17 U/L (0-41); Albumin Level 3.1 g/dL (3.5-5.2); Alkaline Phosphatase 70 IU/L (40-130); Anion Gap 11.6 (5-19); Aspartate Amino Transferase 29 U/L (0-40); Blood Urea Nitrogen 15 mg/dL (8-23); Calcium 8.5 mg/dL (8.5-10.5); Carbon Dioxide 28 mmol/L (22-29); Chloride 106 mmol/L (98-107); Glucose 158 mg/dL (65-115); Magnesium 2.4 mg/dL (1.7-2.3); Osmolality Calculated 298 mOsm/kg (285-295); Phosphorus 3.5 mg/dL (2.5-4.5); Potassium 3.6 mmol/L (3.5-5.1); Sodium 142 mmol/L (136-145); Total Bilirubin 0.3 mg/dL (0.15-1.2); Total Protein 6.1 g/dL (6.6-8.7)
[2020-03-28 06:29] LABS: INR 1.04 (0.8-1.2)
[2020-03-28 06:30] LABS: Glucose Point of Care 159 mg/dL (70-110)
[2020-03-28] MEDS: vancomycin 1,500 MG/300 ML PIGGYBACK 200 MG IV ×2 (08:41→21:51)
[2020-03-28] MEDS: aspirin 325 mg EC Tablet PO (08:42)
[2020-03-28] MEDS: nicotine 21 mg Patch 1 PATCH TRANSDERMA (08:42)
[2020-03-28] MEDS: metoprolol tartrate 25 mg Tablet 12.5 MG PO ×2 (08:43→22:05)
[2020-03-28 08:45] LABS: Basophils % 0.1 %; Hematocrit 36.4 % (42.0-52.0); Hemoglobin 11.6 g/dL (11.7-16.6); Lymphocytes # 0.7 10^3/uL (0.8-4.8); Lymphocytes % 10.1 %; Mean Corpuscular HGB Conc 31.9 g/dL (30.0-36.0); Mean Corpuscular Hemoglobin 30.4 pg (28.0-34.0); Mean Corpuscular Volume 95.5 fL (80-94); Monocytes # 0.3 10^3/uL (0.2-0.9); Monocytes % 4.2 %; Neutrophils # 5.78 10^3/uL (1.8-7.7); Neutrophils % 84.7 %; Nucleated Red Blood Cells % 0 %; Red Blood Count 3.81 10^6/uL (4.1-5.3); Red Cell Distribution Width 12.8 % (12.1-15.1); White Blood Count 6.8 10^3/uL (4.0-10.0)
[2020-03-28] MEDS: sennosides-docusate Tablet 1 TAB PO (08:45)
[2020-03-28 10:07] LABS: Platelet Count 200 10^3/cmm (130-400); Slide Review Slide Review Perform
[2020-03-28 11:15] LABS: Glucose Point of Care 159 mg/dL (70-110)
--- NOTE | 2020-03-28 13:31 | PM.PN ---
Subjective Subjective: Interval history: This morning patient was examined, he has received chemotherapy yesterday, has no complaints, no fevers overnight Vitals/I&O/Wt Last Vital Signs Temp 97.9 F 03/28/20 12:39 Pulse 68 03/28/20 12:39 Resp 18 03/28/20 12:39 BP 96/59 03/28/20 12:39 Pulse Ox 92 03/28/20 12:39 03/27/20 03/28/20 03/28/20 22:59 06:59 14:59 Intake Total 125 / 475 470 / 945 120 / 120 Output Total 3800 / 3804 1300 / 5104 400 / 400 Balance -3675 / -3329 -830 / -4159 -280 / -280 Weight last 48 hrs Weight 95.436 kg Weight 94.347 kg Physical Exam Narrative: EXAM NARRATIVE: Trach in place, Const: COMMON NORMALS: no acute distress and patient oriented x3 ORIENTATION/CONSCIOUSNESS: Yes awake and Yes oriented to person; not oriented to place and not oriented to time HENMT: COMMON NORMALS: normocephalic HEAD & SCALP: normocephalic Neck/C-Spine: COMMON NORMALS: no JVD Resp: COMMON NORMALS: normal respiratory effort, No retractions, No use of accessory muscles and clear to auscultation bilaterally AUSCULTATION: clear to auscultation bilaterally Cardio: COMMON NORMALS: no JVD, regular rate, regular rhythm, S1 normal heart sound present and S2 normal heart sound present RATE: regular rate RHYTHM: regular rhythm HEART SOUNDS: S1 normal heart sound present and S2 normal heart sound present GI: COMMON NORMALS: Normal to inspection, nondistended, normoactive bowel sounds present, Soft to palpation, non-tender, No hepatosplenomegaly present, no masses and no bruits PALPATION: Yes Soft to palpation and Yes No hepatosplenomegaly present Extremity: COMMON NORMALS: capillary refill normal, no clubbing, cyanosis or edema, no calf tenderness and no pedal edema Neuro: COMMON NORMALS: patient oriented x3 SENSORIUM/ORIENTATION: Yes oriented to person, No oriented to place and No oriented to time OTHER: Right upper extremity strength 3 out of 5 compared to 5 out of 5 on the left Right lower extremity strength 3 out of 5 compared to 5 out of 5 on the left No facial droop Psych: COMMON NORMALS: mental status grossly normal Urinary Catheter Management^: Ramirez: Cath Placed During This Visit: yes Urinary Catheter Date of Insertion: 03/27/20 Urinary Catheter Time of Insertion: 10:49 Data : 03/28/20 05:14 03/28/20 05:14 Micro: Microbiology 03/26/20 09:00 Gram Stain - Final Sputum - Expectorated Sputum Sputum Culture - Final 03/26/20 09:14 Blood Culture - Preliminary Blood NEGATIVE TO DATE 03/26/20 09:18 Blood Culture - Preliminary Blood NEGATIVE TO DATE A&P Assessment and plan (1) Supraglottic mass: Status: Acute (2) Tracheitis: Status: Acute (3) Embolic stroke: Status: Acute (4) Left ventricular thrombus: Status: Acute (5) Dysphagia: Status: Acute Additional A&P Information Supraglottic mass, 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 Hernandez on consult Dr. Krause has been consulted for port placement Speech pathology has been consulted Tracheitis Vancomycin and cefepime started on 03/22 Follow blood cultures, sputum cultures Continue regimen for at least 7 days Temp 99.7 last night, continue to monitor Trach collar dislodged 03/23 #6 cuffless which was replaced by ENT Embolic stroke Most likely source left ventricular thrombus continue Lovenox therapeutic dose Patient has been having intermittent hallucinations with impulsive behavior Continue aspirin, statins Will need long-term rehab as well right-sided hemiparesis PT OT Left ventricular thrombus Noted 03/16 TTE was not clearly visualized but left apical expansion and akinesia noted, patient did not tolerate cardiac MRI, was started on metoprolol 12.5 twice daily along aspirin and statin COPD without acute exacerbation We will keep him on DuoNeb for as needed use Full code Tube feeding diet, resume oral diet once cleared by speech evaluation DVT prophylaxis not needed currently on therapeutic dose of Lovenox Attestations Medical Necessity Statement*: Patient requires hospitalization for supraglottic mass, tracheitis, embolic stroke, left ventricular thrombus, recurrent chemotherapy and patient Coding Level of Care Code Acute 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
--- NOTE | 2020-03-28 15:45 | PC.NURSE ---
Checked for residual and got back 5cc of dark brown bloody content. Started tube feeding at 20ml/hr at 1535 on 03/28/20. Will increase in four hours by 10cc/hr until goal is reached.
[2020-03-28 17:37] LABS: Glucose Point of Care 133 mg/dL (70-110)
[2020-03-28 20:48] LABS: Glucose Point of Care 124 mg/dL (70-110)
[2020-03-28] MEDS: atorvastatin 40 mg Tablet 80 MG PO (22:05)
[2020-03-28] MEDS: OLANZapine 10 mg TABLET PO (22:11)
[2020-03-29] VITALS (15 sets, daily range): BP systolic 104–136; BP diastolic 67–80; PULSE 66–88; RESP 15–18; TEMP 35.9–37.2; O2SAT 90–95
[2020-03-29] MEDS: ipratropium-albuterol 3 mL Neb INHALATION ×4 (02:07→20:28)
[2020-03-29] MEDS: enoxaparin 100 mg/mL Syringe SUBCUT ×2 (06:23→17:17)
[2020-03-29 06:51] LABS: Glucose Point of Care 113 mg/dL (70-110)
[2020-03-29] MEDS: vancomycin 1,500 MG/300 ML PIGGYBACK 200 MG IV ×2 (09:00→17:56)
[2020-03-29] MEDS: nicotine 21 mg Patch 1 PATCH TRANSDERMA (09:13)
[2020-03-29] MEDS: sennosides-docusate Tablet 1 TAB PO (09:15)
[2020-03-29] MEDS: aspirin 325 mg EC Tablet PO (09:15)
[2020-03-29] MEDS: metoprolol tartrate 25 mg Tablet 12.5 MG PO ×2 (09:20→22:27)
[2020-03-29 10:44] LABS: INR 1.01 (0.8-1.2)
[2020-03-29 10:57] LABS: Alanine Aminotransferase 19 U/L (0-41); Albumin Level 3.3 g/dL (3.5-5.2); Alkaline Phosphatase 67 IU/L (40-130); Anion Gap 14.4 (5-19); Aspartate Amino Transferase 21 U/L (0-40); Blood Urea Nitrogen 22 mg/dL (8-23); Calcium 8.8 mg/dL (8.5-10.5); Carbon Dioxide 28 mmol/L (22-29); Chloride 103 mmol/L (98-107); Globulin 2.8 g/dL (1.3-4.6); Glucose 105 mg/dL (65-115); Magnesium 2.3 mg/dL (1.7-2.3); Osmolality Calculated 298 mOsm/kg (285-295); Phosphorus 2.4 mg/dL (2.5-4.5); Potassium 3.4 mmol/L (3.5-5.1); Sodium 142 mmol/L (136-145); Total Bilirubin 0.2 mg/dL (0.15-1.2); Total Protein 6.1 g/dL (6.6-8.7)
--- NOTE | 2020-03-29 11:34 | PM.PN ---
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 He also has multiple embolic strokes from suspected left ventricular thrombus. He tolerated day 1 chemotherapy with cisplatin/etoposide with no adverse effects. Vitals/I&O/Wt Last Vital Signs Temp 97.7 F 03/29/20 08:00 Pulse 75 03/29/20 08:03 Resp 18 03/29/20 08:02 BP 123/80 03/29/20 08:00 Pulse Ox 94 03/29/20 08:02 03/28/20 03/29/20 03/29/20 22:59 06:59 14:59 Intake Total 290 / 710 300 / 1010 240 / 240 Output Total 900 / 1300 Balance 290 / 310 -600 / -290 240 / 240 Weight last 48 hrs Weight 95.436 kg Physical Exam Skin: OTHER: He has a raised, pigmented lesion on the right lower facial area which appears suspicious. Urinary Catheter Management^: Ramirez: Cath Placed During This Visit: yes Urinary Catheter Date of Insertion: 03/27/20 Urinary Catheter Time of Insertion: 10:49 Data : 03/28/20 05:14 03/29/20 10:14 Micro: Microbiology 03/26/20 09:00 Gram Stain - Final Sputum - Expectorated Sputum Sputum Culture - Final A&P Assessment and plan (1) Primary malignant neoplasm of supraglottis: He will proceed with day 2 and day chemotherapy, as ordered. Status: Acute (2) Embolic stroke: He continues anticoagulation with Lovenox. Status: Acute (3) Left ventricular thrombus: Status: Acute (4) Tracheitis: He continues empiric antibiotic therapy. Status: Acute Attestations Medical Necessity Statement*: not applicable Coding Level of Care Code Acute Nuclear Instructor for [facility] Diagnoses Primary malignant neoplasm of supraglottis C32.1 Embolic stroke I63.9 Left ventricular thrombus I51.3 Tracheitis J04.10
[2020-03-29 11:39] LABS: Glucose Point of Care 109 mg/dL (70-110)
--- NOTE | 2020-03-29 12:03 | P.PN_ITS ---
Subjective Subjective: Interval history: Patient is sitting up beside the bed, much more alert and awake today Ramirez catheter is in place, trach was dislodged this morning, replaced by respiratory therapy, he has been having difficulty tolerating the diet he was placed on by speech therapy, which includes putting, applesauce, he does okay with liquids, his tube feedings was stopped this morning due to high residuals Vitals/I&O/Wt Last Vital Signs Temp 97.7 F 03/29/20 08:00 Pulse 75 03/29/20 08:03 Resp 18 03/29/20 08:02 BP 123/80 03/29/20 08:00 Pulse Ox 94 03/29/20 08:02 03/28/20 03/29/20 03/29/20 22:59 06:59 14:59 Intake Total 290 / 710 300 / 1010 240 / 240 Output Total 900 / 1300 Balance 290 / 310 -600 / -290 240 / 240 Weight last 48 hrs Weight 95.436 kg Physical Exam Narrative: EXAM NARRATIVE: Trach in place, Const: COMMON NORMALS: no acute distress and patient oriented x3 HENMT: COMMON NORMALS: normocephalic HEAD & SCALP: normocephalic Neck/C-Spine: COMMON NORMALS: no JVD Resp: COMMON NORMALS: normal respiratory effort, No retractions, No use of accessory muscles and clear to auscultation bilaterally AUSCULTATION: clear to auscultation bilaterally Cardio: COMMON NORMALS: no JVD, regular rate, regular rhythm, S1 normal heart sound present and S2 normal heart sound present RATE: regular rate RHYTHM: regular rhythm HEART SOUNDS: S1 normal heart sound present and S2 normal heart sound present GI: COMMON NORMALS: Normal to inspection, nondistended, normoactive bowel sounds present, Soft to palpation, non-tender, No hepatosplenomegaly present, no masses and no bruits PALPATION: Yes Soft to palpation and Yes No hepatosplenomegaly present Extremity: COMMON NORMALS: capillary refill normal, no clubbing, cyanosis or edema, no calf tenderness and no pedal edema Neuro: COMMON NORMALS: patient oriented x3 Psych: COMMON NORMALS: mental status grossly normal Urinary Catheter Management^: Ramirez: Cath Placed During This Visit: yes Urinary Catheter Date of Insertion: 03/27/20 Urinary Catheter Time of Insertion: 10:49 Data : 03/28/20 05:14 03/29/20 10:14 Micro: Microbiology 03/26/20 09:00 Gram Stain - Final Sputum - Expectorated Sputum Sputum Culture - Final A&P Assessment and plan (1) Supraglottic mass: Status: Acute (2) Tracheitis: Status: Acute (3) Embolic stroke: Status: Acute (4) Left ventricular thrombus: Status: Acute (5) Dysphagia: Status: Acute Additional A&P Information Supraglottic mass, 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 Hernandez on consult Dr. Krause was been consulted for port placement Speech pathology has been consulted Tracheitis Vancomycin and cefepime started on 03/22 Follow blood cultures, sputum cultures Continue regimen for at least 7 days Temp 99.7 last night, continue to monitor Trach collar dislodged 03/23 #6 cuffless which was replaced by ENT Embolic stroke Most likely source left ventricular thrombus continue Lovenox therapeutic dose Patient has been having intermittent hallucinations with impulsive behavior Continue aspirin, statins Will need long-term rehab as well right-sided hemiparesis PT OT Left ventricular thrombus Noted 03/16 TTE was not clearly visualized but left apical expansion and akinesia noted, patient did not tolerate cardiac MRI, was started on metoprolol 12.5 twice daily along aspirin and statin COPD without acute exacerbation We will keep him on DuoNeb for as needed use Full code Tube feeding diet, nectar thickened DVT prophylaxis not needed currently on therapeutic dose of Lovenox Attestations Medical Necessity Statement*: Patient requires hospitalization for super glottic neuroendocrine tumor. 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
[2020-03-29 12:12] LABS: Hematocrit 35.9 % (42.0-52.0); Hemoglobin 11.3 g/dL (11.7-16.6); Lymphocytes # 1.4 10^3/uL (0.8-4.8); Mean Corpuscular HGB Conc 31.5 g/dL (30.0-36.0); Mean Corpuscular Hemoglobin 30.1 pg (28.0-34.0); Mean Corpuscular Volume 95.5 fL (80-94); Mean Platelet Volume 11.5 fL (7.4-10.4); Monocytes # 0.4 10^3/uL (0.2-0.9); Monocytes % 3.4 %; Neutrophils # 8.42 10^3/uL (1.8-7.7); Neutrophils % 82.2 %; Nucleated Red Blood Cells % 0 %; Platelet Count 169 10^3/cmm (130-400); Red Blood Count 3.76 10^6/uL (4.1-5.3); Red Cell Distribution Width 12.6 % (12.1-15.1); White Blood Count 10.2 10^3/uL (4.0-10.0)
[2020-03-29 12:15] LABS: Uric Acid 4.3 mg/dL (3.4-7.0)
[2020-03-29] MEDS: phosphorus 250 mg Tablet PO ×2 (13:12→17:18)
[2020-03-29] MEDS: potassium chloride ER 20 mEq Tablet PO (13:12)
[2020-03-29] MEDS: sodium chloride 0.9% 250 ML 75 ML IV (14:11)
[2020-03-29] MEDS: prochlorperazine 10 mg Tablet PO (14:52)
--- NOTE | 2020-03-29 17:14 | PC.RESP ---
Smoking Cessation and Pulmonary Rehab information sent to patient.
[2020-03-29] MEDS: cefepime 2,000 MG in sodium chloride 0.9% (plus) 50 ML 100 MG IV (17:16)
[2020-03-29 18:06] LABS: Glucose Point of Care 119 mg/dL (70-110)
[2020-03-29 20:22] LABS: Vancomycin Trough 39.9 ug/mL (10-15)
[2020-03-29 22:03] LABS: Glucose Point of Care 134 mg/dL (70-110)
[2020-03-29] MEDS: morphine 4 mg/mL SDV 1 mL 2 MG IVP (22:13)
[2020-03-29] MEDS: atorvastatin 40 mg Tablet 80 MG PO (22:28)
[2020-03-29] MEDS: OLANZapine 10 mg TABLET PO (22:28)
[2020-03-30] VITALS (13 sets, daily range): BP systolic 110–132; BP diastolic 65–81; PULSE 75–95; RESP 17–22; TEMP 36.4–36.8; O2SAT 91–96
[2020-03-30] MEDS: ipratropium-albuterol 3 mL Neb INHALATION ×4 (02:32→20:18)
--- NOTE | 2020-03-30 04:20 | PC.NURSE ---
AT 0230 THE RESPIRATORY THERAPIST TATIANA CAME TO THIS NURSE AND REPORTED THE PATIENT WAS IN THE FLOOR. THE PATIENT WAS FOUND IN THE FLOOR ON HIS BUTTOCKS. HE DENIED HITTING HIS HEAD OR ANY PAIN. I CALLED THE CHARGE NURSE TO THE ROOM TO HELP WITH EVALUATION. THE PATIENT HAS SOME NEW CONFUSION PRESENT, THAT WAS NOT PRESENT AT THE BEGINNING OF THE SHIFT. UPON INSPECTION THE PATIENT HAD PULLED HIS ACCESS TO HIS PORT, HIS KUHN CATHETER WAS PULLED OUT, AND HIS PEG TUBE FEEDING TUBING HAD BEEN WELL. THIS NURSE AND THE RESPIRATORY THERAPIST ASSISTED THE PATIENT FROM THE FLOOR AND TO THE CHAIR. THERE WAS A SMALL BREAK IN THE SKIN TO THE RIGHT KNEE. THE PATIENT WAS ABLE TO TELL US WHO HE WAS AND HIS BIRTHDAY, BUT COULD NOT TELL US WHERE HE WAS. ONCE THE BED AND FLOOR WERE CLEAN, WE ASSISTED THE PATIENT BACK INTO BED. AT THIS POINT HE WAS ABLE TO TELL US WHERE HE WAS. I LEFT THE ROOM TO NOTIFY THE SWAGING MACHINE ADJUSTER HOSPITALIST AND THE PATIENT'S . PHYSICIAN STATED TO BLADDER SCAN THE PATIENT IF HE HAS NOT URINATED IN A FEW HOURS. THE WAS NOTIFIED AND REPORTED THE PATIENT HAS BEEN EXPERIENCING CONFUSION SINCE 03/07/20. 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 THE NURSE FROM THE PREVIOUS SHIFT REPORTED THE PATIENT HAD EXPERIENCED CONFUSION YESTERDAY WELL. THE CHARGE NURSE REACCESSED THE PORT AND TUBE FEEDINGS WERE RESUMED.
[2020-03-30] MEDS: cefepime 2,000 MG in sodium chloride 0.9% (plus) 50 ML 100 MG IV ×2 (05:43→15:57)
[2020-03-30] MEDS: enoxaparin 100 mg/mL Syringe SUBCUT ×2 (05:43→15:58)
[2020-03-30 06:33] LABS: Basophils % 0.1 %; Hemoglobin 11.3 g/dL (11.7-16.6); Lymphocytes # 0.7 10^3/uL (0.8-4.8); Lymphocytes % 6.1 %; Mean Corpuscular HGB Conc 32.3 g/dL (30.0-36.0); Mean Corpuscular Hemoglobin 30.2 pg (28.0-34.0); Mean Corpuscular Volume 93.6 fL (80-94); Mean Platelet Volume 10.2 fL (7.4-10.4); Monocytes # 0.2 10^3/uL (0.2-0.9); Monocytes % 1.8 %; Neutrophils # 10.03 10^3/uL (1.8-7.7); Neutrophils % 91.5 %; Nucleated Red Blood Cells % 0 %; Platelet Count 208 10^3/cmm (130-400); Red Blood Count 3.74 10^6/uL (4.1-5.3); Red Cell Distribution Width 12.4 % (12.1-15.1)
[2020-03-30 06:49] LABS: Glucose Point of Care 128 mg/dL (70-110)
[2020-03-30 06:50] LABS: Uric Acid 3.1 mg/dL (3.4-7.0)
[2020-03-30 06:53] LABS: Alanine Aminotransferase 21 U/L (0-41); Albumin Level 3.3 g/dL (3.5-5.2); Alkaline Phosphatase 76 IU/L (40-130); Anion Gap 13.6 (5-19); Aspartate Amino Transferase 21 U/L (0-40); Blood Urea Nitrogen 18 mg/dL (8-23); Calcium 8.9 mg/dL (8.5-10.5); Carbon Dioxide 28 mmol/L (22-29); Chloride 101 mmol/L (98-107); Globulin 2.3 g/dL (1.3-4.6); Glucose 124 mg/dL (65-115); Magnesium 2.2 mg/dL (1.7-2.3); Osmolality Calculated 291 mOsm/kg (285-295); Phosphorus 2.9 mg/dL (2.5-4.5); Potassium 3.6 mmol/L (3.5-5.1); Sodium 139 mmol/L (136-145); Total Bilirubin 0.4 mg/dL (0.15-1.2); Total Protein 5.6 g/dL (6.6-8.7)
[2020-03-30 06:55] LABS: Vancomycin Trough 14.7 ug/mL (10-15)
[2020-03-30] MEDS: vancomycin 1,500 MG/300 ML PIGGYBACK 200 MG IV ×2 (07:51→19:14)
[2020-03-30] MEDS: sennosides-docusate Tablet 1 TAB PO (09:22)
[2020-03-30] MEDS: aspirin 325 mg EC Tablet PO (09:22)
[2020-03-30] MEDS: nicotine 21 mg Patch 1 PATCH TRANSDERMA (09:22)
[2020-03-30] MEDS: metoprolol tartrate 25 mg Tablet 12.5 MG PO ×2 (09:26→22:27)
[2020-03-30 11:56] LABS: Glucose Point of Care 108 mg/dL (70-110)
[2020-03-30] MEDS: prochlorperazine 10 mg Tablet PO (13:11)
[2020-03-30] MEDS: sodium chloride 0.9% 250 ML 75 ML IV (13:54)
--- NOTE | 2020-03-30 13:57 | P.PN_ITS ---
Subjective Subjective: Interval history: Patient was examined this morning, overnight he had episodes of confusion, this morning he also fell, out of bed, did not hit his head,, currently sitting up in bed, alert oriented x3, having no complaints, he did also at night pull on his PEG, pull out his trach, pull on his port Vitals/I&O/Wt Last Vital Signs Temp 97.7 F 03/30/20 11:49 Pulse 75 03/30/20 11:49 Resp 18 03/30/20 11:49 BP 111/73 03/30/20 11:49 Pulse Ox 91 03/30/20 11:49 03/29/20 03/30/20 03/30/20 22:59 06:59 14:59 Intake Total 450 / 990 Output Total 1500 / 1500 900 / 2400 275 / 275 Balance -1050 / -510 -900 / -1410 -275 / -275 Physical Exam Narrative: EXAM NARRATIVE: Trach in place, Const: COMMON NORMALS: no acute distress and patient oriented x3 ORIENTATION/CONSCIOUSNESS: Yes oriented to person; not oriented to place and not oriented to time HENMT: COMMON NORMALS: normocephalic HEAD & SCALP: normocephalic Neck/C-Spine: COMMON NORMALS: no JVD Resp: COMMON NORMALS: normal respiratory effort, No retractions, No use of accessory muscles and clear to auscultation bilaterally AUSCULTATION: clear to auscultation bilaterally Cardio: COMMON NORMALS: no JVD, regular rate, regular rhythm, S1 normal heart sound present and S2 normal heart sound present RATE: regular rate RHYTHM: regular rhythm HEART SOUNDS: S1 normal heart sound present and S2 normal heart sound present GI: COMMON NORMALS: Normal to inspection, nondistended, normoactive bowel sounds present, Soft to palpation, non-tender, No hepatosplenomegaly present, no masses and no bruits PALPATION: Yes Soft to palpation and Yes No hepatosplenomegaly present Extremity: COMMON NORMALS: capillary refill normal, no clubbing, cyanosis or edema, no calf tenderness and no pedal edema Neuro: COMMON NORMALS: patient oriented x3 SENSORIUM/ORIENTATION: Yes oriented to person, No oriented to place and No oriented to time OTHER: Right upper extremity strength 4 out of 5 compared to 5 out of 5 on the left Right lower extremity strength 4 out of 5 compared to 5 out of 5 on the left No facial droop Psych: COMMON NORMALS: mental status grossly normal Urinary Catheter Management^: Ramirez: Cath Placed During This Visit: yes Urinary Catheter Date of Insertion: 03/27/20 Urinary Catheter Time of Insertion: 10:49 Data : 03/30/20 05:50 03/30/20 05:50 A&P Assessment and plan (1) Supraglottic mass: Status: Acute (2) Tracheitis: Status: Acute (3) Embolic stroke: Status: Acute (4) Left ventricular thrombus: Status: Acute (5) Dysphagia: Status: Acute Additional A&P Information Supraglottic mass, 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 Hernandez consult Continue tube feeds, change starting at 10 cc an hour, titrate by 10 cc every 4 hours to goal of 40 cc, free water flushes 150 cc every 4 hours Protein shakes for [address] Hernandez on consult Dr. Krause was been consulted for port placement Speech pathology has been consulted Tracheitis Vancomycin and cefepime started on 03/22 Follow blood cultures, sputum cultures Continue regimen for at least 7 days Currently afebrile Trach collar dislodged 03/23 #6 cuffless which was replaced by ENT Embolic stroke Most likely source left ventricular thrombus continue Lovenox therapeutic dose Patient has been having intermittent hallucinations with impulsive behavior Continue aspirin, statins Will need long-term rehab as well right-sided hemiparesis PT OT Left ventricular thrombus Noted 03/16 TTE was not clearly visualized but left apical expansion and akinesia noted, patient did not tolerate cardiac MRI, was started on metoprolol 12.5 twice daily along aspirin and statin COPD without acute exacerbation We will keep him on DuoNeb for as needed Acute on chronic delirium -Review of patient's records show that he has a history of delirium, and confusion, it pulls out his trach -Now is pulling on his trach, port, his PEG tube -Has fallen out of the bed -Is on Zyprexa 10 mg at night, Haldol as needed -We will do a CT scan of the head, follow blood cultures, monitor vitals Full code Tube feeding diet, nectar thickened DVT prophylaxis not needed currently on therapeutic dose of Lovenox Attestations Medical Necessity Statement*: Patient requires hospitalization for supraglottic cancer, tracheitis, embolic stroke, ventricular thrombus, now acute on chronic delirium Coding Level of Care Code Acute Merchandising Assistant for [facility] Diagnoses Supraglottic mass J38.7 Tracheitis J04.10 Embolic stroke I63.9 Left ventricular thrombus I51.3 Dysphagia R13.10
--- NOTE | 2020-03-30 13:57 | CTR_ITS ---
PROCEDURE INFORMATION: Exam: CT Head Without Contrast Exam date and time: 03/30/2020 5:12 PM Age: 60 years old Clinical indication: Altered mental status/memory loss; Patient HX: Worsening confusion. Patient unable to keep head still. ; Additional info: Increased confusion TECHNIQUE: Imaging protocol: Computed tomography of the head without contrast. Radiation optimization: All CT scans at this facility use at least one of these dose optimization techniques: automated exposure control; mA and/or kV adjustment per patient size (includes targeted exams where dose is matched to clinical indication); or iterative reconstruction. COMPARISON: CT head wo con* [id number] 03/10/2020 11:37 AM RADIATION DOSE METRICS: Total DLP (mGy-cm): 894.89 FINDINGS: Limitations: Study is significantly limited by patient motion. Brain: There is a old lacunar infarct in the right frontal region. There is a new focal area of hypodensity in the posterior aspect of the left basal ganglia region consistent with lunar infarct of uncertain age but likely subacute. There is no intracranial mass or hemorrhage. There is no extra-axial fluid collection. Cerebral ventricles: No ventriculomegaly. Bones/joints: Unremarkable. No acute fracture. Paranasal sinuses: Visualized sinuses are unremarkable. No fluid levels. Mastoid air cells: Visualized mastoid air cells are well aerated. Soft tissues: Unremarkable. CT/CT head wo con* [id number] IMPRESSION: There is a subacute lacunar infarct in the left basal ganglia region which is new compared with 03/10/2020. Radiation Dose CTDIVOL = (mGy): DLP = 894.89 (mGy-cm)
[2020-03-30 17:01] LABS: Glucose Point of Care 117 mg/dL (70-110)
--- NOTE | 2020-03-30 17:03 | XR_ITS ---
WS: [id number] Exam: XR chest 1V portable [id number] Date/Time of Exam: 03/30/2020 5:03 PM Reason For Exam: trach psotion Comparison 03/27/2020. A tracheostomy tube is in place unchanged in position. A right-sided subclavian port ends in the lowe r one third of the SVC. Infiltrate and atelectasis has developed in the left lower lobe since prior s tudy. Mild infiltrate and/or atelectasis in the right lower lobe. Normal heart size. The mediastinum is not widened. Bony structures are intact. XR/XR chest 1V portable [id number] IMPRESSION: 1. A tracheostomy tube in place unchanged. 2. Atelectasis and/or mild infiltrate has developed in the left lower lobe sinc e prior study. There may also be some infiltrate and/or plaque atelectasis in t he right lung base.
--- NOTE | 2020-03-30 18:01 | XR_ITS ---
WS: [id number] Exam: XR KUB portable [id number] Date/Time of Exam: 03/30/2020 6:13 PM Reason For Exam: peg tube A PEG tube is in place superimposing the gastric air bubble. No bowel obstruction or free air. Residu al radiographic contrast in the colon. Moderate amount stool in the remaining colon. Visualized organ margins are intact. Surgical clips in the pelvis. XR/XR KUB portable [id number] IMPRESSION: 1. PEG tube in place in the region of the stomach. 2. No acute abdominal process. 3. Constipation and residual radiographic contrast in the colon.
[2020-03-30] MEDS: cyclobenzaprine 10 mg Tablet 5 MG PO (18:05)
--- NOTE | 2020-03-30 19:38 | PC.NURSE ---
0978 Kell Tellez saw pt fall and I was walking out of another Pts room when I saw her hurry to the patients room. Pt was lying slighty on his right side with his head up. Pt denied pain and denied hitting his head. pt was examined and a sm skin tear on his left forearm was found. Dr cleaning and several nurses helped pt back to bed. Dr Lynch arrived when we just got him up. on order was put in to help keep pt safe. vitals signs were charted and wnl.
--- NOTE | 2020-03-30 20:34 | PC.NURSE ---
THE PSA AT BEDSIDE NOTIFIED THIS NURSE THAT THE PATIENT DISLODGED HIS PORT ACCESS. THIS NURSE WENT TO BEDSIDE AND DISPOSED OF THE ACCESS NEEDLE PROPERLY IN THE SHARPS CONTAINER. AT THIS TIME THIS NURSE ALSO UNTANGLED AND DECLUTTERED THE PATIENTS BEDSIDE AREA. THE IV POLE HAD 2 PUMPS ALONG WITH THE A [place]ANGAROO PUMP. ALL LINES WERE ENTANGLED AND PULLED TAUNT. A SECOND POLE WAS FOUND TO REDUCE THE CLUTTER AND PROVIDE MORE MOBILITY TO THE PATIENT IN THE BED. THE GASTRIC RESIDUAL WAS ALSO CHECKED AT THIS TIME. I STOPPED AT 300 ML AND CALLED THE SUPPLY ASSISTANT HOSPITALIST. A DESCRIPTION OF THE CONTENTS WERE DESCRIBED AND PICTURES WERE SENT. THE CONTENTS WERE BROWN IN COLOR AND DID NOT CONTAIN ANY COFFEE GROUND APPEARANCE. HE STATED SINCE THE PATIENT WAS TAKING IN PO FOOD SOURCES WELL, THAT THE APPEARANCE WAS TO BE EXPECTED. THE PATIENT'S HEMOGLOBIN HAS MAINTAINED A STABLE LEVEL ALSO. VERBAL ORDER TO GO AHEAD AND ADVANCE PEG FEEDING TO 30 ML PER HOUR.
--- NOTE | 2020-03-30 21:00 | PC.NURSE ---
This RN accessed patients R - Port a Cath with 22g Hueber Needle and central line dressing kit using aseptic technique. Access provided good blood return. Patient tolerated well.
[2020-03-30 21:21] LABS: Glucose Point of Care 145 mg/dL (70-110)
[2020-03-30] MEDS: atorvastatin 40 mg Tablet 80 MG PO (22:26)
[2020-03-30] MEDS: OLANZapine 10 mg TABLET PO (22:26)
[2020-03-30] MEDS: OLANZapine 10 mg VIAL 5 MG IM (23:40)
[2020-03-31] VITALS (12 sets, daily range): BP systolic 119–143; BP diastolic 67–88; PULSE 78–88; RESP 14–20; TEMP 36.2–36.5; O2SAT 91–100
[2020-03-31] MEDS: ipratropium-albuterol 3 mL Neb INHALATION ×3 (03:02→20:23)
[2020-03-31] MEDS: cefepime 2,000 MG in sodium chloride 0.9% (plus) 50 ML 100 MG IV ×2 (04:04→15:23)
--- NOTE | 2020-03-31 04:15 | PC.NURSE ---
AT 0300 RT CALLED THIS NURSE TO REPORT THE PATIENT HAD PULLED HIS PORT ACCESS OUT AGAIN. URBINA NEEDLE DISPOSED OF IN BIOHAZARD CONTAINER. ACCESS NOT REOBTAINED AT THIS TIME.
[2020-03-31] MEDS: enoxaparin 100 mg/mL Syringe SUBCUT ×2 (05:02→16:25)
[2020-03-31] MEDS: morphine 4 mg/mL SDV 1 mL 2 MG IVP (05:12)
[2020-03-31 05:26] LABS: Hematocrit 31.3 % (42.0-52.0); Hemoglobin 10.4 g/dL (11.7-16.6); Lymphocytes # 0.5 10^3/uL (0.8-4.8); Lymphocytes % 8.1 %; Mean Corpuscular HGB Conc 33.2 g/dL (30.0-36.0); Mean Corpuscular Hemoglobin 30.3 pg (28.0-34.0); Mean Corpuscular Volume 91.3 fL (80-94); Mean Platelet Volume 10.2 fL (7.4-10.4); Monocytes # 0.1 10^3/uL (0.2-0.9); Monocytes % 1.9 %; Neutrophils # 5.77 10^3/uL (1.8-7.7); Neutrophils % 89.8 %; Nucleated Red Blood Cells % 0 %; Platelet Count 250 10^3/cmm (130-400); Red Blood Count 3.43 10^6/uL (4.1-5.3); Red Cell Distribution Width 12.3 % (12.1-15.1); White Blood Count 6.4 10^3/uL (4.0-10.0)
[2020-03-31 06:13] LABS: Alanine Aminotransferase 22 U/L (0-41); Albumin Level 3.2 g/dL (3.5-5.2); Alkaline Phosphatase 65 IU/L (40-130); Anion Gap 14.5 (5-19); Aspartate Amino Transferase 27 U/L (0-40); Blood Urea Nitrogen 20 mg/dL (8-23); Calcium 8.7 mg/dL (8.5-10.5); Carbon Dioxide 25 mmol/L (22-29); Chloride 102 mmol/L (98-107); Globulin 2.6 g/dL (1.3-4.6); Glucose 126 mg/dL (65-115); Magnesium 2.1 mg/dL (1.7-2.3); Osmolality Calculated 290 mOsm/kg (285-295); Phosphorus 2.9 mg/dL (2.5-4.5); Potassium 3.5 mmol/L (3.5-5.1); Sodium 138 mmol/L (136-145); Total Bilirubin 0.4 mg/dL (0.15-1.2); Total Protein 5.8 g/dL (6.6-8.7)
[2020-03-31 06:14] LABS: Glucose Point of Care 134 mg/dL (70-110)
[2020-03-31 06:20] LABS: Uric Acid 2.7 mg/dL (3.4-7.0)
[2020-03-31] MEDS: vancomycin 1,500 MG/300 ML PIGGYBACK 200 MG IV ×2 (06:45→18:42)
[2020-03-31] MEDS: nicotine 21 mg Patch 1 PATCH TRANSDERMA (09:04)
[2020-03-31] MEDS: aspirin 325 mg EC Tablet PO (09:04)
[2020-03-31] MEDS: sennosides-docusate Tablet 1 TAB PO (09:05)
[2020-03-31] MEDS: metoprolol tartrate 25 mg Tablet 12.5 MG PO ×2 (09:18→22:34)
--- NOTE | 2020-03-31 11:20 | CT_ITS ---
WS: [id number] CT ABDOMEN PELVIS TECHNIQUE: Noncontrast CT of the abdomen and pelvis with coronal and sagittal reformatted images. CLINICAL INFORMATION: abodminal distention COMPARISON: None. DLP: 1514.[address] scans at [facility] use at least one of these dose optimization techniques: automat ed exposure control; mA and/or kV adjustment per patient size (includes targeted exams where dose is matched to clinical indication); or iterative reconstruction. FINDINGS: Percutaneous gastrostomy tube in place. This appears normal in position. Stomach and proximal duodenu m are normal. No evidence of high-grade small or large bowel obstruction. Scattered stool in the colo n. Hazy groundglass infiltrates in the lung bases. Correlation for pneumonia. Noncontrast liver is beatriz l. Gallbladder is contracted with cholelithiasis. Fatty atrophy of the pancreas. Adrenal glands are n ormal. No hydronephrosis in either kidney. Right adrenal adenoma measuring 2.1 CM. Normal caliber abd ominal aorta. Aortic calcification.Sigmoid diverticulosis. No evidence of acute diverticulitis. Residual contrast i n colon. No periaortic or inguinal lymphadenopathy.. CT/CT abdomen pelvis wo con [id number] IMPRESSION: 1. Percutaneous gastrostomy tube in normal position. 2. Gallbladder is contracted. Cholelithiasis. No fluid in the gallbladder jaja a. 3. 2.1 cm right adrenal adenoma. 4. No hydronephrosis in either kidney. 5. Hazy groundglass infiltrates in the lung bases. Recommend correlation for C OVID pneumonia.
[2020-03-31 11:59] LABS: Glucose Point of Care 98 mg/dL (70-110)
--- NOTE | 2020-03-31 16:03 | P.PN_ITS ---
Subjective Subjective: Interval history: Patient had a difficult night, did not get any sleep, he pulled out his trach, which was put back in, was pulling out his PEG tube, he pulled on his port access, this morning is alert to person, place, a bit confused, nurses tell me that the tube feedings have had a high residual, no nausea, no no vomiting, no headache, blurry vision, continues to have weakness on the right equal compared to yesterday, no facial droop I noticed, no slurring of his speech Vitals/I&O/Wt Last Vital Signs Temp 97.2 F L 03/31/20 11:50 Pulse 85 03/31/20 11:50 Resp 20 H 03/31/20 11:50 BP 126/77 03/31/20 11:50 Pulse Ox 100 03/31/20 11:50 03/31/20 03/31/20 03/31/20 06:59 14:59 22:59 Intake Total 290 / 940 300 / 300 Output Total 650 / 925 100 / 100 Balance -360 / 15 200 / 200 Physical Exam Narrative: EXAM NARRATIVE: Trach in place, Const: COMMON NORMALS: no acute distress ORIENTATION/CONSCIOUSNESS: Yes awake, Yes oriented to person and Yes confused; not oriented to place and not oriented to time HENMT: COMMON NORMALS: normocephalic HEAD & SCALP: normocephalic Neck/C-Spine: COMMON NORMALS: no JVD Resp: COMMON NORMALS: normal respiratory effort, No retractions, No use of accessory muscles and clear to auscultation bilaterally AUSCULTATION: clear to auscultation bilaterally Cardio: COMMON NORMALS: no JVD, regular rate, regular rhythm, S1 normal heart sound present and S2 normal heart sound present RATE: regular rate RHYTHM: regular rhythm HEART SOUNDS: S1 normal heart sound present and S2 normal heart sound present GI: COMMON NORMALS: Normal to inspection, nondistended, normoactive bowel sounds present, Soft to palpation, non-tender, No hepatosplenomegaly present, no masses and no bruits PALPATION: Yes Soft to palpation and Yes No hepatosplenomegaly present OTHER: PEG tube in place, injected air, heard bubbles Extremity: COMMON NORMALS: capillary refill normal, no clubbing, cyanosis or edema, no calf tenderness and no pedal edema Neuro: SENSORIUM/ORIENTATION: Yes oriented to person, No oriented to place and No oriented to time OTHER: Right upper extremity strength 4 out of 5 compared to 5 out of 5 on the left Right lower extremity strength 4 out of 5 compared to 5 out of 5 on the left No facial droop Psych: COMMON NORMALS: mental status grossly normal Urinary Catheter Management^: Ramirez: Cath Placed During This Visit: yes Urinary Catheter Date of Insertion: 03/27/20 Urinary Catheter Time of Insertion: 10:49 Data : 03/31/20 04:58 03/31/20 04:58 Micro: Microbiology 03/26/20 09:18 Blood Culture - Final Blood NO GROWTH AFTER 5 DAYS 03/26/20 09:14 Blood Culture - Final Blood NO GROWTH AFTER 5 DAYS A&P Assessment and plan (1) Supraglottic mass: Status: Acute (2) Tracheitis: Status: Acute (3) Embolic stroke: Status: Acute (4) Left ventricular thrombus: Status: Acute (5) Dysphagia: Status: Acute Additional A&P Information Supraglottic mass, 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 Hernandez consult PEG tube CT scan this morning confirmed position of PEG tube, no ileus, no small bowel obstruction Nurses report residuals over 60 cc Start tube feeds at 5 cc an hour, increase by 5 cc every 2 hours, goal will be 30 cc, free water flushes 50 cc every 4 hours Speech pathology has been consulted Monitor daily labs for refeeding syndrome Tracheitis Vancomycin and cefepime started on 03/22 Follow blood cultures, sputum cultures Continue regimen for at least 7 days Currently afebrile Trach collar dislodged 03/23 #6 cuffless which was replaced by ENT Trach was dislodged this morning, replaced Embolic stroke CT of the head showed: Brain: There is a old lacunar infarct in the right frontal region. There is a new focal area of hypodensity in the posterior aspect of the left basal ganglia region consistent with lunar infarct of uncertain age but likely subacute. There is no intracranial mass or hemorrhage. There is no extra-axial fluid collection. -Indications for subacute lacunar infarct in the left basal ganglia region -MRI of the brain and [facility] shows multiple scattered areas of acute infarct involving both the supratentorial and infra tentorial brain, including left internal capsule, left erwin radiata, bilateral septal lobes, and bilateral cerebral hemispheres -Patient's physical exam is about the same, has weakness on the right 4-5 compared to 5 out of 5 on the left, actually slightly improved, no facial droop, slurring of speech -Thus I clinically feel that this subacute lacunar infarct is likely old, but will continue neurochecks Most likely source left ventricular thrombus continue Lovenox therapeutic dose Patient has been having intermittent hallucinations with impulsive behavior Continue aspirin, statins Will need long-term rehab as well right-sided hemiparesis PT OT Left ventricular thrombus Noted 03/16 TTE was not clearly visualized but left apical expansion and akinesia noted, patient did not tolerate cardiac MRI, was started on metoprolol 12.5 twice daily along aspirin and statin COPD without acute exacerbation We will keep him on DuoNeb for as needed Acute on chronic delirium -Review of patient's records show that he has a history of delirium, and confusion, it pulls out his trach -Here he pulls on his port, PEG tube, on his trach -Has fallen out of the bed -Is on Zyprexa 10 mg at night, with switch to Ativan -Follow blood cultures, he might require Geodon instead of Zyprexa -Place abdominal binder Full code Tube feeding diet, nectar thickened DVT prophylaxis not needed currently on therapeutic dose of Lovenox Attestations Medical Necessity Statement*: Patient requires hospitalization for tracheitis, embolic stroke, left atrial thrombus, COPD, supraglottic malignancy requiring inpatient chemotherapy Coding Level of Care Code Acute Community Fundraiser for [facility] Fwd Diagnoses Supraglottic mass J38.7 Tracheitis J04.10 Embolic stroke I63.9 Left ventricular thrombus I51.3 Dysphagia R13.10
[2020-03-31 16:31] LABS: Glucose Point of Care 109 mg/dL (70-110)
[2020-03-31 21:28] LABS: Glucose Point of Care 116 mg/dL (70-110)
[2020-03-31] MEDS: atorvastatin 40 mg Tablet 80 MG PO (22:34)
[2020-03-31] MEDS: OLANZapine 10 mg TABLET PO (22:34)
[2020-04-01] VITALS (14 sets, daily range): BP systolic 100–131; BP diastolic 53–80; PULSE 91–109; RESP 16–28; TEMP 36.7–37; O2SAT 90–96
[2020-04-01] MEDS: ipratropium-albuterol 3 mL Neb INHALATION ×4 (02:18→20:39)
[2020-04-01] MEDS: enoxaparin 100 mg/mL Syringe SUBCUT ×2 (05:28→16:55)
[2020-04-01] MEDS: cefepime 2,000 MG in sodium chloride 0.9% (plus) 50 ML 100 MG IV ×2 (05:29→16:58)
[2020-04-01] MEDS: haloperidol inj 5 mg/mL INJ 1 mL IM (05:58)
[2020-04-01 06:34] LABS: Glucose Point of Care 117 mg/dL (70-110)
[2020-04-01] MEDS: vancomycin 1,500 MG/300 ML PIGGYBACK 200 MG IV ×2 (08:59→18:52)
[2020-04-01] MEDS: nicotine 21 mg Patch 1 PATCH TRANSDERMA (08:59)
[2020-04-01] MEDS: metoprolol tartrate 25 mg Tablet 12.5 MG PO ×2 (09:00→22:22)
[2020-04-01] MEDS: aspirin 325 mg EC Tablet PO (09:00)
[2020-04-01] MEDS: sennosides-docusate Tablet 1 TAB PO (09:02)
--- NOTE | 2020-04-01 09:03 | PC.OT ---
Patient demonstrating adverse behaviors and is not appropriate for therapy at this time, will re-evaluate later.
[2020-04-01 09:46] LABS: Hematocrit 29.6 % (42.0-52.0); Hemoglobin 9.7 g/dL (11.7-16.6); Lymphocytes # 0.6 10^3/uL (0.8-4.8); Lymphocytes % 7.5 %; Mean Corpuscular HGB Conc 32.8 g/dL (30.0-36.0); Mean Corpuscular Hemoglobin 30.7 pg (28.0-34.0); Mean Corpuscular Volume 93.7 fL (80-94); Mean Platelet Volume 10.1 fL (7.4-10.4); Monocytes # 0.1 10^3/uL (0.2-0.9); Monocytes % 0.7 %; Neutrophils # 6.68 10^3/uL (1.8-7.7); Neutrophils % 91.3 %; Nucleated Red Blood Cells % 0 %; Platelet Count 210 10^3/cmm (130-400); Red Blood Count 3.16 10^6/uL (4.1-5.3); Red Cell Distribution Width 12.4 % (12.1-15.1); White Blood Count 7.3 10^3/uL (4.0-10.0)
[2020-04-01 10:32] LABS: Alanine Aminotransferase 25 U/L (0-41); Albumin Level 3.2 g/dL (3.5-5.2); Alkaline Phosphatase 70 IU/L (40-130); Anion Gap 12.2 (5-19); Aspartate Amino Transferase 26 U/L (0-40); Blood Urea Nitrogen 19 mg/dL (8-23); Calcium 8.4 mg/dL (8.5-10.5); Carbon Dioxide 28 mmol/L (22-29); Chloride 102 mmol/L (98-107); Globulin 2.5 g/dL (1.3-4.6); Glucose 98 mg/dL (65-115); Magnesium 2.1 mg/dL (1.7-2.3); Osmolality Calculated 290 mOsm/kg (285-295); Phosphorus 3.6 mg/dL (2.5-4.5); Potassium 3.2 mmol/L (3.5-5.1); Sodium 139 mmol/L (136-145); Total Bilirubin 0.4 mg/dL (0.15-1.2); Total Protein 5.7 g/dL (6.6-8.7)
[2020-04-01 10:34] LABS: Uric Acid 3.4 mg/dL (3.4-7.0)
[2020-04-01 10:59] LABS: Glucose Point of Care 99 mg/dL (70-110)
--- NOTE | 2020-04-01 11:45 | P.PN_ITS ---
Subjective Subjective: Interval history: Patient continues to have episodes of agitation overnight, he pulled out his port access, required 5 mg of IM Haldol, no fevers, no chills, this morning is a bit sleepy, but follows commands Vitals/I&O/Wt Last Vital Signs Temp 98.1 F 04/01/20 07:57 Pulse 101 H 04/01/20 08:20 Resp 16 04/01/20 08:20 BP 105/73 04/01/20 07:57 Pulse Ox 94 04/01/20 08:20 03/31/20 04/01/20 04/01/20 22:59 06:59 14:59 Intake Total 710 / 1130 50 / 1180 500 / 500 Output Total 300 / 400 200 / 200 Balance 410 / 730 50 / 780 300 / 300 Weight last 48 hrs Weight 93.803 kg Physical Exam Narrative: EXAM NARRATIVE: Trach in place, Const: COMMON NORMALS: no acute distress GENERAL APPEARANCE: cooperative ORIENTATION/CONSCIOUSNESS: Yes awake, Yes oriented to person and Yes confused; not oriented to place and not oriented to time HENMT: COMMON NORMALS: normocephalic HEAD & SCALP: normocephalic Neck/C-Spine: COMMON NORMALS: no JVD Chest: OTHER: Right chest port in place Resp: COMMON NORMALS: normal respiratory effort, No retractions, No use of accessory muscles and clear to auscultation bilaterally AUSCULTATION: clear to auscultation bilaterally Cardio: COMMON NORMALS: no JVD, regular rate, regular rhythm, S1 normal heart sound present and S2 normal heart sound present RATE: regular rate RHYTHM: regular rhythm HEART SOUNDS: S1 normal heart sound present and S2 normal heart sound present GI: COMMON NORMALS: Normal to inspection, nondistended, normoactive bowel sounds present, Soft to palpation, non-tender, No hepatosplenomegaly present, no masses and no bruits PALPATION: Yes Soft to palpation and Yes No hepatosplenomegaly present OTHER: PEG tube in place, injected air, heard bubbles Extremity: COMMON NORMALS: capillary refill normal, no clubbing, cyanosis or edema, no calf tenderness and no pedal edema Neuro: SENSORIUM/ORIENTATION: Yes oriented to person, No oriented to place and No oriented to time OTHER: Right upper extremity strength 4 out of 5 compared to 5 out of 5 on the left Right lower extremity strength 4 out of 5 compared to 5 out of 5 on the left No facial droop Psych: COMMON NORMALS: mental status grossly normal Urinary Catheter Management^: Ramirez: Cath Placed During This Visit: yes Urinary Catheter Date of Insertion: 03/27/20 Urinary Catheter Time of Insertion: 10:49 Data : 04/01/20 09:33 04/01/20 09:33 Micro: Microbiology 03/26/20 09:18 Blood Culture - Final Blood NO GROWTH AFTER 5 DAYS 03/26/20 09:14 Blood Culture - Final Blood NO GROWTH AFTER 5 DAYS A&P Assessment and plan (1) Supraglottic mass: Status: Acute (2) Tracheitis: Status: Acute (3) Embolic stroke: Status: Acute (4) Left ventricular thrombus: Status: Acute (5) Dysphagia: Status: Acute Additional A&P Information Supraglottic mass, 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 Hernandez consult PEG tube CT scan this morning confirmed position of PEG tube, no ileus, no small bowel obstruction Nurses report residuals over 60 cc Hold tube feeds CT scan shows large stool burden, significant constipation Start bowel regimen, regular bowel movements, retry PEG tube feedings tonight if patient has regular bowel movements Speech pathology has been consulted Monitor daily labs for refeeding syndrome Tracheitis Vancomycin and cefepime started on 03/22 Follow blood cultures, sputum cultures Continue regimen for at least 7 days Currently afebrile Trach collar dislodged 03/23 #6 cuffless which was replaced by ENT Trach was dislodged this morning, replaced Embolic stroke CT of the head showed: Brain: There is a old lacunar infarct in the right frontal region. There is a new focal area of hypodensity in the posterior aspect of the left basal ganglia region consistent with lunar infarct of uncertain age but likely subacute. There is no intracranial mass or hemorrhage. There is no extra-axial fluid collection. -Indications for subacute lacunar infarct in the left basal ganglia region -MRI of the brain and [facility] shows multiple scattered areas of acute infarct involving both the supratentorial and infra tentorial brain, including left internal capsule, left erwni radiata, bilateral septal lobes, and bilateral cerebral hemispheres -Patient's physical exam is about the same, has weakness on the right 4-5 compared to 5 out of 5 on the left, actually slightly improved, no facial droop, slurring of speech -Thus I clinically feel that this subacute lacunar infarct is likely old, but will continue neurochecks Most likely source left ventricular thrombus continue Lovenox therapeutic dose Patient has been having intermittent hallucinations with impulsive behavior Continue aspirin, statins Will need long-term rehab as well right-sided hemiparesis PT OT Left ventricular thrombus Noted 03/16 TTE was not clearly visualized but left apical expansion and akinesia noted, patient did not tolerate cardiac MRI, was started on metoprolol 12.5 twice daily along aspirin and statin COPD without acute exacerbation We will keep him on DuoNeb for as needed Acute on chronic delirium -Review of patient's records show that he has a history of delirium, and confusion, it pulls out his trach -Here he pulls on his port, PEG tube, on his trach, port -Has fallen out of the bed -Is on Zyprexa 10 mg at night, schedule Haldol 0.5 mg every 8 hours, Ativan as needed -Follow blood cultures, he might require Geodon instead of Zyprexa -Place abdominal binder Full code Tube feeding diet, nectar thickened DVT prophylaxis not needed currently on therapeutic dose of Lovenox Attestations Medical Necessity Statement*: She requires hospitalization for supraglottic mass, tracheitis, embolic stroke, left ventricular thrombus Coding Level of Care Code Acute [place] Miller for [facility] Jimy Diagnoses Supraglottic mass J38.7 Tracheitis J04.10 Embolic stroke I63.9 Left ventricular thrombus I51.3 Dysphagia R13.10
[2020-04-01] MEDS: polyethylene glycol 3350 Pkt 17 gm PO (12:10)
[2020-04-01] MEDS: haloperidol 1 mg Tablet 0.5 MG PO ×2 (13:29→22:22)
[2020-04-01 13:55] LABS: Ammonia 26 umol/L (16-60)
[2020-04-01 17:31] LABS: Glucose Point of Care 104 mg/dL (70-110)
[2020-04-01] MEDS: LORazepam 2 mg/mL INJ 1 mL 0.5 MG IVP ×2 (18:19→23:33)
[2020-04-01] MEDS: lactulose oral liq 20 gm/30 mL UDC PO (18:52)
[2020-04-01 21:25] LABS: Glucose Point of Care 99 mg/dL (70-110)
[2020-04-01] MEDS: OLANZapine 10 mg TABLET PO (22:22)
[2020-04-01] MEDS: atorvastatin 40 mg Tablet 80 MG PO (22:22)
[2020-04-02] VITALS (15 sets, daily range): BP systolic 96–115; BP diastolic 63–68; PULSE 70–112; RESP 16–24; TEMP 36.4–37.3; O2SAT 92–97
[2020-04-02] MEDS: ipratropium-albuterol 3 mL Neb INHALATION ×4 (02:49→20:09)
[2020-04-02] MEDS: HYDROmorphone 1 mg/mL INJ 1 mL 0.4 MG IVP (03:09)
[2020-04-02] MEDS: lactulose oral liq 20 gm/30 mL UDC PO ×3 (03:09→17:40)
--- NOTE | 2020-04-02 03:37 | PC.NURSE ---
Notified doctor of patient having copious amounts of bloody substance coming from PEG tube. New orders received to hold lovenox and start protonix 40mg BID.
[2020-04-02] MEDS: LORazepam 2 mg/mL INJ 1 mL 1 MG IVP (04:36)
[2020-04-02] MEDS: ziprasidone 20 mg/mL SDV IM (04:39)
[2020-04-02] MEDS: cefepime 2,000 MG in sodium chloride 0.9% (plus) 50 ML 100 MG IV ×2 (04:39→15:46)
[2020-04-02] MEDS: pantoprazole 40 mg SDV IVP ×2 (04:39→16:14)
[2020-04-02 05:39] LABS: Basophils % 0.2 %; Hematocrit 29.4 % (42.0-52.0); Hemoglobin 9.6 g/dL (11.7-16.6); Lymphocytes # 0.6 10^3/uL (0.8-4.8); Lymphocytes % 10.6 %; Mean Corpuscular HGB Conc 32.7 g/dL (30.0-36.0); Mean Corpuscular Hemoglobin 30.4 pg (28.0-34.0); Mean Platelet Volume 10.6 fL (7.4-10.4); Monocytes % 0.6 %; Neutrophils # 4.63 10^3/uL (1.8-7.7); Neutrophils % 87.7 %; Nucleated Red Blood Cells % 0 %; Platelet Count 192 10^3/cmm (130-400); Red Blood Count 3.16 10^6/uL (4.1-5.3); Red Cell Distribution Width 12.2 % (12.1-15.1); White Blood Count 5.3 10^3/uL (4.0-10.0)
[2020-04-02 05:54] LABS: Alanine Aminotransferase 27 U/L (0-41); Albumin Level 3.2 g/dL (3.5-5.2); Alkaline Phosphatase 75 IU/L (40-130); Anion Gap 12.8 (5-19); Aspartate Amino Transferase 29 U/L (0-40); Blood Urea Nitrogen 16 mg/dL (8-23); C Reactive Protein 44.3 mg/L (0.0-4.9); Calcium 8.4 mg/dL (8.5-10.5); Carbon Dioxide 26 mmol/L (22-29); Chloride 103 mmol/L (98-107); Globulin 2.5 g/dL (1.3-4.6); Glucose 109 mg/dL (65-115); Magnesium 2.2 mg/dL (1.7-2.3); NT Pro B Type Natriuretic Pept 1155 pg/mL (0-125); Osmolality Calculated 290 mOsm/kg (285-295); Phosphorus 2.9 mg/dL (2.5-4.5); Sodium 139 mmol/L (136-145); Total Bilirubin 0.5 mg/dL (0.15-1.2); Total Protein 5.7 g/dL (6.6-8.7)
[2020-04-02 06:42] LABS: Potassium 2.8 mmol/L (3.5-5.1)
--- NOTE | 2020-04-02 07:00 | XR_ITS ---
WS: [id number] Exam: XR chest 1V portable [id number] Date/Time of Exam: 04/02/2020 7:00 AM Reason For Exam: sob Comparison 03/30/2020. Mild infiltrate and atelectasis in the right lower lobe unchanged. The left base is now clear. Remain ing lung cash are clear. Normal cardiomediastinal structures. A tracheostomy tube remains in place appearing to be in satisfactory position. A right subclavian port extends into region of the cavoatri al junction. XR/XR chest 1V portable [id number] IMPRESSION: 1. Infiltrate and atelectasis in the right base unchanged. The left lung base i s now clear. 2. No other change since previous exam.
[2020-04-02 07:06] LABS: Glucose Point of Care 99 mg/dL (70-110)
[2020-04-02] MEDS: vancomycin 1,500 MG/300 ML PIGGYBACK 200 MG IV ×2 (07:35→21:03)
[2020-04-02] MEDS: polyethylene glycol 3350 Pkt 17 gm PO (08:57)
[2020-04-02] MEDS: aspirin 325 mg EC Tablet PO (08:58)
[2020-04-02] MEDS: nicotine 21 mg Patch 1 PATCH TRANSDERMA (08:58)
[2020-04-02] MEDS: metoprolol tartrate 25 mg Tablet 12.5 MG PO ×2 (08:58→21:02)
[2020-04-02] MEDS: sennosides-docusate Tablet 1 TAB PO (08:58)
--- NOTE | 2020-04-02 09:12 | ECG_ITS ---
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 Measurements Intervals [place] Rate: 92 P: 50 CT: 179 QRS: 7 QRSD: 118 T: 60 QT: 367 QTc: 454 Interpretive Statements SINUS RHYTHM Inferior myocardial infarction, probably old Compared to ECG 03/26/2020 05:11:34 No significant changes are noted. Electronically Signed On 04-02-2020 18:28:16 MACHINIST OUTSIDE by Brandon Streeter M.D. [id number]
[2020-04-02] MEDS: lidocaine 1% 5 ML in potassium chloride premix 100 ML 25 ML IV ×2 (09:51→13:17)
--- NOTE | 2020-04-02 10:07 | PC.NURSE ---
per Dr. Lynch, started tube feedings with glucerna at 10mL/hr, with residual checks q4H, hold feeding if residual is greater than 20mL, free water flush 150mL q4h, increase feeding by 10mL/hr q4h after residual check. abdominal binder placed in order to prevent patient from pulling out peg tube.
[2020-04-02 10:53] LABS: Iron 92 ug/dL (59-158)
[2020-04-02 11:09] LABS: Vitamin B12 311 pg/mL (232-1245)
[2020-04-02 11:10] LABS: Folate Level 3.7 ng/mL (4.5-32.2)
[2020-04-02 11:10] LABS: Ferritin 1620 ng/mL (30-400)
[2020-04-02 11:40] LABS: Glucose Point of Care 100 mg/dL (70-110)
--- NOTE | 2020-04-02 12:11 | PC.OT ---
Patient held per nursing.
--- NOTE | 2020-04-02 12:45 | PM.PN ---
Subjective Subjective: Interval history: Patient was examined this morning, he is quite sleepy, from all the antipsychotic medications that he got last night, he had episodes of agitation, was quite difficult to control, is arousable, does follow commands, but falls back asleep, patient has hyperactive delirium, sundowning, Zyprexa has not been working, he did have a large bowel movement this morning, Vitals/I&O/Wt Last Vital Signs Temp 97.6 F 04/02/20 11:13 Pulse 96 04/02/20 11:13 Resp 17 04/02/20 11:13 BP 109/68 04/02/20 11:13 Pulse Ox 97 04/02/20 11:13 04/01/20 04/02/20 04/02/20 22:59 06:59 14:59 Intake Total 350 / 1090 Output Total 375 / 775 Balance -25 / 315 Weight last 48 hrs Weight 93.803 kg Physical Exam Narrative: EXAM NARRATIVE: Trach in place, Const: COMMON NORMALS: no acute distress GENERAL APPEARANCE: cooperative ORIENTATION/CONSCIOUSNESS: Yes awake, Yes oriented to person and Yes confused; not oriented to place and not oriented to time OTHER: Sleepy this morning HENMT: COMMON NORMALS: normocephalic HEAD & SCALP: normocephalic Neck/C-Spine: COMMON NORMALS: no JVD Chest: OTHER: Right chest port in place Resp: COMMON NORMALS: normal respiratory effort, No retractions, No use of accessory muscles and clear to auscultation bilaterally AUSCULTATION: clear to auscultation bilaterally Cardio: COMMON NORMALS: no JVD, regular rate, regular rhythm, S1 normal heart sound present and S2 normal heart sound present RATE: regular rate RHYTHM: regular rhythm HEART SOUNDS: S1 normal heart sound present and S2 normal heart sound present GI: COMMON NORMALS: Normal to inspection, nondistended, normoactive bowel sounds present, Soft to palpation, non-tender, No hepatosplenomegaly present, no masses and no bruits PALPATION: Yes Soft to palpation and Yes No hepatosplenomegaly present OTHER: PEG tube in place, injected air, heard bubbles Extremity: COMMON NORMALS: capillary refill normal, no clubbing, cyanosis or edema, no calf tenderness and no pedal edema Neuro: SENSORIUM/ORIENTATION: Yes oriented to person, No oriented to place and No oriented to time Urinary Catheter Management^: Ramirez: Cath Placed During This Visit: yes Urinary Catheter Date of Insertion: 03/27/20 Urinary Catheter Time of Insertion: 10:49 Data : 04/02/20 04:23 04/02/20 04:23 A&P Assessment and plan (1) Supraglottic mass: Status: Acute (2) Tracheitis: Status: Acute (3) Embolic stroke: Status: Acute (4) Left ventricular thrombus: Status: Acute (5) Dysphagia: Status: Acute Additional A&P Information Supraglottic mass, 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 Hernandez consult PEG tube CT scan this morning confirmed position of PEG tube, no ileus, no small bowel obstruction CT scan of the abdomen does show large stool burden, significant constipation Significant constipation, started on multiple bowel regimens, had a soft bowel movement this morning Start tube feeds at 10 cc an hour, titrate by 10 cc to goal of 40 cc, free water flushes 150 cc every 4 hours Continue bowel regimen, enema as needed Speech pathology has been consulted, soft mechanical Monitor daily labs for refeeding syndrome Tracheitis Vancomycin and cefepime started on 03/22 Follow blood cultures, sputum cultures Continue regimen for at least 7 days, I am continuing antibiotics given his hyperactive delirium Currently afebrile Trach collar dislodged 03/23 #6 cuffless which was replaced by ENT Trach was dislodged this morning, replaced Embolic stroke CT of the head showed: Brain: There is a old lacunar infarct in the right frontal region. There is a new focal area of hypodensity in the posterior aspect of the left basal ganglia region consistent with lunar infarct of uncertain age but likely subacute. There is no intracranial mass or hemorrhage. There is no extra-axial fluid collection. -Indications for subacute lacunar infarct in the left basal ganglia region -MRI of the brain and [facility] shows multiple scattered areas of acute infarct involving both the supratentorial and infra tentorial brain, including left internal capsule, left erwin radiata, bilateral septal lobes, and bilateral cerebral hemispheres -Patient's physical exam is about the same, has weakness on the right 4-5 compared to 5 out of 5 on the left, actually slightly improved, no facial droop, slurring of speech -Thus I clinically feel that this subacute lacunar infarct is likely old, but will continue neurochecks Most likely source left ventricular thrombus continue Lovenox therapeutic dose Patient has been having intermittent hallucinations with impulsive behavior Continue aspirin, statins Will need long-term rehab as well right-sided hemiparesis PT OT Left ventricular thrombus Noted 03/16 TTE was not clearly visualized but left apical expansion and akinesia noted, patient did not tolerate cardiac MRI, was started on metoprolol 12.5 twice daily along aspirin and statin COPD without acute exacerbation We will keep him on DuoNeb for as needed Acute on chronic hyperactive delirium -Review of patient's records show that he has a history of delirium, and confusion, it pulls out his trach -Here he pulls on his port, PEG tube, on his trach, port -Has fallen out of the bed -Is on Zyprexa 10 mg at night, schedule Haldol 0.5 mg every 8 hours, Ativan as needed which have not been working during the night -Follow blood cultures, continue antibiotics -Place abdominal binder -Start Geodon 20 mg tonight, Ativan and Haldol as needed, but this will be quite difficult to manage, will consider moving down to the ICU for Precedex drip Acute anemia -Hemoglobin down to 9.6 -Iron, ferritin, B12 within normal limits, folate level low, replace folate -On Protonix, Carafate -Will monitor hemoglobin -Continue Lovenox, given left ventricular thrombus, high risk of embolic events, monitor hemoglobin closely Full code Tube feeding diet, soft mechanical DVT prophylaxis Lovenox on hold Attestations Medical Necessity Statement*: Patient requires hospitalization for hyper active delirium, acute anemia, left atrial thrombus, embolic stroke, supraglottic malignancy Coding Level of Care Code Acute Putty Mixer And Applier for [facility] Jimy Diagnoses Supraglottic mass J38.7 Tracheitis J04.10 Embolic stroke I63.9 Left ventricular thrombus I51.3 Dysphagia R13.10
--- NOTE | 2020-04-02 14:10 | PC.NURSE ---
Gastric residual check noted 7mL. glucerna tube feeding increased to 20mL/hr per doctors orders,PEG tube site cleaned with warm water and soap and drain sponge applied, abdominal binder in place to keep patient from pulling tube.
[2020-04-02] MEDS: enoxaparin 100 mg/mL Syringe SUBCUT (15:48)
[2020-04-02 16:28] LABS: Glucose Point of Care 125 mg/dL (70-110)
[2020-04-02] MEDS: folic acid 1 mg Tablet PO (17:40)
[2020-04-02] MEDS: sucralfate 1 gm Tablet PO (17:40)
--- NOTE | 2020-04-02 19:02 | PC.NURSE ---
Increased tube feeding to 30mL/hr after gastric residual check of 11mL per doctors orders.
[2020-04-02 19:35] LABS: Vancomycin Trough 9.7 ug/mL (10-15)
[2020-04-02] MEDS: ziprasidone hcl 20 mg Capsule PO (21:03)
[2020-04-02] MEDS: atorvastatin 40 mg Tablet 80 MG PO (21:03)
[2020-04-02 21:28] LABS: Glucose Point of Care 121 mg/dL (70-110)
[2020-04-03] VITALS (10 sets, daily range): BP systolic 90–111; BP diastolic 57–70; PULSE 72–95; RESP 16–19; TEMP 36.4–37.2; O2SAT 90–97
[2020-04-03] MEDS: ipratropium-albuterol 3 mL Neb INHALATION ×4 (02:32→21:34)
[2020-04-03] MEDS: cefepime 2,000 MG in sodium chloride 0.9% (plus) 50 ML 100 MG IV (03:53)
[2020-04-03] MEDS: enoxaparin 100 mg/mL Syringe SUBCUT (03:58)
[2020-04-03] MEDS: pantoprazole 40 mg SDV IVP ×2 (04:13→17:03)
--- NOTE | 2020-04-03 06:00 | ECG_ITS ---
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 Measurements Intervals [place] Rate: 97 P: 71 FL: 158 QRS: -19 QRSD: 105 T: 82 QT: 361 QTc: 459 Interpretive Statements SINUS RHYTHM INFERIOR MYOCARDIAL INFARCTION [40+ ms Q WAVE AND/OR ST/T ABNORMALITY IN II/aVF], PROBABLY OLD Compared to ECG 04/02/2020 09:46:25 No significant changes Electronically Signed On 04-03-2020 18:05:51 DOPE HEATER by Brandon Streeter M.D. [id number]
[2020-04-03 06:08] LABS: Alanine Aminotransferase 28 U/L (0-41); Alkaline Phosphatase 70 IU/L (40-130); Anion Gap 12.9 (5-19); Aspartate Amino Transferase 31 U/L (0-40); Blood Urea Nitrogen 11 mg/dL (8-23); C Reactive Protein 38.7 mg/L (0.0-4.9); Calcium 8.3 mg/dL (8.5-10.5); Carbon Dioxide 24 mmol/L (22-29); Chloride 102 mmol/L (98-107); Globulin 2.4 g/dL (1.3-4.6); Glucose 99 mg/dL (65-115); Osmolality Calculated 281 mOsm/kg (285-295); Phosphorus 2.8 mg/dL (2.5-4.5); Sodium 136 mmol/L (136-145); Total Bilirubin 0.3 mg/dL (0.15-1.2); Total Protein 5.4 g/dL (6.6-8.7)
[2020-04-03 06:11] LABS: Basophils % 0.2 %; Eosinophils % 0.4 %; Hematocrit 26.3 % (42.0-52.0); Hemoglobin 8.5 g/dL (11.7-16.6); Lymphocytes # 0.7 10^3/uL (0.8-4.8); Lymphocytes % 14.1 %; Mean Corpuscular HGB Conc 32.3 g/dL (30.0-36.0); Mean Corpuscular Hemoglobin 29.9 pg (28.0-34.0); Mean Corpuscular Volume 92.6 fL (80-94); Mean Platelet Volume 10.4 fL (7.4-10.4); Monocytes % 0.8 %; Neutrophils # 4.11 10^3/uL (1.8-7.7); Neutrophils % 83.1 %; Nucleated Red Blood Cells % 0 %; Platelet Count 181 10^3/cmm (130-400); Red Blood Count 2.84 10^6/uL (4.1-5.3); Red Cell Distribution Width 12.4 % (12.1-15.1)
[2020-04-03] MEDS: sucralfate 1 gm Tablet PO ×2 (06:18→17:00)
[2020-04-03 06:20] LABS: Potassium 2.9 mmol/L (3.5-5.1)
[2020-04-03 06:49] LABS: Glucose Point of Care 102 mg/dL (70-110)
[2020-04-03 07:36] LABS: NT Pro B Type Natriuretic Pept 930 pg/mL (0-125)
[2020-04-03] MEDS: nicotine 21 mg Patch 1 PATCH TRANSDERMA (08:23)
[2020-04-03] MEDS: folic acid 1 mg Tablet PO ×2 (08:24→17:00)
[2020-04-03] MEDS: metoprolol tartrate 25 mg Tablet 12.5 MG PO ×2 (08:25→20:00)
[2020-04-03] MEDS: aspirin 325 mg EC Tablet PO (08:25)
[2020-04-03] MEDS: vancomycin 1,500 MG/300 ML PIGGYBACK 200 MG IV (08:27)
[2020-04-03] MEDS: amoxicillin-clav 875-125 mg Tablet 1 TAB PO ×2 (08:38→16:59)
[2020-04-03] MEDS: doxycycline 100 mg Tablet PO ×2 (08:38→17:00)
[2020-04-03] MEDS: lidocaine 1% 5 ML in potassium chloride premix 100 ML 25 ML IV ×2 (08:40→13:02)
[2020-04-03 11:13] LABS: Glucose Point of Care 113 mg/dL (70-110)
--- NOTE | 2020-04-03 12:46 | PM.PN ---
Subjective Subjective: Interval history: Patient had an uneventful night, no episodes of agitation overnight, he he tells me this morning he really wants to go home, is a bit upset when I tell him he is not clinically ready to go home, he has had several large bowel movements overnight, his tube feeds have had minimal residuals, no nausea, no vomiting, no fevers, this continues to have weakness on the right side Vitals/I&O/Wt Last Vital Signs Temp 98.0 F 04/03/20 11:12 Pulse 82 04/03/20 11:12 Resp 17 04/03/20 11:12 BP 109/66 04/03/20 11:12 Pulse Ox 97 04/03/20 11:12 04/02/20 04/03/20 04/03/20 22:59 06:59 14:59 Intake Total 470 / 975.833 0 / 975.833 150 / 150 Output Total 75 / 525 350 / 875 Balance 395 / 450.833 -350 / 100.833 150 / 150 Physical Exam Narrative: EXAM NARRATIVE: Trach in place, Const: ORIENTATION/CONSCIOUSNESS: Yes oriented to person Neck/C-Spine: COMMON NORMALS: no JVD Chest: OTHER: Right chest port in place Resp: COMMON NORMALS: normal respiratory effort, No retractions, No use of accessory muscles and clear to auscultation bilaterally AUSCULTATION: clear to auscultation bilaterally Cardio: COMMON NORMALS: no JVD, regular rate, regular rhythm, S1 normal heart sound present and S2 normal heart sound present RATE: regular rate RHYTHM: regular rhythm HEART SOUNDS: S1 normal heart sound present and S2 normal heart sound present GI: COMMON NORMALS: Normal to inspection, nondistended, normoactive bowel sounds present, Soft to palpation, non-tender, No hepatosplenomegaly present, no masses and no bruits PALPATION: Yes Soft to palpation and Yes No hepatosplenomegaly present OTHER: PEG tube in place Extremity: COMMON NORMALS: capillary refill normal, no clubbing, cyanosis or edema, no calf tenderness and no pedal edema Neuro: SENSORIUM/ORIENTATION: Yes oriented to person OTHER: Right upper extremity strength 4 out of 5 compared to 5 out of 5 on the left Right lower extremity strength 4 out of 5 compared to 5 out of 5 on the left No facial droop Psych: COMMON NORMALS: mental status grossly normal Urinary Catheter Management^: Ramirez: Cath Placed During This Visit: yes, but has since been removed by the nurse Reason for Continuing Indwelling Catheter: Decision to DC Catheter Urinary Catheter Date of Insertion: 03/27/20 Urinary Catheter Time of Insertion: 10:49 Date Urinary Catheter Removed: 03/29/20 Time Urinary Catheter Discontinued: 09:00 Data : 04/03/20 04:56 04/03/20 04:56 Micro: Microbiology 04/02/20 12:35 Occult Blood (FIT) - Final Stool Routine Collection A&P Assessment and plan (1) Supraglottic mass: Status: Acute (2) Tracheitis: Status: Acute (3) Embolic stroke: Status: Acute (4) Left ventricular thrombus: Status: Acute (5) Dysphagia: Status: Acute Additional A&P Information Supraglottic mass, 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 Hernandez consult PEG tube CT scan this morning confirmed position of PEG tube, no ileus, no small bowel obstruction CT scan of the abdomen does show large stool burden, significant constipation Significant constipation, started on multiple bowel regimens, has had several bowel movements Start tube feeds at 10 cc an hour, titrate by 10 cc to goal of 40 cc, free water flushes 150 cc every 4 hours Continue bowel regimen, enema as needed Speech pathology has been consulted, soft mechanical Monitor daily labs for refeeding syndrome Tracheitis Vancomycin and cefepime started on 03/22 Follow blood cultures, sputum cultures De-escalate antibiotic therapy to Augmentin and doxycycline Currently afebrile Trach collar dislodged 03/23 #6 cuffless which was replaced by ENT Trach was dislodged this morning, replaced Embolic stroke CT of the head showed: Brain: There is a old lacunar infarct in the right frontal region. There is a new focal area of hypodensity in the posterior aspect of the left basal ganglia region consistent with lunar infarct of uncertain age but likely subacute. There is no intracranial mass or hemorrhage. There is no extra-axial fluid collection. -Indications for subacute lacunar infarct in the left basal ganglia region -MRI of the brain and [facility] shows multiple scattered areas of acute infarct involving both the supratentorial and infra tentorial brain, including left internal capsule, left erwin radiata, bilateral septal lobes, and bilateral cerebral hemispheres -Patient's physical exam is about the same, has weakness on the right 4-5 compared to 5 out of 5 on the left, actually slightly improved, no facial droop, slurring of speech -Thus I clinically feel that this subacute lacunar infarct is likely old, but will continue neurochecks Most likely source left ventricular thrombus continue Lovenox therapeutic dose Patient has been having intermittent hallucinations with impulsive behavior Continue aspirin, statins Will need long-term rehab as well right-sided hemiparesis PT OT Left ventricular thrombus Noted 03/16 TTE was not clearly visualized but left apical expansion and akinesia noted, patient did not tolerate cardiac MRI, was started on metoprolol 12.5 twice daily along aspirin and statin COPD without acute exacerbation We will keep him on DuoNeb for as needed Acute on chronic hyperactive delirium -Review of patient's records show that he has a history of delirium, and confusion, it pulls out his trach -Here he pulls on his port, PEG tube, on his trach, port -Has fallen out of the bed -Is on Zyprexa 10 mg at night, schedule Haldol 0.5 mg every 8 hours, Ativan as needed which have not been working during the night -Follow blood cultures, continue antibiotics -Place abdominal binder -Now doing quite well with Geodon 20 mg tonight, Ativan and Haldol as needed Acute anemia -Hemoglobin down to 8.5 -Iron, ferritin, B12 within normal limits, folate level low, replace folate -On Protonix, Carafate -Will monitor hemoglobin -Hold Lovenox -Transfuse PRBC if hemoglobin less than 7 Hypokalemia, will replace with potassium supplementation Full code Tube feeding diet, soft mechanical DVT prophylaxis Lovenox on hold Attestations Medical Necessity Statement*: She requires hospitalization for supraglottic mass requiring inpatient chemotherapy, left-ventricular thrombus, acute on chronic anemia, hemoglobin at 8.5, require monitoring, is on anticoagulation for left atrial thrombus, and embolic stroke Coding Level of Care Code Acute Information Tech for Lili Ahn Diagnoses Supraglottic mass J38.7 Tracheitis J04.10 Embolic stroke I63.9 Left ventricular thrombus I51.3 Dysphagia R13.10
[2020-04-03 13:50] LABS: Basophils % 0.2 %; Eosinophils % 0.5 %; Hematocrit 25.9 % (42.0-52.0); Hemoglobin 8.4 g/dL (11.7-16.6); Lymphocytes # 0.7 10^3/uL (0.8-4.8); Lymphocytes % 14.9 %; Mean Corpuscular HGB Conc 32.4 g/dL (30.0-36.0); Mean Corpuscular Hemoglobin 30.8 pg (28.0-34.0); Mean Corpuscular Volume 94.9 fL (80-94); Mean Platelet Volume 9.7 fL (7.4-10.4); Monocytes # 0.1 10^3/uL (0.2-0.9); Monocytes % 1.4 %; Neutrophils # 3.64 10^3/uL (1.8-7.7); Neutrophils % 82.1 %; Nucleated Red Blood Cells % 0 %; Platelet Count 194 10^3/cmm (130-400); Red Blood Count 2.73 10^6/uL (4.1-5.3); Red Cell Distribution Width 12.4 % (12.1-15.1); White Blood Count 4.4 10^3/uL (4.0-10.0)
--- NOTE | 2020-04-03 15:22 | PC.NURSE ---
Neptali notified this nurse that patient has had adequate intake but has not urinated yet this shift. Woke patient up to ask if he wanted to try and get up and pee and patient refused. Bladder scanned patient and found 561mL of urine in bladder. Notified Dr. Lynch.
--- NOTE | 2020-04-03 15:25 | PC.OT ---
OT tx attempted. Nursing with pt and preparing to place a Ramirez catheter. OT tx withheld at this time and will be attempted again tomorrow.
[2020-04-03 16:53] LABS: Glucose Point of Care 95 mg/dL (70-110)
[2020-04-03] MEDS: atorvastatin 40 mg Tablet 80 MG PO (20:00)
[2020-04-03] MEDS: ziprasidone hcl 20 mg Capsule PO (20:02)
[2020-04-03 21:30] LABS: Glucose Point of Care 111 mg/dL (70-110)
[2020-04-03 21:51] LABS: Basophils % 0.3 %; Eosinophils % 0.8 %; Hematocrit 25.3 % (42.0-52.0); Hemoglobin 8.2 g/dL (11.7-16.6); Lymphocytes # 0.7 10^3/uL (0.8-4.8); Lymphocytes % 16.5 %; Mean Corpuscular HGB Conc 32.4 g/dL (30.0-36.0); Mean Corpuscular Hemoglobin 30.6 pg (28.0-34.0); Mean Corpuscular Volume 94.4 fL (80-94); Mean Platelet Volume 9.8 fL (7.4-10.4); Monocytes # 0.1 10^3/uL (0.2-0.9); Monocytes % 1.5 %; Neutrophils # 3.16 10^3/uL (1.8-7.7); Neutrophils % 79.9 %; Nucleated Red Blood Cells % 0 %; Platelet Count 198 10^3/cmm (130-400); Red Blood Count 2.68 10^6/uL (4.1-5.3); Red Cell Distribution Width 12.4 % (12.1-15.1)
[2020-04-04] VITALS (17 sets, daily range): BP systolic 97–138; BP diastolic 58–83; PULSE 77–110; RESP 17–28; TEMP 36.3–37.4; O2SAT 91–99
[2020-04-04] MEDS: LORazepam 2 mg/mL INJ 1 mL 1 MG IVP ×2 (01:18→18:11)
[2020-04-04] MEDS: ipratropium-albuterol 3 mL Neb INHALATION ×4 (02:55→21:44)
[2020-04-04 05:50] LABS: Basophils % 0.5 %; Eosinophils % 0.7 %; Hematocrit 24.7 % (42.0-52.0); Lymphocytes # 0.7 10^3/uL (0.8-4.8); Lymphocytes % 16.5 %; Mean Corpuscular HGB Conc 32.4 g/dL (30.0-36.0); Mean Corpuscular Hemoglobin 30.3 pg (28.0-34.0); Mean Corpuscular Volume 93.6 fL (80-94); Mean Platelet Volume 10.1 fL (7.4-10.4); Monocytes # 0.1 10^3/uL (0.2-0.9); Monocytes % 1.7 %; Neutrophils % 78.7 %; Nucleated Red Blood Cells % 0 %; Platelet Count 183 10^3/cmm (130-400); Red Blood Count 2.64 10^6/uL (4.1-5.3); Red Cell Distribution Width 12.3 % (12.1-15.1); White Blood Count 4.2 10^3/uL (4.0-10.0)
--- NOTE | 2020-04-04 06:00 | ECG_ITS ---
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 Measurements Intervals [place] Rate: 98 P: 48 MS: 174 QRS: 18 QRSD: 103 T: 83 QT: 348 QTc: 444 Interpretive Statements SINUS RHYTHM INFERIOR MYOCARDIAL INFARCTION [40+ ms Q WAVE AND/OR ST/T ABNORMALITY IN II/aVF], PROBABLY OLD Compared to ECG 04/03/2020 05:24:52 NO SIGNIFICANT CHANGES Electronically Signed On 04-04-2020 17:59:29 OPERATOR HELPER by Brandon Streeter M.D. [id number]
[2020-04-04] MEDS: pantoprazole 40 mg SDV IVP ×2 (06:21→18:10)
[2020-04-04] MEDS: sucralfate 1 gm Tablet PO ×2 (06:21→16:18)
[2020-04-04 06:28] LABS: Alanine Aminotransferase 26 U/L (0-41); Albumin Level 2.8 g/dL (3.5-5.2); Alkaline Phosphatase 69 IU/L (40-130); Anion Gap 11.4 (5-19); Aspartate Amino Transferase 25 U/L (0-40); Blood Urea Nitrogen 8 mg/dL (8-23); C Reactive Protein 27.9 mg/L (0.0-4.9); Calcium 8.2 mg/dL (8.5-10.5); Carbon Dioxide 25 mmol/L (22-29); Chloride 103 mmol/L (98-107); Globulin 2.4 g/dL (1.3-4.6); Glucose 95 mg/dL (65-115); Magnesium 1.7 mg/dL (1.7-2.3); NT Pro B Type Natriuretic Pept 628 pg/mL (0-125); Osmolality Calculated 280 mOsm/kg (285-295); Phosphorus 2.5 mg/dL (2.5-4.5); Potassium 3.4 mmol/L (3.5-5.1); Sodium 136 mmol/L (136-145); Total Bilirubin 0.3 mg/dL (0.15-1.2); Total Protein 5.2 g/dL (6.6-8.7)
--- NOTE | 2020-04-04 06:32 | NUR.SHIFT ---
Patient complained of anxiety throughout the night, Geodon does not appear to be effective. Patient was admin antivan per mar, which appears to exacerbate the patients AMS. Patient has tried multiple times to get out of bed and would pull at his tubes.
--- NOTE | 2020-04-04 06:52 | PC.NURSE ---
The patient was attempting to transition out of bed, and was kicking the sitter who was attempting to redirect the patient. This nurse heard the sitter yell out for assistance, in which this nurse arrived and was able to redirect the patient back to bed. Patient became compliant.
[2020-04-04 07:27] LABS: Glucose Point of Care 104 mg/dL (70-110)
[2020-04-04] MEDS: doxycycline 100 mg Tablet PO ×2 (09:16→17:34)
[2020-04-04] MEDS: folic acid 1 mg Tablet PO ×2 (09:16→17:33)
[2020-04-04] MEDS: metoprolol tartrate 25 mg Tablet 12.5 MG PO ×2 (09:16→22:44)
[2020-04-04] MEDS: polyethylene glycol 3350 Pkt 17 gm PO (09:16)
[2020-04-04] MEDS: amoxicillin-clav 875-125 mg Tablet 1 TAB PO ×2 (09:16→17:34)
[2020-04-04] MEDS: sennosides-docusate Tablet 1 TAB PO (09:16)
[2020-04-04] MEDS: docusate sodium 100 mg Capsule PO ×2 (09:16→17:33)
[2020-04-04] MEDS: nicotine 21 mg Patch 1 PATCH TRANSDERMA (09:17)
[2020-04-04] MEDS: potassium chloride ER 20 mEq Tablet 40 MEQ PO (09:26)
[2020-04-04] MEDS: lactulose oral liq 20 gm/30 mL UDC PO ×2 (09:44→16:18)
--- NOTE | 2020-04-04 09:55 | PC.NURSE ---
Patient with PEG tube residual of 35 ml prior to morning medication administration at 0900. Patient current tube feeds running at 20 ml/hr. Per Dr. Lynch patient needs to have PRN dose of lactulose to help clear stool accumulation in bowels. Tube feeds to be held until patient has bowel movement. Once patient's bowels move patient may have tube feeds resumed at 10 ml/hr.
[2020-04-04 11:30] LABS: Glucose Point of Care 114 mg/dL (70-110)
[2020-04-04] MEDS: sodium chloride 0.9% (100 ml) 100 ML (12:16)
--- NOTE | 2020-04-04 12:32 | PM.PN ---
Subjective Subjective: Interval history: This morning patient was examined, he tells me that he really wants to go home, no fevers, no chills, no nausea, vomiting, did have a slight episode of confusion overnight and pulled out his port, but his mentation significantly better compared to the night before, had a few bowel movements yesterday, but continues to have some residual output from his PEG tube, good bowel sounds, has no abdominal complaints, no shortness of breath complaints Vitals/I&O/Wt Last Vital Signs Temp 98.3 F 04/04/20 12:29 Pulse 95 04/04/20 12:29 Resp 18 04/04/20 12:29 BP 97/58 04/04/20 12:29 Pulse Ox 97 04/04/20 12:29 04/03/20 04/04/20 04/04/20 22:59 06:59 14:59 Intake Total 225 / 780 720 / 720 Output Total 550 / 550 550 / 1100 Balance -325 / 230 -550 / -320 720 / 720 Physical Exam Narrative: EXAM NARRATIVE: Trach in place, Const: COMMON NORMALS: no acute distress GENERAL APPEARANCE: cooperative ORIENTATION/CONSCIOUSNESS: Yes awake, Yes oriented to person and Yes confused; not oriented to place and not oriented to time OTHER: Sleepy this morning HENMT: COMMON NORMALS: normocephalic HEAD & SCALP: normocephalic Neck/C-Spine: COMMON NORMALS: no JVD Chest: OTHER: Right chest port in place Resp: COMMON NORMALS: normal respiratory effort, No retractions, No use of accessory muscles and clear to auscultation bilaterally AUSCULTATION: clear to auscultation bilaterally Cardio: COMMON NORMALS: no JVD, regular rate, regular rhythm, S1 normal heart sound present and S2 normal heart sound present RATE: regular rate RHYTHM: regular rhythm HEART SOUNDS: S1 normal heart sound present and S2 normal heart sound present GI: COMMON NORMALS: Normal to inspection, nondistended, normoactive bowel sounds present, Soft to palpation, non-tender, No hepatosplenomegaly present, no masses and no bruits PALPATION: Yes Soft to palpation and Yes No hepatosplenomegaly present OTHER: PEG tube in place Extremity: COMMON NORMALS: capillary refill normal, no clubbing, cyanosis or edema, no calf tenderness and no pedal edema Neuro: SENSORIUM/ORIENTATION: Yes oriented to person, No oriented to place and No oriented to time OTHER: Right upper extremity strength 4 out of 5 compared to 5 out of 5 on the left Right lower extremity strength 4 out of 5 compared to 5 out of 5 on the left No facial droop Psych: COMMON NORMALS: mental status grossly normal Urinary Catheter Management^: Ramirez: Cath Placed During This Visit: yes, but has since been removed by the nurse Reason for Continuing Indwelling Catheter: Acute Urinary Retention or Obstruction Urinary Catheter Date of Insertion: 04/03/20 Urinary Catheter Time of Insertion: 15:43 Date Urinary Catheter Removed: 03/29/20 Time Urinary Catheter Discontinued: 09:00 Data : 04/04/20 05:20 04/04/20 05:20 A&P Assessment and plan (1) Supraglottic mass: Status: Acute (2) Tracheitis: Status: Acute (3) Embolic stroke: Status: Acute (4) Left ventricular thrombus: Status: Acute (5) Dysphagia: Status: Acute Additional A&P Information Supraglottic mass, 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 Hernandez consult PEG tube CT scan this morning confirmed position of PEG tube, no ileus, no small bowel obstruction CT scan of the abdomen does show large stool burden, significant constipation Significant constipation, started on multiple bowel regimens, has had several bowel movements Still having some residual output, reduced to feeds to 10 cc an hour, soft continue aggressive bowel regimen Continue bowel regimen, enema as needed Speech pathology has been consulted, soft mechanical Monitor daily labs for refeeding syndrome Tracheitis Vancomycin and cefepime started on 03/22 Sputum culture showing Klebsiella pneumonia, Klebsiella oxytocin De-escalate antibiotic therapy to Augmentin and doxycycline Currently afebrile Trach collar dislodged 03/23 #6 cuffless which was replaced by ENT Continues to have mucus drainage around trach collar Embolic stroke CT of the head showed: Brain: There is a old lacunar infarct in the right frontal region. There is a new focal area of hypodensity in the posterior aspect of the left basal ganglia region consistent with lunar infarct of uncertain age but likely subacute. There is no intracranial mass or hemorrhage. There is no extra-axial fluid collection. -Indications for subacute lacunar infarct in the left basal ganglia region -MRI of the brain and [facility] shows multiple scattered areas of acute infarct involving both the supratentorial and infra tentorial brain, including left internal capsule, left erwin radiata, bilateral septal lobes, and bilateral cerebral hemispheres -Patient's physical exam is about the same, has weakness on the right 4-5 compared to 5 out of 5 on the left, actually slightly improved, no facial droop, slurring of speech -Thus I clinically feel that this subacute lacunar infarct is likely old, but will continue neurochecks Most likely source left ventricular thrombus continue Lovenox therapeutic dose Patient has been having intermittent hallucinations with impulsive behavior Continue aspirin, statins Will need long-term rehab as well right-sided hemiparesis PT OT Left ventricular thrombus Noted 03/16 TTE was not clearly visualized but left apical expansion and akinesia noted, patient did not tolerate cardiac MRI, was started on metoprolol 12.5 twice daily along aspirin and statin COPD without acute exacerbation We will keep him on DuoNeb for as needed Acute on chronic hyperactive delirium -Review of patient's records show that he has a history of delirium, and confusion, it pulls out his trach -Here he pulls on his port, PEG tube, on his trach, port -Has fallen out of the bed -Is on Zyprexa 10 mg at night, schedule Haldol 0.5 mg every 8 hours, Ativan as needed which have not been working during the night -Follow blood cultures, continue antibiotics -Place abdominal binder -Now doing quite well with Geodon 20 mg tonight, Ativan and Haldol as needed Acute anemia -Hemoglobin down to 8.0 -Iron, ferritin, B12 within normal limits, folate level low, replace folate -On Protonix, Carafate -Will monitor hemoglobin -Hold Lovenox -We will transfuse 1 unit PRBC Hypokalemia, will replace with potassium supplementation Full code Tube feeding diet, soft mechanical DVT prophylaxis Lovenox on hold Attestations Medical Necessity Statement*: Patient requires hospitalization for anemia, supraglottic transfer for inpatient chemotherapy, tracheitis, embolic stroke Coding Level of Care Code Acute Cistern Room Working Supervisor for Chg Fwd Diagnoses Supraglottic mass J38.7 Tracheitis J04.10 Embolic stroke I63.9 Left ventricular thrombus I51.3 Dysphagia R13.10
--- NOTE | 2020-04-04 16:33 | PC.NURSE ---
Residual at 20 ml with no BM today. Dr. Lynch notified that tube feeds are still being held as instructed per previous note. Per patient to recieve another dose of lactulose and ok to resume tube feeds at 10 ml/hr
[2020-04-04 17:23] LABS: Glucose Point of Care 111 mg/dL (70-110)
[2020-04-04 21:04] LABS: Glucose Point of Care 106 mg/dL (70-110)
[2020-04-04] MEDS: atorvastatin 40 mg Tablet 80 MG PO (22:44)
[2020-04-04] MEDS: ziprasidone hcl 20 mg Capsule PO (22:45)
[2020-04-05] VITALS (13 sets, daily range): BP systolic 102–127; BP diastolic 51–72; PULSE 72–109; RESP 16–20; TEMP 36.6–38.3; O2SAT 90–95
--- NOTE | 2020-04-05 06:00 | ECG_ITS ---
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 Measurements Intervals [place] Rate: 96 P: 55 CO: 165 QRS: 1 QRSD: 110 T: 76 QT: 354 QTc: 447 Interpretive Statements SINUS RHYTHM WITH FREQUENT SUPRAVENTRICULAR PREMATURE COMPLEXES Compared to ECG 04/04/2020 06:38:08 Myocardial infarct finding no longer present Electronically Signed On 04-05-2020 19:09:07 FOOTBALL PAD REPAIRER by Brandon Streeter M.D. [email or web address] Onlnineacmc healthcare system [email or web address]/[id number]
[2020-04-05 06:02] LABS: INR 1.09 (0.8-1.2)
[2020-04-05 06:17] LABS: Alanine Aminotransferase 25 U/L (0-41); Alkaline Phosphatase 75 IU/L (40-130); Aspartate Amino Transferase 28 U/L (0-40); Blood Urea Nitrogen 7 mg/dL (8-23); C Reactive Protein 54.2 mg/L (0.0-4.9); Calcium 8.2 mg/dL (8.5-10.5); Carbon Dioxide 26 mmol/L (22-29); Chloride 97 mmol/L (98-107); Globulin 2.5 g/dL (1.3-4.6); Glucose 94 mg/dL (65-115); Magnesium 1.6 mg/dL (1.7-2.3); NT Pro B Type Natriuretic Pept 1483 pg/mL (0-125); Osmolality Calculated 272 mOsm/kg (285-295); Phosphorus 3.2 mg/dL (2.5-4.5); Sodium 132 mmol/L (136-145); Total Bilirubin 0.4 mg/dL (0.15-1.2); Total Protein 5.5 g/dL (6.6-8.7); Uric Acid 2.4 mg/dL (3.4-7.0)
[2020-04-05] MEDS: pantoprazole 40 mg SDV IVP ×2 (06:47→17:11)
[2020-04-05 06:58] LABS: Glucose Point of Care 99 mg/dL (70-110)
--- NOTE | 2020-04-05 07:00 | XR_ITS ---
WS: [id number] PORTABLE CHEST HISTORY: sob COMPARISON: 04/02/2020 RIGHT subclavian Port-A-Cath with tip overlying the RIGHT RIGHT hilar region. No change in position. Tracheostomy is noted unchanged. Mild interstitial thickening at the lung bases. No progression or pneumonia. Changes of emphysema. No pleural effusion or pneumothorax. Cardiac size: Normal. Mediastinum/Aorta: Normal mediastinum. No osseous abnormality seen. XR/XR chest 1V portable [id number] IMPRESSION: 1. Minimal interstitial thickening at the lung bases without change. May be at electasis. No pneumonia. 2. Tracheostomy and RIGHT Port-A-Cath remain in good positions.
[2020-04-05 08:08] LABS: Basophils % 0.3 %; Eosinophils % 0.3 %; Hematocrit 28.8 % (42.0-52.0); Hemoglobin 9.6 g/dL (11.7-16.6); Lymphocytes # 0.6 10^3/uL (0.8-4.8); Lymphocytes % 19.7 %; Mean Corpuscular HGB Conc 33.3 g/dL (30.0-36.0); Mean Platelet Volume 9.8 fL (7.4-10.4); Monocytes # 0.1 10^3/uL (0.2-0.9); Monocytes % 2.7 %; Neutrophils # 2.21 10^3/uL (1.8-7.7); Neutrophils % 75.3 %; Nucleated Red Blood Cells % 0 %; Platelet Count 157 10^3/cmm (130-400); Red Cell Distribution Width 13.1 % (12.1-15.1); White Blood Count 2.9 10^3/uL (4.0-10.0)
--- NOTE | 2020-04-05 08:58 | USCV_ITS ---
Hitesh Dai Age: 60 Gender: M : 1960 Exam Date: 04/05/2020 09:40 Ordering Phys: Denver Lynch MD Technologist: Imtiaz Gibbs [place] [facility]: ? LV THROMBUS BP: / HR: Rhythm: Sinus Technical Quality: Very technically difficult study MEASUREMENTS (Male / Female) Normal Values FINDINGS Left Ventricle Right Ventricle Right Atrium Left Atrium Mitral Valve Aortic Valve Tricuspid Valve Pulmonic Valve Pericardium Aorta CONCLUSIONS Please note that this is a limited study to rule out left ventricle thrombus. Left ventricle cavity is normal there is mid to distal anterior and apical hypokinesis, left ventricle ejection fraction is moderately reduced 45%. There is no left ventricle thrombus. Vanita Saucedo MD (Electronically Signed) Final Date: 12 April 2020 11:44 S
[2020-04-05] MEDS: metoprolol tartrate 25 mg Tablet 12.5 MG PO ×2 (09:31→22:20)
[2020-04-05] MEDS: docusate sodium 100 mg Capsule PO ×2 (09:31→17:10)
[2020-04-05] MEDS: aspirin 325 mg Tablet PO (09:31)
[2020-04-05] MEDS: folic acid 1 mg Tablet PO ×2 (09:32→17:11)
[2020-04-05] MEDS: doxycycline 100 mg Tablet PO ×2 (09:32→17:11)
[2020-04-05] MEDS: sennosides-docusate Tablet 1 TAB PO (09:33)
[2020-04-05] MEDS: amoxicillin-clav 875-125 mg Tablet 1 TAB PO ×2 (09:33→17:10)
[2020-04-05] MEDS: nicotine 21 mg Patch 1 PATCH TRANSDERMA (09:33)
[2020-04-05] MEDS: polyethylene glycol 3350 Pkt 17 gm PO (09:33)
[2020-04-05] MEDS: ipratropium-albuterol 3 mL Neb INHALATION ×3 (09:40→20:29)
[2020-04-05] MEDS: lidocaine 1% 5 ML in potassium chloride premix 100 ML 25 ML IV (09:41)
[2020-04-05] MEDS: magnesium sulfate premix 2 GM/50 ML PIGGYBACK IV (09:41)
[2020-04-05] MEDS: perflutren protein-a microsphr 0.22 mg/mL SDV 3 mL IV (09:59)
[2020-04-05 11:23] LABS: Glucose Point of Care 93 mg/dL (70-110)
--- NOTE | 2020-04-05 13:25 | P.PN_ITS ---
Subjective Subjective: Interval history: Patient was examined this morning, he keeps asking me when he can go home, continues to have weakness on the right upper and lower extremities, and unchanged compared to prior, his oral intake has improved, tube feeds have been difficult, continues to have high residuals, had several bowel movements yesterday, they were dark-colored, but Hemoccult was ne gative, hemoglobin is stabilized at 9.6, he did have some episodes of confusion overnight, pulled out his port, but no other aggressive episodes Vitals/I&O/Wt Last Vital Signs Temp 98.6 F 04/05/20 12:00 Pulse 78 04/05/20 12:00 Resp 17 04/05/20 12:00 BP 107/67 04/05/20 12:00 Pulse Ox 90 04/05/20 12:00 04/04/20 04/05/20 04/05/20 22:59 06:59 14:59 Intake Total 240 / 960 240 / 240 Output Total 500 / 1100 400 / 1500 Balance -260 / -140 -400 / -540 240 / 240 Physical Exam Narrative: EXAM NARRATIVE: Trach in place, Const: COMMON NORMALS: no acute distress GENERAL APPEARANCE: cooperative ORIENTATION/CONSCIOUSNESS: Yes awake, Yes oriented to person and Yes oriented to place; not oriented to time HENMT: COMMON NORMALS: normocephalic HEAD & SCALP: normocephalic Neck/C-Spine: COMMON NORMALS: no JVD Chest: OTHER: Right chest port in place Resp: COMMON NORMALS: normal respiratory effort, No retractions, No use of accessory muscles and clear to auscultation bilaterally AUSCULTATION: clear to auscultation bilaterally Cardio: COMMON NORMALS: no JVD, regular rate, regular rhythm, S1 normal heart sound present and S2 normal heart sound present RATE: regular rate RHYTHM: regular rhythm HEART SOUNDS: S1 normal heart sound present and S2 normal heart sound present GI: COMMON NORMALS: Normal to inspection, nondistended, normoactive bowel sounds present, Soft to palpation, non-tender, No hepatosplenomegaly present, no masses and no bruits PALPATION: Yes Soft to palpation and Yes No hepatosplenomegaly present OTHER: PEG tube in place Extremity: COMMON NORMALS: capillary refill normal, no clubbing, cyanosis or edema, no calf tenderness and no pedal edema Neuro: SENSORIUM/ORIENTATION: Yes oriented to person, Yes oriented to place and No oriented to time OTHER: Right upper extremity strength 4 out of 5 compared to 5 out of 5 on the left Right lower extremity strength 4 out of 5 compared to 5 out of 5 on the left No facial droop Psych: COMMON NORMALS: mental status grossly normal Urinary Catheter Management^: Ramirez: Cath Placed During This Visit: yes, but has since been removed by the nurse Reason for Continuing Indwelling Catheter: Acute Urinary Retention or Obstruction Urinary Catheter Date of Insertion: 04/03/20 Urinary Catheter Time of Insertion: 15:43 Date Urinary Catheter Removed: 03/29/20 Time Urinary Catheter Discontinued: 09:00 Data : 04/05/20 07:56 04/05/20 05:00 Micro: Microbiology 04/05/20 02:15 Occult Blood (FIT) - Final Stool A&P Assessment and plan (1) Supraglottic mass: Status: Acute (2) Tracheitis: Status: Acute (3) Embolic stroke: Status: Acute (4) Left ventricular thrombus: Status: Acute (5) Dysphagia: Status: Acute Additional A&P Information Supraglottic mass, 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 Hernandez consult PEG tube CT scan this morning confirmed position of PEG tube, no ileus, no small bowel obstruction CT scan of the abdomen does show large stool burden, significant constipation Significant constipation, started on multiple bowel regimens, has had several bowel movements Still having some residual output, reduced to feeds to 10 cc an hour, soft continue aggressive bowel regimen Continue bowel regimen, enema as needed Speech pathology has been consulted, soft mechanical Monitor daily labs for refeeding syndrome Tracheitis Vancomycin and cefepime started on 03/22 Sputum culture showing Klebsiella pneumonia, Klebsiella oxytocin De-escalate antibiotic therapy to Augmentin and doxycycline Currently afebrile Trach collar dislodged 03/23 #6 cuffless which was replaced by ENT Continues to have mucus drainage around trach collar Embolic stroke CT of the head showed: Brain: There is a old lacunar infarct in the right frontal region. There is a new focal area of hypodensity in the posterior aspect of the left basal ganglia region consistent with lunar infarct of uncertain age but likely subacute. There is no intracranial mass or hemorrhage. There is no extra-axial fluid collection. -Indications for subacute lacunar infarct in the left basal ganglia region -MRI of the brain and [facility] shows multiple scattered areas of acute infarct involving both the supratentorial and infra tentorial brain, including left internal capsule, left erwin radiata, bilateral septal lobes, and bilateral cerebral hemispheres -Patient's physical exam is about the same, has weakness on the right 4-5 com pared to 5 out of 5 on the left, actually slightly improved, no facial droop, slurring of speech -Thus I clinically feel that this subacute lacunar infarct is likely old, but will continue neurochecks Most likely source left ventricular thrombus continue Lovenox therapeutic dose, currently on hold Patient has been having intermittent hallucinations with impulsive behavior Continue aspirin, statins Will need long-term rehab as well right-sided hemiparesis PT OT Left ventricular thrombus Noted 03/16 TTE was not clearly visualized but left apical expansion and akinesia noted, patient did not tolerate cardiac MRI, was started on metoprolol 12.5 twice daily along aspirin and statin COPD without acute exacerbation We will keep him on DuoNeb for as needed Acute on chronic hyperactive delirium -Review of patient's records show that he has a history of delirium, and confusion, it pulls out his trach -Here he pulls on his port, PEG tube, on his trach, port -Has fallen out of the bed -Is on Zyprexa 10 mg at night, schedule Haldol 0.5 mg every 8 hours, Ativan as needed which have not been working during the night -Follow blood cultures, continue antibiotics -Place abdominal binder -Now doing well with Geodon 20 mgt, Ativan and Haldol as needed Acute anemia, likely multifactorial related to slow GI bleed and chemotherapy -Hemoglobin has increased to 9.6 status post 1 unit PRBC -Iron, ferritin, B12 within normal limits, folate level low, replace folate -On Protonix, Carafate -Will monitor hemoglobin -Hold Lovenox -Unfortunately this presents a difficult situation, in terms of his long-term management of his stroke/left ventricular thrombus versus GI bleed -I have discussed the case with Dr. Hernandez, he recommends to Dr. Chahal given his delirium and stroke -I have discussed the case with Dr. Chahal, will will await the records from [facility] to compare previous MRI and CT scan to the CT scan that was done on this admission, to see if there is any significant difference as it was read as an acute lacunar infarct, but she recommended to discuss with cardiology about left ventricular thrombus -I spoke to cardiology, Dr. Saucedo, who recommended to perform a transthoracic echocardiogram with contrast Hypokalemia, will replace with potassium supplementation Full code Tube feeding diet, soft mechanical DVT prophylaxis Lovenox on hold Attestations Medical Necessity Statement*: Patient requires hospitalization for supraglottic mass, delirium, anemia, left ventricular thrombus, embolic strokes Coding Level of Care Code Acute Computer Technology Trainer for Chg Fwd Diagnoses Supraglottic mass J38.7 Tracheitis J04.10 Embolic stroke I63.9 Left ventricular thrombus I51.3 Dysphagia R13.10
--- NOTE | 2020-04-05 13:37 | PC.NURSE ---
Gastric residual checked. Residual amount of [address] verma notified. Will recheck in 2 hours.
[2020-04-05] MEDS: metoclopramide 10 mg Tablet PO ×2 (17:09→23:43)
[2020-04-05] MEDS: sucralfate 1 gm Tablet PO (17:10)
[2020-04-05] MEDS: acetaminophen 325 mg Tablet PO (17:11)
[2020-04-05 18:08] LABS: Glucose Point of Care 110 mg/dL (70-110)
[2020-04-05 21:57] LABS: Glucose Point of Care 113 mg/dL (70-110)
[2020-04-05] MEDS: atorvastatin 40 mg Tablet 80 MG PO (22:18)
[2020-04-05] MEDS: ziprasidone hcl 20 mg Capsule PO (22:21)
[2020-04-06] VITALS (14 sets, daily range): BP systolic 93–109; BP diastolic 59–70; PULSE 62–108; RESP 17–28; TEMP 36.7–37.6; O2SAT 91–95
[2020-04-06] MEDS: ipratropium-albuterol 3 mL Neb INHALATION ×4 (02:38→21:25)
[2020-04-06] MEDS: acetaminophen 325 mg Tablet PO ×2 (03:50→21:57)
[2020-04-06 05:27] LABS: Basophils % 0.4 %; Hematocrit 28.2 % (42.0-52.0); Hemoglobin 9.3 g/dL (11.7-16.6); Lymphocytes # 0.4 10^3/uL (0.8-4.8); Lymphocytes % 15.7 %; Mean Corpuscular Hemoglobin 29.9 pg (28.0-34.0); Mean Corpuscular Volume 90.7 fL (80-94); Mean Platelet Volume 10.1 fL (7.4-10.4); Monocytes # 0.1 10^3/uL (0.2-0.9); Neutrophils # 2.14 10^3/uL (1.8-7.7); Neutrophils % 80.2 %; Nucleated Red Blood Cells % 0 %; Red Blood Count 3.11 10^6/uL (4.1-5.3); Red Cell Distribution Width 13.1 % (12.1-15.1); White Blood Count 2.7 10^3/uL (4.0-10.0)
[2020-04-06 05:41] LABS: INR 1.13 (0.8-1.2)
[2020-04-06] MEDS: pantoprazole 40 mg SDV IVP ×2 (05:57→18:20)
[2020-04-06 05:58] LABS: Alanine Aminotransferase 27 U/L (0-41); Albumin Level 3.1 g/dL (3.5-5.2); Alkaline Phosphatase 73 IU/L (40-130); C Reactive Protein 83.4 mg/L (0.0-4.9); Chloride 95 mmol/L (98-107); Potassium 3.3 mmol/L (3.5-5.1); Sodium 131 mmol/L (136-145)
[2020-04-06 06:02] LABS: NT Pro B Type Natriuretic Pept 1039 pg/mL (0-125); Uric Acid 2.7 mg/dL (3.4-7.0)
[2020-04-06] MEDS: sucralfate 1 gm Tablet PO ×2 (06:02→17:13)
[2020-04-06 06:23] LABS: Aspartate Amino Transferase 33 U/L (0-40); Blood Urea Nitrogen 9 mg/dL (8-23); Calcium 8.2 mg/dL (8.5-10.5); Carbon Dioxide 26 mmol/L (22-29); Glucose 120 mg/dL (65-115); Magnesium 1.9 mg/dL (1.7-2.3); Total Bilirubin 0.4 mg/dL (0.15-1.2); Total Protein 5.6 g/dL (6.6-8.7)
[2020-04-06] MEDS: metoclopramide 10 mg Tablet PO ×2 (06:35→17:13)
[2020-04-06 07:01] LABS: Anion Gap 13.3 (5-19)
[2020-04-06 07:01] LABS: Glucose Point of Care 134 mg/dL (70-110)
[2020-04-06 07:02] LABS: Globulin 2.5 g/dL (1.3-4.6); Osmolality Calculated 272 mOsm/kg (285-295)
[2020-04-06 07:22] LABS: Platelet Count 154 10^3/cmm (130-400); Slide Review Slide Review Perform
[2020-04-06] MEDS: folic acid 1 mg Tablet PO ×2 (08:35→17:13)
[2020-04-06] MEDS: doxycycline 100 mg Tablet PO ×2 (08:35→17:13)
[2020-04-06] MEDS: sennosides-docusate Tablet 1 TAB PO (08:35)
[2020-04-06] MEDS: aspirin 325 mg Tablet PO (08:35)
[2020-04-06] MEDS: metoprolol tartrate 25 mg Tablet 12.5 MG PO ×2 (08:35→21:57)
[2020-04-06] MEDS: amoxicillin-clav 875-125 mg Tablet 1 TAB PO ×2 (08:35→17:13)
[2020-04-06] MEDS: polyethylene glycol 3350 Pkt 17 gm PO (08:35)
[2020-04-06] MEDS: nicotine 21 mg Patch 1 PATCH TRANSDERMA (08:35)
[2020-04-06] MEDS: docusate sodium 100 mg Capsule PO (08:35)
--- NOTE | 2020-04-06 09:51 | XRR_ITS ---
PROCEDURE INFORMATION: Exam: XR Chest, 1 View Exam date and time: 04/06/2020 10:08 AM Age: 60 years old Clinical indication: Shortness of breath; Additional info: SOB TECHNIQUE: Imaging protocol: XR of the chest Views: 1 view. COMPARISON: CR XR chest 1V portable [id number] 04/05/2020 6:32 AM FINDINGS: Lungs: Mild airspace disease is present within the right lung base. Pleural space: Unremarkable. No pleural effusion. No pneumothorax. Heart/Mediastinum: Tracheostomy. Vasculature: Chest port via the right subclavian approach with the tip overlying the atrium. Bones/joints: Unremarkable. XR/XR chest 1V portable [id number] IMPRESSION: Mild airspace disease is present within the right lung base. Subtle atelectasis left lung base. Moderate subpulmonic effusion on the right. Stable.
[2020-04-06 10:39] LABS: Procalcitonin 0.26 ng/mL (0-0.5)
[2020-04-06 11:10] LABS: Glucose Point of Care 108 mg/dL (70-110)
--- NOTE | 2020-04-06 11:45 | P.PN_ITS ---
Subjective Subjective: Interval history: This morning patient was examined, he had a febrile episode yesterday afternoon, he has had increased secretions from his trach, he had a difficult night, did not get a lot of sleep, and this morning was sleeping, was arousable, did follow commands, did not have any complaints, went back to sleep, Vitals/I&O/Wt Last Vital Signs Temp 98.7 F 04/06/20 11:32 Pulse 62 04/06/20 11:32 Resp 18 04/06/20 11:32 BP 99/63 04/06/20 11:32 Pulse Ox 93 04/06/20 11:32 04/05/20 04/06/20 04/06/20 22:59 06:59 14:59 Intake Total 240 / 840 Output Total 800 / 800 550 / 1350 Balance -560 / 40 -550 / -510 Physical Exam Narrative: EXAM NARRATIVE: Trach in place, Const: COMMON NORMALS: no acute distress OTHER: Currently sleeping, is arousable, does follow commands HENMT: COMMON NORMALS: normocephalic HEAD & SCALP: normocephalic Neck/C-Spine: COMMON NORMALS: no JVD Chest: OTHER: Right chest port in place Resp: COMMON NORMALS: normal respiratory effort, No retractions, No use of accessory muscles and clear to auscultation bilaterally AUSCULTATION: clear to auscultation bilaterally Cardio: COMMON NORMALS: no JVD, regular rate, regular rhythm, S1 normal heart sound present and S2 normal heart sound present RATE: regular rate RHYTHM: regular rhythm HEART SOUNDS: S1 normal heart sound present and S2 normal heart sound present GI: COMMON NORMALS: Normal to inspection, nondistended, normoactive bowel so unds present, Soft to palpation, non-tender, No hepatosplenomegaly present, no masses and no bruits PALPATION: Yes Soft to palpation and Yes No hepatosplenomegaly present OTHER: PEG tube in place Extremity: COMMON NORMALS: capillary refill normal, no clubbing, cyanosis or edema, no calf tenderness and no pedal edema Psych: COMMON NORMALS: mental status grossly normal Urinary Catheter Management^: Ramirez: Cath Placed During This Visit: yes, but has since been removed by the nurse Reason for Continuing Indwelling Catheter: Acute Urinary Retention or Obstruction Urinary Catheter Date of Insertion: 04/03/20 Urinary Catheter Time of Insertion: 15:43 Date Urinary Catheter Removed: 03/29/20 Time Urinary Catheter Discontinued: 09:00 Data : 04/06/20 05:00 04/06/20 05:00 Micro: Microbiology 04/06/20 10:36 Blood Culture - Preliminary Blood SPECIMEN COLLECTED 04/06/20 10:42 Blood Culture - Preliminary Blood SPECIMEN COLLECTED A&P Assessment and plan (1) Supraglottic mass: Status: Acute (2) Tracheitis: Status: Acute (3) Embolic stroke: Status: Acute (4) Left ventricular thrombus: Status: Acute (5) Dysphagia: Status: Acute Additional A&P Information Supraglottic mass, 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 Hernandez consult PEG tube CT scan this morning confirmed position of PEG tube, no ileus, no small bowel obstruction CT scan of the abdomen does show large stool burden, significant constipation Significant constipation, started on multiple bowel regimens, has had several bowel movements Residuals have improved, continue Reglan, continue tube feedings at 40 cc an hour Continue bowel regimen, enema as needed Speech pathology has been consulted, soft mechanical Monitor daily labs for refeeding syndrome Tracheitis Vancomycin and cefepime started on 03/22, discontinued 2 days ago Sputum culture showing Klebsiella pneumonia, Klebsiella oxytocin De-escalate antibiotic therapy to Augmentin and doxycycline Febrile episode: -Repeat chest x-ray, urine cultures, blood cultures, sputum cultures, influenza, rapid Covid Trach collar dislodged 03/23 #6 cuffless which was replaced by ENT Continues to have mucus drainage around trach collar Embolic stroke CT of the head showed: Brain: There is a old lacunar infarct in the right frontal region. There is a new focal area of hypodensity in the posterior aspect of the left basal ganglia region consistent with lunar infarct of uncertain age but likely subacute. There is no intracranial mass or hemorrhage. There is no extra-axial fluid collection. -Indications for subacute lacunar infarct in the left basal ganglia region -MRI of the brain and [facility] shows multiple scattered areas of acute infarct involving both the supratentorial and infra tentorial brain, including left internal capsule, left erwin radiata, bilateral septal lobes, and bilateral cerebral hemispheres -Patient's physical exam is about the same, has weakness on the right 4-5 compared to 5 out of 5 on the left, actually slightly improved, no facial droop, slurring of speech -Thus I clinically feel that this subacute lacunar infarct is likely old, but will continue neurochecks, have requested MRI CD from [place] Most likely source left ventricular thrombus continue Lovenox therapeutic dose, currently on hold Patient has been having intermittent hallucinations with impulsive behavior Continue aspirin, statins Will need long-term rehab as well right-sided hemiparesis PT OT Left ventricular thrombus Noted 03/16 TTE was not clearly visualized but left apical expansion and akinesia noted, patient did not tolerate cardiac MRI, was started on metoprolol 12.5 twice daily along aspirin and statin Repeated transthoracic echocardiogram during this hospital admission with contrast, Dr. Chiu felt that there was no left ventricular thrombus, and there was good movement of the left apex Will request transthoracic echocardiogram CD report from [place], to compare to, and decide on anticoagulation COPD without acute exacerbation We will keep him on DuoNeb for as needed Acute on chronic hyperactive delirium -Review of patient's records show that he has a history of delirium, and confusion, it pulls out his trach -Here he pulls on his port, PEG tube, on his trach, port -Has fallen out of the bed -Is on Zyprexa 10 mg at night, schedule Haldol 0.5 mg every 8 hours, Ativan as needed which have not been working during the night -Follow blood cultures, continue antibiotics -Place abdominal binder -Now doing well with Geodon 20 mgt, Ativan and Haldol as needed Acute anemia, likely multifactorial related to slow GI bleed and chemotherapy -Hemoglobin has increased to 9.3 status post 1 unit PRBC -Iron, ferritin, B12 within normal limits, folate level low, replace folate -On Protonix, Carafate -Will monitor hemoglobin -Hold Lovenox -Unfortunately this presents a difficult situation, in terms of his long-term management of his stroke/left ventricular thrombus versus GI bleed -I have discussed the case with Dr. Hernandez, he recommends to Dr. Chahal given his delirium and stroke -I have discussed the case with Dr. Chahal, will will await the records from [facility] to compare previous MRI and CT scan to the CT scan that was done on this admission, to see if there is any significant difference as it was read as an acute lacunar infarct, but she recommended to discuss with cardiology about left ventricular thrombus -I spoke to cardiology, Dr. Saucedo, who recommended to perform a transthoracic echocardiogram with contrast which did not show left-ventricular thrombus good movement of the apex, we are requesting the echocardiogram images from [place], to compare to, Hypokalemia, will replace with potassium supplementation Full code Tube feeding diet, soft mechanical DVT prophylaxis Lovenox on hold Plan for today, will do fever work-up, continue physical therapy, hopefully can be discharged in the next 24 to 48 hours Attestations Medical Necessity Statement*: She requires hospitalization for embolic strokes, left ventricular thrombus, GI bleed, supraglottic neuroendocrine tumor, hopefully can be discharged in the next 24 to 48 hours Coding Level of Care Code Acute Desktop Specialist for [facility] Fwd Diagnoses Supraglottic mass J38.7 Tracheitis J04.10 Embolic stroke I63.9 Left ventricular thrombus I51.3 Dysphagia R13.10
[2020-04-06 13:14] LABS: Bilirubin Urine Neg (Negative); Blood Urine 2+ (Negative); Glucose Urine UA Norm (Normal); Ketones Urine Negative (Negative); Nitrate Urine Negative (Negative); Protein Urine Neg (Negative); Urine Appearance Clear (CLEAR); Urine Color Yellow (Yellow); Urobilinogen Urine Norm (Negative); pH Urine 5 (5-7)
[2020-04-06 13:15] LABS: Add Urine Microscopic? YES; Bacteria Urine 1+ /hpf; Hyaline Casts Urine 0-4 /lpf; Leukocyte Esterase Urine Negative (Negative); Mucus Urine 1+ /hpf; Squamous Epithelial Cell Urine 0-4 /hpf (0-5)
[2020-04-06 14:16] LABS: Ammonia 28 umol/L (16-60)
[2020-04-06 17:24] LABS: Glucose Point of Care 109 mg/dL (70-110)
[2020-04-06 19:02] LABS: Influenza A by IFA Negative (Negative); Influenza B by IFA Negative (Negative); SARS Covid-2 Antigen Positive (Negative)
[2020-04-06 21:42] LABS: Glucose Point of Care 112 mg/dL (70-110)
[2020-04-06] MEDS: atorvastatin 40 mg Tablet 80 MG PO (21:57)
[2020-04-06] MEDS: ziprasidone hcl 20 mg Capsule PO (21:57)
[2020-04-06] MEDS: remdesivir 200 MG in sodium chloride 0.9% (100 ml) 100 ML 100 MG IV (21:59)
[2020-04-07] VITALS (12 sets, daily range): BP systolic 101–112; BP diastolic 55–73; PULSE 75–107; RESP 17–24; TEMP 36.4–36.8; O2SAT 92–96
[2020-04-07] MEDS: morphine 4 mg/mL SDV 1 mL 2 MG IVP (01:46)
[2020-04-07] MEDS: metoclopramide 10 mg Tablet PO ×2 (01:47→09:14)
[2020-04-07 03:58] LABS: ABG PCO2 39.8 mmHg (35-45); ABG PH Result 7.46 (7.35-7.45); Arterial Blood Gas Hematocrit 30.1 % (42-52); Base Excess ABG 4.4 mmol/L (-2.0-2.0); Blood Gas Allen Test Pos; Blood Gas Sample Site Radial, right; Blood Gas Sample Type Arterial; HCO3 ABG 28.5 mmol/L (22-26); Oxygen Device HAG; PO2 ABG 68.1 mmHg (80.0-100.0)
[2020-04-07] MEDS: ipratropium-albuterol 3 mL Neb INHALATION ×3 (04:08→14:58)
[2020-04-07 06:40] LABS: Glucose Point of Care 111 mg/dL (70-110)
[2020-04-07] MEDS: pantoprazole 40 mg SDV IVP (06:47)
[2020-04-07] MEDS: sucralfate 1 gm Tablet PO ×2 (06:47→16:17)
--- NOTE | 2020-04-07 07:00 | XR_ITS ---
WS: [id number] PORTABLE CHEST HISTORY: sob COMPARISON: 04/06/2020 Port-A-Cath present with tip in distal SVC. Chest is rotated to the RIGHT. Increasing opacification at the RIGHT lung base. Mild interstitial thi ckening in the lower lung cash is unchanged otherwise. No pleural effusion or pneumothorax. Cardiac size: Normal. Mediastinum/Aorta: Mild atherosclerosis aorta. No osseous abnormality seen. XR/XR chest 1V portable [id number] IMPRESSION: 1. New opacification of the RIGHT lung base suspicious for developing pneumoni a. 2. Chronic emphysema. 3. Ectatic thoracic aorta.
--- NOTE | 2020-04-07 07:39 | NUR.SHIFT ---
With conference between this nurse and the process chemist hospitalist, we deemed the patient ok to have his sitter DC'd. At shift change, this nurse attempted to flush the patient's R port and was unable to flush it. Then this nurse attempted to re access the port and was unsuccessful. This nurse notified dayshift. Patient is compliant with care and at this time, understands that if he needs anything, to notify staff.
[2020-04-07] MEDS: docusate sodium 100 mg Capsule PO (09:14)
[2020-04-07] MEDS: amoxicillin-clav 875-125 mg Tablet 1 TAB PO (09:14)
[2020-04-07] MEDS: folic acid 1 mg Tablet PO ×2 (09:14→18:40)
[2020-04-07] MEDS: sennosides-docusate Tablet 1 TAB PO (09:14)
[2020-04-07] MEDS: doxycycline 100 mg Tablet PO (09:14)
[2020-04-07] MEDS: aspirin 325 mg Tablet PO (09:14)
[2020-04-07] MEDS: ascorbic acid 500 mg Tablet 1000 MG PO ×2 (09:17→18:40)
[2020-04-07] MEDS: nicotine 21 mg Patch 1 PATCH TRANSDERMA (09:18)
[2020-04-07] MEDS: metoprolol tartrate 25 mg Tablet 12.5 MG PO ×2 (09:22→20:11)
[2020-04-07] MEDS: dexamethasone 4 mg/mL INJ 6 MG IVP (10:13)
[2020-04-07 10:51] LABS: INR 1.03 (0.8-1.2)
[2020-04-07 11:02] LABS: Alanine Aminotransferase 34 U/L (0-41); Alkaline Phosphatase 77 IU/L (40-130); Anion Gap 13.2 (5-19); Aspartate Amino Transferase 38 U/L (0-40); Blood Urea Nitrogen 10 mg/dL (8-23); C Reactive Protein 110.4 mg/L (0.0-4.9); Carbon Dioxide 27 mmol/L (22-29); Chloride 99 mmol/L (98-107); Globulin 2.6 g/dL (1.3-4.6); Glucose 111 mg/dL (65-115); Magnesium 1.6 mg/dL (1.7-2.3); Osmolality Calculated 282 mOsm/kg (285-295); Potassium 3.2 mmol/L (3.5-5.1); Sodium 136 mmol/L (136-145); Total Bilirubin 0.4 mg/dL (0.15-1.2); Total Protein 5.6 g/dL (6.6-8.7)
[2020-04-07 11:12] LABS: Glucose Point of Care 136 mg/dL (70-110)
[2020-04-07 11:15] LABS: NT Pro B Type Natriuretic Pept 588 pg/mL (0-125); Procalcitonin 0.22 ng/mL (0-0.5)
[2020-04-07 11:25] LABS: Uric Acid 2.6 mg/dL (3.4-7.0)
[2020-04-07] MEDS: zinc gluconate 50 mg Tablet PO (12:00)
--- NOTE | 2020-04-07 12:49 | PM.PN ---
Subjective Subjective: Interval history: Patient tested positive for COVID-19, was moved into isolation, started on remdesivir, is currently on 10 L, 30%, now down to 8 L 30%, he is up into a chair, has received pulmonary toilet by respiratory therapy, he tells me that he feels about the same, he does have some fevers overnight, no nausea, no vomiting, no lightheaded, dizziness, he feels some degree of shortness of breath Vitals/I&O/Wt Last Vital Signs Temp 97.6 F 04/07/20 11:11 Pulse 102 H 04/07/20 11:11 Resp 17 04/07/20 11:11 BP 102/57 04/07/20 11:11 Pulse Ox 96 04/07/20 11:11 04/06/20 04/07/20 04/07/20 22:59 06:59 14:59 Intake Total 886 / 1276 360 / 1636 120 / 120 Output Total 1000 / 1000 1000 / 1000 Balance -114 / 276 360 / 636 -880 / -880 Physical Exam Narrative: EXAM NARRATIVE: Trach in place, Const: COMMON NORMALS: no acute distress and patient oriented x3 ORIENTATION/CONSCIOUSNESS: Yes oriented to person and Yes oriented to place; not oriented to time HENMT: COMMON NORMALS: normocephalic HEAD & SCALP: normocephalic Neck/C-Spine: COMMON NORMALS: no JVD Chest: OTHER: Right chest port in place Resp: COMMON NORMALS: normal respiratory effort, No retractions, No use of accessory muscles and clear to auscultation bilaterally AUSCULTATION: clear to auscultation bilaterally Cardio: COMMON NORMALS: no JVD, regular rate, regular rhythm, S1 normal heart sound present and S2 normal heart sound present RATE: regular rate RHYTHM: regular rhythm HEART SOUNDS: S1 normal heart sound present and S2 normal heart sound present GI: COMMON NORMALS: Normal to inspection, nondistended, normoactive bowel sounds present, Soft to palpation, non-tender, No hepatosplenomegaly present, no masses and no bruits PALPATION: Yes Soft to palpation and Yes No hepatosplenomegaly present OTHER: PEG tube in place Extremity: COMMON NORMALS: capillary refill normal, no clubbing, cyanosis or edema, no calf tenderness and no pedal edema Neuro: COMMON NORMALS: patient oriented x3 SENSORIUM/ORIENTATION: Yes oriented to person, Yes oriented to place and No oriented to time OTHER: Right upper extremity strength 4 out of 5 compared to 5 out of 5 on the left Right lower extremity strength 4 out of 5 compared to 5 out of 5 on the left No facial droop Psych: COMMON NORMALS: mental status grossly normal Urinary Catheter Management^: Ramirez: Cath Placed During This Visit: yes, but has since been removed by the nurse Reason for Continuing Indwelling Catheter: Acute Urinary Retention or Obstruction Urinary Catheter Date of Insertion: 04/03/20 Urinary Catheter Time of Insertion: 15:43 Date Urinary Catheter Removed: 03/29/20 Time Urinary Catheter Discontinued: 09:00 Data : 04/07/20 11:35 04/07/20 09:55 Micro: Microbiology 04/06/20 10:36 Blood Culture - Preliminary Blood NEGATIVE TO DATE 04/06/20 10:42 Blood Culture - Preliminary Blood NEGATIVE TO DATE 04/06/20 12:57 Urine Culture - Preliminary Urine Catheterized 04/06/20 14:25 Gram Stain - Final Sputum - Endotracheal Tube Aspirate A&P Assessment and plan (1) Supraglottic mass: Status: Acute (2) Tracheitis: Status: Acute (3) Embolic stroke: Status: Acute (4) Left ventricular thrombus: Status: Acute (5) Dysphagia: Status: Acute (6) Pneumonia due to COVID-19 virus: Status: Acute (7) Acute and chronic respiratory failure with hypoxia: Status: Acute (8) GI bleed: Status: Acute (9) Leukopenia: Status: Acute Additional A&P Information Acute respiratory failure secondary to COVID-19 pneumonia, with anemia, leukopenia Currently on 8 L, 30% FiO2 Anticoagulation contraindicated currently due to GI bleed Zinc, vitamin C Decadron Convalescent plasma Remdesivir, I am quite concerned about patient's risk of significant bone marrow suppression with remdesivir, and given his history of chemotherapy and recurrent infections will have to monitor closely Nebulizer treatments, albuterol Aggressive pulmonary toilet, trach in place Continue doxycycline, Augmentin, will broaden antibiotic coverage if he starts to clinically worsen Patient started to clinically worsen will have to move down to the VICU, consult pulm team Leukopenia, multifactorial related to COVID-19 pneumonia, possible remdesivir Supraglottic mass, 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 Hernandez consult PEG tube CT scan this morning confirmed position of PEG tube, no ileus, no small bowel obstruction CT scan of the abdomen does show large stool burden, significant constipation, has resolved Significant constipation, started on multiple bowel regimens, has had several bowel movements Residuals have improved, stop Reglan, continue tube feedings at 40 cc an hour Continue bowel regimen, enema as needed Speech pathology has been consulted, soft mechanical Monitor daily labs for refeeding syndrome Tracheitis Vancomycin and cefepime started on 03/22, discontinued 2 days ago Sputum culture showing Klebsiella pneumonia, Klebsiella oxytocin De-escalate antibiotic therapy to Augmentin and doxycycline Febrile episode: -Likely secondary to COVID-19 pneumonia Trach collar dislodged 03/23 #6 cuffless which was replaced by ENT Continues to have mucus drainage around trach collar Embolic stroke CT of the head showed: Brain: There is a old lacunar infarct in the right frontal region. There is a new focal area of hypodensity in the posterior aspect of the left basal ganglia region consistent with lunar infarct of uncertain age but likely subacute. There is no intracranial mass or hemorrhage. There is no extra-axial fluid collection. -Indications for subacute lacunar infarct in the left basal ganglia region -MRI of the brain and [facility] shows multiple scattered areas of acute infarct involving both the supratentorial and infra tentorial brain, including left internal capsule, left erwin radiata, bilateral septal lobes, and bilateral cerebral hemispheres -Patient's physical exam is about the same, has weakness on the right 4-5 compared to 5 out of 5 on the left, actually slightly improved, no facial droop, slurring of speech -Thus I clinically feel that this subacute lacunar infarct is likely old, but will continue neurochecks, have requested MRI CD from [place] Most likely source left ventricular thrombus continue Lovenox therapeutic dose, currently on hold Continue aspirin, statins Will need long-term rehab as well right-sided hemiparesis PT OT Left ventricular thrombus Noted 03/16 TTE was not clearly visualized but left apical expansion and akinesia noted, patient did not tolerate cardiac MRI, was started on metoprolol 12.5 twice daily along aspirin and statin Repeated transthoracic echocardiogram during this hospital admission with contrast, Dr. Chiu felt that there was no left ventricular thrombus, and there was good movement of the left apex Will request transthoracic echocardiogram CD report from [place], to compare to, and decide on anticoagulation long-term COPD without acute exacerbation We will keep him on DuoNeb for as needed Acute on chronic hyperactive delirium -Review of patient's records show that he has a history of delirium, and confusion, it pulls out his trach -Here he pulls on his port, PEG tube, on his trach, port -Has fallen out of the bed -Lives Zyprexa 10 mg at night, schedule Haldol 0.5 mg every 8 hours, Ativan as needed which have not been working during the night -Now doing well with Geodon 20 mgt, Ativan and Haldol as needed, doing significantly better, much more alert awake, sleeping better overnight, Acute anemia, likely multifactorial related to slow GI bleed and chemotherapy and now COVID-19 -Hemoglobin has increased to 9.3 status post 1 unit PRBC -Iron, ferritin, B12 within normal limits, folate level low, replace folate -On Protonix, Carafate -Will monitor hemoglobin -Hold Lovenox -Unfortunately this presents a difficult situation, in terms of his long-term management of his stroke/left ventricular thrombus versus GI bleed -I have discussed the case with Dr. Hernandez, he recommends to Dr. Chahal given his delirium and stroke -I have discussed the case with Dr. Chahal, will will await the records from [facility] to compare previous MRI and CT scan to the CT scan that was done on this admission, to see if there is any significant difference as it was read as an acute lacunar infarct, but she recommended to discuss with cardiology about left ventricular thrombus -I spoke to cardiology, Dr. Saucedo, who recommended to perform a transthoracic echocardiogram with contrast which did not show left-ventricular thrombus good movement of the apex, we are requesting the echocardiogram images from [place], to compare to Hypokalemia, will replace with potassium supplementation Full code Tube feeding diet, soft mechanical DVT prophylaxis Lovenox on hold Plan for today, continue nasal care, Decadron, monitor for fevers, physical therapy, monitor respiratory status very closely Attestations Medical Necessity Statement*: Patient requires hospitalization for acute respiratory failure secondary COVID-19, acute on chronic anemia secondary to GI bleed, supraglottic cancer, left ventricular thrombus, embolic strokes Coding Level of Care Code Acute Meter Reader Inspector for [facility] Fwd Diagnoses Supraglottic mass J38.7 Tracheitis J04.10 Embolic stroke I63.9 Left ventricular thrombus I51.3 Dysphagia R13.10 Pneumonia due to COVID-19 virus U07.1; J12.89 Acute and chronic respiratory failure with hypoxia J96.21 GI bleed K92.2 Leukopenia D72.819
[2020-04-07 13:00] LABS: Hematocrit 26.4 % (42.0-52.0); Hemoglobin 8.7 g/dL (11.7-16.6); Lymphocytes # 0.2 10^3/uL (0.8-4.8); Lymphocytes % 12.9 %; Mean Corpuscular Hemoglobin 30.3 pg (28.0-34.0); Mean Platelet Volume 10.6 fL (7.4-10.4); Monocytes # 0.1 10^3/uL (0.2-0.9); Monocytes % 4.1 %; Neutrophils # 1.21 10^3/uL (1.8-7.7); Neutrophils % 82.3 %; Nucleated Red Blood Cells % 0 %; Red Blood Count 2.87 10^6/uL (4.1-5.3); Red Cell Distribution Width 12.9 % (12.1-15.1); White Blood Count 1.5 10^3/uL (4.0-10.0)
[2020-04-07 13:01] LABS: Platelet Count 140 10^3/cmm (130-400); Slide Review Slide Review Perform
[2020-04-07] MEDS: FUROsemide 10 mg/mL SDV 2mL 20 MG IVP (14:07)
[2020-04-07] MEDS: lidocaine 1% 5 ML in potassium chloride premix 100 ML 25 ML IV (14:09)
[2020-04-07] MEDS: vancomycin 1,500 MG/300 ML PIGGYBACK 200 MG IV (16:18)
[2020-04-07 16:44] LABS: Glucose Point of Care 144 mg/dL (70-110)
[2020-04-07] MEDS: cefepime 2,000 MG in sodium chloride 0.9% (plus) 50 ML 100 MG IV (18:44)
[2020-04-07] MEDS: atorvastatin 40 mg Tablet 80 MG PO (20:10)
[2020-04-07] MEDS: remdesivir 100 MG in sodium chloride 0.9% (100 ml) 100 ML IV (20:11)
[2020-04-07] MEDS: ziprasidone hcl 20 mg Capsule PO (20:11)
[2020-04-07 20:55] LABS: Glucose Point of Care 175 mg/dL (70-110)
--- NOTE | 2020-04-07 22:24 | XRR_ITS ---
PROCEDURE INFORMATION: Exam: XR Left Elbow Exam date and time: 04/07/2020 10:36 PM Age: 60 years old Clinical indication: Injury or trauma; Fall; Blunt trauma (contusions or hematomas); Elbow; Left; Injury date: 04/07/2020 TECHNIQUE: Imaging protocol: XR Left elbow. Views: 3 or more views. COMPARISON: None available FINDINGS: No acute fracture or dislocation is demonstrated. XR/XR elbow LT min 3V* [id number] IMPRESSION: No acute osseous abnormality is demonstrated.
--- NOTE | 2020-04-07 22:24 | CTR_ITS ---
PROCEDURE INFORMATION: Exam: CT Head Without Contrast Exam date and time: 04/07/2020 10:35 PM Age: 60 years old Clinical indication: Injury or trauma; Fall; Blunt trauma (contusions or hematomas); Injury date: 04/07/2020; Additional info: Fall, AMS TECHNIQUE: Imaging protocol: Computed tomography of the head without contrast. Radiation optimization: All CT scans at this facility use at least one of these dose optimization techniques: automated exposure control; mA and/or kV adjustment per patient size (includes targeted exams where dose is matched to clinical indication); or iterative reconstruction. ADDITIONAL STUDY INFORMATION: Total DLP (mGy-cm): 1096.01 COMPARISON: CT head wo con* [id number] 03/31/2020 12:10 AM FINDINGS: Examination is limited by artifacts from patient motion. Again demonstrated is small rounded area of relatively low-density in posterior aspect left basal ganglia, most compatible with acute to subacute infarction. Again demonstrated is small old-appearing infarction in anterior aspect of right basal ganglia. Evaluation of the brain demonstrates no other convincing areas of abnormal density when allowing for artifacts from patient motion. There is mild to moderate cerebral cortical volume loss. Ventricles do not appear significantly dilated. No definite depressed calvarial fracture is demonstrated. Visualized paranasal sinuses and mastoid air cells demonstrate no significant opacification. CT/CT head wo con* [id number] IMPRESSION: No definite acute intracranial process is demonstrated when allowing for artifacts from patient motion. Again demonstrated is small rounded area of relatively low-density in posterior aspect left basal ganglia, most compatible with acute to subacute infarction. Radiation Dose CTDIVOL = (mGy): DLP = 1096.01 (mGy-cm)
--- NOTE | 2020-04-07 22:29 | XRR_ITS ---
PROCEDURE INFORMATION: Exam: XR Abdomen, 2 Views Exam date and time: 04/07/2020 10:36 PM Age: 60 years old Clinical indication: Injury or trauma; Fall; Blunt; Generalized; Injury date: 04/07/2020; Additional info: Fall, AMS TECHNIQUE: Imaging protocol: XR of the abdomen. Views: 2 Views. COMPARISON: Chest radiograph 04/05/2020 FINDINGS: There is approximately 3.3 x 2.1 cm ovoid density projecting over right lung apex, also demonstrated on prior study, mass cannot be excluded. [id number] ill-defined opacification at right lung base is most compatible with atelectasis/infiltrate, appears increased from prior study. Underlying effusion not excluded. No focal left pulmonary consolidation or significant vascular congestion is demonstrated on this single frontal image. There is scattered pulmonary scarring bilaterally. Visualized cardiac silhouette size appears upper normal. Similar position of the visualized support tubes. No significantly dilated air-filled bowel loops are demonstrated. Balloon from presumed percutaneous tube projects over upper abdomen. No definite free intraperitoneal air is demonstrated. No suspicious calcifications project over the visualized abdomen. XR/XR acute abdomen series [id number] IMPRESSION: There is approximately 3.3 x 2.1 cm ovoid density projecting over right lung apex, also demonstrated on prior study, mass cannot be excluded. Nonemergent chest CT scan is advised for further assessment. [id number] ill-defined opacification at right lung base is most compatible with atelectasis/infiltrate, appears increased from prior study. Underlying effusion not excluded.
[2020-04-08] VITALS (15 sets, daily range): BP systolic 93–133; BP diastolic 60–85; PULSE 77–107; RESP 17–20; TEMP 36.3–36.6; O2SAT 91–98
[2020-04-08] MEDS: vancomycin 1,500 MG/300 ML PIGGYBACK 200 MG IV ×2 (02:18→14:33)
[2020-04-08] MEDS: cefepime 2,000 MG in sodium chloride 0.9% (plus) 50 ML 100 MG IV ×2 (02:19→14:06)
[2020-04-08] MEDS: ipratropium-albuterol 3 mL Neb INHALATION ×3 (03:08→20:25)
[2020-04-08 05:17] LABS: ABG PCO2 41.5 mmHg (35-45); ABG PH Result 7.44 (7.35-7.45); Arterial Blood Gas Hematocrit 30.6 % (42-52); Base Excess ABG 3.3 mmol/L (-2.0-2.0); Blood Gas Sample Type Arterial; HCO3 ABG 27.9 mmol/L (22-26); PO2 ABG 57.4 mmHg (80.0-100.0)
[2020-04-08 05:18] LABS: Blood Gas Operator Identificat HARKR; Blood Gas Sample Site Brachial, right; Oxygen Device ROOM AIR
--- NOTE | 2020-04-08 05:23 | NUR.SHIFT ---
Addendum entered by Chase Novoa RN 04/08/20 05:28: Patient has had two episodes of diarrhea during the first half of the shift. Original Note: Patient now has a sitter due to an unexpected event. Port reaccessed, tube feedings restarted. Patient has been afibrile. Patient could probably benefit from SNF placement due to patient's history of falls and trying to overcome limitations.
[2020-04-08] MEDS: pantoprazole 40 mg SDV IVP ×2 (06:10→17:06)
[2020-04-08] MEDS: sucralfate 1 gm Tablet PO ×2 (06:10→17:05)
[2020-04-08 06:29] LABS: Glucose Point of Care 125 mg/dL (70-110)
[2020-04-08] MEDS: nicotine 21 mg Patch 1 PATCH TRANSDERMA (08:47)
[2020-04-08] MEDS: ascorbic acid 500 mg Tablet 1000 MG PO ×2 (08:47→17:05)
[2020-04-08] MEDS: aspirin 325 mg Tablet PO (08:47)
[2020-04-08] MEDS: metoprolol tartrate 25 mg Tablet 12.5 MG PO ×2 (08:47→21:57)
[2020-04-08] MEDS: folic acid 1 mg Tablet PO ×2 (08:48→17:05)
[2020-04-08 08:53] LABS: Hematocrit 28.1 % (42.0-52.0); Hemoglobin 9.1 g/dL (11.7-16.6); Lymphocytes # 0.6 10^3/uL (0.8-4.8); Lymphocytes % 37.9 %; Mean Corpuscular HGB Conc 32.4 g/dL (30.0-36.0); Mean Corpuscular Hemoglobin 29.6 pg (28.0-34.0); Mean Corpuscular Volume 91.5 fL (80-94); Monocytes # 0.1 10^3/uL (0.2-0.9); Monocytes % 5.9 %; Neutrophils % 55.6 %; Nucleated Red Blood Cells % 0 %; Red Blood Count 3.07 10^6/uL (4.1-5.3); Red Cell Distribution Width 12.9 % (12.1-15.1); White Blood Count 1.7 10^3/uL (4.0-10.0)
[2020-04-08] MEDS: dexamethasone 4 mg/mL INJ 6 MG IVP (09:00)
[2020-04-08 09:03] LABS: INR 1.01 (0.8-1.2)
[2020-04-08 09:28] LABS: Alanine Aminotransferase 41 U/L (0-41); Albumin Level 2.9 g/dL (3.5-5.2); Alkaline Phosphatase 73 IU/L (40-130); Anion Gap 11.5 (5-19); Aspartate Amino Transferase 39 U/L (0-40); Blood Urea Nitrogen 11 mg/dL (8-23); C Reactive Protein 81.2 mg/L (0.0-4.9); Calcium 8.6 mg/dL (8.5-10.5); Carbon Dioxide 27 mmol/L (22-29); Chloride 103 mmol/L (98-107); Globulin 2.7 g/dL (1.3-4.6); Glucose 110 mg/dL (65-115); Magnesium 1.7 mg/dL (1.7-2.3); Osmolality Calculated 286 mOsm/kg (285-295); Phosphorus 3.2 mg/dL (2.5-4.5); Potassium 3.5 mmol/L (3.5-5.1); Sodium 138 mmol/L (136-145); Total Bilirubin 0.3 mg/dL (0.15-1.2); Total Protein 5.6 g/dL (6.6-8.7)
[2020-04-08 09:32] LABS: Lactate (Lactic Acid level) 0.8 mmol/L (0.5-2.2)
[2020-04-08 09:36] LABS: Procalcitonin 0.17 ng/mL (0-0.5)
[2020-04-08 09:46] LABS: Creatine Phosphokinase 88 U/L (39-308); Uric Acid 2.6 mg/dL (3.4-7.0)
[2020-04-08 10:05] LABS: Neutrophils # 0.94 10^3/uL (1.8-7.7); Platelet Count 120 10^3/cmm (130-400); Slide Review Slide Review Perform
[2020-04-08 10:45] LABS: Glucose Point of Care 155 mg/dL (70-110)
[2020-04-08] MEDS: zinc gluconate 50 mg Tablet PO (11:02)
--- NOTE | 2020-04-08 11:55 | PM.PN ---
Subjective Subjective: Interval history: Last night patient had an episode of confusion,, he got up out of bed and fell, his left elbow has bruises, his left elbow x-ray was negative for fracture, CT of the head was negative for intracranial bleed, this morning patient was examined, he is quite frustrated, he tells me that he has been in the hospital for 2 months, he wants to go home, he tells me that he is doing fine, he does not have a loss of taste, no lost of , when he does get up he does feel a bit short of breath more than usual, no fevers last night, Vitals/I&O/Wt Last Vital Signs Temp 97.6 F 04/08/20 11:45 Pulse 86 04/08/20 11:45 Resp 18 04/08/20 11:45 BP 93/60 04/08/20 11:45 Pulse Ox 95 04/08/20 11:45 04/07/20 04/08/20 04/08/20 22:59 06:59 14:59 Intake Total 695 / 815 200 / 1015 434 / 434 Output Total 1425 / 2425 1150 / 3575 Balance -730 / -1610 -950 / -2560 434 / 434 Weight last 48 hrs Weight 93.259 kg Physical Exam Narrative: EXAM NARRATIVE: Trach in place, Const: COMMON NORMALS: no acute distress and patient oriented x3 HENMT: COMMON NORMALS: normocephalic HEAD & SCALP: normocephalic Neck/C-Spine: COMMON NORMALS: no JVD Chest: OTHER: Right chest port in place Resp: COMMON NORMALS: normal respiratory effort, No retractions and No use of accessory muscles AUSCULTATION: diminished lung sounds diffuse Cardio: COMMON NORMALS: no JVD, regular rate, regular rhythm, S1 normal heart sound present and S2 normal heart sound present RATE: regular rate RHYTHM: regular rhythm HEART SOUNDS: S1 normal heart sound present and S2 normal heart sound present GI: COMMON NORMALS: Normal to inspection, nondistended, normoactive bowel sounds present, Soft to palpation, non-tender, No hepatosplenomegaly present, no masses and no bruits PALPATION: Yes Soft to palpation and Yes No hepatosplenomegaly present OTHER: PEG tube in place Extremity: COMMON NORMALS: capillary refill normal, no clubbing, cyanosis or edema, no calf tenderness and no pedal edema Neuro: COMMON NORMALS: patient oriented x3 OTHER: Right upper extremity strength 4 out of 5 compared to 5 out of 5 on the left Right lower extremity strength 4 out of 5 compared to 5 out of 5 on the left No facial droop Psych: COMMON NORMALS: mental status grossly normal Urinary Catheter Management^: Ramirez: Cath Placed During This Visit: yes, but has since been removed by the nurse Reason for Continuing Indwelling Catheter: Acute Urinary Retention or Obstruction Urinary Catheter Date of Insertion: 04/03/20 Urinary Catheter Time of Insertion: 15:43 Date Urinary Catheter Removed: 03/29/20 Time Urinary Catheter Discontinued: 09:00 Data : 04/08/20 08:40 04/08/20 08:40 Micro: Microbiology 04/06/20 12:57 Urine Culture - Final Urine Catheterized 04/06/20 10:36 Blood Culture - Preliminary Blood NEGATIVE TO DATE 04/06/20 10:42 Blood Culture - Preliminary Blood NEGATIVE TO DATE 04/06/20 14:25 Gram Stain - Final Sputum - Endotracheal Tube Aspirate A&P Assessment and plan (1) Supraglottic mass: Status: Acute (2) Tracheitis: Status: Acute (3) Embolic stroke: Status: Acute (4) Left ventricular thrombus: Status: Acute (5) Dysphagia: Status: Acute (6) Pneumonia due to COVID-19 virus: Status: Acute (7) Acute and chronic respiratory failure with hypoxia: Status: Acute (8) GI bleed: Status: Acute (9) Leukopenia: Status: Acute Additional A&P Information Acute respiratory failure secondary to COVID-19 pneumonia, with anemia, leukopenia Currently on HAG, 30% FiO2 Anticoagulation contraindicated currently due to GI bleed Zinc, vitamin C Decadron Convalescent plasma Remdesivir, I am quite concerned about patient's risk of significant bone marrow suppression with remdesivir, and given his history of chemotherapy and recurrent infections will have to monitor closely Nebulizer treatments, albuterol Absolute neutrophil count 9040, will talk to Dr. 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 Hernandez consult PEG tube CT scan this morning confirmed position of PEG tube, no ileus, no small bowel obstruction CT scan of the abdomen does show large stool burden, significant constipation, has resolved Significant constipation, started on multiple bowel regimens, has had several bowel movements Residuals have improved, stop Reglan, continue tube feedings at 40 cc an hour Continue bowel regimen, enema as needed Speech pathology has been consulted, soft mechanical Monitor daily labs for refeeding syndrome Tracheitis Vancomycin and cefepime started on 03/22, discontinued 2 days ago Sputum culture showing Klebsiella pneumonia, Klebsiella oxytocin Currently on vancomycin and cefepime Febrile episode: -Likely secondary to COVID-19 pneumonia Trach collar dislodged 03/23 #6 cuffless which was replaced by ENT Continues to have mucus drainage around trach collar Embolic stroke CT of the head showed: Brain: There is a old lacunar infarct in the right frontal region. There is a new focal area of hypodensity in the posterior aspect of the left basal ganglia region consistent with lunar infarct of uncertain age but likely subacute. There is no intracranial mass or hemorrhage. There is no extra-axial fluid collection. -Indications for subacute lacunar infarct in the left basal ganglia region -MRI of the brain and [facility] shows multiple scattered areas of acute infarct involving both the supratentorial and infra tentorial brain, including left internal capsule, left erwin radiata, bilateral septal lobes, and bilateral cerebral hemispheres -Patient's physical exam is about the same, has weakness on the right 4-5 compared to 5 out of 5 on the left, actually slightly improved, no facial droop, slurring of speech -Thus I clinically feel that this subacute lacunar infarct is likely old, but will continue neurochecks, have requested MRI CD from [place] Most likely source left ventricular thrombus continue Lovenox therapeutic dose, currently on hold Continue aspirin, statins Will need long-term rehab as well right-sided hemiparesis PT OT Left ventricular thrombus Noted 03/16 TTE was not clearly visualized but left apical expansion and akinesia noted, patient did not tolerate cardiac MRI, was started on metoprolol 12.5 twice daily along aspirin and statin Repeated transthoracic echocardiogram during this hospital admission with contrast, Dr. Chiu felt that there was no left ventricular thrombus, and there was good movement of the left apex Awaiting transthoracic echocardiogram CD report from [place], to compare to, and decide on anticoagulation long-term COPD without acute exacerbation We will keep him on DuoNeb for as needed Acute on chronic hyperactive delirium -Review of patient's records show that he has a history of delirium, and confusion, it pulls out his trach -Here he pulls on his port, PEG tube, on his trach, port -Has fallen out of the bed -Lives Zyprexa 10 mg at night, schedule Haldol 0.5 mg every 8 hours, Ativan as needed which have not been working during the night -Now doing well with Geodon 20 mg, Ativan and Haldol as needed, doing significantly better, but did have an episode of confusion last night, and got a bed and fell -Unfortunate this is going to be a chronic issue, difficult to manage, and anticoagulation will be quite risky Acute anemia, likely multifactorial related to slow GI bleed and chemotherapy and now COVID-19 -Hemoglobin has increased to 9.1 status post 1 unit PRBC -Iron, ferritin, B12 within normal limits, folate level low, replace folate -On Protonix, Carafate -Will monitor hemoglobin -Hold Lovenox -Unfortunately this presents a difficult situation, in terms of his long-term management of his stroke/left ventricular thrombus versus GI bleed -I have discussed the case with Dr. Hernandez, he recommends to Dr. Chahal given his delirium and stroke -I have discussed the case with Dr. Chahal, will will await the records from [facility] to compare previous MRI and CT scan to the CT scan that was done on this admission, to see if there is any significant difference as it was read as an acute lacunar infarct, but she recommended to discuss with cardiology about left ventricular thrombus -I spoke to cardiology, Dr. Saucedo, who recommended to perform a transthoracic echocardiogram with contrast which did not show left-ventricular thrombus good movement of the apex, we are requesting the echocardiogram images from [place], to compare to Hypokalemia, will replace with potassium supplementation Full code Tube feeding diet, soft mechanical DVT prophylaxis Lovenox on hold Plan for today, continue aggressive pulmonary toilet, antibiotics, Decadron, physical therapy, monitor respiratory status closely monitor cultures, will talk to cardiology about reviewing echocardiogram films, discussed with Dr. Hernandez about neutropenia, potential discharge possibly Sunday at the earliest Attestations Medical Necessity Statement*: Patient requires hospitalization for acute respiratory failure secondary COVID-19, embolic stroke, left occult thrombus, COPD, acute on chronic anemia, GI bleed, supraglottic mass neuroendocrine tumor requiring chemotherapy Coding Level of Care Code Acute Survey Field [employer] for [facility] Fwd Diagnoses Supraglottic mass J38.7 Tracheitis J04.10 Embolic stroke I63.9 Left ventricular thrombus I51.3 Dysphagia R13.10 Pneumonia due to COVID-19 virus U07.1; J12.89 Acute and chronic respiratory failure with hypoxia J96.21 GI bleed K92.2 Leukopenia D72.819
[2020-04-08 16:17] LABS: Glucose Point of Care 154 mg/dL (70-110)
[2020-04-08] MEDS: remdesivir 100 MG in sodium chloride 0.9% (100 ml) 100 ML IV (17:05)
[2020-04-08 20:14] LABS: Glucose Point of Care 170 mg/dL (70-110)
[2020-04-08] MEDS: atorvastatin 40 mg Tablet 80 MG PO (21:59)
[2020-04-08] MEDS: ziprasidone hcl 20 mg Capsule PO (22:46)
[2020-04-09] VITALS (19 sets, daily range): BP systolic 101–137; BP diastolic 55–85; PULSE 79–96; RESP 16–19; TEMP 36.2–37.1; O2SAT 90–97
[2020-04-09] MEDS: ipratropium-albuterol 3 mL Neb INHALATION ×4 (02:07→21:08)
[2020-04-09] MEDS: cefepime 2,000 MG in sodium chloride 0.9% (plus) 50 ML 100 MG IV ×2 (02:50→17:39)
[2020-04-09 02:58] LABS: Hematocrit 25.6 % (42.0-52.0); Hemoglobin 8.5 g/dL (11.7-16.6); Lymphocytes # 0.8 10^3/uL (0.8-4.8); Lymphocytes % 25.4 %; Mean Corpuscular HGB Conc 33.2 g/dL (30.0-36.0); Mean Corpuscular Hemoglobin 30.1 pg (28.0-34.0); Mean Corpuscular Volume 90.8 fL (80-94); Mean Platelet Volume 10.6 fL (7.4-10.4); Monocytes # 0.2 10^3/uL (0.2-0.9); Monocytes % 5.9 %; Neutrophils # 1.98 10^3/uL (1.8-7.7); Neutrophils % 65.4 %; Nucleated Red Blood Cells % 0 %; Positive C 1; Positive M 1; Red Blood Count 2.82 10^6/uL (4.1-5.3); Red Cell Distribution Width 12.8 % (12.1-15.1)
[2020-04-09 03:00] LABS: Platelet Count 175 10^3/cmm (130-400)
[2020-04-09 03:05] LABS: Lactate (Lactic Acid level) 1.4 mmol/L (0.5-2.2)
[2020-04-09 03:09] LABS: Alanine Aminotransferase 52 U/L (0-41); Albumin Level 2.8 g/dL (3.5-5.2); Alkaline Phosphatase 72 IU/L (40-130); Anion Gap 12.6 (5-19); Aspartate Amino Transferase 46 U/L (0-40); Blood Urea Nitrogen 12 mg/dL (8-23); C Reactive Protein 41.3 mg/L (0.0-4.9); Calcium 8.3 mg/dL (8.5-10.5); Carbon Dioxide 27 mmol/L (22-29); Chloride 106 mmol/L (98-107); Glucose 103 mg/dL (65-115); Magnesium 1.6 mg/dL (1.7-2.3); Osmolality Calculated 294 mOsm/kg (285-295); Phosphorus 3.5 mg/dL (2.5-4.5); Potassium 3.6 mmol/L (3.5-5.1); Sodium 142 mmol/L (136-145); Total Bilirubin 0.3 mg/dL (0.15-1.2); Total Protein 4.8 g/dL (6.6-8.7)
[2020-04-09 03:14] LABS: Procalcitonin 0.15 ng/mL (0-0.5)
[2020-04-09] MEDS: vancomycin 1,500 MG/300 ML PIGGYBACK 200 MG IV (03:22)
[2020-04-09 03:25] LABS: Creatine Phosphokinase 55 U/L (39-308); Uric Acid 2.6 mg/dL (3.4-7.0)
[2020-04-09 03:32] LABS: Vancomycin Trough 9.4 ug/mL (10-15)
[2020-04-09 04:34] LABS: ABG PH Result 7.49 (7.35-7.45); Arterial Blood Gas Hematocrit 27.6 % (42-52); Base Excess ABG 3.5 mmol/L (-2.0-2.0); Blood Gas Allen Test Pos; Blood Gas Sample Site Radial, right; Blood Gas Sample Type Arterial; HCO3 ABG 27.1 mmol/L (22-26); Oxygen Device ROOM AIR; PO2 ABG 56.7 mmHg (80.0-100.0)
[2020-04-09] MEDS: sucralfate 1 gm Tablet PO ×2 (06:16→16:46)
[2020-04-09 06:31] LABS: Glucose Point of Care 97 mg/dL (70-110)
[2020-04-09] MEDS: pantoprazole 40 mg SDV IVP ×2 (06:31→18:24)
--- NOTE | 2020-04-09 06:31 | PC.NURSE ---
Protonix 40 mg ivp given per MAR. Protonix bottle would not scan, had to enter manually
--- NOTE | 2020-04-09 07:00 | XR_ITS ---
WS: [id number] PORTABLE CHEST HISTORY: sob COMPARISON: 04/07/2020. Tracheostomy in good position. Port-A-Cath present with tip ending in the distal RIGHT SVC. Improved aeration at the lung bases. There is continued interstitial thickening greatest on the RIGHT which is only mild. May be chronic disease. No pleural effusion or pneumothorax. Cardiac size: Normal. Mediastinum/Aorta: Mild atherosclerosis aorta. No osseous abnormality seen. XR/XR chest 1V portable [id number] IMPRESSION: 1. Improved aeration at the lung bases. 2. Mild persistent interstitial thickening involving the RIGHT lung in part is probably chronic. 3. Tracheostomy in good position.
[2020-04-09] MEDS: ascorbic acid 500 mg Tablet 1000 MG PO ×2 (08:54→17:38)
[2020-04-09] MEDS: metoprolol tartrate 25 mg Tablet 12.5 MG PO ×2 (08:55→22:50)
[2020-04-09] MEDS: aspirin 325 mg Tablet PO (08:55)
[2020-04-09] MEDS: dexamethasone 4 mg/mL INJ 6 MG IVP (08:55)
[2020-04-09] MEDS: folic acid 1 mg Tablet PO ×2 (08:55→17:38)
[2020-04-09] MEDS: nicotine 21 mg Patch 1 PATCH TRANSDERMA (08:59)
--- NOTE | 2020-04-09 10:05 | XR_ITS ---
WS: [id number] KUB, 04/09/2020 Clinical Data: confirm peg tube placement Comparison: Acute abdomen, 04/08/2020 Findings: The PEG tube balloon is in the same position as was noted yesterday. It is overlying the L1 vertebral body. The remainder the abdomen is unremarkable. XR/XR KUB portable [id number] Impression: PEG tube balloon unchanged in position from yesterday.
[2020-04-09 11:38] LABS: Glucose Point of Care 126 mg/dL (70-110)
--- NOTE | 2020-04-09 12:21 | P.DS_ITS ---
Discharge Providers Date of Admission: 03/26/20 01:29 Date of Discharge: April 09, 2020 Attending Provider at Admission: Vanita Navarro MD Attending Provider at Discharge: Denver Lynch MD Primary Care Provider: ESTHER Peña Diagnoses at Discharge Discharge Diagnosis (1) Supraglottic mass: Status: Acute (2) Tracheitis: Status: Acute (3) Embolic stroke: Status: Acute (4) Left ventricular thrombus: Status: Acute (5) Dysphagia: Status: Acute (6) Pneumonia due to COVID-19 virus: Status: Acute (7) Acute and chronic respiratory failure with hypoxia: Status: Acute (8) GI bleed: Status: Acute (9) Leukopenia: Status: Acute Reason for Visit Reason for Visit: post surgery Hospital Course Hospital Course This is a 60-year-old male with recent past medical history of supraglottic mass, neuroendocrine tumor, status post tracheostomy, PEG tube placement, with embolic strokes, left-sided CVA, left ventricular thrombus, COPD, acute on chronic hypoactive delirium, COPD, who presents to [facility] as a transfer from [facility] from a prolonged hospitalization as above Patient was transferred from [facility] to [facility] for newly diagnosed supraglottic mass, with acute respiratory failure, acute CVA as above, acute bacterial tracheitis as above he had quite a prolonged hospitalization, but was eventually transferred back to [facility] for inpatient chemotherapy. During his hospitalization [facility], patient also had a prolonged hospitalization. Quite briefly (look for details below) he developed acute respiratory failure secondary to COVID-19 with anemia and leukopenia. He was started on treatment for COVID-19, clinically improved, saturating in the high 90s on room air. I had adamantly discussed with patient about staying in the hospital for full treatment of COVID-19, however patient refused, wanted to go home, advised of the risks, significant morbidity mortality associated he was recently, all questions answered, agreed to proceed home. Patient also developed acute anemia during hospitalization likely secondary to GI bleed, likely secondary to Lovenox therapy. Lovenox was held, his hemoglobin stabilized between 8-9, no active bleeding, no hemodynamic compromise. On discharge his hemoglobin is 8.5, I have given him 2 units PRBCs before discharge, I have adamantly advised him to stay in the hospital for monitoring of his hemoglobin. However patient declined, advised of the risks, voiced understanding, all questions answered, still adamant about going home. For his tracheitis, he is finished antibiotic therapy. I will still discharge him on 7 remaining days of Augmentin doxycycline for secondary bacterial infection especially COVID-19. For his embolic strokes, this was quite a difficult decision about anticoagulation, I have discussed the case with multiple providers including cardiology and neurology. Given his GI bleed, multiple falls, significant risk of bleeding, decision was made to not pursue anticoagulation. He did not have any atrial fibrillation episodes during his hospitalization. In addition his transthoracic echocardiogram with contrast during this hospitalization did not show any left apical thrombus. In terms of his diet, he will be discharged on a soft mechanical diet. Patient also developed neutropenia during hospitalization, requiring Neulasta. Acute respiratory failure secondary to COVID-19 pneumonia, with anemia, leukopenia Currently on on room air Anticoagulation contraindicated currently due to GI bleed Zinc, vitamin C Decadron Convalescent plasma received 2 days Remdesivir, received 3 days Absolute neutrophil count improving, status post 2 doses of Neupogen Aggressive pulmonary toilet, trach in place Vancomycin and cefepime de-escalate to Augmentin and doxycycline Follow repeat blood cultures, sputum cultures so far negative We will discharge him on vitamin C, zinc, Augmentin, Doxy, nebulizer treatments Patient was advised to monitor for fevers, worsening shortness of breath, and if so go back to emergency room Leukopenia, multifactorial related to COVID-19 pneumonia, possible remdesivir. 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 Hernandez on Sunday PEG tube CT scan this morning confirmed position of PEG tube, no ileus, no small bowel obstruction CT scan of the abdomen does show large stool burden, significant constipation, has resolved Significant constipation, started on multiple bowel regimens, has had several bowel movements, resolved Patient continues to have good oral intake with soft mechanical diet, can continue at home Can hold off on PEG tube feeds, as needed, can switch to bolus tube feedings if required if he has poor oral intake Tracheitis Vancomycin and cefepime started on 03/22, discontinued 2 days ago Sputum culture showing Klebsiella pneumonia, Klebsiella oxytocin Discharged on Augmentin and doxy Febrile episode: -Likely secondary to COVID-19 pneumonia, remains afebrile for the last 96 hours Trach collar dislodged 03/23 #6 cuffless which was replaced by ENT Embolic stroke CT of the head showed: Brain: There is a old lacunar infarct in the right frontal region. There is a new focal area of hypodensity in the posterior aspect of the left basal ganglia region consistent with lunar infarct of uncertain age but likely subacute. There is no intracranial mass or hemorrhage. There is no extra-axial fluid collection. -Indications for subacute lacunar infarct in the left basal ganglia region -MRI of the brain and [facility] shows multiple scattered areas of acute infarct involving both the supratentorial and infra tentorial brain, including left internal capsule, left erwin radiata, bilateral septal lobes, and bilateral cerebral hemispheres -Patient's physical exam is about the same, has weakness on the right 4-5 compared to 5 out of 5 on the left, actually slightly improved, no facial droop, slurring of speech -Thus I clinically feel that this subacute lacunar infarct is likely old -Will need long-term rehab as well right-sided hemiparesis -The case was discussed with Dr. Chahal, will discharge the patient on aspirin and statin -Anticoagulation in the patient is a very difficult decision, on the one hand he did have embolic strokes, but no left ventricular thrombus was seen on repeat transthoracic echocardiogram. But he does have significant risk of GI bleed, which he is having a slow bleed currently, requiring blood, in addition he has had multiple falls, falls here in the hospital due to episodes of confusion. Thus he has a high risk of bleeding, high risk of trauma, high risk of significant morbidity and mortality with anticoagulation. Certainly this is a difficult decision, after discussion with neurology and patient, decision was made to stop anticoagulation. Continue aspirin, statin, with close follow-up with Dr. Chahal as outpatient. Left ventricular thrombus Noted 03/16 TTE was not clearly visualized but left apical expansion and akinesia noted, patient did not tolerate cardiac MRI, was started on metoprolol 12.5 twice daily along aspirin and statin Repeated transthoracic echocardiogram during this hospital admission with contrast, Dr. Esteban felt that there was no left ventricular thrombus, and there was good movement of the left apex We will compared echocardiogram from [facility] COPD without acute exacerbation We will keep him on DuoNeb for as needed Acute on chronic hyperactive delirium -Review of patient's records show that he has a history of delirium, and confusion, it pulls out his trach -Here he pulls on his port, PEG tube, on his trach, port -Has fallen out of the bed -Lives Zyprexa 10 mg at night, schedule Haldol 0.5 mg every 8 hours, Ativan as needed which have not been working during the night -Now doing well with Adriano Treviño doing significantly better, but did have an episode of confusion last night, and got a bed and fell -Unfortunate this is going to be a chronic issue, difficult to manage, and anticoagulation will be quite risky and relatively contraindicated Acute anemia, likely multifactorial related to slow GI bleed and chemotherapy and now COVID-19 -Hemoglobin has increased to 8.5 status post 3 unit PRBC -Iron, ferritin, B12 within normal limits, folate level low, replace folate -On Protonix, Carafate -Will monitor hemoglobin -Hold Lovenox -Unfortunately this presents a difficult situation, in terms of his long-term management of his stroke/left ventricular thrombus versus GI bleed -I have discussed the case with Dr. Hernandez, he recommends to Dr. Chahal given his delirium and stroke -I have discussed the case with Dr. Chahal, will will await the records from [facility] to compare previous MRI and CT scan to the CT scan that was done on this admission, to see if there is any significant difference as it was read as an acute lacunar infarct, but she recommended to discuss with cardiology about left ventricular thrombus -I spoke to cardiology, Dr. Saucedo, who recommended to perform a transthoracic echocardiogram with contrast which did not show left-ventricular thrombus good movement of the apex, we are requesting the echocardiogram images from [facility] -As above after discussion with patient, neurology, decision was made not to pursue anticoagulation, continue aspirin, statin Hypokalemia, will replace with potassium supplementation Physical Exam Narrative: EXAM NARRATIVE: Trach in place, Const: COMMON NORMALS: no acute distress and patient oriented x3 HENMT: COMMON NORMALS: normocephalic HEAD & SCALP: normocephalic Neck/C-Spine: COMMON NORMALS: no JVD Chest: OTHER: Right chest port in place Resp: COMMON NORMALS: normal respiratory effort, No retractions, No use of accessory muscles and clear to auscultation bilaterally AUSCULTATION: clear to auscultation bilaterally Cardio: COMMON NORMALS: no JVD, regular rate, regular rhythm, S1 normal heart sound present and S2 normal heart sound present RATE: regular rate RHYTHM: regular rhythm HEART SOUNDS: S1 normal heart sound present and S2 normal heart sound present GI: COMMON NORMALS: Normal to inspection, nondistended, normoactive bowel sounds present, Soft to palpation, non-tender, No hepatosplenomegaly present, no masses and no bruits PALPATION: Yes Soft to palpation and Yes No hepatosplenomegaly present OTHER: PEG tube in place Extremity: COMMON NORMALS: capillary refill normal, no clubbing, cyanosis or edema, no calf tenderness and no pedal edema Neuro: COMMON NORMALS: patient oriented x3 OTHER: Right upper extremity strength 4 out of 5 compared to 5 out of 5 on the left Right lower extremity strength 4 out of 5 compared to 5 out of 5 on the left No facial droop Psych: COMMON NORMALS: mental status grossly normal Urinary Catheter Management^: Ramirez: Cath Placed During This Visit: yes, but has since been removed by the nurse Reason for Continuing Indwelling Catheter: Acute Urinary Retention or Obstruction Urinary Catheter Date of Insertion: 04/03/20 Urinary Catheter Time of Insertion: 15:43 Date Urinary Catheter Removed: 03/29/20 Time Urinary Catheter Discontinued: 09:00 Discharge Data Data Completed and Pending: Completed Studies During Hospitalization Category Date Time Status CT abdomen pelvis wo con [id number] Stat Cat Scan 03/31/20 11:[address] head wo con* 7 0450 Stat Cat Scan 04/07/20 22:[address] head wo con* 7 0450 Stat Cat Scan 03/30/20 13:57 Completed XR KUB portable 7 4018 Routine Exams 04/09/20 10:05 Completed XR KUB portable 7 4018 Routine Exams 03/30/20 18:01 Completed XR acute abdomen series 04452 Stat Exams 04/07/20 22:29 Completed XR chest 1V katelyn ble [id number] Routine Exams 04/02/20 07:00 Completed XR chest 1V katelyn ble [id number] Routine Exams 04/05/20 07:00 Completed XR chest 1V katelyn ble [id number] Routine Exams 04/06/20 09:51 Completed XR chest 1V katelyn ble 11440 Routine Exams 04/07/20 07:00 Completed XR chest 1V katelyn ble 30685 Routine Exams 04/09/20 07:00 Completed XR chest 1V katelyn ble 83305 Routine Exams 03/26/20 07:59 Completed XR chest 1V katelyn ble 31881 Routine Exams 03/27/20 12:03 Completed XR chest 1V katelyn ble [id number] Routine Exams 03/30/20 17:03 Completed XR elbow LT min 3 V* 25192 Stat Exams 04/07/20 22:24 Completed US/CV paperwork R outine Ultrasound 04/05/20 09:56 Completed Pending at discharge Category Date Time Status ABO/Rh Type Routi ne Lab 04/07/20 17:03 Results Blood Culture Sta t Lab 04/06/20 10:36 Results C Reactive Protei n AM LABS Lab 04/10/20 04:00 Ordered Complete Crossmat ch Routine Lab 04/07/20 17:03 Results Convalescent Plas ma Routine Lab 04/07/20 17:03 Results Creatine Phosphok inase AM LABS Lab 04/10/20 04:00 Ordered Lactate (Lactic A lionel level) AM LABS Lab 04/10/20 04:00 Ordered Leukocyte Reduced RBC Stat Lab 04/09/20 11:51 Ordered Miscellaneous Maty t Routine Lab 04/08/20 18:30 Received Procalcitonin AM LABS Lab 04/10/20 04:00 Ordered Prothrombin Time INR AM LABS Lab 04/10/20 04:00 Ordered Type and Screen S tat Lab 04/09/20 11:51 Ordered Uric Acid AM LABS Lab 04/10/20 04:00 Ordered CV echo lmt wo/w contras [id number] Rout ine Ultrasound 04/05/20 08:58 Taken Labs from last 24 hours 04/09/20 04/09/20 04/09/20 10:09 06:23 04:20 WBC RBC Hgb Hct MCV MCH MCHC RDW Plt Count MPV Neut % (Auto) Lymph % (Auto) Moca % (Auto) Eos % (Auto) Baso % (Auto) Neut # (Auto) Lymph # (Auto) Moca # (Auto) Eos # (Auto) Baso # (Auto) Nucleated RBC % (a uto) Nucleated RBCs # PT INR Specimen Type Arterial Sample Site Radial, right ABG pH 7.49 H ABG pCO2 36.0 ABG pO2 56.7 L ABG HCO3 27.1 H ABG Base Excess 3.5 H Tarik Test Pos Hematocrit 27.6 L O2 Delivery Device Room air FiO2 21.0 Battery Container Tester ID Jlg Sodium Potassium Chloride Carbon Dioxide Anion Gap BUN Creatinine GFR Calculation Glucose POC Glucose 126 H 97 Calculated Osmolal ity Lactate Uric Acid Calcium Phosphorus Magnesium Total Bilirubin AST ALT Alkaline Phosphata se Creatine Kinase C-Reactive Protein Total Protein Albumin Globulin Procalcitonin Vancomycin Trough Misc Test Referenc e 04/09/20 04/09/20 04/09/20 01:53 01:53 01:53 WBC RBC Hgb Hct MCV MCH MCHC RDW Plt Count MPV Neut % (Auto) Lymph % (Auto) Moca % (Auto) Eos % (Auto) Baso % (Auto) Neut # (Auto) Lymph # (Auto) Moca # (Auto) Eos # (Auto) Baso # (Auto) Nucleated RBC % (a uto) Nucleated RBCs # PT 13.50 INR 1.00 Specimen Type Sample Site ABG pH ABG pCO2 ABG pO2 ABG HCO3 ABG Base Excess Tarik Test Hematocrit O2 Delivery Device FiO2 Battery Container Tester ID Sodium Potassium Chloride Carbon Dioxide Anion Gap BUN Creatinine GFR Calculation Glucose POC Glucose Calculated Osmolal ity Lactate 1.4 Uric Acid 2.6 L Calcium Phosphorus Magnesium Total Bilirubin AST ALT Alkaline Phosphata se Creatine Kinase 55 C-Reactive Protein Total Protein Albumin Globulin Procalcitonin 0.15 Vancomycin Trough Misc Test Referenc e 04/09/20 04/09/20 04/09/20 01:53 01:53 01:53 WBC 3.0 L RBC 2.82 L Hgb 8.5 L Hct 25.6 L MCV 90.8 MCH 30.1 MCHC 33.2 RDW 12.8 Plt Count 175 MPV 10.6 H Neut % (Auto) 65.4 Lymph % (Auto) 25.4 Moca % (Auto) 5.9 Eos % (Auto) 0.0 Baso % (Auto) 0.0 Neut # (Auto) 1.98 Lymph # (Auto) 0.8 Moca # (Auto) 0.2 Eos # (Auto) 0.0 Baso # (Auto) 0.0 Nucleated RBC % (a uto) 0 Nucleated RBCs # 0.0 PT INR Specimen Type Sample Site ABG pH ABG pCO2 ABG pO2 ABG HCO3 ABG Base Excess Tarik Test Hematocrit O2 Delivery Device FiO2 Battery Container Tester ID Sodium 142 Potassium 3.6 Chloride 106 Carbon Dioxide 27 Anion Gap 12.6 BUN 12 Creatinine 0.6 L GFR Calculation 137.0 H Glucose 103 POC Glucose Calculated Osmolal ity 294 Lactate Uric Acid Calcium 8.3 L Phosphorus 3.5 Magnesium 1.6 L Total Bilirubin 0.3 AST 46 H ALT 52 H Alkaline Phosphata se 72 Creatine Kinase C-Reactive Protein 41.3 H Total Protein 4.8 L Albumin 2.8 L Globulin 2.0 Procalcitonin Vancomycin Trough 9.4 L Misc Test Referenc e 04/08/20 04/08/20 04/08/20 20:05 18:30 15:55 WBC RBC Hgb Hct MCV MCH MCHC RDW Plt Count MPV Neut % (Auto) Lymph % (Auto) Moca % (Auto) Eos % (Auto) Baso % (Auto) Neut # (Auto) Lymph # (Auto) Moca # (Auto) Eos # (Auto) Baso # (Auto) Nucleated RBC % (a uto) Nucleated RBCs # PT INR Specimen Type Sample Site ABG pH ABG pCO2 ABG pO2 ABG HCO3 ABG Base Excess Tarik Test Hematocrit O2 Delivery Device FiO2 Battery Container Tester ID Sodium Potassium Chloride Carbon Dioxide Anion Gap BUN Creatinine GFR Calculation Glucose POC Glucose 170 H 154 H Calculated Osmolal ity Lactate Uric Acid Calcium Phosphorus Magnesium Total Bilirubin AST ALT Alkaline Phosphata se Creatine Kinase C-Reactive Protein Total Protein Albumin Globulin Procalcitonin Vancomycin Trough Misc Test Referenc e Pending Vitals: Last Vital Signs Temp 97.7 F 04/09/20 11:23 Pulse 82 04/09/20 11:23 Resp 16 04/09/20 11:23 BP 115/72 04/09/20 11:23 Pulse Ox 97 04/09/20 11:23 Discharge Plan Discharge Patient Disposition: Home Condition: Stable Prescriptions: New Vitamin C 500 mg Tablet 1,000 mg PO BID 30 Days Qty: 120 RF: 0 aspirin 325 mg Tablet 325 mg PO DAILY 30 Days Qty: 60 RF: 0 DOK 100 mg Capsule 100 mg PO BID 30 Days Qty: 60 RF: 0 ipratropium-albuterol 0.5 mg-3 mg(2.5 mg base)/3 mL Solution For Nebulization 3 ml inhalation Q6H PRN (Reason: Shortness Of Breath) Qty: 90 RF: 0 folic acid 1 mg Tablet 1 mg PO BID 30 Days Qty: 60 RF: 0 lactulose 20 gram/30 mL Solution 20 g PO Q8H PRN (Reason: constipation) 30 Days Qty: 1500 RF: 0 nicotine 21 mg/24 hr Patch 24 Hour 1 patch transdermal DAILY 28 Days Qty: 28 RF: 0 metoprolol tartrate 25 mg Tablet 12.5 mg PO BID@0900,2100 30 Days Qty: 60 RF: 0 polyethylene glycol 3350 17 gram Powder In Packet 17 g PO DAILY PRN (Reason: constipation) 30 Days Qty: 30 RF: 0 sucralfate 1 gram Tablet 1 g PO BIDAC 30 Days Qty: 60 RF: 0 zinc gluconate 50 mg Tablet 50 mg PO 1100 30 Days Qty: 30 RF: 0 ziprasidone HCl 20 mg Capsule 20 mg PO 2100 30 Days Qty: 30 RF: 0 Augmentin 875-125 mg tablet 1 tab PO BID 7 Days Qty: 14 RF: 0 doxycycline hyclate 100 mg tablet 100 mg PO BID 7 Days Qty: 14 RF: 0 Protonix 40 mg tablet,delayed release (DR/EC) 40 mg PO BID 30 Days Qty: 60 RF: 0 cholecalciferol (vitamin D3) 25 mcg (1,000 unit) capsule 25 mcg PO DAILY 30 Days Qty: 30 RF: 0 Continued atorvastatin 80 mg G-tube BEDTIME RF: 0 bisacodyl 10 mg as directed PRN RF: 0 metoprolol tartrate 12.5 mg G-tube BID RF: 0 nicotine 7 mg topical DAILY RF: 0 oxycodone 5 mg G-tube Q4H PRN (Reason: Pain) RF: 0 polyethylene glycol 17 g G-tube DAILY RF: 0 Discontinued aspirin 81 mg peg-tube DAILY RF: 0 cefepime 1 g IV BID RF: 0 enoxaparin 110 mg SUBCUT BID RF: 0 olanzapine 5 mg G-tube BEDTIME PRN (Reason: Agitation) RF: 0 vancomycin in 0.9 % sodium chl 1.5 g IV BID RF: 0 Discharge Orders: Discharge Order (Routine); Ordered 04/09/20 Ordered By: Denver Lynch Other Ambulatory Orders: DME: Nebulizer with Neb Kit (Order) Location: None Selected Ordered By: Denver Lynch DME: Wheelchair (Order) Location: None Selected Ordered By: Denver Lynch Physical Therapy Eval and Treat Outpatient (Order) Timeframe: 3 Weeks Facility: [facility] [place] - Location: Physical Therapy Ordered By: Denver Lynch Referrals: [facility] [place] [Outside] [facility] [Outside] Linwood Hernandez MD [Hospitalist] - 04/12/20 1:00 pm (appt Sunday at [facility]. Please check in at 100pm for lab work and then you willl see Dr. Hernandez at 230. Sunday04/12/2020) Discharge Diet: Soft Mechanical Discharge Activity: Limit activity as instructed Patient Instructions: Aspirin/Codeine (By mouth), Metoprolol (By mouth), Sucralfate (By mouth), Doxycycline (By mouth), Amoxicillin/Clavulanate Potassium (By mouth), Nicotine (Absorbed through the skin), Lactulose (By mouth), Pantoprazole (By mouth), Ziprasidone (By mouth), GI Bleeding, Tracheostomy Care (GEN), How to Stop Smoking (GEN), How to Use and Care for Your PEG Tube (GEN), Cigarette Smoking and Your Health (GEN), Pneumonia Stoplight, Pneumonia - Viral Activity Restrictions/Additional Instructions: -bolus tube feeding as needed if you have poor oral intake -Continue soft mechanical diet -Follow-up with Dr. Hernandez on Sunday -If you have any bloody or black stools come back to the emergency room -If you have any fevers, worsening of shortness of breath come back to emergency room -If you have any worsening strokelike symptoms come back to the emergency room -Please use antibiotics and nebulizers as prescribed -Please continue to ambulate, as you have risk of DVTs Discharge Attestations Time Spent in Discharge Care*: less than 30 min Quality Metrics Clinical Quality Measures During this hospital stay, did patient experience: None Coding Level of Care Code Acute Risk Control Consultant for Chg Fwd Diagnoses Supraglottic mass J38.7 Tracheitis J04.10 Embolic stroke I63.9 Left ventricular thrombus I51.3 Dysphagia R13.10 Pneumonia due to COVID-19 virus U07.1; J12.89 Acute and chronic respiratory failure with hypoxia J96.21 GI bleed K92.2 Leukopenia D72.819
[2020-04-09] MEDS: zinc gluconate 50 mg Tablet PO (12:39)
[2020-04-09 16:09] LABS: Glucose Point of Care 180 mg/dL (70-110)
[2020-04-09] MEDS: lipase-protease-amylase Capsule 2 EACH PEG-TUBE (16:45)
[2020-04-09] MEDS: sodium bicarbonate 650 mg Tablet PEG-TUBE (16:46)
[2020-04-09] MEDS: sodium chloride 0.9% (100 ml) 100 ML 50 ML (16:47)
[2020-04-09] MEDS: remdesivir 100 MG in sodium chloride 0.9% (100 ml) 100 ML IV (18:24)
--- NOTE | 2020-04-09 18:50 | PC.NURSE ---
KUB was ordered to confirm peg tube placement. Tube is in place. Patients peg tube is clogged. Will not flush. Per Dr. Lynch attempted to declog tube by flushing with cola letting it sit for an hour and attempting to follow with water. This was unsuccessful. Then per Odette orders mixed Zenpap and sodium bicarb in luke warm water flushed tube with mixture and left mixture in tube patient will follow up with Dr. Boss Sunday. Patient tolerated well.
--- NOTE | 2020-04-09 19:22 | PC.NUTR ---
NUTR TF RECOMMENDATIONS: Jevity with continuous feed goal rate of 60 ml/hr providing 1728 kcal (79%), 79 g PRO (107%), and 1162 ml fluid (53%)(%NEEDS). Suggest starting TF at 30 ml/hr and increase by 10 ml Q6H as tolerated till goal rate is met. Suggest H2O flushes of 150 ml Q4H to approach fluid needs or per physician. BOLUS: Jevity with 6 cans daily total over 3 feedings. H2O flushes of 1 and 1/2 cup water after each feeding.
[2020-04-09] MEDS: atorvastatin 40 mg Tablet 80 MG PO (22:49)
[2020-04-09] MEDS: ziprasidone hcl 20 mg Capsule PO (22:50)
[2020-04-10] VITALS (8 sets, daily range): BP systolic 100–120; BP diastolic 64–73; PULSE 79–95; RESP 16–20; TEMP 36.2–36.6; O2SAT 92–99
[2020-04-10] MEDS: ipratropium-albuterol 3 mL Neb INHALATION ×2 (02:54→09:13)
[2020-04-10] MEDS: cefepime 2,000 MG in sodium chloride 0.9% (plus) 50 ML 100 MG IV (03:31)
[2020-04-10 05:19] LABS: Basophils % 0.4 %; Eosinophils % 0.4 %; Hemoglobin 9.8 g/dL (11.7-16.6); Lymphocytes # 0.9 10^3/uL (0.8-4.8); Lymphocytes % 38.2 %; Mean Corpuscular HGB Conc 33.8 g/dL (30.0-36.0); Mean Corpuscular Hemoglobin 30.1 pg (28.0-34.0); Mean Platelet Volume 9.7 fL (7.4-10.4); Monocytes # 0.2 10^3/uL (0.2-0.9); Monocytes % 8.8 %; Neutrophils % 35.4 %; Nucleated Red Blood Cells % 1.3 %; Platelet Count 161 10^3/cmm (130-400); Red Blood Count 3.26 10^6/uL (4.1-5.3); White Blood Count 2.4 10^3/uL (4.0-10.0)
[2020-04-10 05:44] LABS: Lactate (Lactic Acid level) 1.7 mmol/L (0.5-2.2)
[2020-04-10 05:56] LABS: Procalcitonin 0.13 ng/mL (0-0.5)
[2020-04-10 06:07] LABS: Alanine Aminotransferase 57 U/L (0-41); Albumin Level 3.1 g/dL (3.5-5.2); Alkaline Phosphatase 89 IU/L (40-130); Anion Gap 14.3 (5-19); Aspartate Amino Transferase 39 U/L (0-40); Blood Urea Nitrogen 11 mg/dL (8-23); Calcium 8.6 mg/dL (8.5-10.5); Carbon Dioxide 24 mmol/L (22-29); Chloride 103 mmol/L (98-107); Creatine Phosphokinase 87 U/L (39-308); Globulin 2.6 g/dL (1.3-4.6); Glucose 93 mg/dL (65-115); Magnesium 1.3 mg/dL (1.7-2.3); Osmolality Calculated 285 mOsm/kg (285-295); Phosphorus 3.1 mg/dL (2.5-4.5); Potassium 3.3 mmol/L (3.5-5.1); Sodium 138 mmol/L (136-145); Total Bilirubin 0.6 mg/dL (0.15-1.2); Total Protein 5.7 g/dL (6.6-8.7); Uric Acid 2.8 mg/dL (3.4-7.0)
[2020-04-10] MEDS: sucralfate 1 gm Tablet PO (06:47)
[2020-04-10] MEDS: pantoprazole 40 mg SDV IVP (06:47)
[2020-04-10 07:09] LABS: INR 1.03 (0.8-1.2)
[2020-04-10 07:20] LABS: Neutrophils # 0.84 10^3/uL (1.8-7.7)
[2020-04-10 08:16] LABS: Glucose Point of Care 99 mg/dL (70-110)
[2020-04-10 08:16] LABS: Glucose Point of Care 125 mg/dL (70-110)
[2020-04-10] MEDS: polyethylene glycol 3350 Pkt 17 gm PO (08:35)
[2020-04-10] MEDS: docusate sodium 100 mg Capsule PO (08:35)
[2020-04-10] MEDS: sennosides-docusate Tablet 1 TAB PO (08:35)
[2020-04-10] MEDS: aspirin 325 mg Tablet PO (08:35)
[2020-04-10] MEDS: cyclobenzaprine 10 mg Tablet 5 MG PO (08:35)
[2020-04-10] MEDS: ascorbic acid 500 mg Tablet 1000 MG PO (08:35)
[2020-04-10] MEDS: dexamethasone 4 mg/mL INJ 6 MG IVP (08:36)
[2020-04-10] MEDS: nicotine 21 mg Patch 1 PATCH TRANSDERMA (08:36)
[2020-04-10] MEDS: folic acid 1 mg Tablet PO (08:36)
[2020-04-10] MEDS: magnesium sulfate premix 4 GM/100 ML PREMIX IV (08:52)
--- NOTE | 2020-04-10 10:04 | PC.NURSE ---
Teaching completed to patient and step daughter, Damaris Espinoza, on peg tube bolus feedings per doctor order, and cleaning peg tube insertion site, verbalized understanding and step daughter, Damaris Espinoza demonstrated tube feeding with this nurse present.
[2020-04-10] MEDS: zinc gluconate 50 mg Tablet PO (10:57)
[2020-04-10 12:07] LABS: Glucose Point of Care 122 mg/dL (70-110)
--- NOTE | 2020-04-10 12:16 | P.PN_ITS ---
Subjective Subjective: Interval history: This is progress note from 04/09/2020, patient really wants to go home, advised the risk and benefits, voiced understanding, all questions answered, still wants to go home even though it is against my better judgment He has no complaints this morning, is on room air, did have episodes of agitation overnight, no fevers, no chills, no nausea, no vomiting Plans were to discharge the patient, however patients home health care company fell through, and needs trach and PEG care, will be kept here until he has a safe discharge plan Vitals/I&O/Wt Last Vital Signs Temp 97.1 F L 04/10/20 11:09 Pulse 89 04/10/20 11:09 Resp 16 04/10/20 11:09 BP 100/64 04/10/20 11:09 Pulse Ox 97 04/10/20 11:09 04/09/20 04/10/20 04/10/20 22:59 06:59 14:59 Intake Total 1120 / 2200 480 / 2680 240 / 240 Output Total 400 / 1125 500 / 1625 Balance 720 / 1075 -20 / 1055 240 / 240 Weight last 48 hrs Weight 91.807 kg Physical Exam Const: COMMON NORMALS: no acute distress and patient oriented x3 ORIENTATION/CONSCIOUSNESS: Yes oriented to person and Yes oriented to place; not oriented to time HENMT: COMMON NORMALS: normocephalic HEAD & SCALP: normocephalic Neck/C-Spine: COMMON NORMALS: no JVD Resp: COMMON NORMALS: normal respiratory effort, No retractions, No use of accessory muscles and clear to auscultation bilaterally AUSCULTATION: clear to auscultation bilaterally Cardio: COMMON NORMALS: no JVD, regular rate, regular rhythm, S1 normal heart sound present and S2 normal heart sound present RATE: regular rate RHYTHM: regular rhythm HEART SOUNDS: S1 normal heart sound present and S2 normal heart sound present GI: COMMON NORMALS: Normal to inspection, nondistended, normoactive bowel sounds present, Soft to palpation, non-tender, No hepatosplenomegaly present, no masses and no bruits PALPATION: Yes Soft to palpation and Yes No hepatosplenomegaly present Extremity: COMMON NORMALS: capillary refill normal, no clubbing, cyanosis or edema, no calf tenderness and no pedal edema Neuro: COMMON NORMALS: patient oriented x3 SENSORIUM/ORIENTATION: Yes oriented to person, Yes oriented to place and No oriented to time OTHER: Right upper extremity strength 4 out of 5 compared to 5 out of 5 on the left Right lower extremity strength 4 out of 5 compared to 5 out of 5 on the left No facial droop Psych: COMMON NORMALS: mental status grossly normal Urinary Catheter Management^: Ramirez: Cath Placed During This Visit: yes, but has since been removed by the nurse Reason for Continuing Indwelling Catheter: Decision to DC Catheter Urinary Catheter Date of Insertion: 04/03/20 Urinary Catheter Time of Insertion: 15:43 Date Urinary Catheter Removed: 04/09/20 Time Urinary Catheter Discontinued: 13:00 Data : 04/10/20 05:00 04/10/20 05:00 Micro: Microbiology 04/06/20 14:25 Gram Stain - Final Sputum - Endotracheal Tube Aspirate Sputum Culture - Final A&P Assessment and plan (1) Supraglottic mass: Status: Acute (2) Tracheitis: Status: Acute (3) Embolic stroke: Status: Acute (4) Left ventricular thrombus: Status: Acute (5) Dysphagia: Status: Acute (6) Pneumonia due to COVID-19 virus: Status: Acute (7) Acute and chronic respiratory failure with hypoxia: Status: Acute (8) GI bleed: Status: Acute (9) Leukopenia: Status: Acute Additional A&P Information Acute respiratory failure secondary to COVID-19 pneumonia, with anemia, leukopenia Currently on HAG, 30% FiO2 Anticoagulation contraindicated currently due to GI bleed Zinc, vitamin C Decadron Convalescent plasma Remdesivir, I am quite concerned about patient's risk of significant bone marrow suppression with remdesivir, and given his history of chemotherapy and recurrent infections will have to monitor closely Nebulizer treatments, albuterol Absolute neutrophil count 9040, will talk to Dr. 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 Hernandez consult PEG tube CT scan this morning confirmed position of PEG tube, no ileus, no small bowel obstruction CT scan of the abdomen does show large stool burden, significant constipation, has resolved Significant constipation, started on multiple bowel regimens, has had several bowel movements Residuals have improved, stop Reglan, continue tube feedings at 40 cc an hour Continue bowel regimen, enema as needed Speech pathology has been consulted, soft mechanical Monitor daily labs for refeeding syndrome Tracheitis Vancomycin and cefepime started on 03/22, discontinued 2 days ago Sputum culture showing Klebsiella pneumonia, Klebsiella oxytocin Currently on vancomycin and cefepime Febrile episode: -Likely secondary to COVID-19 pneumonia Trach collar dislodged 03/23 #6 cuffless which was replaced by ENT Continues to have mucus drainage around trach collar Embolic stroke CT of the head showed: Brain: There is a old lacunar infarct in the right frontal region. There is a new focal area of hypodensity in the posterior aspect of the left basal ganglia region consistent with lunar infarct of uncertain age but likely subacute. There is no intracranial mass or hemorrhage. There is no extra-axial fluid collection. -Indications for subacute lacunar infarct in the left basal ganglia region -MRI of the brain and [facility] shows multiple scattered areas of acute infarct involving both the supratentorial and infra tentorial brain, including left internal capsule, left erwin radiata, bilateral septal lobes, and bilateral cerebral hemispheres -Patient's physical exam is about the same, has weakness on the right 4-5 compared to 5 out of 5 on the left, actually slightly improved, no facial droop, slurring of speech -Thus I clinically feel that this subacute lacunar infarct is likely old, but will continue neurochecks, have requested MRI CD from [facility] Most likely source left ventricular thrombus continue Lovenox therapeutic dose, currently on hold Continue aspirin, statins Will need long-term rehab as well right-sided hemiparesis PT OT Left ventricular thrombus Noted 03/16 TTE was not clearly visualized but left apical expansion and akinesia noted, patient did not tolerate cardiac MRI, was started on metoprolol 12.5 twice daily along aspirin and statin Repeated transthoracic echocardiogram during this hospital admission with contrast, Dr. Chiu felt that there was no left ventricular thrombus, and there was good movement of the left apex Awaiting transthoracic echocardiogram CD report from [facility], to compare to, and decide on anticoagulation long-term COPD without acute exacerbation We will keep him on DuoNeb for as needed Acute on chronic hyperactive delirium -Review of patient's records show that he has a history of delirium, and confusion, it pulls out his trach -Here he pulls on his port, PEG tube, on his trach, port -Has fallen out of the bed -Lives Zyprexa 10 mg at night, schedule Haldol 0.5 mg every 8 hours, Ativan as needed which have not been working during the night -Now doing well with Geodon 20 mg, Ativan and Haldol as needed, doing significantly better, but did have an episode of confusion last night, and got a bed and fell -Unfortunate this is going to be a chronic issue, difficult to manage, and anticoagulation will be quite risky Acute anemia, likely multifactorial related to slow GI bleed and chemotherapy and now COVID-19 -Hemoglobin has increased to 9.1 status post 1 unit PRBC -Iron, ferritin, B12 within normal limits, folate level low, replace folate -On Protonix, Carafate -Will monitor hemoglobin -Hold Lovenox -Unfortunately this presents a difficult situation, in terms of his long-term management of his stroke/left ventricular thrombus versus GI bleed -I have discussed the case with Dr. Hernandez, he recommends to Dr. Chahal given his delirium and stroke -I have discussed the case with Dr. Chahal, will will await the records from [facility] to compare previous MRI and CT scan to the CT scan that was done on this admission, to see if there is any significant difference as it was read as an acute lacunar infarct, but she recommended to discuss with cardiology about left ventricular thrombus -I spoke to cardiology, Dr. Saucedo, who recommended to perform a transthoracic echocardiogram with contrast which did not show left-ventricular thrombus good movement of the apex, we are requesting the echocardiogram images from [facility], to compare to Hypokalemia, will replace with potassium supplementation Full code Tube feeding diet, soft mechanical DVT prophylaxis Lovenox on hold Plan for today, continue aggressive pulmonary toilet, antibiotics, Decadron, physical therapy, monitor respiratory status closely monitor cultures,, possible discharge tomorrow if home health care can be set up Attestations Medical Necessity Statement*: Patient requires hospitalization for embolic stroke, acute anemia, supraglottic cancer, acute respiratory failure secondary to COVID-19 Coding Level of Care Code Acute Insurance Coordinator for [facility] Fwd Diagnoses Supraglottic mass J38.7 Tracheitis J04.10 Embolic stroke I63.9 Left ventricular thrombus I51.3 Dysphagia R13.10 Pneumonia due to COVID-19 virus U07.1; J12.89 Acute and chronic respiratory failure with hypoxia J96.21 GI bleed K92.2 Leukopenia D72.819
--- NOTE | 2020-04-10 13:31 | PC.NURSE ---
gastric residual 300mL, held lunch feeding.
--- NOTE | 2020-04-10 15:46 | PC.NURSE ---
Patient taken to private vehicle via wheelchair, spouse signed discharge instructions and denies further questions or concerns. supplies and personal belongings sent with patients.
== END 2020-04-10 15:50 | disposition home or self-care (01) | DRG 843 ==
LOC: ICU 17:46 → MEDSURG 23:37
PROVIDERS: Surgery; Admitting Provider Internal Medicine; PCP Nurse Practitioner Family; Visit Provider Family Medicine
PROC: 02HV33Z Insertion of Infusion Device into Superior Vena Cava, Percutaneous Approach (ICD-10-PCS; principal; 2020-03-27 10:30)
DX: C7A.1 Malignant poorly differentiated neuroendocrine tumors (principal); U07.1 COVID-19; J12.82 Pneumonia due to coronavirus disease 2019; J96.21 Acute and chronic respiratory failure with hypoxia; I69.851 Hemiplegia and hemiparesis following other cerebrovascular disease affecting right dominant side; F05 Delirium due to known physiological condition; K92.2 Gastrointestinal hemorrhage, unspecified; Z51.11 Encounter for antineoplastic chemotherapy; J04.10 Acute tracheitis without obstruction; Z93.0 Tracheostomy status; Z93.1 Gastrostomy status; E55.9 Vitamin D deficiency, unspecified; F17.210 Nicotine dependence, cigarettes, uncomplicated; J44.9 Chronic obstructive pulmonary disease, unspecified; Z79.899 Other long term (current) drug therapy; K59.00 Constipation, unspecified; R29.6 Repeated falls; D70.1 Agranulocytosis secondary to cancer chemotherapy; T45.1X5A Adverse effect of antineoplastic and immunosuppressive drugs, initial encounter; D64.9 Anemia, unspecified; B96.1 Klebsiella pneumoniae [K. pneumoniae] as the cause of diseases classified elsewhere; E87.6 Hypokalemia
CPT/HCPCS: 12345; 36415; 36416; 36430; 36591; 36592; 36600; 51702; 51798; 70450; 71045; 73080; 74018; 74022; 74176; 76000; 77001; 80048; 80053; 80202; 81001; 82140; 82271; 82274; 82550; 82607; 82728; 82746; 82803; 82962; 83540; 83605; 83735; 83880; 84100; 84145; 84478; 84550; 85025; 85378; 85610; 86140; 86850; 86900; 86920; 86927; 87040; 87070; 87086; 87205; 87426; 87641; 87804; 90686; 92507; 92526; 92610; 93005; 94640; 96372; 97110; 97112; 97116; 97162; 97165; 97530; 97535; C1751; C1788; C8924; C9113; J0692; J1100; J1170; J1200; J1442; J1453; J1630; J1644; J1650; J1940; J2060; J2270; J2405; J3010; J3370; J3475; J3480; J3486; J3490; J7030; J7040; J7050; J8597; J9060; J9181; P9016; P9017; P9040; Q0164; Q9956

== ENCOUNTER 2020-04-11 12:46 | Emergency (ER) | payer BC, MEDICAID, SELFPAY ==
[2020-04-11 12:54] VITALS: BP 120/75; PULSE 84; RESP 20; TEMP 36.4; O2SAT 97; BMI 26.5
--- NOTE | 2020-04-11 14:03 | W.ED.GENADLT ---
HPI - General Adult General: Chief complaint: General Medical Stated complaint: TRACH FELL OUT Time Seen by Provider: 04/11/20 12:53 Source: patient and family Mode of arrival: ambulatory Limitations: no limitations History of Present Illness: HPI narrative: 60-year-old male brought in by his after his tracheostomy tube dislodged today around 10 AM. The patient states that he coughed heavily and it fell out because it was not all secured. Family member states that he has been pulling on it, irritable, not sleeping well and likely pulled it out. He had the trach tube placed at [facility] after he was diagnosed with supraglottic mass last month. He was followed by the oncology clinic here for chemotherapy, but then became ill with COVID-19, was admitted for respiratory failure and was just discharged on 04/09/2019. He had a complicated inpatient course that included embolic stroke, tracheitis, GI bleed, leukopenia . He was discharged on a course of Augmentin, which he is taking. Onset (ago): hour(s) Associated symptoms: Reports chest pain, confusion and dyspnea; Deny nausea or vomiting Review of Systems General: Reports: 10 or more systems reviewed and unremarkable except in HPI and below Const: Reports: change in appetite; Denies: fever(s), chills or body aches ENMT: Reports: hoarseness Card: Reports: chest pain Resp: Reports: dyspnea, productive cough, non-productive cough and chest congestion GI: Reports: early satiety; Denies: nausea or vomiting Musc: Reports: neck pain and decrease in muscle mass Neuro: Reports: confusion and behavioral changes Ez/Lymph: Denies: easy bruising or easy bleeding All/Imm: Denies: facial swelling or acute wheezing PFSH ED PFSH: Medical History Chronic pharyngitis Close exposure to 2019 novel coronavirus Fatigue Laryngeal mass Lower respiratory infection Shortness of Breath Tobacco abuse Vitamin D deficiency Surgical History Status post cervical disc replacement Status post tonsillectomy Family History Brother Cancer Father Cancer Social History Smoking and tobacco status: current every day smoker Alcohol intake: never Household members: spouse Housing: House Physical Exam Const: COMMON NORMALS: no acute distress EXAM LIMITATIONS: altered mental status GENERAL APPEARANCE: cooperative and well developed; not in distress and not anxious HENMT: COMMON NORMALS: normocephalic and Normal external nose present HEAD & SCALP: normocephalic FACE & SINUS: normal facial exam and face symmetric NOSE: Normal external nose present Neck/C-Spine: COMMON NORMALS: no lymphadenopathy GENERAL: No anterior neck swelling, No lymphadenopathy, No tender, Yes tracheostomy present (Tracheotomy visualized, trach tube out) and Yes other (Yellowish phlegm at the tracheostomy site no surrounding erythema, crepitus) Chest: COMMONS NORMALS: normal inspection of the chest Resp: COMMON NORMALS: normal respiratory effort EFFORT & INSPECTION: No tachypneic, Yes Actively coughing hacking and No tripod positioning AUSCULTATION: bronchovesicular breath sounds Cardio: COMMON NORMALS: regular rate, S1 normal heart sound present and S2 normal heart sound present RATE: regular rate HEART SOUNDS: S1 normal heart sound present and S2 normal heart sound present GI: COMMON NORMALS: Soft to palpation INSPECTION: No Localized GI swelling present and Yes GI tube present AUSCULTATION: Yes normoactive bowel sounds PALPATION: Yes Soft to palpation, No Tenderness to palpation present (GI), No Guarding due to palpation present (GI) and No Rigid due to palpation Course Vital Signs: Vital signs: Vital Signs Temperature 97.5 F L 04/11/20 12:54 Pulse Rate 79 04/11/20 14:42 Respiratory Rate 16 04/11/20 14:42 Blood Pressure 142/75 04/11/20 14:42 Pulse Oximetry 93 04/11/20 14:42 MDM - General Adult MDM Narrative: Medical decision making narrative: 60-year-old male pulled out his trach tube this morning by accident. He maintained his O2 sats fairly well throughout the time he was here prior to it being replaced. Placed a new Shiley size 6, cuffed, with little difficulty. Monitored for period of time afterwards to make sure his O2 sats stayed stable and he did not have any bleeding or other complications. Apparently he has been very restless especially at night since being discharged from the hospital. 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 Medical Records: Attestation: I reviewed the patient's medical records. Discharge Plan Discharge Patient Disposition: Home Clinical Impression: Acute tracheostomy management Condition: Stable Prescriptions: No Action atorvastatin 80 mg G-tube BEDTIME RF: 0 bisacodyl 10 mg as directed PRN RF: 0 metoprolol tartrate 12.5 mg G-tube BID RF: 0 nicotine 7 mg topical DAILY RF: 0 oxycodone 5 mg G-tube Q4H PRN (Reason: Pain) RF: 0 polyethylene glycol 17 g G-tube DAILY RF: 0 Vitamin C 500 mg Tablet 1,000 mg PO BID 30 Days Qty: 120 RF: 0 aspirin 325 mg Tablet 325 mg PO DAILY 30 Days Qty: 60 RF: 0 DOK 100 mg Capsule 100 mg PO BID 30 Days Qty: 60 RF: 0 ipratropium-albuterol 0.5 mg-3 mg(2.5 mg base)/3 mL Solution For Nebulization 3 ml inhalation Q6H PRN (Reason: Shortness Of Breath) Qty: 90 RF: 0 folic acid 1 mg Tablet 1 mg PO BID 30 Days Qty: 60 RF: 0 lactulose 20 gram/30 mL Solution 20 g PO Q8H PRN (Reason: constipation) 30 Days Qty: 1500 RF: 0 nicotine 21 mg/24 hr Patch 24 Hour 1 patch transdermal DAILY 28 Days Qty: 28 RF: 0 metoprolol tartrate 25 mg Tablet 12.5 mg PO BID@0900,2100 30 Days Qty: 60 RF: 0 polyethylene glycol 3350 17 gram Powder In Packet 17 g PO DAILY PRN (Reason: constipation) 30 Days Qty: 30 RF: 0 sucralfate 1 gram Tablet 1 g PO BIDAC 30 Days Qty: 60 RF: 0 zinc gluconate 50 mg Tablet 50 mg PO 1100 30 Days Qty: 30 RF: 0 ziprasidone HCl 20 mg Capsule 20 mg PO 2100 30 Days Qty: 30 RF: 0 Augmentin 875-125 mg tablet 1 tab PO BID 7 Days Qty: 14 RF: 0 doxycycline hyclate 100 mg tablet 100 mg PO BID 7 Days Qty: 14 RF: 0 Protonix 40 mg tablet,delayed release (DR/EC) 40 mg PO BID 30 Days Qty: 60 RF: 0 cholecalciferol (vitamin D3) 25 mcg (1,000 unit) capsule 25 mcg PO DAILY 30 Days Qty: 30 RF: 0 Discharge Orders: Discharge ED (Routine); Ordered 04/11/20 Ordered By: Evelin Reyez Referrals: MIAN Jonas, PLASTIC SHEETING CUTTER [Primary Care Provider] - Discharge Diet: As Directed Discharge Activity: Resume usual activity Patient Instructions: Tracheostomy Care (ED) Activity Restrictions/Additional Instructions: Follow-up with your primary care doctor in the next 3 to 5 days. Return immediately to the ER if you develop difficulty breathing, bleeding or blockage of the tube, or any other concerning changes. Coding Level of Care Code ED Component Inspector for [facility] Fwd Exam Detailed
[2020-04-11 14:42] VITALS: BP 142/75; PULSE 79; RESP 16; O2SAT 93
[2020-04-11] MEDS: ziprasidone hcl 20 mg Capsule PO (14:42)
== END 2020-04-11 14:43 | disposition home or self-care (01) ==
PROVIDERS: Emergency Provider Family Medicine; PCP Nurse Practitioner Family
DX: Z43.0 Encounter for attention to tracheostomy (principal); Z79.82 Long term (current) use of aspirin; F17.210 Nicotine dependence, cigarettes, uncomplicated
CPT/HCPCS: 12345; 99281; 99282

== ENCOUNTER 2020-04-12 12:58 | Outpatient (CLI) | payer BC, MEDICAID, SELFPAY ==
[2020-04-12 13:35] LABS: Hematocrit 32.6 % (42.0-52.0); Hemoglobin 10.4 g/dL (11.7-16.6); Mean Corpuscular HGB Conc 31.9 g/dL (30.0-36.0); Mean Corpuscular Hemoglobin 29.6 pg (28.0-34.0); Mean Corpuscular Volume 92.9 fL (80-94); Mean Platelet Volume 9.9 fL (7.4-10.4); Platelet Count 254 10^3/cmm (130-400); Red Blood Count 3.51 10^6/uL (4.1-5.3); Red Cell Distribution Width 13.9 % (12.1-15.1); White Blood Count 8.1 10^3/uL (4.0-10.0)
[2020-04-12 13:50] LABS: Slide Review Slide Review Perform
[2020-04-12 13:53] LABS: Absolute Segmented Neutrophil 3.8 10/cmm (1.6-7.1); Lymphocytes 29 %; Monocytes Absolute 0.3 10^3/cmm (0.1-0.6); Segmented Neutrophils 47 %; Total Cells Counted 100 (0-100)
[2020-04-12 13:54] LABS: Absolute Neutrophil 4.8 10^3/cmm (1.4-6.5); Alanine Aminotransferase 46 U/L (0-41); Albumin Level 3.2 g/dL (3.5-5.2); Alkaline Phosphatase 116 IU/L (40-130); Anion Gap 14.7 (5-19); Anisocytosis Trace; Aspartate Amino Transferase 26 U/L (0-40); Blood Urea Nitrogen 11 mg/dL (8-23); Calcium 8.6 mg/dL (8.5-10.5); Carbon Dioxide 27 mmol/L (22-29); Chloride 100 mmol/L (98-107); Eosinophils 0 %; Giant Platelets Trace; Globulin 2.7 g/dL (1.3-4.6); Glucose 97 mg/dL (65-115); Osmolality Calculated 285 mOsm/kg (285-295); Platelet Estimate Normal (Normal); Poikilocytosis Trace; Potassium 3.7 mmol/L (3.5-5.1); Smudge Cells 1+; Sodium 138 mmol/L (136-145); Total Bilirubin 0.3 mg/dL (0.15-1.2); Total Protein 5.9 g/dL (6.6-8.7)
--- NOTE | 2020-04-12 19:36 | ONC CON_ITS ---
Dr. 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 History of Present Illness: This is a 60-year-old man who had presented with a large mass involving the supraglottic larynx, biopsy of which showed poorly differentiated carcinoma felt to be most consistent with small cell neuroendocrine carcinoma. By clinical evaluation his disease stage was HEAVEN (T3, N2c, M0). He was initially admitted on 03/10/2020 after presenting to the emergency room with weakness and confusion. He had been having worsening sore throat, hoarseness, cough, and difficulty swallowing. His neck CT showed the large mass involving the epiglottis with associated airway obstruction. His clinical course was complicated by acute psychosis. He was then transferred to [facility] where he underwent tracheostomy placement and biopsy of the mass with pathology showing invasive poorly differentiated carcinoma felt to be most consistent with small cell neuroendocrine carcinoma. He also underwent placement of PEG tube. His staging PET/CT on 03/18/2020 showed primary malignancy in the supraglottic larynx with local regional cervical lymph node involvement. There was no evidence of other metastatic disease. Indeterminate uptake was noted in the sigmoid colon. His brain MRI showed multiple infarcts which were presumed to be embolic. There was suspected left ventricular thrombus. His initial echocardiogram had shown evidence of cardiomyopathy with severe hypokinesis of the mid and apical septum and anteroseptal segments and with decreased left ventricular ejection fraction at 45%. He began on anticoagulation with Lovenox, but during that time he had developed right hemiparesis. His clinical course at that time also was complicated by tracheitis. He returned to the [facility] on 03/26/2020 and the following day he underwent placement of Port-A-Cath venous access device and he began cycle 1 of chemotherapy with cisplatin/etoposide. The original plan was then to add concurrent radiation beginning with the second cycle of chemotherapy. He tolerated the chemotherapy without acute toxicity. However, his further clinical course was complicated by development of COVID-19 virus infection. He had a limited course of treatment with remdesivir, as at that point he was developing neutropenia from the chemotherapy. He was treated with Neupogen. His granulocyte count yumi was 800. During that time there was a drop in his hemoglobin from a baseline of 12 g to as low as 8.0 g on 04/04/2020. He was transfused PRBC. Acute blood loss was suspected, though never documented. However, it was opted to stop his Lovenox and to limit further anticoagulation to full dose aspirin. He was discharged home on 04/09/2020. He has a prior history of degenerative arthritis of the cervical spine. He has history of smoking upt to 2 packs of cigarettes daily, but he has quit. He does not drink alcohol. He is seen for a post hospital follow-up visit. He is still very weak generally. He is able to ambulate short distances with assistance. His ECOG score is 3. He has poor appetite, but he is eating better now, and he is able to swallow his foods and medications. He still has cough. He does have some shortness of breath, but his breathing is better. He has not complained of chest pain. He has had no nausea/vomiting. He has had constipation, he does have lactulose available at home to use as needed. Bladder function has been okay. He has pain in the neck area and he has back pain. He also has been having some leg spasms. He has paralysis of the right arm and leg. Past Medical History: His medical history includes degenerative disease of the spine. Past Surgical History: His prior surgical procedures include cervical laminectomy with C5-6 fusion and tonsillectomy. Medications: Amoxicillin-Pot Clavulanate 1 (875-125 mg) Tablet Oral b.i.d. for 7 days, Aspirin 1 (325 mg) Tablet Oral daily, Carafate 1 (1 g) Tablet Oral ac (bid), Cholecalciferol Capsule Oral, Docusate Sodium 1 (100 mg) Tablet Oral b.i.d., Doxycycline Hyclate 1 (100 mg) Tablet Oral b.i.d. for 7 days, Dulcolax 1 (10 mg) Suppository Rectal, Folic Acid 1 Tablet (of 1 mg) Oral daily, Geodon 1 Capsule (of 20 mg) Oral daily, Ipratropium-Albuterol 3 mL (of 0.5-2.5 (3) mg/3mL) Solution Inhalation q 6 hours PRN, Lactulose 30 mL (of 20 g/30mL) Solution Oral q 8 hours PRN, Lipitor (80 mg) Tablet Oral Take as Directed, Metoprolol Tartrate 1 (25 mg) Tablet Oral b.i.d., MiraLax 1 Packet (of 17 ) Powder Oral daily, Nicotine 1 (21-14-7 mg/24hr) Kit Transdermal q 24 hours, oxyCODONE HCl 1 Tablet (of 5 mg) Oral q 4 hours PRN, Pantoprazole Sodium 1 Tablet (of 40 mg) Tablet, enteric coated Oral b.i.d., Vitamin C 2 Tablet (of 500 mg) Capsule Oral b.i.d., Zinc 1 (50 mg) Tablet Oral daily Allergies: Cephalexin Social History: Mr. 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 He has a history of smoking for 50 years, up to 2 packs of cigarettes daily. He has quit. He does not drink alcohol. Family History: Father of leukemia at age 60. Mother still living at age 85. A brother of esophageal cancer at age 61. Vital Signs: Performed on Apr 12, 2020 15:51: 0, 26.54, 2.30 sq.m, 76.00 in, 98 %, 67 /min, 18 /min, 117/72 mm(hg), 97.0 F (LOW), and 218 lbs (LOW). Physical Examination: Constitutional - He appears generally weak, but not acutely ill, Eyes - Sclerae nonicteric. Conjunctivae clear, ENMT - No lesions noted in the oral cavity, Neck - There is no palpable neck mass. The tracheostomy site appears unremarkable, Hematologic/Lymphatic - No cervical, clavicular, or axillary adenopathy, Respiratory - Lungs sound clear with diminished air movement bilaterally, Cardiovascular - Heart rhythm is regular. There is no murmur, gallop, or rub noted, Abdomen - Soft and non-tender. Liver and spleen are not enlarged. There is no abdominal mass or ascites noted and there is no inguinal adenopathy, Extremities - Mild lower extremity edema, Integumentary - No rashes. No suspicious skin lesions noted, Neurologic - He has generalized weakness but with almost complete paralysis of the right arm and right leg. Lab/Imaging: CBC shows hemoglobin 10.4 g, white blood cell count 8100, and platelet count 254,000. Comprehensive metabolic profile is unremarkable except for decreased albumin at 3.2 g/dL. Historic Problem List: 1. Poorly differentiated carcinoma of the supraglottic larynx, pathology felt to be most consistent with small cell neuroendocrine carcinoma. By clinical evaluation, his disease stage was HEAVEN (T3, N2c, M0). 2. He underwent tracheostomy placement for associated airway obstruction. 3. His clinical course was complicated by multiple cerebral infarcts, presumed to be embolic. He had associated right hemiparesis. He began on anticoagulation with Lovenox, but that subsequently was discontinued due to suspected acute blood loss. 4. He began cycle 1 of chemotherapy with cisplatin/etoposide on 03/27/2020. He tolerated it without acute toxicity. 5. His further clinical course was complicated by COVID-19 virus infection. 6. He has pre-existing degenerative disease of the cervical spine. Problems Addressed with this Encounter and Plan: 1. 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 He had associated airway obstruction, requiring tracheostomy placement. He began cycle 1 of cisplatin/etoposide chemotherapy on 03/27/2020. He tolerated it without acute toxicity. He subsequently developed neutropenia, but he has had adequate recovery. He has not yet been evaluated for response to the chemotherapy, but he does appear to be showing clinical improvement. He would be due to start cycle 2 of chemotherapy in 1 week, with the original plan having been to add concurrent radiation at that time. As such, he will need to be seen by the radiation oncologist, and I will be arranging that with Dr. Radford. I will plan to discuss the case with him, as the patient has just 3 remaining lower teeth which are in poor repair, and his dentition will need to be addressed. I will tentatively plan a follow-up visit with repeat CBC and CMP in 1 week. 2. Multiple cerebral infarcts, presumed embolic. He had associated right hemiparesis, and he had been on anticoagulation with Lovenox. It was recently stopped due to suspected blood loss, as he had developed anemia which was significant enough to require PRBC transfusion. His further anticoagulation has been limited to aspirin 325 mg daily. He now remains mildly anemic. 3. He has evidence of cardiomyopathy by echocardiogram. There was suspected left ventricular thrombus, but this was not able to be confirmed on his transesophageal echocardiogram. 4. He has COVID-19 virus infection. He had a limited course of treatment with remdesivir due to the neutropenia. At this point he does appear to be showing satisfactory recovery. 5. He has a suspicious looking pigmented skin lesion in the lower facial area on the right side. He is scheduled to see the acid concentrator on 05/11/2019. Signed By: Linwood Hernandez M.D. <<Signature on File>>
== END 2020-04-12 12:59 | disposition home or self-care (01) ==
LOC: ONCMED 13:02
PROVIDERS: PCP Nurse Practitioner Family; Visit Provider Internal Medicine Medical Oncology
DX: C7A.1 Malignant poorly differentiated neuroendocrine tumors (principal); D64.9 Anemia, unspecified; L98.9 Disorder of the skin and subcutaneous tissue, unspecified; I42.9 Cardiomyopathy, unspecified; D70.1 Agranulocytosis secondary to cancer chemotherapy; T45.1X5D Adverse effect of antineoplastic and immunosuppressive drugs, subsequent encounter; I69.351 Hemiplegia and hemiparesis following cerebral infarction affecting right dominant side; M48.9 Spondylopathy, unspecified; Z93.0 Tracheostomy status; Z86.19 Personal history of other infectious and parasitic diseases; Z79.82 Long term (current) use of aspirin
CPT/HCPCS: 36591; 80053; 85007; 85025; 96367; 96413; 99215

== ENCOUNTER 2020-04-14 05:53 | Outpatient (CLI) | payer BC, MEDICAID, SELFPAY ==
--- NOTE | 2020-04-14 11:29 | N.ONRAD NP_ITS ---
Radiation Oncology Consultation Patient Name: Hitesh Dai Date of : 1960 Date of Service: 04/14/2020 Attending Physician: Jean Carlos Radford M.D. Hitesh Lane was seen in consultation this morning at the request of Linwood Hernandez M.D. for consideration of head and neck radiotherapy for the management of his recently diagnosed supraglottic laryngeal cancer. He initially presented to his primary care physician with a chronic sore throat and hoarseness. A CT of the neck ordered on March 11, 2020 (directly visualized in synapse) a circumferential soft tissue mass involving the larynx causing significant narrowing of the airway at the level of the hyoid bone associated lymphadenopathy in right cervical lymph. He was transferred to [facility] in [place], [place] for further management (hospital records personally reviewed). A tracheostomy was placed with biopsy of the laryngeal mass performed on March 14, 2020 confirmed an invasive poorly differentiated carcinoma favoring a small cell neuroendocrine carcinoma. A staging PET CT completed on March 18, 2020 (independently visualized in [place] [employer] following request of the CD from the outside hospital) identified a 5 cm x 3 cm supraglottic mass (SUV max 18.2), bilateral cervical lymph nodes, FDG activity within the pituitary gland (probable adenoma),and an indeterminate distal sigmoid colon focus of hypermetabolic activity. MRI of the brain demonstrated multiple infarcts. He was transferred to [facility] on March 26, 2020. He received his first cycle of cisplatin and etoposide (03/27/20 through 03/30/20). I reviewed the patient's AJCC clinical stage HEAVEN (T3 versus T4aN2c) supraglottic laryngeal cancer. I also discussed the National Comprehensive Cancer Network Guidelines recommending concurrent chemoradiation. The classic RTOG 91???11 study that randomized patients with locally advanced laryngeal cancer to RT alone, induction chemotherapy, or concurrent chemoradiotherapy. Laryngectomy free survival was significantly improved concurrent chemoradiotherapy arm. I would recommend a seven week course of radiotherapy. A computed tomographic radiotherapy planning scan in the treatment position will be performed to identify the gross tumor volumes (primary mass and hypermetabolic lymph nodes). The potential toxicities of head and neck radiotherapy were reviewed. The patient has verbalized understanding would like to proceed as recommended. Signed by: Dr. Jean Carlos Radford 04/14/2020 11:29:18 AM
== END 2020-04-14 05:54 | disposition home or self-care (01) ==
LOC: ONCMED 05:56
PROVIDERS: PCP Nurse Practitioner Family; Visit Provider Radiology Radiation Oncology
DX: C32.1 Malignant neoplasm of supraglottis (principal); Z86.73 Personal history of transient ischemic attack (TIA), and cerebral infarction without residual deficits; Z79.899 Other long term (current) drug therapy
CPT/HCPCS: 99205

== ENCOUNTER 2020-04-26 11:09 | Outpatient (RCR) | payer BC, MEDICAID, SELFPAY ==
[2020-04-19 08:44] LABS: Basophils # 0.1 10^3/uL (0.0-0.1); Basophils % 0.7 %; Eosinophils % 0.2 %; Hematocrit 37.5 % (42.0-52.0); Hemoglobin 10.4 g/dL (11.7-16.6); Lymphocytes # 1.5 10^3/uL (0.8-4.8); Lymphocytes % 12.7 %; Mean Corpuscular HGB Conc 27.7 g/dL (30.0-36.0); Mean Corpuscular Hemoglobin 29.6 pg (28.0-34.0); Mean Corpuscular Volume 106.8 fL (80-94); Mean Platelet Volume 9.4 fL (7.4-10.4); Monocytes # 0.8 10^3/uL (0.2-0.9); Monocytes % 6.7 %; Neutrophils # 9.07 10^3/uL (1.8-7.7); Neutrophils % 78.4 %; Nucleated Red Blood Cells % 0.3 %; Platelet Count 152 10^3/cmm (130-400); Red Blood Count 3.51 10^6/uL (4.1-5.3); Red Cell Distribution Width 13.9 % (12.1-15.1); White Blood Count 11.6 10^3/uL (4.0-10.0)
[2020-04-19 09:09] LABS: Alanine Aminotransferase 33 U/L (0-41); Albumin Level 2.8 g/dL (3.5-5.2); Alkaline Phosphatase 117 IU/L (40-130); Blood Urea Nitrogen 9 mg/dL (8-23); Calcium 8.7 mg/dL (8.5-10.5); Carbon Dioxide 22 mmol/L (22-29); Chloride 101 mmol/L (98-107); Globulin 3.6 g/dL (1.3-4.6); Glucose 119 mg/dL (65-115); Osmolality Calculated 276 mOsm/kg (285-295); Sodium 133 mmol/L (136-145); Total Bilirubin 0.3 mg/dL (0.15-1.2); Total Protein 6.4 g/dL (6.6-8.7)
[2020-04-19 09:10] LABS: Anion Gap 13.9 (5-19); Potassium 3.9 mmol/L (3.5-5.1)
[2020-04-19] MEDS: palonosetron 0.25 mg/5 mL SDV IV (10:55)
[2020-04-19 12:58] LABS: Aspartate Amino Transferase 28 U/L (0-40)
[2020-04-19] MEDS: sodium chlor 0.9% + KCl 20 mEq 20 MEQ/1,000 ML BAG 800 MEQ IV (13:49)
[2020-04-20] MEDS: sodium chloride 0.9% 250 ML 75 ML IV (08:25)
[2020-04-20] MEDS: prochlorperazine 10 mg Tablet PO (08:30)
[2020-04-21] MEDS: prochlorperazine 10 mg Tablet PO (08:21)
[2020-04-22] MEDS: iodixanol 320 mg/mL 100mL Btl (RAD THERAPY ONLY) IV (07:34)
[2020-04-26 12:13] LABS: Basophils % 0.3 %; Hematocrit 28.1 % (42.0-52.0); Lymphocytes # 1.2 10^3/uL (0.8-4.8); Lymphocytes % 16.5 %; Mean Corpuscular Hemoglobin 29.8 pg (28.0-34.0); Mean Platelet Volume 8.5 fL (7.4-10.4); Monocytes # 0.2 10^3/uL (0.2-0.9); Neutrophils % 79.7 %; Nucleated Red Blood Cells % 0 %; Platelet Count 435 10^3/cmm (130-400); Red Blood Count 3.02 10^6/uL (4.1-5.3); Red Cell Distribution Width 13.1 % (12.1-15.1); White Blood Count 7.5 10^3/uL (4.0-10.0)
[2020-04-26 12:46] LABS: Alanine Aminotransferase 17 U/L (0-41); Albumin Level 3.1 g/dL (3.5-5.2); Alkaline Phosphatase 115 IU/L (40-130); Anion Gap 13.4 (5-19); Aspartate Amino Transferase 18 U/L (0-40); Blood Urea Nitrogen 13 mg/dL (8-23); Calcium 8.7 mg/dL (8.5-10.5); Carbon Dioxide 30 mmol/L (22-29); Chloride 96 mmol/L (98-107); Glucose 116 mg/dL (65-115); Osmolality Calculated 283 mOsm/kg (285-295); Potassium 3.4 mmol/L (3.5-5.1); Sodium 136 mmol/L (136-145); Total Bilirubin 0.4 mg/dL (0.15-1.2)
[2020-04-26 13:36] LABS: Globulin 2.9 g/dL (1.3-4.6)
== END 2020-05-02 23:59 | disposition home or self-care (01) ==
LOC: ONCMED 11:09
PROVIDERS: Nurse Practitioner; PCP Nurse Practitioner Family; Visit Provider Internal Medicine Medical Oncology
DX: Z51.11 Encounter for antineoplastic chemotherapy (principal); C32.1 Malignant neoplasm of supraglottis
CPT/HCPCS: 36591; 80053; 85025; 96366; 96367; 96413; 96417; 99214; J1100; J1453; J2469; J3475; J3480; J7030; J7040; J7050; J9060; J9181; Q0164; Q9967

== ENCOUNTER 2020-05-05 16:10 | Emergency (ER) | payer MEDICAID, SELFPAY ==
[2020-05-05] VITALS (13 sets, daily range): BP systolic 100–128; BP diastolic 62–81; PULSE 91–99; RESP 16–18; TEMP 36.3–36.4; O2SAT 92–96; BMI 23.8
--- NOTE | 2020-05-05 16:39 | USR_ITS ---
PROCEDURE INFORMATION: Exam: US Duplex Right Lower Extremity Veins, Limited Exam date and time: 05/05/2020 4:50 PM Age: 60 years old Clinical indication: Pain; Leg, lower; Right; Additional info: Pain/swelling TECHNIQUE: Imaging protocol: Real-time Duplex ultrasound of the Right Lower Extremity with 2-D porter scale, color Doppler flow and spectral waveform analysis with image documentation. Limited exam was focused on the right lower extremity veins. COMPARISON: No relevant prior studies available. FINDINGS: Right deep veins: Deep venous thrombosis seen in the right common femoral, femoral, popliteal, peroneal and posterior tibial veins with lack of color blood flow. Right superficial veins: Unremarkable. Saphenofemoral junction is patent without thrombus. Soft tissues: Unremarkable. US/[place] [id number] IMPRESSION: Deep venous thrombosis seen in the right common femoral, femoral, popliteal, peroneal and posterior tibial veins with lack of color blood flow.
[2020-05-05] MEDS: HYDROcodone-acetaminophen 5-325 mg Tablet 1 TAB PO (17:12)
[2020-05-05] MEDS: HYDROcodone-APAP 7.5-325 mg/15 mL UDC PO (17:24)
--- NOTE | 2020-05-05 17:27 | ED_ITS ---
Documented by User: LAUREL Miller 05/06/20 02:33 HPI - Extremity Problem General: Chief complaint: Extremity Problem,Nontraumatic Stated complaint: POSS BLOOD CLOT, R LEG Time Seen by Provider: 05/05/20 20:00 History of Present Illness: HPI Narrative: 60-year-old male patient presents to the emergency department with 1 week history of right lower extremity edema. He reports was treated with diuretic to help with swelling as swelling seemed to be in both legs but more pronounced in the right lower extremity. He reports pain with ambulation to the right lower extremity. 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 Under the direction of Dr. Hernandez. He also suffered thrombolytic stroke approximately 1 month ago. He denies fever chills, cough congestion or difficulty breathing. MD Complaint: extremity pain and extremity swelling Onset (ago): week(s) (1) Pain Consistency: intermittent Location: right and lower extremity Quality: aching, dull and constant Radiation: proximal and distal Relieving factors: immobilization and rest Exacerbating factors: weight bearing, walking and exertion Associated symptoms: Reports no associated symptoms; Deny chest pain, fever(s) or rash Context: recent illness and other (cancer) Review of Systems General: Reports: 10 or more systems reviewed and unremarkable except in HPI and below Const: Denies: fever(s), chills or diaphoresis Eyes: Denies: blurry vision or eye redness ENMT: Denies: throat pain, dental pain or disequilibrium Card: Denies: chest pain, palpitations or irregular heart rhythm Resp: Denies: dyspnea, productive cough, non-productive cough or wheezing GI: Denies: abdominal pain, nausea or vomiting : Denies: dysuria Musc: Reports: extremity swelling (RLE) and muscle weakness (due to cancer); Denies: neck pain or back pain Skin/Breast: Reports: changes in skin color (RLE); Denies: rash or pruritus Neuro: Denies: headache(s), weakness in extremities or behavioral changes Ez/Lymph: Denies: easy bruising [facility] ED PFSH: Medical History Chronic pharyngitis Close exposure to 2019 novel coronavirus Edema Fatigue Feeding by G-tube Laryngeal mass Lower respiratory infection Shortness of Breath Tobacco abuse Tracheostomy in place Vitamin D deficiency Surgical History Status post cervical disc replacement Status post tonsillectomy Family History Brother Cancer Father Cancer Social History Smoking and tobacco status: former smoker Alcohol intake: never Household members: spouse Housing: House History of recent travel: No Physical Exam Const: COMMON NORMALS: no acute distress, patient oriented x3 and alert GENERAL APPEARANCE: cooperative, well developed, frail appearing and well hydrated; not anxious and not ill appearing NUTRITIONAL APPEARANCE: thin ORIENTATION/CONSCIOUSNESS: Yes awake, Yes oriented to person, Yes oriented to place and Yes oriented to time HENMT: COMMON NORMALS: normocephalic, Normal external nose present and moist oral mucous membranes HEAD & SCALP: normocephalic NOSE: Normal external nose present Eye: COMMON NORMALS: Equal, round and reactive pupils present and EOMs intact bilaterally GENERAL EYE: appearance normal, both eyes and all related structures PUPIL: Yes Equal, round and reactive pupils present Neck/C-Spine: COMMON NORMALS: full ROM and no lymphadenopathy GENERAL: Yes normal visual inspection, Yes trachea midline and Yes tracheostomy present CERVICAL SPINE: Yes cervical ROM normal Lymph: LYMPHATIC: no lymphadenopathy noted Chest: COMMONS NORMALS: normal inspection of the chest Resp: COMMON NORMALS: normal respiratory effort and clear to auscultation bilaterally AUSCULTATION: clear to auscultation bilaterally Cardio: COMMON NORMALS: regular rate, regular rhythm, S1 normal heart sound present, S2 normal heart sound present and Peripheral pulses 2+ throughout RATE: regular rate RHYTHM: regular rhythm HEART SOUNDS: S1 normal heart sound present and S2 normal heart sound present PERIPHERAL PULSES: Peripheral pulses 2+ throughout GI: COMMON NORMALS: Normal to inspection, nondistended, normoactive bowel sounds present, Soft to palpation and non-tender INSPECTION: Yes normal to inspection, No central obesity, No visible herniation and Yes GI tube present PALPATION: Yes Soft to palpation : COMMON NORMALS: Yes no CVA tenderness BLADDER/KIDNEY EXAM: Yes no CVA tenderness Back/Pelvis: COMMON NORMALS: no CVA tenderness and thoracic and lumbar spine normal to inspection Extremity: COMMON NORMALS: normal to inspection, full ROM and capillary refill normal GENERAL: Yes normal exam except as noted OTHER: RLE - lymphe queta/edema 2 + present, tenderness to the upper and lower medial - + calf tenderness Neuro: COMMON NORMALS: patient oriented x3 and no focal motor deficits SENSORIUM/ORIENTATION: Yes alert, Yes oriented to person, Yes oriented to place and Yes oriented to time Psych: COMMON NORMALS: mental status grossly normal, Normal thought process present and cooperative ACTIVITY/MOTOR BEHAVIOR: Yes appropriate eye contact THOUGHT PROCESS: Normal thought process present Skin: COMMON NORMALS: no rashes or lesions noted and turgor normal GENERAL SKIN EXAM: no rashes or lesions noted and turgor normal Course ED course: 60-year-old male patient presents to the ED with right lower extremity DVT; DVT visualized in the common femoral from the groin to the femoral vein, popliteal and peroneal veins affected as well; hemoglobin noted to be 7.6, hematocrit 24.9 with white blood count 2.9 thousand. Previous administration of Lovenox led to profound anemia which caused need for blood transfusion. This occurred during admission at [place] secondary to thrombolytic CVA. Consult with Dr. Hernandez the patient would be best monitored during admission, will need 2 units of packed cells, Lovenox will be needed for DVT treatment as well as stool studies to ensure patient does not develop GI bleed. Transfer of care to Dr. Huerta as patient will need inpatient admission. Consultations: Consultation #1: Dr Hernandez -discussed with Dr. Hernandez findings of venous ultrasound study, serology testing with hemoglobin 7.6, hematocrit 24.9; advised Lovenox because profound anemia with previous administration while at [facility], advised patient would be best treated in the hospital with transfusions of 2 units of packed cells needed, advised to treat DVT with Lovenox. Advised to continue with guaiac stool testing secondary to previous anemia secondary to Lovenox. Time: 19:00 Consultation #2: Dr Jackson, vascular surgeon [facility], serology findings, ultrasound results discussed as well as history of present illness and patient's previous diagnosis including thrombolytic stroke, COVID-19 infection, PEG placement with tracheostomy due to throat cancer. I also discussed history of anemia that occurred with previous use of Lovenox. Agrees to admit patient to medical surgical floor at [facility] for further evaluation of DVT of the right lower extremity. Time: 23:45 Vital Signs: Vital signs: Vital Signs Temperature 97.7 F 05/06/20 01:01 Pulse Rate 90 05/06/20 02:16 Respiratory Rate 18 05/06/20 02:16 Blood Pressure 122/81 05/06/20 02:16 Pulse Oximetry 96 05/06/20 02:16 MDM - Extremity (Nontraumatic) MDM Narrative: Medical decision making narrative: Dr Huerta spoke with hospitalist, Dr Castorena, hospitalist advised patient will need to be transferred to tertiary care center due to need for vascular specialty care of the right lower extremity. Lab Data: Labs: Lab Results 05/05/20 05/05/20 05/05/20 Range/Units 17:45 17:45 20:03 WBC 2.9 L (4.0-10.0) 10^3/ uL RBC 2.62 L (4.1-5.3) 10^6/u L Hgb 7.6 L (11.7-16.6) g/dL Hct 24.9 L (42.0-52.0) % MCV 95.0 H (80-94) fL MCH 29.0 (28.0-34.0) pg MCHC 30.5 (30.0-36.0) g/dL RDW 14.5 (12.1-15.1) % Plt Count 306 (130-400) 10^3/c mm MPV 9.1 (7.4-10.4) fL Neut % (Auto) 48.3 % Lymph % (Auto) 33.3 % [place] % (Auto) 16.0 % Eos % (Auto) 1.4 % Baso % (Auto) 0.7 % Neut # (Auto) 1.39 L (1.8-7.7) 10^3/u L Lymph # (Auto) 1.0 (0.8-4.8) 10^3/u L [place] # (Auto) 0.5 (0.2-0.9) 10^3/u L Eos # (Auto) 0.0 (0.0-0.8) 10^3/u L Baso # (Auto) 0.0 (0.0-0.1) 10^3/u L Nucleated RBC % (a uto) 0 % Nucleated RBCs # 0.0 /100WBC Sodium 137 (136-145) mmol/L Potassium 4.1 (3.5-5.1) mmol/L Chloride 100 (98-107) mmol/L Carbon Dioxide 28 (22-29) mmol/L Anion Gap 13.1 (5-19) BUN 10 (8-23) mg/dL Creatinine 0.6 L (0.7-1.2) mg/dL GFR Calculation 137.0 H (90-130) mL/min Glucose 95 (65-115) mg/dL Calculated Osmolal ity 283 L (285-295) mOsm/k g Calcium 8.5 (8.5-10.5) mg/dL Total Bilirubin 0.2 (0.15-1.2) mg/dL AST 12 (0-40) U/L ALT 12 (0-41) U/L Alkaline Phosphata se 109 (40-130) IU/L Total Protein 6.1 L (6.6-8.7) g/dL Albumin 3.2 L (3.5-5.2) g/dL Globulin 2.9 (1.3-4.6) g/dL Blood Type A Positive Rho(D) Type Positive Antibody Screen Negative Crossmatch See Detail Imaging Data^: US Vascular: Radiologist's impression: [address] [address] Ultrasound Report Signed with Addenda Patient: Hitesh Dai #: [id number] : 9Acct#:[id number] Age/Sex: 60 / MADM Date: 05/05/20 Loc: ERRoom/Bed: Attending Dr: Ordering Provider/Ordering MD: Leyda Birch Date of Service: 05/05/20 Procedure(s): [place] [address] Accession Number(s): [id number] Report Number: [id number] ADDENDUM US/[place] [address] THIS REPORT CONTAINS FINDINGS THAT MAY BE CRITICAL TO PATIENT CARE. The findings were verbally communicated via telephone conference with Dr. Carrillo 8:22 PM DOSIER OPERATOR on 05/05/2020. The findings were acknowledged and understood. Addendum Dictated By: Rich Israel MD Addendum Signed By: Rich Israel MDSigned Date/Time:05/05/202023 Addendum Cosigned By: PROCEDURE INFORMATION: Exam: US Duplex Right Lower Extremity Veins, Limited Exam date and time: 05/05/2020 4:50 PM Age: 60 years old Clinical indication: Pain; Leg, lower; Right; Additional info: Pain/swelling TECHNIQUE: Imaging protocol: Real-time Duplex ultrasound of the Right Lower Extremity with 2-D porter scale, color Doppler flow and spectral waveform analysis with image documentation. Limited exam was focused on the right lower extremity veins. COMPARISON: No relevant prior studies available. FINDINGS: Right deep veins: Deep venous thrombosis seen in the right common femoral, femoral, popliteal, peroneal and posterior tibial veins with lack of color blood flow. Right superficial veins: Unremarkable. Saphenofemoral junction is patent without thrombus. Soft tissues: Unremarkable. US/[place] [id number] IMPRESSION: Deep venous thrombosis seen in the right common femoral, femoral, popliteal, peroneal and posterior tibial veins with lack of color blood flow. Dictated By:Rich Israel MD Signed By:Rich Israel MDSigned Date/Time:05/05/202014 DD/ 12 Discharge Plan Discharge Patient Disposition: Xfer Short-Term Hosp Clinical Impression: DVT (deep venous thrombosis) Qualifiers: DVT location: lower extremity Affected thrombotic vein of extremity: popliteal Chronicity: acute Laterality: right Qualified Code(s): I82.431 - Acute embolism and thrombosis of right popliteal vein Dvt femoral (deep venous thrombosis) Qualifiers: Chronicity: acute Laterality: right Qualified Code(s): I82.411 - Acute embolism and thrombosis of right femoral vein DVT of lower limb, acute Qualifiers: Affected thrombotic vein of extremity: peroneal Laterality: right Qualified Code(s): I82.451 - Acute embolism and thrombosis of right peroneal vein Condition: Stable Discharge Orders: Transfer Out of Facility (Order); Ordered 05/06/20 Ordered By: Jeremias Huerta Referrals: MIAN Jonas, BOW MAKER [Primary Care Provider] - Sign Out Sign Out Data: Patient Sign Out occurred on 05/05/20 at 20:00. Patient's care was discussed, and care was transferred from to Jeremias Huerta MD, [facility] [place]. Coding Level of Care Code ED Motel Front Desk Attendant for Chg Fwd Exam Comprehensive Documented by User: Jeremias Huerta MD, MSM 05/06/20 01:51 HPI - Extremity Problem General: Chief complaint: Extremity Problem,Nontraumatic Stated complaint: POSS BLOOD CLOT, R LEG Time Seen by Provider: 05/05/20 20:00 [facility] ED PFSH: Medical History Chronic pharyngitis Close exposure to 2019 novel coronavirus Edema Fatigue Feeding by G-tube Laryngeal mass Lower respiratory infection Shortness of Breath Tobacco abuse Tracheostomy in place Vitamin D deficiency Surgical History Status post cervical disc replacement Status post tonsillectomy Family History Brother Cancer Father Cancer Social History Smoking and tobacco status: former smoker Alcohol intake: never Household members: spouse Housing: House History of recent travel: No Course Vital Signs: Vital signs: Vital Signs Temperature 97.7 F 05/06/20 01:01 Pulse Rate 90 05/06/20 02:16 Respiratory Rate 18 05/06/20 02:16 Blood Pressure 122/81 05/06/20 02:16 Pulse Oximetry 96 05/06/20 02:16 MDM - Extremity (Nontraumatic) MDM Narrative: Medical decision making narrative: 60-year-old male with a history of malignant poorly differentiated neuroendocrine tumor, prior CVA presented to the emergency department with right lower extremity pain. Evaluation shows that he has extensive DVT from the right common femoral, femoral, popliteal, peroneal, and posterior tibial arteries with lack of collateral blood flow. He has had a prior complicated history with Lovenox after he had a CVA while he was at [facility] in [place]. The patient developed an inexplicable anemia following Lovenox and a cause was never discovered. Because of this the oncologist wanted the patient admitted and started on ant icoagulation in the hospital and close monitoring of his hemoglobin. He is already pretty anemic. He also advised that we transfuse him with 2 units of packed red blood cells. I discussed the patient with the hospitalist who was not comfortable keeping the patient in this facility as he felt he may need a thrombectomy and also with the history of severe anemia requiring blood transfusion following Lovenox in the past. The patient and his do not want the patient transferred to [facility] in [place] as they were not satisfied with the care that he received there. He is therefore being transferred to [facility] in [place] for further evaluation and management. He was given the first dose of Lovenox in the emergency department. Medical Records: Attestation: I reviewed the patient's medical records. Lab Data: Attestation: I reviewed the patient's lab results. Labs: Lab Results 05/05/20 05/05/20 05/05/20 Range/Units 17:45 17:45 20:03 WBC 2.9 L (4.0-10.0) 10^3/ uL RBC 2.62 L (4.1-5.3) 10^6/u L Hgb 7.6 L (11.7-16.6) g/dL Hct 24.9 L (42.0-52.0) % MCV 95.0 H (80-94) fL MCH 29.0 (28.0-34.0) pg MCHC 30.5 (30.0-36.0) g/dL RDW 14.5 (12.1-15.1) % Plt Count 306 (130-400) 10^3/c mm MPV 9.1 (7.4-10.4) fL Neut % (Auto) 48.3 % Lymph % (Auto) 33.3 % [place] % (Auto) 16.0 % Eos % (Auto) 1.4 % Baso % (Auto) 0.7 % Neut # (Auto) 1.39 L (1.8-7.7) 10^3/u L Lymph # (Auto) 1.0 (0.8-4.8) 10^3/u L [place] # (Auto) 0.5 (0.2-0.9) 10^3/u L Eos # (Auto) 0.0 (0.0-0.8) 10^3/u L Baso # (Auto) 0.0 (0.0-0.1) 10^3/u L Nucleated RBC % (a uto) 0 % Nucleated RBCs # 0.0 /100WBC Sodium 137 (136-145) mmol/L Potassium 4.1 (3.5-5.1) mmol/L Chloride 100 (98-107) mmol/L Carbon Dioxide 28 (22-29) mmol/L Anion Gap 13.1 (5-19) BUN 10 (8-23) mg/dL Creatinine 0.6 L (0.7-1.2) mg/dL GFR Calculation 137.0 H (90-130) mL/min Glucose 95 (65-115) mg/dL Calculated Osmolal ity 283 L (285-295) mOsm/k g Calcium 8.5 (8.5-10.5) mg/dL Total Bilirubin 0.2 (0.15-1.2) mg/dL AST 12 (0-40) U/L ALT 12 (0-41) U/L Alkaline Phosphata se 109 (40-130) IU/L Total Protein 6.1 L (6.6-8.7) g/dL Albumin 3.2 L (3.5-5.2) g/dL Globulin 2.9 (1.3-4.6) g/dL Blood Type A Positive Rho(D) Type Positive Antibody Screen Negative Crossmatch See Detail Imaging Data^: US Vascular: Attestation: I personally reviewed and interpreted this imaging study as follows: Radiologist's impression: [address] [address] Ultrasound Report Signed with Addenda Patient: Hitesh Dai #: [id number] : 9Acct#:[id number] Age/Sex: 60 / MADM Date: 05/05/20 Loc: ERRoom/Bed: Attending Dr: Ordering Provider/Ordering MD: Leyda Birch Date of Service: 05/05/20 Procedure(s): [place] [address] Accession Number(s): [id number] Report Number: [id number] ADDENDUM US/[place] [address] THIS REPORT CONTAINS FINDINGS THAT MAY BE CRITICAL TO PATIENT CARE. The findings were verbally communicated via telephone conference with Dr. Carrillo 8:22 PM DOSIER OPERATOR on 05/05/2020. The findings were acknowledged and understood. Addendum Dictated By: Rich Israel MD Addendum Signed By: Rich Israel MDSigned Date/Time:05/05/202023 Addendum Cosigned By: PROCEDURE INFORMATION: Exam: US Duplex Right Lower Extremity Veins, Limited Exam date and time: 05/05/2020 4:50 PM Age: 60 years old Clinical indication: Pain; Leg, lower; Right; Additional info: Pain/swelling TECHNIQUE: Imaging protocol: Real-time Duplex ultrasound of the Right Lower Extremity with 2-D porter scale, color Doppler flow and spectral waveform analysis with image documentation. Limited exam was focused on the right lower extremity veins. COMPARISON: No relevant prior studies available. FINDINGS: Right deep veins: Deep venous thrombosis seen in the right common femoral, femoral, popliteal, peroneal and posterior tibial veins with lack of color blood flow. Right superficial veins: Unremarkable. Saphenofemoral junction is patent without thrombus. Soft tissues: Unremarkable. US/[place] [id number] IMPRESSION: Deep venous thrombosis seen in the right common femoral, femoral, popliteal, peroneal and posterior tibial veins with lack of color blood flow. Dictated By:Rich Israel MD Signed By:Rich Israeligned Date/Time:05/05/202014 DD/ 12 Discharge Plan Discharge Patient Disposition: Xfer Short-Term Hosp Clinical Impression: DVT (deep venous thrombosis) Qualifiers: DVT location: lower extremity Affected thrombotic vein of extremity: popliteal Chronicity: acute Laterality: right Qualified Code(s): I82.431 - Acute embolism and thrombosis of right popliteal vein Dvt femoral (deep venous thrombosis) Qualifiers: Chronicity: acute Laterality: right Qualified Code(s): I82.411 - Acute embolism and thrombosis of right femoral vein DVT of lower limb, acute Qualifiers: Affected thrombotic vein of extremity: peroneal Laterality: right Qualified Code(s): I82.451 - Acute embolism and thrombosis of right peroneal vein Condition: Stable Discharge Orders: Transfer Out of Facility (Order); Ordered 05/06/20 Ordered By: Jeremias Huerta Referrals: MIAN Jonas, BOW MAKER [Primary Care Provider] - Sign Out Sign Out Data: Patient Sign Out occurred on 05/05/20 at 20:00. Patient's care was discussed, and care was transferred from to Jeremias Huerta MD, [facility] [place]. Coding Level of Care Code ED Motel Front Desk Attendant for g Fwd Exam Comprehensive
[2020-05-05 18:07] LABS: Basophils % 0.7 %; Eosinophils % 1.4 %; Hematocrit 24.9 % (42.0-52.0); Hemoglobin 7.6 g/dL (11.7-16.6); Lymphocytes % 33.3 %; Mean Corpuscular HGB Conc 30.5 g/dL (30.0-36.0); Mean Platelet Volume 9.1 fL (7.4-10.4); Monocytes # 0.5 10^3/uL (0.2-0.9); Neutrophils # 1.39 10^3/uL (1.8-7.7); Neutrophils % 48.3 %; Nucleated Red Blood Cells % 0 %; Platelet Count 306 10^3/cmm (130-400); Red Blood Count 2.62 10^6/uL (4.1-5.3); Red Cell Distribution Width 14.5 % (12.1-15.1); White Blood Count 2.9 10^3/uL (4.0-10.0)
[2020-05-05 18:35] LABS: Alanine Aminotransferase 12 U/L (0-41); Albumin Level 3.2 g/dL (3.5-5.2); Alkaline Phosphatase 109 IU/L (40-130); Anion Gap 13.1 (5-19); Aspartate Amino Transferase 12 U/L (0-40); Blood Urea Nitrogen 10 mg/dL (8-23); Calcium 8.5 mg/dL (8.5-10.5); Carbon Dioxide 28 mmol/L (22-29); Chloride 100 mmol/L (98-107); Globulin 2.9 g/dL (1.3-4.6); Glucose 95 mg/dL (65-115); Osmolality Calculated 283 mOsm/kg (285-295); Potassium 4.1 mmol/L (3.5-5.1); Sodium 137 mmol/L (136-145); Total Bilirubin 0.2 mg/dL (0.15-1.2); Total Protein 6.1 g/dL (6.6-8.7)
[2020-05-05] MEDS: enoxaparin 100 mg/mL Syringe 90 MG SUBCUT (20:06)
[2020-05-05] MEDS: sodium chloride 0.9% 1,000 ML 125 ML IV (22:45)
[2020-05-06] VITALS (13 sets, daily range): BP systolic 110–129; BP diastolic 71–83; PULSE 86–99; RESP 12–21; TEMP 36.4–36.5; O2SAT 87–97
[2020-05-06] MEDS: HYDROcodone-APAP 7.5-325 mg/15 mL UDC PO (00:33)
== END 2020-05-06 02:25 | disposition short-term general hospital (02) ==
PROVIDERS: Nurse Practitioner Family; Emergency Provider Family Medicine; PCP Nurse Practitioner Family
DX: I82.431 Acute embolism and thrombosis of right popliteal vein (principal); I82.411 Acute embolism and thrombosis of right femoral vein; I82.451 Acute embolism and thrombosis of right peroneal vein; Z87.891 Personal history of nicotine dependence
CPT/HCPCS: 12345; 36430; 80053; 85025; 86850; 86900; 86920; 93971; 96360; 96361; 96372; 99283; 99285; J1650; J7030; P9016

== ENCOUNTER 2020-05-12 15:56 | Inpatient (IN) | payer MEDICAID, SELFPAY ==
[2020-05-12] VITALS (15 sets, daily range): BP systolic 82–111; BP diastolic 52–96; PULSE 83–110; RESP 16–35; TEMP 36.2–36.6; O2SAT 95–100; BMI 24.3
--- NOTE | 2020-05-12 16:05 | XR_ITS ---
WS: [id number] Portable AP upright chest, 05/12/2020 Clinical Data: hypoxia. aspirated blood Comparison: Portable chest, 04/09/2020. Findings: The tracheal tube and right subclavian catheter remain in same position. The patient has de veloped bilateral patchy lower lobe opacities which may represent pneumonia. The upper lobes are rela tively clear. No nodules or masses are seen. The heart is at the upper limits of normal. No nodules, masses or pneumothorax is seen. XR/XR chest 1V portable [id number] Impression: 1. Development of bilateral lower lobe opacities which may represent acute pneu monia. 2. No change in tracheal tube and right Port-A-Cath.
--- NOTE | 2020-05-12 16:12 | ECG_ITS ---
[facility] Test Date: 2020-05-12 Pat Name: Hitesh Dai Department: Room: Gender: Male Inventory Control Coordinator: : 1960 Requested By: Pablito Chávez Order Number: [id number] Earnest MD: Vivian Khan M.D. Measurements Intervals [place] Rate: 96 P: 49 CA: 161 QRS: -36 QRSD: 95 T: 68 QT: 357 QTc: 451 Interpretive Statements SINUS RHYTHM INFERIOR MYOCARDIAL INFARCTION , PROBABLY OLD [40+ ms Q WAVE AND/OR ST/T ABNORMALITY IN II/aVF] Compared to ECG 04/05/2020 06:00:00 Myocardial infarct finding now present Electronically Signed On 05-12-2020 19:20:50 [employer] REVENUE OFFICER by Vivian Khan M.D. [id number]
[2020-05-12] MEDS: sodium chloride 0.9% 1,000 ML 999 ML IV (16:31)
[2020-05-12 16:43] LABS: ABG PCO2 48.1 mmHg (35-45); ABG PH Result 7.39 (7.35-7.45); Arterial Blood Gas Hematocrit 32.9 % (42-52); Base Excess ABG 3.5 mmol/L (-2.0-2.0); Blood Gas Allen Test Pos; Blood Gas Operator Identificat CAK; Blood Gas Sample Site Radial, left; Blood Gas Sample Type Arterial; HCO3 ABG 29.1 mmol/L (22-26); Oxygen Device HAG; PO2 ABG 91.3 mmHg (80.0-100.0)
[2020-05-12] MEDS: piperacillin-tazobactam 3.375 GM in sodium chloride 0.9% (plus) 50 ML IV (17:01)
[2020-05-12] MEDS: vancomycin 1,000 MG in sodium chloride 0.9% 250 ML 250 MG IV (17:01)
[2020-05-12 17:21] LABS: Basophils # 0.1 10^3/uL (0.0-0.1); Basophils % 0.5 %; Hemoglobin 9.9 g/dL (11.7-16.6); Lymphocytes # 1.1 10^3/uL (0.8-4.8); Lymphocytes % 5.2 %; Mean Corpuscular HGB Conc 30.9 g/dL (30.0-36.0); Mean Corpuscular Hemoglobin 28.7 pg (28.0-34.0); Mean Corpuscular Volume 92.8 fL (80-94); Mean Platelet Volume 8.3 fL (7.4-10.4); Monocytes # 1.6 10^3/uL (0.2-0.9); Monocytes % 7.2 %; Neutrophils # 18.17 10^3/uL (1.8-7.7); Neutrophils % 84.4 %; Nucleated Red Blood Cells % 0 %; Platelet Count 493 10^3/cmm (130-400); Red Blood Count 3.45 10^6/uL (4.1-5.3); Red Cell Distribution Width 14.6 % (12.1-15.1); White Blood Count 21.6 10^3/uL (4.0-10.0)
[2020-05-12 17:40] LABS: Troponin(5th) Baseline 58 ng/L (0-15)
[2020-05-12 17:48] LABS: Alanine Aminotransferase 13 U/L (0-41); Albumin Level 2.8 g/dL (3.5-5.2); Alkaline Phosphatase 109 IU/L (40-130); Anion Gap 14.1 (5-19); Aspartate Amino Transferase 14 U/L (0-40); Blood Urea Nitrogen 12 mg/dL (8-23); Calcium 8.1 mg/dL (8.5-10.5); Carbon Dioxide 27 mmol/L (22-29); Chloride 101 mmol/L (98-107); Glucose 125 mg/dL (65-115); NT Pro B Type Natriuretic Pept 1274 pg/mL (0-125); Osmolality Calculated 287 mOsm/kg (285-295); Potassium 4.1 mmol/L (3.5-5.1); Sodium 138 mmol/L (136-145); Total Bilirubin 0.2 mg/dL (0.15-1.2); Total Protein 5.8 g/dL (6.6-8.7)
[2020-05-12 17:55] LABS: Creatinine Clr Calc Pharmacy 161.5974
[2020-05-12 17:56] LABS: INR 1.31 (0.8-1.2)
--- NOTE | 2020-05-12 18:12 | ECG_ITS ---
[facility] Test Date: 2020-05-12 Pat Name: Hitesh Dai Department: Room: Gender: Male Controlled Area Checker: : 1960 Requested By: Pablito Chávez Order Number: [id number] Earnest MD: Brandon Streeter M.D. Measurements Intervals [place] Rate: 94 P: 36 [place]: 158 QRS: -24 QRSD: 98 T: 62 QT: 368 QTc: 462 Interpretive Statements SINUS RHYTHM INFERIOR MYOCARDIAL INFARCTION , OF INDETERMINATE AGE [40+ ms Q WAVE AND/OR ST/T ABNORMALITY IN II/aVF] Compared to ECG 05/12/2020 16:55:03 T-wave abnormality now present Myocardial infarct finding still present Electronically Signed On 05-13-2020 16:08:55 SLEEPING BAG FILLER by Brandon Streeter M.D. [id number]
[2020-05-12] MEDS: levofloxacin-dextrose 5 % 750 MG/150 ML PREMIX 100 MG IV (18:18)
--- NOTE | 2020-05-12 18:30 | P.CONIM_ITS ---
Providers/Reason For Consult Consulting Physican/Specialty*: Evelio Alejandra MD/otolaryngology Reason for Consult*: Patient removed his trach tube and cannot be replaced easily Primary Care Provider: ESTHER Peña History of Present Illness History of Present Illness Hitesh Dai is a 60 year old male who is being treated currently with chemotherapy for head and neck malignancy. Due to airway constriction he had a tracheotomy placed. He has a tendency to remove this and this is occurred several times. Tonight he removed it at home and his could not get it back in. ER physicians also could not get it back in and he was bleeding because he is on Lovenox for DVT. I was called in to help place the trach tube back in proper position. Meds/Allergies Home Medications and Allergies Home Medications Medication Instructions Recorded Confirmed Last Taken Type ipratropium-albuterol 3 ml INHALATION Q6H PRN #90 ml 04/09/20 05/11/20 Unknown Rx alprazolam 0.25 mg tablet 0.25 mg PO TID PRN 04/21/20 05/11/20 05/05/20 08:30 History oxygen home #1 ea 04/21/20 05/11/20 Unknown Rx trazodone 50 mg tablet 50 mg PO DAILY@04/21/20 05/11/20 05/04/20 History lorazepam 1 mg tablet 1 mg PO TID PRN tab 05/04/20 05/11/20 Unknown History Lgr-Uea-Ywfu Tab 1 tab PO DAILY 05/05/20 05/11/20 05/05/20 History Flomax 0.4 mg PO DAILY@05/05/20 05/11/20 05/05/20 08:30 History Lasix 10 mg PO DAILY@05/05/20 05/11/20 05/05/20 08:30 History Lipitor 40 mg PO DAILY@05/05/20 05/11/20 05/05/20 08:30 History Lunesta 1 mg PO DAILY@05/05/20 05/11/20 05/04/20 History albuterol sulfate [ProAir HFA] 2 puff INHALATION 6XD PRN 05/05/20 05/11/20 Unknown History ascorbic acid (vitamin C) [Vitamin 1,000 mg PO BID@05/05/20 05/11/20 05/05/20 08:30 History C] aspirin 325 mg PO DAILY@05/05/20 05/11/20 05/05/20 08:30 History cholecalciferol (vitamin D3) 25 mcg PO DAILY@05/05/20 05/11/20 05/05/20 08:30 History docusate sodium [DOK] 100 mg PO BID@05/05/20 05/11/20 05/05/20 08:30 Hi story folic acid 1 mg PO BID@05/05/20 05/11/20 05/05/20 08:30 History metoprolol tartrate 12.5 mg PO BID@0800,2100 05/05/20 05/11/20 05/05/20 08:30 History pantoprazole [Protonix] 40 mg PO BID@05/05/20 05/11/20 05/05/20 08:30 History polyethylene glycol 3350 17 g PO BID@05/05/20 05/11/20 05/05/20 08:30 History potassium gluconate 595 mg PO DAILY@05/05/20 05/11/20 05/05/20 History prochlorperazine maleate 10 mg PO Q4H PRN 05/05/20 05/11/20 Unknown History sennosides-docusate sodium 2 tab PO BID PRN 05/05/20 05/11/20 05/05/20 History [Stimulant Laxative Plus] zinc gluconate 50 mg PO DAILY@05/05/20 05/11/20 05/05/20 08:30 History Allergies Allergy/AdvReac Type Severity Reaction Status Date / Time cephalexin [From Keflex] Allergy hives Verified 05/11/20 13:38 Current Medications Current Medications Generic Name Dose Route Start Last Admin Trade Name Freq PRN Reason Stop Dose Admin Levofloxacin/Dextrose 750 mg in 150 mls @ 100 mls/hr 05/12/20 18:15 05/12/20 18:18 Levaquin-D5w IV 05/12/20 19:44 100 mls/hr ONCE ONE Administration Protocol PFSH Acute PFSH: Medical History Chronic pharyngitis Close exposure to 2019 novel coronavirus Edema Fatigue Feeding by G-tube Laryngeal mass Lower respiratory infection Shortness of Breath Tobacco abuse Tracheostomy in place Vitamin D deficiency Surgical History Status post cervical disc replacement Status post tonsillectomy Family History Brother Cancer Father Cancer Social History Smoking and tobacco status: former smoker Alcohol intake: never Household members: spouse Housing: House History of recent travel: No Vitals/I&O/Wt Last Vital Signs Temp 97.8 F 05/12/20 15:59 Pulse 83 05/12/20 18:01 Resp 20 H 05/12/20 18:01 BP 111/96 05/12/20 18:01 Pulse Ox 97 05/12/20 18:01 05/12/20 05/12/20 05/12/20 06:59 14:59 22:59 Intake Total 1300 / 1300 Balance 1300 / 1300 Weight last 48 hrs Weight 200 lb Physical Exam Narrative: EXAM NARRATIVE: The patient was resting in a semirecumbent position with head elevated and an endotracheal tube in place. The endotracheal tube was placed to keep the pathway open. However because of bleeding concerns it was recommended that a trach tube with cough be placed back into position. The trach tube was removed and the trach pathway suctioned. A new trach tube with obturator and cuff down was inserted with the aid of K-Y jelly. Once in place the cuff was inflated and the trach tube held in place with the neck collar attachment. There was no active bleeding encountered. Patient was breathing easily through the trach tube. The inner cannula will be placed and his speech valve placed over the top of that. 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 New trach tube inserted with a fair amount of tautness but no bleeding was encountered. Plan: The neck strap needs to be tightened to up within 1 finger to be inserted around it. That hopefully will keep him from being able to grasp it and remove it. He may require soft arm or hand restraints. Routine trach care from this point on. Status: Acute (2) Laryngeal mass: Status: Acute (3) Supraglottic mass: Status: Acute Additional A&P Information Assessment Coding Level of Care Code New Pt Acute Laundry Route Driver for Chg Fwd Patient Type New History Problem Focused Exam Problem Focused Medical Decision Making Low Complexity Diagnoses Tracheostomy in place Z93.0 Laryngeal mass J38.7 Supraglottic mass J38.7
--- NOTE | 2020-05-12 19:03 | PC.NURSE ---
report received from BO DICKSON and care transferred to BO Oconnor
[2020-05-12 19:33] LABS: Troponin 5 2HR 7.04 ng/L (0-15)
--- NOTE | 2020-05-12 19:35 | PC.NURSE ---
states that pt's bp is running on the low side.
--- NOTE | 2020-05-12 20:20 | W.ED.GENADLT ---
HPI - General Adult General: Chief complaint: General Medical Stated complaint: Pulled trach out Time Seen by Provider: 05/12/20 16:05 History of Present Illness: HPI narrative: The patient is a 60-year-old male with past medical history cancerous neck mass, and stroke in March with trach placement around that time comes to the ER after he pulled out his trach tube. About a week ago he was also diagnosed with a deep vein thrombosis and placed on Lovenox. After he pulled out his ET tube he had some oozing blood and EMS gave him 5 IV of Versed and placed a 6 oh ET tube to help him breathe. Apparently it was difficult and there was some significant bleeding involved and they have suctioned his ET tube several times and gotten blood out. Severity: moderate Associated symptoms: Reports dyspnea; Deny chest pain, confusion, headache(s), rash or palpitations Review of Systems General: Reports: 10 or more systems reviewed and unremarkable except in HPI and below Const: Denies: fatigue Eyes: Denies: change in vision, blurry vision or eye redness ENMT: Denies: throat pain, swelling of lips/tongue, ear or mastoid pain or nasal congestion Card: Denies: chest pain, palpitations, irregular heart rhythm, edema, dyspnea on exertion or orthopnea Resp: Reports: dyspnea GI: Denies: abdominal pain, diarrhea or GI cramping : Denies: flank pain, urinary frequency or urinary urgency Musc: Denies: neck pain, back pain, extremity pain, joint pain, joint redness, limited range of motion or muscle weakness Skin/Breast: Denies: rash, pruritus, erythema, skin pain or skin tenderness Neuro: Denies: headache(s), numbness in extremities, weakness in extremities, sensory changes, difficulty walking, dizziness, confusion or Slurred speech present Psych: Denies: anxiety or depression Endo: Denies: polyuria All/Imm: Denies: urticaria, throat swelling or tongue swelling PFSH ED PFSH: Medical History Chronic pharyngitis Close exposure to 2019 novel coronavirus Edema Fatigue Feeding by G-tube Laryngeal mass Lower respiratory infection Shortness of Breath Tobacco abuse Tracheostomy in place Vitamin D deficiency Surgical History Status post cervical disc replacement Status post tonsillectomy Family History Brother Cancer Father Cancer Social History Smoking and tobacco status: former smoker Alcohol intake: never Household members: spouse Housing: House History of recent travel: No Physical Exam Const: COMMON NORMALS: no acute distress, average body habitus, patient oriented x3, no limitations, healthy appearing, alert and well nourished GENERAL APPEARANCE: cooperative, comfortable, well kempt and well developed ORIENTATION/CONSCIOUSNESS: Yes awake, Yes oriented to person, Yes oriented to place and Yes oriented to time HENMT: COMMON NORMALS: normocephalic, external ears normal and Normal external nose present HEAD & SCALP: normal to inspection and normocephalic NOSE: Normal external nose present EXTERNAL EAR: Yes external ears normal MOUTH: Normal oral and palatal mucosa present THROAT: posterior oropharynx normal Eye: COMMON NORMALS: Equal, round and reactive pupils present and EOMs intact bilaterally GENERAL EYE: appearance normal, both eyes and all related structures PUPIL: Yes Equal, round and reactive pupils present Neck/C-Spine: COMMON NORMALS: full ROM, no lymphadenopathy, no meningeal signs and no JVD GENERAL: Yes normal visual inspection Lymph: LYMPHATIC: no lymphadenopathy noted Chest: COMMONS NORMALS: normal inspection of the chest and normal palpation of entire chest wall Resp: COMMON NORMALS: normal respiratory effort, No retractions and percussion normal AUSCULTATION: diminished lung sounds bilateral PERCUSSION: percussion normal OTHER: The patient has chronic COPD and chronically breathes shallow and has tachypnea mildly on arrival. He is breathing through a 6-5 ET tube which is narrow and long. Mild increased work of breathing related to this. Cardio: COMMON NORMALS: no JVD, regular rate, regular rhythm, S1 normal heart sound present, S2 normal heart sound present and Peripheral pulses 2+ throughout RATE: regular rate RHYTHM: regular rhythm HEART SOUNDS: S1 normal heart sound present and S2 normal heart sound present PERIPHERAL PULSES: Peripheral pulses 2+ throughout GI: COMMON NORMALS: Normal to inspection, nondistended, normoactive bowel sounds present, Soft to palpation, non-tender and no masses INSPECTION: Yes normal to inspection PALPATION: Yes Soft to palpation : COMMON NORMALS: Yes no CVA tenderness BLADDER/KIDNEY EXAM: Yes no CVA tenderness Back/Pelvis: COMMON NORMALS: no CVA tenderness, thoracic and lumbar spine normal to inspection, no thoracic nor lumbar tenderness and thoraco-lumbar ROM normal Extremity: COMMON NORMALS: normal to inspection, full ROM, capillary refill normal, no joint enlargement and no pedal edema GENERAL: Yes normal exam except as noted Neuro: COMMON NORMALS: patient oriented x3, CN's II-XII intact bilaterally, moves all extremities, no focal motor deficits, no sensory deficits noted and gait normal SENSORIUM/ORIENTATION: Yes alert, Yes oriented to person, Yes oriented to place and Yes oriented to time MENINGEAL SIGNS: Yes no meningeal signs Psych: COMMON NORMALS: mental status grossly normal, Normal thought process present, cooperative, normal affect and speech normal APPEARANCE: Yes well kempt ATTITUDE: Yes calm SPEECH: Yes normal speech THOUGHT PROCESS: Normal thought process present Skin: COMMON NORMALS: no rashes or lesions noted GENERAL SKIN EXAM: no rashes or lesions noted Course Vital Signs: Vital signs: Vital Signs Temperature 97.8 F 05/12/20 15:59 Pulse Rate 103 H 05/12/20 20:16 Respiratory Rate 16 05/12/20 20:16 Blood Pressure 92/54 05/12/20 20:16 Pulse Oximetry 99 05/12/20 20:16 MDM - General Adult MDM Narrative: Medical decision making narrative: The patient came in with a 6 5 ET tube. I consulted ENT who helped me change the ET tube back to a tracheostomy tube. He is more comfortable and resting now. Discussed with Dr. Miguel who accepts to ICU. He has been saturating well during his stay here. There was no bleeding complication during the switching of the ET tube to the tracheostomy tube. He has been mildly hypotensive likely related to the Versed and also having a white count of 20 able with bilateral pneumonia. This is likely aspiration pneumonia from the blood or other pathology. However he is stable for admission. Pulm Dr. Farfan discussed case with him and he will follow for trach care. Admit to ICU. Lab Data: Labs: Lab Results 05/12/20 05/12/20 05/12/20 Range/Units 16:32 16:46 16:46 WBC 21.6 H (4.0-10.0) 10^3/ uL RBC 3.45 L (4.1-5.3) 10^6/u L Hgb 9.9 L (11.7-16.6) g/dL Hct 32.0 L (42.0-52.0) % MCV 92.8 (80-94) fL MCH 28.7 (28.0-34.0) pg MCHC 30.9 (30.0-36.0) g/dL RDW 14.6 (12.1-15.1) % Plt Count 493 H (130-400) 10^3/c mm MPV 8.3 (7.4-10.4) fL Neut % (Auto) 84.4 % Lymph % (Auto) 5.2 % Cass % (Auto) 7.2 % Eos % (Auto) 0.0 % Baso % (Auto) 0.5 % Neut # (Auto) 18.17 H (1.8-7.7) 10^3/u L Lymph # (Auto) 1.1 (0.8-4.8) 10^3/u L Cass # (Auto) 1.6 H (0.2-0.9) 10^3/u L Eos # (Auto) 0.0 (0.0-0.8) 10^3/u L Baso # (Auto) 0.1 (0.0-0.1) 10^3/u L Nucleated RBC % (a uto) 0 % Nucleated RBCs # 0.0 /100WBC PT 16.80 H (12.1-14.9) SECO NDS INR 1.31 H (0.8-1.2) Specimen Type Arterial Sample Site Radial, left ABG pH 7.39 (7.35-7.45) ABG pCO2 48.1 H (35-45) mmHg ABG pO2 91.3 (80.0-100.0) mmH g ABG HCO3 29.1 H (22-26) mmol/L ABG Base Excess 3.5 H (-2.0-2.0) mmol/ L Tarik Test Pos Hematocrit 32.9 L (42-52) % O2 Delivery Device Hag FiO2 40.0 % Returned Goods Receiving Clerk ID Cak Sodium (136-145) mmol/L Potassium (3.5-5.1) mmol/L Chloride (98-107) mmol/L Carbon Dioxide (22-29) mmol/L Anion Gap (5-19) BUN (8-23) mg/dL Creatinine (0.7-1.2) mg/dL GFR Calculation (90-130) mL/min Glucose (65-115) mg/dL Calculated Osmolal ity (285-295) mOsm/k g Lactate (0.5-2.2) mmol/L Calcium (8.5-10.5) mg/dL Total Bilirubin (0.15-1.2) mg/dL AST (0-40) U/L ALT (0-41) U/L Alkaline Phosphata se (40-130) IU/L Troponin T Baselin e (0-15) ng/L Troponin T 120 Min [place] (0-15) ng/L Delta Troponin T (0-10) ABS# NT-Pro-B Natriuret Pep (0-125) pg/mL Total Protein (6.6-8.7) g/dL Albumin (3.5-5.2) g/dL Globulin (1.3-4.6) g/dL Blood Type Rho(D) Type Antibody Screen 05/12/20 05/12/20 05/12/20 Range/Units 16:46 16:46 16:46 WBC (4.0-10.0) 10^3/ uL RBC (4.1-5.3) 10^6/u L Hgb (11.7-16.6) g/dL Hct (42.0-52.0) % MCV (80-94) fL MCH (28.0-34.0) pg MCHC (30.0-36.0) g/dL RDW (12.1-15.1) % Plt Count (130-400) 10^3/c mm MPV (7.4-10.4) fL Neut % (Auto) % Lymph % (Auto) % Cass % (Auto) % Eos % (Auto) % Baso % (Auto) % Neut # (Auto) (1.8-7.7) 10^3/u L Lymph # (Auto) (0.8-4.8) 10^3/u L Cass # (Auto) (0.2-0.9) 10^3/u L Eos # (Auto) (0.0-0.8) 10^3/u L Baso # (Auto) (0.0-0.1) 10^3/u L Nucleated RBC % (a uto) % Nucleated RBCs # /100WBC PT (12.1-14.9) SECO NDS INR (0.8-1.2) Specimen Type Sample Site ABG pH (7.35-7.45) ABG pCO2 (35-45) mmHg ABG pO2 (80.0-100.0) mmH g ABG HCO3 (22-26) mmol/L ABG Base Excess (-2.0-2.0) mmol/ L Tarik Test Hematocrit (42-52) % O2 Delivery Device FiO2 % Returned Goods Receiving Clerk ID Sodium 138 (136-145) mmol/L Potassium 4.1 (3.5-5.1) mmol/L Chloride 101 (98-107) mmol/L Carbon Dioxide 27 (22-29) mmol/L Anion Gap 14.1 (5-19) BUN 12 (8-23) mg/dL Creatinine 0.6 L (0.7-1.2) mg/dL GFR Calculation 137.0 H (90-130) mL/min Glucose 125 H (65-115) mg/dL Calculated Osmolal ity 287 (285-295) mOsm/k g Lactate 1.0 (0.5-2.2) mmol/L Calcium 8.1 L (8.5-10.5) mg/dL Total Bilirubin 0.2 (0.15-1.2) mg/dL AST 14 (0-40) U/L ALT 13 (0-41) U/L Alkaline Phosphata se 109 (40-130) IU/L Troponin T Baselin e 58 H (0-15) ng/L Troponin T 120 Min [place] (0-15) ng/L Delta Troponin T (0-10) ABS# NT-Pro-B Natriuret Pep 1274 H (0-125) pg/mL Total Protein 5.8 L (6.6-8.7) g/dL Albumin 2.8 L (3.5-5.2) g/dL Globulin 3.0 (1.3-4.6) g/dL Blood Type Rho(D) Type Antibody Screen 05/12/20 05/12/20 Range/Units 17:00 18:54 WBC (4.0-10.0) 10^3/ uL RBC (4.1-5.3) 10^6/u L Hgb (11.7-16.6) g/dL Hct (42.0-52.0) % MCV (80-94) fL MCH (28.0-34.0) pg MCHC (30.0-36.0) g/dL RDW (12.1-15.1) % Plt Count (130-400) 10^3/c mm MPV (7.4-10.4) fL Neut % (Auto) % Lymph % (Auto) % Cass % (Auto) % Eos % (Auto) % Baso % (Auto) % Neut # (Auto) (1.8-7.7) 10^3/u L Lymph # (Auto) (0.8-4.8) 10^3/u L Cass # (Auto) (0.2-0.9) 10^3/u L Eos # (Auto) (0.0-0.8) 10^3/u L Baso # (Auto) (0.0-0.1) 10^3/u L Nucleated RBC % (a uto) % Nucleated RBCs # /100WBC PT (12.1-14.9) SECO NDS INR (0.8-1.2) Specimen Type Sample Site ABG pH (7.35-7.45) ABG pCO2 (35-45) mmHg ABG pO2 (80.0-100.0) mmH g ABG HCO3 (22-26) mmol/L ABG Base Excess (-2.0-2.0) mmol/ L Tarik Test Hematocrit (42-52) % O2 Delivery Device FiO2 % Returned Goods Receiving Clerk ID Sodium (136-145) mmol/L Potassium (3.5-5.1) mmol/L Chloride (98-107) mmol/L Carbon Dioxide (22-29) mmol/L Anion Gap (5-19) BUN (8-23) mg/dL Creatinine (0.7-1.2) mg/dL GFR Calculation (90-130) mL/min Glucose (65-115) mg/dL Calculated Osmolal ity (285-295) mOsm/k g Lactate (0.5-2.2) mmol/L Calcium (8.5-10.5) mg/dL Total Bilirubin (0.15-1.2) mg/dL AST (0-40) U/L ALT (0-41) U/L Alkaline Phosphata se (40-130) IU/L Troponin T Baselin e (0-15) ng/L Troponin T 120 Min [place] 7.04 (0-15) ng/L Delta Troponin T -50.96 L (0-10) ABS# NT-Pro-B Natriuret Pep (0-125) pg/mL Total Protein (6.6-8.7) g/dL Albumin (3.5-5.2) g/dL Globulin (1.3-4.6) g/dL Blood Type A Positive Rho(D) Type Positive Antibody Screen Negative Discharge Plan Discharge Patient Disposition: Admitted As Inpatient Clinical Impression: Aspiration pneumonia Condition: Stable Coding Level of Care Code ED Environmental Education Specialist for Lili Fwd Exam Comprehensive
[2020-05-12 21:41] LABS: Procalcitonin 0.82 ng/mL (0-0.5)
--- NOTE | 2020-05-12 22:00 | PM.HP ---
Providers/Chief Complaint Admitting Physician: Kate Christina MD Primary Care Provider: ESTHER Peña Chief Complaint: Pulled trach out History of Present Illness Hitesh Dai is a 60 year old male with a history of supraglottic malignancy with tracheostomy placement for airway maintenance. He has had a recent stroke. He has episodes of confusion and agitation and has had his tracheostomy tube come out or removed it himself a few times. Approximately a week ago he was found to have an extensive DVT. He was transferred to [facility] and ultimately discharged on treatment dose anticoagulation with either Lovenox or Eliquis. Today his tracheostomy tube again came out. EMS arrived and noted oozing of blood. They gave him Versed and placed to 6.0 ET tube into the tracheal stoma with some difficulty. Significant bleeding followed requiring frequent suctioning. He continued to have bright red blood noted around the tracheostomy site. He was initially hypotensive and found to have an elevated white count around 20,000. Chest x-ray showed new bilateral lower lobe infiltrates. No reported fevers although I am only able to get minimal history from him due to the degree of sedation. ENT was contacted and able to replace the ET tube with a 6.0 cuffed trach. Cuff was inflated. He has continued to have some oozing of bright red blood but is breathing better and the amount of bleeding has greatly decreased from descriptions. Tracheal secretions are more mucoid in nature now with some bright red streaks. A fair amount of blood was suctioned from the tracheal stoma during procedure. Mr. Lane received antibiotics in the emergency room. Lactic acid was normal. ENT will not be available for the next few days but according to ER physician Dr. Farfan with pulmonology is available for tracheostomy care should it be needed. I also spoke with Dr. Conrad, anesthesia and he is available for assistance if needed as well. An extra tracheostomy tube has been found and will be maintained at the bedside. Patient is being admitted to the ICU for close monitoring given high risk of unstable airway. Reviewing recent clinic notes it sounds like patient has previously been on Geodon but that it cannot be given via PEG tube which is led to increased episodes of confusion and agitation at home. Mr. Lane states that the tube just came out and does not really know what happened. Further history is obtained from review of recent records. Patient not able to provide much detail presently. Patient was seen in the emergency room on May 12 initially around 8:00 PM Review of Systems General: Reports: ROS unobtainable due to medical condition and ROS unobtainable due to mental status Medications/Allergies Home Medications Medication Instructions Recorded Confirmed Last Taken Type ipratropium-albuterol 3 ml INHALATION Q6H PRN #90 ml 04/09/20 05/11/20 Unknown Rx alprazolam 0.25 mg tablet 0.25 mg PO TID PRN 04/21/20 05/11/20 05/05/20 08:30 History oxygen home #1 ea 04/21/20 05/11/20 Unknown Rx trazodone 50 mg tablet 50 mg PO DAILY@04/21/20 05/11/20 05/04/20 History lorazepam 1 mg tablet 1 mg PO TID PRN tab 05/04/20 05/11/20 Unknown History Hta-Mrl-Jqiw Tab 1 tab PO DAILY 05/05/20 05/11/20 05/05/20 History Flomax 0.4 mg PO DAILY@05/05/20 05/11/20 05/05/20 08:30 History Lasix 10 mg PO DAILY@05/05/20 05/11/20 05/05/20 08:30 History Lipitor 40 mg PO DAILY@05/05/20 05/11/20 05/05/20 08:30 History Lunesta 1 mg PO DAILY@05/05/20 05/11/20 05/04/20 History albuterol sulfate [ProAir HFA] 2 puff INHALATION 6XD PRN 05/05/20 05/11/20 Unknown History ascorbic acid (vitamin C) [Vitamin 1,000 mg PO BID@05/05/20 05/11/20 05/05/20 08:30 History C] aspirin 325 mg PO DAILY@05/05/20 05/11/20 05/05/20 08:30 History cholecalciferol (vitamin D3) 25 mcg PO DAILY@05/05/20 05/11/20 05/05/20 08:30 History docusate sodium [DOK] 100 mg PO BID@05/05/20 05/11/20 05/05/20 08:30 History folic acid 1 mg PO BID@05/05/20 05/11/20 05/05/20 08:30 History metoprolol tartrate 12.5 mg PO BID@0800,2100 05/05/20 05/11/20 05/05/20 08:30 History pantoprazole [Protonix] 40 mg PO BID@05/05/20 05/11/20 05/05/20 08:30 History polyethylene glycol 3350 17 g PO BID@05/05/20 05/11/20 05/05/20 08:30 History potassium gluconate 595 mg PO DAILY@05/05/20 05/11/20 05/05/20 History prochlorperazine maleate 10 mg PO Q4H PRN 05/05/20 05/11/20 Unknown History sennosides-docusate sodium 2 tab PO BID PRN 05/05/20 05/11/20 05/05/20 History [Stimulant Laxative Plus] zinc gluconate 50 mg PO DAILY@05/05/20 05/11/20 05/05/20 08:30 History Allergies Allergy/AdvReac Type Severity Reaction Status Date / Time cephalexin [From Keflex] Allergy hives Verified 05/11/20 13:38 PFSH Acute PFSH: Medical History (Updated 05/13/20 @ 03:08 by Kate Christina MD) Acute psychosis (~03/2020) Anemia multifactorial related to inflammation and malignancy, anticoagulation, acute blood loss, no evidence gi losses as of 05/13/20 Cardiomyopathy (~03/2020) EF 45% COPD (chronic obstructive pulmonary disease) Degenerative disc disease DVT (deep venous thrombosis) (~05/2020) History of 2019 novel coronavirus disease (COVID-19) (~03/2020) History of stroke (~03/2020) right hemiparesis and increased confusion/psychosis, initially felt to be embolic, but may have been ischemic in nature 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 Began 1st cycle of cisplatin/etoposide. Developed neutropenia and anemia. Tobacco abuse Vitamin D deficiency Surgical History (Updated 05/13/20 @ 02:29 by Kate Christina MD) History of biopsy (~03/2020) supraglottic mass, Lino Port-A-Cath in place (~03/27/20) Dr Nelida WHITE S/P skin biopsy (~05/11/20) S/P tracheoplasty (~03/2020) Lino Status post cervical disc replacement Status post insertion of percutaneous endoscopic gastrostomy (PEG) tube (~03/2020) Lino Status post tonsillectomy Family History Brother Cancer Father Cancer Social History (Updated 05/13/20 @ 02:30 by Kate Christina MD) Smoking and tobacco status: former smoker Alcohol intake: never Household members: spouse Housing: Other Details: has home health Vitals/I&O/Wt Last Vital Signs Temp 97.1 F L 05/12/20 23:45 Pulse 85 05/12/20 23:45 Resp 25 H 05/12/20 23:45 BP 99/60 05/12/20 23:45 Pulse Ox 100 05/12/20 23:54 05/12/20 05/12/20 05/13/20 14:59 22:59 06:59 Intake Total 1450 / 1450 Balance 1450 / 1450 Weight last 48 hrs Weight 90.718 kg Physical Exam Const: OTHER: Lethargic, awakens to answer a question or 2 but then quickly back to sleep HENMT: OTHER: No evidence of trauma, dry lips and visible mucous membranes Eye: OTHER: Injected sclera, extraocular movements intact, pupils reactive Neck/C-Spine: OTHER: Supple, tracheostomy is currently intact with humidified oxygen. A ring of bright red mucus noted along the lower edge of the tracheostomy external hardware extending 2 mm with no drippage noted Resp: OTHER: Coarse breath sounds bilaterally particularly at the bases, tachypnea but no accessory muscle use, bright red blood streaked mucus noted Cardio: OTHER: Regular rhythm, heart sounds obscured by current breath sounds GI: OTHER: Abdomen is soft, PEG tube intact Extremity: NARRATIVE EXTREMITY EXAM: Right lower extremity is edematous compared to left lower extremity Neuro: OTHER: Face is symmetric, does move all extremities although the right side appears weaker than the left, not fully cooperative with neurological exam but does follow simple instructions presently Psych: OTHER: Oriented to person and place. Does not appear to recall what happened leading to his trach coming out or how he arrived here. Skin: OTHER: Dressing intact over shave biopsy site from right cheek yesterday. Skin is dry, chronic sun exposure changes noted, scattered ecchymoses. Other than at tracheostomy site no gross bleeding noted. Data : 05/12/20 16:46 05/12/20 16:46 Other Labs: Laboratory Last Values WBC 21.6 10^3/uL (4.0-10.0) H 05/12/20 16:46 RBC 3.45 10^6/uL (4.1-5.3) L 05/12/20 16:46 Hgb 9.9 g/dL (11.7-16.6) L 05/12/20 16:46 Hct 32.0 % (42.0-52.0) L 05/12/20 16:46 MCV 92.8 fL (80-94) 05/12/20 16:46 MCH 28.7 pg (28.0-34.0) 05/12/20 16:46 MCHC 30.9 g/dL (30.0-36.0) 05/12/20 16:46 RDW 14.6 % (12.1-15.1) 05/12/20 16:46 Plt Count 493 10^3/cmm (130-400) H 05/12/20 16:46 MPV 8.3 fL (7.4-10.4) 05/12/20 16:46 Neut % (Auto) 84.4 % 05/12/20 16:46 Lymph % (Auto) 5.2 % 05/12/20 16:46 [place] % (Auto) 7.2 % 05/12/20 16:46 Eos % (Auto) 0.0 % 05/12/20 16:46 Baso % (Auto) 0.5 % 05/12/20 16:46 Neut # (Auto) 18.17 10^3/uL (1.8-7.7) H 05/12/20 16:46 Lymph # (Auto) 1.1 10^3/uL (0.8-4.8) 05/12/20 16:46 [place] # (Auto) 1.6 10^3/uL (0.2-0.9) H 05/12/20 16:46 Eos # (Auto) 0.0 10^3/uL (0.0-0.8) 05/12/20 16:46 Baso # (Auto) 0.1 10^3/uL (0.0-0.1) 05/12/20 16:46 Nucleated RBC % (auto) 0 % 05/12/20 16:46 Nucleated RBCs # 0.0 /100WBC 05/12/20 16:46 PT 16.80 SECONDS (12.1-14.9) H 05/12/20 16:46 INR 1.31 (0.8-1.2) H 05/12/20 16:46 Specimen Type Arterial 05/12/20 16:32 Sample Site Radial, left 05/12/20 16:32 ABG pH 7.39 (7.35-7.45) 05/12/20 16:32 ABG pCO2 48.1 mmHg (35-45) H 05/12/20 16:32 ABG pO2 91.3 mmHg (80.0-100.0) 05/12/20 16:32 ABG HCO3 29.1 mmol/L (22-26) H 05/12/20 16:32 ABG Base Excess 3.5 mmol/L (-2.0-2.0) H 05/12/20 16:32 Tarik Test Pos 05/12/20 16:32 Hematocrit 32.9 % (42-52) L 05/12/20 16:32 O2 Delivery Device Hag 05/12/20 16:32 FiO2 40.0 % 05/12/20 16:32 Stakeholder Manager ID Cak 05/12/20 16:32 Sodium 138 mmol/L (136-145) 05/12/20 16:46 Potassium 4.1 mmol/L (3.5-5.1) 05/12/20 16:46 Chloride 101 mmol/L (98-107) 05/12/20 16:46 Carbon Dioxide 27 mmol/L (22-29) 05/12/20 16:46 Anion Gap 14.1 (5-19) 05/12/20 16:46 BUN 12 mg/dL (8-23) 05/12/20 16:46 Creatinine 0.6 mg/dL (0.7-1.2) L 05/12/20 16:46 GFR Calculation 137.0 mL/min (90-130) H 05/12/20 16:46 Glucose 125 mg/dL (65-115) H 05/12/20 16:46 Calculated Osmolality 287 mOsm/kg (285-295) 05/12/20 16:46 Lactic Acid 1.0 mmol/L (0.5-2.2) 05/12/20 21:05 Lactate 1.0 mmol/L (0.5-2.2) 05/12/20 16:46 Calcium 8.1 mg/dL (8.5-10.5) L 05/12/20 16:46 Total Bilirubin 0.2 mg/dL (0.15-1.2) 05/12/20 16:46 AST 14 U/L (0-40) 05/12/20 16:46 ALT 13 U/L (0-41) 05/12/20 16:46 Alkaline Phosphatase 109 IU/L (40-130) 05/12/20 16:46 Troponin T Baseline 58 ng/L (0-15) H 05/12/20 16:46 Troponin T 120 Minute 7.04 ng/L (0-15) 05/12/20 18:54 Delta Troponin T -50.96 ABS# (0-10) L 05/12/20 18:54 NT-Pro-B Natriuret Pep 1274 pg/mL (0-125) H 05/12/20 16:46 Total Protein 5.8 g/dL (6.6-8.7) L 05/12/20 16:46 Albumin 2.8 g/dL (3.5-5.2) L 05/12/20 16:46 Globulin 3.0 g/dL (1.3-4.6) 05/12/20 16:46 Procalcitonin 0.82 ng/mL (0-0.5) H 05/12/20 21:05 Blood Type A Positive 05/12/20 17:00 Rho(D) Type Positive 05/12/20 17:00 Antibody Screen Negative 05/12/20 17:00 Micro: Microbiology 05/12/20 21:07 Blood Culture - Preliminary Blood SPECIMEN COLLECTED 05/12/20 21:05 Blood Culture - Preliminary Blood SPECIMEN COLLECTED A&P Assessment and plan (1) Tracheostomy mechanical complication: Was either removed or became dislodged, has been a semirecurrent problem for patient during episodes of increased confusion and agitation since placement. Status: Acute (2) Acute respiratory distress: Secondary to above Status: Acute (3) Hemorrhage from tracheostomy stoma: Related to removal of tracheostomy tube, subsequent efforts to replace temporary airway and impact of anticoagulation Status: Acute (4) Aspiration pneumonia: Currently felt due to bleeding from tracheostomy site. Has been taking feeds via PEG tube but cannot rule out aspiration of gastric contents. Status: Acute Qualifiers: Aspiration pneumonia type: unspecified Laterality: bilateral Lung location: lower lobe of lung Qualified Code(s): J69.0 - Pneumonitis due to inhalation of food and vomit (5) Sepsis: With tachycardia, tachypnea, respiratory distress, leukocytosis at presentation have to keep sepsis in differential however could see similar abnormalities both clinically and in laboratory studies secondary to loss of appropriate airway. Lactic acid was normal. Has received initiation of empiric antibiotic therapy. Status: Acute Qualifiers: Sepsis type: sepsis due to unspecified organism Sepsis acute organ dysfunction status: unspecified Qualified Code(s): A41.9 - Sepsis, unspecified organism (6) Anticoagulated: Currently on either Lovenox or eliquis for recently diagnosed DVT. Had been previously prescribed Lovenox due to concern for intracardiac thrombus as source of an embolic stroke. Echocardiogram, limited study, done here in April did not show evidence of ventricular thrombus. Patient had drop in hemoglobin in early April during prior hospital stay and concern was for acute blood loss anemia. He received transfusion of 2 units of packed red blood cells then. Hemoccult of stool was negative x2 and review of records did not demonstrate gross bleeding otherwise that I could find. Around the same time, patient had completed first cycle of cisplatin and etoposide. Decision was made to stop full anticoagulation at that time out of concern for bleeding necessitating transfusion. But ultimately anticoagulation had to be resumed due to development of extensive DVT found last week. Status: Acute (7) DVT (deep venous thrombosis): Right lower extremity DVT involving right common femoral, femoral, popliteal, peroneal and posterior tibial veins with lack of color blood flow noted. This was identified on May 05. Was transferred to [facility]. Unclear if had any invasive management but resumed on anticoagulation. 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 Has received at least 1 cycle of cisplatin and etoposide. From what I can gather await dental extraction of remaining teeth before proceeding with cycle 2 and initiation of radiation therapy. Follows with Dr. Hernandez. Status: Chronic (10) Cardiomyopathy: With ejection fraction around 45% Status: Chronic Qualifiers: Cardiomyopathy type: unspecified Qualified Code(s): I42.9 - Cardiomyopathy, unspecified (11) Anemia: Has received a total of 4 units of packed red blood cells since first of the year with most recent being on May 05 when hemoglobin was found to be 7.6 off of anticoagulation. Anemia is multifactorial from bone marrow suppression related to chemotherapy at one point in time, development of anemia of chronic disease from comorbid conditions and treatment, illness in March and today potentially from acute blood loss due to trauma at tracheal stoma site. Stool Hemoccult has been negative x2 previously with no gross bleeding otherwise identified that I have been able to discern on review of records. 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 From what I can tell he has not had cognitive issues previously. He developed acute psychosis back in March when initially hospitalized for laryngeal mass. I do not know if this was related to medications, emotional response to cancer diagnosis, results of strokes that occurred that month or other process. No evidence of SECURITY INCIDENT RESPONSE ENGINEER metastases. He required recurrent doses of antipsychotics and other sedating medications back in March as well as physical restraint for safety. Sounds like he has been having some degree of sundowning at home that has been escalating lately due to difficulty with sleeping. He was seen at neurology clinic on April 26 for follow-up from the strokes that occurred in March. Dose of Geodon was increased and then however unable to give it via the PEG tube and from what I can gather he is not swallowing much orally anymore. Status: Chronic Additional A&P Information Inpatient admission ICU care at least initially until we ensure that he is not having ongoing bleeding from tracheostomy site Routine trach management Dr. Alejandra has recommended that the neck strap be tightened to within 1 finger breath around it to try to limit his ability to grab the strap and remove the trach going forward Dr. Conrad with anesthesia and Dr. Farfan with pulmonology are available if needed for any trach management during hospital stay; ENT is not on-call for the next few days nor available locally Will resume anticoagulation with treatment dose Lovenox in the morning, need to clarify if he is on Lovenox or Eliquis Monitor for drop in hemoglobin Continue antibiotics initiated in the emergency room Received IV fluids in the emergency room, will hold on continuing until we see how he does clinically Blood cultures Breathing treatments Consider steroids if no improvement in am or stress dose if hypotension develops Check procalcitonin Monitor volume status and need to administer diuretic therapy Strict I's and O's and daily weights Fall precautions May have to consider one-to-one sitter depending on how he does When able to get more information from need to clarify the cognitive challenges that have occurred. Patient has been seen here at [facility], up at [place] and now also at [facility]. Want to be certain that we have appropriately evaluated mental status changes and addressed them in an optimal fashion for patient and his . Lack of sleep can certainly exacerbate things. May be worthwhile to consider antidepressant therapy Continue low-dose anxiolytic Continue Flomax Continue beta-blockade and statin therapy Need to get further clarification of medications order accordingly Anticipate resumption of home health at discharge Supportive care otherwise Full code as per previous records although have not been able to specifically discuss with him this hospital stay Attestations Medical Necessity Statement*: Anticipated stay greater than 2 midnights in a patient on anticoagulation with bleeding after his tracheostomy tube came out and subsequently was found to have bilateral lower lobe opacities that are new from previous within the past month. Suspicion is aspiration of blood. He has lower range of normal blood pressures, leukocytosis, tachycardia and tachypnea suspicious for early findings of sepsis versus anticipated response to losing his airway. With comorbid conditions at high risk of rapid clinical decline without initiation of treatment and monitoring for progressive symptoms. Coding Level of Care Code Acute Obstetrics Teacher for Chg Fwd Diagnoses Tracheostomy mechanical complication J95.03 Acute respiratory distress R06.03 Hemorrhage from tracheostomy stoma J95.01 Aspiration pneumonia J69.0 Aspiration pneumonia type: unspecified Laterality: bilateral Lung location: lower lobe of lung Sepsis A41.9 Sepsis type: sepsis due to unspecified organism Sepsis acute organ dysfunction status: unspecified Anticoagulated Z79.01 DVT (deep venous thrombosis) I82.431 Affected thrombotic vein of extremity: popliteal Chronicity: acute DVT location: lower extremity Laterality: right COPD (chronic obstructive pulmonary disease) J44.9 COPD type: unspecified COPD Primary malignant neoplasm of supraglottis C32.1 Cardiomyopathy I42.9 Cardiomyopathy type: unspecified Anemia D64.9 Anemia type: unspecified type Feeding by G-tube Z93.1 Insomnia G47.00 Insomnia type: unspecified Cognitive changes R41.89
--- NOTE | 2020-05-12 22:12 | ECG_ITS ---
[facility] Test Date: 2020-05-12 Pat Name: Hitesh Dai Department: Room: ICU11 Gender: Male Night Coordinator: : 1960 Requested By: Pablito Chávez Order Number: [id number] Earnest MD: Vivian Khan M.D. Measurements Intervals [place] Rate: 94 P: 53 LA: 166 QRS: -2 QRSD: 92 T: 76 QT: 368 QTc: 462 Interpretive Statements SINUS RHYTHM INFERIOR MYOCARDIAL INFARCTION , OF INDETERMINATE AGE [40+ ms Q WAVE AND/OR ST/T ABNORMALITY IN II/aVF] Compared to ECG 05/12/2020 18:14:57 T-wave abnormality no longer present Possible ischemia no longer present Myocardial infarct finding still present Electronically Signed On 05-13-2020 7:33:04 EXPLOSIVE ORDNANCE HANDLER by Vivian Khan M.D. [email or web address]
--- NOTE | 2020-05-12 22:58 | PC.NURSE ---
EKG done at 2247 and shown to ER doctor
--- NOTE | 2020-05-12 23:20 | PC.NURSE ---
Deaccessed right chest port and reaccessed due to unable to flush port and line was not able to be used due to blood clotting in the line. patient port accessed with success with saline locked.
[2020-05-12 23:33] LABS: Troponin 5 6HR 62.98 ng/L (0-15); Troponin 5 6HR Delta 4.98 ng/L (0-12)
--- NOTE | 2020-05-12 23:51 | PC.NURSE ---
Patient arrived to ICU from ED at 2325.
[2020-05-13] VITALS (81 sets, daily range): BP systolic 90–123; BP diastolic 42–72; PULSE 84–110; RESP 16–33; TEMP 36.8–36.9; O2SAT 92–100
[2020-05-13] MEDS: vancomycin 1,500 MG/300 ML PIGGYBACK 200 MG IV ×3 (01:16→17:39)
[2020-05-13] MEDS: piperacillin-tazobactam 3.375 GM in sodium chloride 0.9% (plus) 50 ML IV ×3 (02:14→17:53)
[2020-05-13] MEDS: enoxaparin 100 mg/mL Syringe 90 MG SUBCUT ×2 (06:52→17:53)
--- NOTE | 2020-05-13 09:00 | PC.NURSE ---
called via phone Per , pt gets osmolite 1.5 tara 7x/a day via bolus feeding. She stated he gets 2 cans at meal times and extra in between. notified.
--- NOTE | 2020-05-13 09:17 | PM.PN ---
Subjective Subjective: Interval history: Admitted overnight. This morning on examination patient lying comfortably in bed. Is on tracheostomy with 9 L HAG saturating 97%. He is able to communicate with me by writing on chart. He states he is not really sure how tracheostomy came out. Denies any nausea, vomiting, headache, definite is present. He states he gets PEG tube feeds and they are trying to increase his weight at present so that he can qualify for surgery. He denies any pain at present. Patient has remained hemodynamically stable and afebrile overnight. Vitals/I&O/Wt Last Vital Signs Temp 97.1 F L 05/12/20 23:45 Pulse 97 05/13/20 08:56 Resp 20 H 05/13/20 08:56 BP 104/58 05/13/20 08:33 Pulse Ox 94 05/13/20 08:56 05/12/20 05/13/20 05/13/20 22:59 06:59 14:59 Intake Total 1450 / 1450 350 / 1800 Output Total 350 / 350 Balance 1450 / 1450 0 / 1450 Weight last 48 hrs Weight 90.718 kg Physical Exam Narrative: EXAM NARRATIVE: General: No acute distress, AO x 2-3, tracheostomy in place HEENT: PERRLA, pupils bilaterally equal and reactive Chest: Bronchial breath sound bilaterally, occasional rhonchi bilaterally, coarse crackles present to the right mid and lower zone, equal good air entry bilaterally CVS: S1-S2 regular, no murmurs, no tachycardia, no gallops, no rubs Abdomen: Soft, nontender, no organomegaly, bowel sounds present Neuro: No focal deficits, no facial deformity, AO x 2-3, power 5/5 in all limbs, communicating through writing on the paper because of tracheostomy. Data : 05/13/20 09:53 05/13/20 09:53 Other Labs: Laboratory Results Impressions Chest X-Ray 05/12/20 16:05 Impression: 1. Development of bilateral lower lobe opacities which may represent acute pneumonia. 2. No change in tracheal tube and right Port-A-Cath. Chest CT 05/13/20 10:30 IMPRESSION: 1. Advanced chronic emphysematous changes. Volume loss right lower lobe. 2. Compressive atelectasis with air bronchograms in the right lower lobe posteriorly. Recommend correlation for aspiration pneumonia. 3. A few patchy infiltrates within the right upper lobe along the fissure and right upper lobe anteriorly. Recommend correlation for pneumonitis. Infiltrates are new since March 08, 2020 4. Tracheostomy. 5. No mediastinal or hilar lymphadenopathy. 6. Cholelithiasis. 7. Right adrenal lesion measuring 2.5 cm likely adenoma unchanged since March 08, 2020. Neck CT 05/13/20 10:30 IMPRESSION: 1. Tracheostomy appears in good position. No subglottic airway narrowing. 2. Again seen is the bulky supra glottic circumferential neoplasm which appears progressed compared to March 2020. This results in high-grade supraglottic stenosis similar to the prior examinations. 3. Bulky bilateral cervical lymphadenopathy also progressed from March 2020. 4. Previous postoperative changes in the cervical spine with ACDF C5-C6. Pertinent Labs During Stay 05/12/20 05/12/20 05/13/20 16:46 21:05 09:53 Iron 27 L TIBC 142 % Saturation 19.0 L NT-Pro-B Natriuret Pep 1274 H Procalcitonin 0.82 H 1.11 H TSH 05/13/20 09:53 Iron TIBC % Saturation NT-Pro-B Natriuret Pep Procalcitonin TSH 1.08 Micro: Microbiology 05/12/20 21:07 Blood Culture - Preliminary Blood SPECIMEN COLLECTED 05/12/20 21:05 Blood Culture - Preliminary Blood SPECIMEN COLLECTED A&P Assessment and plan (1) Tracheostomy mechanical complication: Was either removed or became dislodged, has been a semirecurrent problem for patient during episodes of increased confusion and agitation since placement. Status: Acute (2) Acute respiratory distress: Secondary to above Status: Acute (3) Anticoagulated: Status: Acute (4) Hemorrhage from tracheostomy stoma: Related to removal of tracheostomy tube, subsequent efforts to replace temporary airway and impact of anticoagulation Status: Acute (5) Aspiration pneumonia: Currently felt due to bleeding from tracheostomy site. Has been taking feeds via PEG tube but cannot rule out aspiration of gastric contents. Status: Acute Qualifiers: Aspiration pneumonia type: unspecified Laterality: bilateral Lung location: lower lobe of lung Qualified Code(s): J69.0 - Pneumonitis due to inhalation of food and vomit (6) Sepsis: With tachycardia, tachypnea, respiratory distress, leukocytosis at presentation have to keep sepsis in differential however could see similar abnormalities both clinically and in laboratory studies secondary to loss of appropriate airway. Lactic acid was normal. Has received initiation of empiric antibiotic therapy. Status: Acute Qualifiers: Sepsis acute organ dysfunction status: unspecified Sepsis type: sepsis due to unspecified organism Qualified Code(s): A41.9 - Sepsis, unspecified organism (7) DVT (deep venous thrombosis): Right lower extremity DVT involving right common femoral, femoral, popliteal, peroneal and posterior tibial veins with lack of color blood flow noted. This was identified on May 05. Was transferred to [facility]. Unclear if had any invasive management but resumed on anticoagulation. 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 Has received at least 1 cycle of cisplatin and etoposide. From what I can gather await dental extraction of remaining teeth before proceeding with cycle 2 and initiation of radiation therapy. Follows with Dr. Hernandez. Status: Chronic (10) Cardiomyopathy: With ejection fraction around 45% Status: Chronic Qualifiers: Cardiomyopathy type: unspecified Qualified Code(s): I42.9 - Cardiomyopathy, unspecified (11) Anemia: Status: Chronic Qualifiers: Anemia type: unspecified type Qualified Code(s): D64.9 - Anemia, unspecified (12) Feeding by G-tube: Status: Chronic (13) Insomnia: Has been exacerbated by difficulties taking usual medications via PEG tube from what I can gather and review of notes Status: Chronic Qualifiers: Insomnia type: unspecified Qualified Code(s): G47.00 - Insomnia, unspecified (14) Cognitive changes: 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 From what I can tell he has not had cognitive issues previously. He developed acute psychosis back in March when initially hospitalized for laryngeal mass. I do not know if this was related to medications, emotional response to cancer diagnosis, results of strokes that occurred that month or other process. No evidence of [employer] metastases. He required recurrent doses of antipsychotics and other sedating medications back in March as well as physical restraint for safety. Sounds like he has been having some degree of sundowning at home that has been escalating lately due to difficulty with sleeping. He was seen at neurology clinic on April 26 for follow-up from the strokes that occurred in March. Dose of Geodon was increased and then however unable to give it via the PEG tube and from what I can gather he is not swallowing much orally anymore. Status: Chronic Additional A&P Information Primary malignant neoplasm of supraglottis post tracheostomy: Admitted with mechanical complication: Pathology removed or got dislodged. Patient follows up with Dr. Hernandez. Has received chemoradiation. Tracheostomy placed in yesterday by ENT. Currently in place. Oxygen supplementation keeping saturation over 92%. Tracheostomy care. We will consult pulmonology for further tracheostomy care. Patient already has an extra trach collar at bedside if needed. We will get CT neck without contrast to the extent of the mass. Careful suction going forward because patient is on anticoagulation and quite possible that masses fragile because of anticoagulation. Acute hypoxic respiratory failure: Secondary to above along with possible aspiration pneumonia. Most likely secondary to aspirating blood or gastric content yesterday. Patient has elevated white count and procalcitonin. CT chest while patient is getting CT neck without contrast. For now continue patient with vancomycin and Zosyn. Stop levofloxacin. Check sputum culture from tracheostomy, urine Legionella, bacterial antigen, MRSA swab. Follow-up blood culture and urine culture. Recent history of DVT: Anticoagulated: For now continue with Lovenox 90 mg every 12 hourly. Monitor hemoglobin. We will request documents from [facility] regarding DVT. No concerns for PE at present. Anemia: Multifactorial because of bone marrow suppression related to chemotherapy, anemia of acute blood loss from tracheostomy site yesterday. Hemoglobin stable at present. Check iron panel, vitamin B12, folate, reticulocyte count. Patient had drop in hemoglobin in early April during prior hospital stay and concern was for acute blood loss anemia. He received transfusion of 2 units of packed red blood cells then. Hemoccult of stool was negative x2 and review of records did not demonstrate gross bleeding otherwise that I could find. Around the same time, patient had completed first cycle of cisplatin and etoposide. Decision was made to stop full anticoagulation at that time out of concern for bleeding necessitating transfusion. But ultimately anticoagulation had to be resumed due to development of extensive DVT found last week. Feeding PEG tube: Seems to be clogged at present. Will try to unclog it with soda as per protocol. Dietary consultation. For now start patient on home PEG tube feeds to can bolus 3 times a day with 100 cc free water flush once able to access the PEG tube. If PEG tube not working will consult surgery for further assistance. We will consult pulmonology for further assistance with tracheostomy. Unfortunately ENT is not available throughout the week. If any concerns for increasing mass or difficulty with tracheostomy care will most likely need to transfer patient to higher center with ENT available 24 x 7. Full code. Famotidine for PUD prophylaxis. Tube feeds. Attestations Medical Necessity Statement*: Patient requires further hospitalization for management of acute respiratory failure because of dislodging tracheostomy tube with acute blood loss anemia from tracheostomy site while he is fully anticoagulated for recent history of DVT with baseline history of malignant neoplasm of supraglottis. Time Spent in Patient Care: Greater than 35 minutes (>than 50% of time spent in counselling and/or direct pt care on unit). Coding Level of Care Code [employer] for Chg Fwd Diagnoses Tracheostomy mechanical complication J95.03 Acute respiratory distress R06.03 Anticoagulated Z79.01 Hemorrhage from tracheostomy stoma J95.01 Aspiration pneumonia J69.0 Aspiration pneumonia type: unspecified Laterality: bilateral Lung location: lower lobe of lung Sepsis A41.9 Sepsis acute organ dysfunction status: unspecified Sepsis type: sepsis due to unspecified organism DVT (deep venous thrombosis) I82.431 Affected thrombotic vein of extremity: popliteal Chronicity: acute DVT location: lower extremity Laterality: right COPD (chronic obstructive pulmonary disease) J44.9 COPD type: unspecified COPD Primary malignant neoplasm of supraglottis C32.1 Cardiomyopathy I42.9 Cardiomyopathy type: unspecified Anemia D64.9 Anemia type: unspecified type Feeding by G-tube Z93.1 Insomnia G47.00 Insomnia type: unspecified Cognitive changes R41.89
--- NOTE | 2020-05-13 09:30 | PC.NURSE ---
Addendum entered by Sb Uribe RN 05/13/20 15:23: add note: previous needle in the stacy cath does not have any blood return and has mild resistance upon flushing. Reason on de-accessing the old needle in and change to a non-coring needle 19 G. Original Note: Stacy cath de-access and access a new non-coring needle 19 G Sterile technique provided.
[2020-05-13 10:04] LABS: Basophils # 0.1 10^3/uL (0.0-0.1); Basophils % 0.6 %; Eosinophils % 0.1 %; Hemoglobin 9.7 g/dL (11.7-16.6); Lymphocytes # 1.4 10^3/uL (0.8-4.8); Lymphocytes % 9.6 %; Mean Corpuscular HGB Conc 31.3 g/dL (30.0-36.0); Mean Corpuscular Hemoglobin 28.4 pg (28.0-34.0); Mean Corpuscular Volume 90.9 fL (80-94); Mean Platelet Volume 8.6 fL (7.4-10.4); Monocytes # 0.7 10^3/uL (0.2-0.9); Monocytes % 5.2 %; Neutrophils # 11.82 10^3/uL (1.8-7.7); Neutrophils % 82.8 %; Nucleated Red Blood Cells % 0 %; Platelet Count 380 10^3/cmm (130-400); Red Blood Count 3.41 10^6/uL (4.1-5.3); Red Cell Distribution Width 14.6 % (12.1-15.1); White Blood Count 14.3 10^3/uL (4.0-10.0)
--- NOTE | 2020-05-13 10:14 | PC.NURSE ---
Checked PEG tube patency Flushed the tube and noted resistance and not draining. Instill an amount of soda to help break the clogged debris. stoma site is asymptomatic.
[2020-05-13 10:30] LABS: Procalcitonin 1.11 ng/mL (0-0.5); Thyroid Stimulating Hormone 1.08 uIU/mL (0.27-4.20)
--- NOTE | 2020-05-13 10:30 | CT_ITS ---
WS: [id number] CT NECK TECHNIQUE: Noncontrast CT of the neck with coronal and sagittal reformatted images. CLINICAL INFORMATION: trach, supra-glottic mass COMPARISON: CT neck March [address] March 18, 2020 PET/CT DLP: 1554.[address] scans at [facility] use at least one of these dose optimization techniques: automat ed exposure control; mA and/or kV adjustment per patient size (includes targeted exams where dose is matched to clinical indication); or iterative reconstruction. FINDINGS: Postoperative changes tracheostomy. Tracheostomy appears in normal position. No evidence of subglotti c narrowing. Large circumferential bulky supraglottic mass results in high-grade supraglottic narrowi ng similar in appearance to the prior examinations. Bulky circumferential neoplasm appears progressed since March 2020. Normal glottis. Mastoid air cells and paranasal sinuses are well aerated. Partially visualized intracranial contents are unremarkable. Bulky bilateral cervical lymphadenopathy. This appears progressed from the prior ex aminations. Advanced chronic emphysematous changes lung apices with partially visualized fibrosis in the right up per lobe. Prior postoperative changes in the cervical spine with ACDF C5-6. CT/CT neck wo con [id number] IMPRESSION: 1. Tracheostomy appears in good position. No subglottic airway narrowing. 2. Again seen is the bulky supra glottic circumferential neoplasm which appear s progressed compared to March 2020. This results in high-grade supraglottic stenosis similar to the prior examinations. 3. Bulky bilateral cervical lymphadenopathy also progressed from March 2020 . 4. Previous postoperative changes in the cervical spine with ACDF C5-C6.
--- NOTE | 2020-05-13 10:30 | CT_ITS ---
WS: [id number] CT CHEST TECHNIQUE: Noncontrast CT of the chest with coronal and sagittal reformatted images. CLINICAL INFORMATION: PNA, possible aspiration COMPARISON: March 08, 2020 DLP: 1063.[address] scans at [facility] use at least one of these dose optimization techniques: automat ed exposure control; mA and/or kV adjustment per patient size (includes targeted exams where dose is matched to clinical indication); or iterative reconstruction. FINDINGS: Advanced chronic emphysematous changes. Bibasilar atelectasis. Compressive atelectasis in right lower lobe with a few air bronchograms. Recommend correlation for aspiration pneumonia. Patchy infiltrates in the right upper lobe laterally along the fissure and right upper lobe anterior ly. Recommend correlation for pneumonitis. Normal caliber thoracic aorta. Aortic calcification. Tracheostomy. No axillary lymphadenopathy. No me diastinal or hilar lymphadenopathy. Right adrenal lesion likely adenoma measuring 2.5 cm. Left adrenal gland is normal. Fatty atrophy of the pancreas. Cholelithiasis. Moderate thoracic kyphosis. CT/CT chest wo con [id number] IMPRESSION: 1. Advanced chronic emphysematous changes. Volume loss right lower lobe. 2. Compressive atelectasis with air bronchograms in the right lower lobe poste riorly. Recommend correlation for aspiration pneumonia. 3. A few patchy infiltrates within the right upper lobe along the fissure and right upper lobe anteriorly. Recommend correlation for pneumonitis. Infiltrates are new since March 08, 2020 4. Tracheostomy. 5. No mediastinal or hilar lymphadenopathy. 6. Cholelithiasis. 7. Right adrenal lesion measuring 2.5 cm likely adenoma unchanged since [facility] 2019.
[2020-05-13 10:41] LABS: Alanine Aminotransferase 10 U/L (0-41); Albumin Level 2.9 g/dL (3.5-5.2); Alkaline Phosphatase 111 IU/L (40-130); Anion Gap 12.9 (5-19); Aspartate Amino Transferase 13 U/L (0-40); Blood Urea Nitrogen 12 mg/dL (8-23); Calcium 8.9 mg/dL (8.5-10.5); Carbon Dioxide 27 mmol/L (22-29); Chloride 101 mmol/L (98-107); Globulin 2.9 g/dL (1.3-4.6); Glucose 84 mg/dL (65-115); Iron 27 ug/dL (59-158); Osmolality Calculated 283 mOsm/kg (285-295); Potassium 3.9 mmol/L (3.5-5.1); Sodium 137 mmol/L (136-145); Total Bilirubin 0.4 mg/dL (0.15-1.2); Total Iron Binding Capacity 142 mcg/dl; Total Protein 5.8 g/dL (6.6-8.7); Unsaturated Iron Binding 115 ug/dL (112-347)
--- NOTE | 2020-05-13 11:13 | PC.NURSE ---
Checked patency of the PEG tube Tried to drain it again. and flushed with a soda. still with resistance.
--- NOTE | 2020-05-13 12:00 | PC.NURSE ---
Checked patency of the PEG tube After flushing with 50 cc of lukewarm water, PEG tube is flushed with good patency. no resistance noted at this time. Notified
[2020-05-13] MEDS: ipratropium-albuterol 3 mL Neb INHALATION (13:20)
[2020-05-13] MEDS: famotidine 20 mg Tablet PEG-TUBE ×2 (13:43→17:53)
[2020-05-13] MEDS: atorvastatin 40 mg Tablet PT (13:47)
[2020-05-13] MEDS: metoprolol tartrate 25 mg Tablet 12.5 MG PEG-TUBE (13:48)
--- NOTE | 2020-05-13 14:34 | PC.NURSE ---
Osmolite 1.5 tara brought by 21 cans of 237 ml Osmolite 1.5 tara in a box. Initiated the feeding after verifying feeding tube order schedule from the doctor. flushed with 100 ml of water. Tube feeding went well.
--- NOTE | 2020-05-13 17:45 | P.CONIM_ITS ---
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 Patient is on Eliquis for his right lower extremity DVT. ENT able to replace the ET tube with 6.0 cuffed trach and patient was admitted to ICU for close monitoring. He was started on vancomycin and Zosyn for possible sepsis due to tachycardia, tachypnea, respiratory distress, leukocytosis and chest x-ray showing bilateral lower lobe infiltrates. Pulmonary consulted to manage with tracheostomy care In March 2021 at [facility]; he underwent tracheostomy placement and biopsy of the mass with pathology showing invasive poorly differentiated carcinoma felt to be most consistent with small cell neuroendocrine carcinoma. He also underwent placement of PEG tube. His staging PET/CT on 03/18/2020 showed primary malignancy in the supraglottic larynx with local regional cervical lymph node involvement, indeterminate and sigmoid colon. His brain MRI showed multiple infarcts which were presumed to be embolic. There was suspected left ventricular thrombus. Initial echocardiogram had shown evidence of cardiomyopathy with severe hypokinesis of mid and apical septum and anteroseptal segments and with decreased event left ventricular ejection fraction at 45%. He began on anticoagulation with Lovenox and he developed right hemiparesis. Patient received 1 cycle of chemotherapy with cisplatin/etoposide. Later clinical course complicated by development of COVID-19 virus infection and had a limited course of treatment with remdesivir. Due to drop in hemoglobin it was opted to stop his Lovenox and limit further anticoagulation to full dose aspirin and discharged home on 04/09/2020. Patient used to smoke cigarettes 2 pack/day daily. Today morning patient seen in ICU Minimal minimal bleeding noted at the tracheostomy site Saturating 97% on 9 L trach collar Patient did not appear to be in any respiratory distress He did not know how the trach came out yesterday [facility] Review of Systems General: Reports: 10 or more systems reviewed and unremarkable except in HPI and below Meds/Allergies Home Medications and Allergies Home Medications Medication Instructions Recorded Confirmed Last Taken Type ipratropium-albuterol 3 ml INHALATION Q6H PRN #90 ml 04/09/20 05/13/20 Unknown Rx alprazolam 0.25 mg tablet 0.25 mg PO TID PRN 04/21/20 05/13/20 05/05/20 08:30 History oxygen home #1 ea 04/21/20 05/13/20 Unknown Rx trazodone 50 mg tablet 50 mg PO DAILY@04/21/20 05/13/20 05/12/20 History lorazepam 1 mg tablet 1 mg PO TID PRN tab 05/04/20 05/13/20 Unknown History Ukv-Hbk-Vrsu Tab 1 tab PO DAILY 05/05/20 05/13/20 05/12/20 History albuterol sulfate [ProAir HFA] 2 puff INHALATION 6XD PRN 05/05/20 05/13/20 Unknown History ascorbic acid (vitamin C) [Vitamin 1,000 mg PO BID@05/05/20 05/13/20 05/12/20 History C] aspirin 325 mg PO DAILY@05/05/20 05/13/20 05/12/20 History atorvastatin [Lipitor] 40 mg PO DAILY@05/05/20 05/13/20 05/12/20 History cholecalciferol (vitamin D3) 25 mcg PO DAILY@05/05/20 05/13/20 05/12/20 History docusate sodium [DOK] 100 mg PO BID@05/05/20 05/13/20 05/12/20 History eszopiclone [Lunesta] 1 mg PO DAILY@05/05/20 05/13/20 05/12/20 History folic acid 1 mg PO BID@05/05/20 05/13/20 05/12/20 History furosemide [Lasix] 10 mg PO DAILY@05/05/20 05/13/20 05/12/20 History metoprolol tartrate 12.5 mg PO BID@0800,2100 05/05/20 05/13/20 05/12/20 History pantoprazole [Protonix] 40 mg PO BID@05/05/20 05/13/20 05/12/20 History polyethylene glycol 3350 17 g PO BID@05/05/20 05/13/20 05/12/20 History potassium gluconate 595 mg PO DAILY@05/05/20 05/13/20 05/12/20 History prochlorperazine maleate 10 mg PO Q4H PRN 05/05/20 05/13/20 Unknown History sennosides-docusate sodium 2 tab PO BID PRN 05/05/20 05/13/20 05/05/20 History [Stimulant Laxative Plus] tamsulosin [Flomax] 0.4 mg PO DAILY@05/05/20 05/13/20 05/12/20 History zinc gluconate 50 mg PO DAILY@05/05/20 05/13/20 05/12/20 History apixaban [Eliquis] 10 mg PO BID 05/13/20 05/13/20 05/12/20 History sucralfate 1 g PO BID 05/13/20 05/13/20 05/12/20 History ziprasidone HCl 20 mg PO BEDTIME 05/13/20 05/13/20 05/12/20 History Allergies Allergy/AdvReac Type Severity Reaction Status Date / Time cephalexin [From Keflex] Allergy hives Verified 05/11/20 13:38 Current Medications Current Medications Generic Name Dose Route Start Last Admin Trade Name Freq PRN Reason Stop Dose Admin Albuterol/Ipratropium 3 ml 05/12/20 23:56 05/13/20 13:20 Ipratropium-Albuterol 3 Ml Neb INHALATION 3 ml Q6H PRN Administration SHORTNESS OF BREATH Atorvastatin Calcium 40 mg 05/13/20 09:00 05/13/20 13:47 Atorvastatin 40 Mg Tablet PT 40 mg DAILY EKVIN Administration Docusate Sodium 100 mg 05/13/20 09:00 05/13/20 11:51 Docusate Sodium 10 Mg/Ml (5ml) Liq PEG-TUBE Not Given BID KEVIN Enoxaparin Sodium 90 mg 05/13/20 06:00 05/13/20 06:52 Enoxaparin 100 Mg/Ml Syringe 1 mg/kg (90 mg) 90 mg SUBCUT Administration Q12H KEVIN Famotidine 20 mg 05/13/20 11:00 05/13/20 13:43 Famotidine 20 Mg Tablet PEG-TUBE 20 mg BID KEVIN Administration Piperacillin Sod/Tazobactam 50 mls @ 12.5 mls/hr 05/13/20 02:00 05/13/20 14:40 Sod 3.375 gm/ Sodium Chloride IV Infused Q8H KEVIN Infusion Protocol Vancomycin/PEG/NADA/Lysine/Water 1,500 mg in 300 mls @ 200 mls/hr 05/13/20 01:00 05/13/20 17:39 Vancocin IV 200 mls/hr Q8H KEVIN Administration Metoprolol Tartrate 12.5 mg 05/13/20 09:00 05/13/20 13:48 Metoprolol Tartrate 25 Mg Tablet PEG-TUBE 12.5 mg BID@0900,2100 KEVIN Administration Tamsulosin HCl 0.4 mg 05/13/20 09:00 05/13/20 11:51 Tamsulosin 0.4 Mg Capsule PEG-TUBE Not Given DAILY KEVIN PFSH Acute PFSH: Medical History Acute psychosis (~03/2020) Anemia multifactorial related to inflammation and malignancy, anticoagulation, acute blood loss, no evidence gi losses as of 05/13/20 Cardiomyopathy (~03/2020) EF 45% with severe hypokinesis of the mid and apical septum and anteroseptal segments on echocardiogram done on March 2020. 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 Began 1st cycle of cisplatin/etoposide. Developed neutropenia and anemia. Tobacco abuse Vitamin D deficiency Surgical History History of biopsy (~03/2020) supraglottic mass, [facility] Port-A-Cath in place (~03/27/20) Dr Nelida WHITE S/P skin biopsy (~05/11/20) S/P tracheoplasty (~03/2020) Lino Status post cervical disc replacement Status post insertion of percutaneous endoscopic gastrostomy (PEG) tube (~03/2020) Lino Status post tonsillectomy Family History Brother Cancer Father Cancer Social History Smoking and tobacco status: former smoker Alcohol intake: never Household members: spouse Housing: Other Details: has home health Vitals/I&O/Wt Last Vital Signs Temp 97.1 F L 05/12/20 23:45 Pulse 96 05/13/20 16:00 Resp 18 05/13/20 16:00 BP 111/42 05/13/20 16:00 Pulse Ox 100 05/13/20 16:00 05/13/20 05/13/20 05/13/20 06:59 14:59 22:59 Intake Total 350 / 1800 924 / 924 Output Total 350 / 350 Balance 0 / 1450 924 / 924 Weight last 48 hrs Weight 200 lb Physical Exam Narrative: EXAM NARRATIVE: General: alert, NAD HEENT: conj clear, EOMI, PERRL, mmm, Neck: supple, no meningismus, 6.0 tracheostomy tube, minimal bleeding around the ostomy site Heme: no cervical LAP Pulmonary: Bilateral lower lobe crackles Cardiovascular: rrr, nl s1s2, no mrg Abdomen: soft, nt, nd, no r/g, bs+ Extremities: pulses +, no edema, no c/c : no CVA tenderness Skin: intact, no rash MSK: no back or neck pain Neurologic: Paralysis of right arm and right leg Data Micro: Micro: Microbiology 05/13/20 13:40 Gram Stain - Final Sputum - Expector ated Sputum 05/12/20 21:07 Blood Culture - Pr eliminary Blood SPECIMEN COLLE MAXI 05/12/20 21:05 Blood Culture - Pr eliminary Blood SPECIMEN [facility] [place] A&P Assessment and plan (1) Sepsis: Status: Acute Qualifiers: Sepsis type: sepsis due to unspecified organism Sepsis acute organ dysfunction status: unspecified Qualified Code(s): A41.9 - Sepsis, unspecified organism (2) Tracheostomy mechanical complication: Status: Acute (3) COPD (chronic obstructive pulmonary disease): Status: Chronic Qualifiers: COPD type: unspecified COPD Qualified Code(s): J44.9 - Chronic obstructive pulmonary disease, unspecified (4) DVT (deep venous thrombosis): Status: Acute Qualifiers: Affected thrombotic vein of extremity: popliteal Chronicity: acute DVT location: lower extremity Laterality: right Qualified Code(s): I82.431 - Acute embolism and thrombosis of right popliteal vein (5) Aspiration pneumonia: Status: Acute Qualifiers: Aspiration pneumonia type: unspecified Laterality: bilateral Lung location: lower lobe of lung Qualified Code(s): J69.0 - Pneumonitis due to inhalation of food and vomit (6) Tracheostomy in place: Status: Chronic (7) Primary malignant neoplasm of supraglottis: Status: Chronic (8) Cardiomyopathy: Status: Chronic Qualifiers: Cardiomyopathy type: unspecified Qualified Code(s): I42.9 - Cardiomyopathy, unspecified # 6.[address]-minimal bleeding around ostomy site #Multilobar pneumonia-likely aspiration #Cardiomyopathy with ejection fraction 45% on March 2020 echo #Right lower leg DVT of right common femoral, femoral, popliteal, peroneal and posterior tibial veins on anticoagulation #Chronic smoker with COPD #Basal cell carcinoma of right neck skin -Decreasing WBC, no fever spike, cultures negative so far -CT chest suggestive of multilobar pneumonia, likely aspiration; increased procalcitonin, -Continue vancomycin and Zosyn until final cultures -Continue Lovenox 90 mg daily we will-monitor for signs of bleeding and H/H -CT chest 05/13/2020: Advanced chronic emphysematous changes with volume loss in right lower lobe. Compressive atelectasis air bronchograms in RLL posteriorly. Few patchy infiltrates within the RUL along the fissure and RUL anteriorly. -CT neck 05/13/2020. Tracheostomy in good position no subglottic airway narrowing. Again seen bulky supraglottic circumferential neoplasm which appears progressed compared to March 2020. Bulky bilateral cervical lymphadenopathy also progressed from March 2020 -Currently on 9 L trach collar and patient saturating 97%-can taper her down FiO2 -DuoNeb nebulization every 6 hour and Pulmicort nebulization every 12 hours and discharged home with nebulizer -difficult to obtain PFTs as outpatient due to trach -Every 4 hour suctioning with normal saline to clear secretions -With EF 45% on previous echo-Lasix 20 mg p.o. daily -If patient is hemodynamically stable and leukocytosis and FiO2 requirements are improving patient can be discharged home with p.o. Augmentin and aspiration precautions. -For DVT-patient requires lifelong anticoagulation as he has underlying cancer; but again risk versus benefits needs to be assessed time to time while considering lifelong anticoagulation. With CT neck evidence of progression of supraglottic neoplasm, patient is definitely trach dependent. It appears he is at high risk of pulling his trach at the unintentional/accidental as it has happened before; but as the trach was placed 2 months ago there should be good granulation tissue and organized ostial opening which was unable to put the trach back, if patient is cooperative. Patient needs psychiatric evaluation with ongoing stage IV cancer and need to address coexisting depression. Recommendations discussed with RT/RN and hospitalist taking care of the patient Consult Attestations Medical Necessity Statement: Patient requires further hospitalization for management of acute respiratory failure because of dislodging tracheostomy tube with acute blood loss anemia from tracheostomy site while he is fully anticoagulated for recent history of DVT with baseline history of malignant neoplasm of supraglottis. Time Spent in Patient Care: Greater than 35 minutes (>than 50% of time spent in counselling and/or direct pt care on unit) . Critical Care Time: Critical Care Time (min): 45 Coding Level of Care Code New Pt Acute Hvac Service Manager for Chg Fwd Patient Type New History Comprehensive Exam Comprehensive Medical Decision Making High Complexity Diagnoses Sepsis A41.9 Sepsis type: sepsis due to unspecified organism Sepsis acute organ dysfunction status: unspecified Tracheostomy mechanical complication J95.03 COPD (chronic obstructive pulmonary disease) J44.9 COPD type: unspecified COPD DVT (deep venous thrombosis) I82.431 Affected thrombotic vein of extremity: popliteal Chronicity: acute DVT location: lower extremity Laterality: right Aspiration pneumonia J69.0 Aspiration pneumonia type: unspecified Laterality: bilateral Lung location: lower lobe of lung Tracheostomy in place Z93.0 Primary malignant neoplasm of supraglottis C32.1 Cardiomyopathy I42.9 Cardiomyopathy type: unspecified Time Spent (min) 45
[2020-05-13] MEDS: FUROsemide 20 mg Tablet PO (18:52)
[2020-05-13] MEDS: folic acid 1 mg Tablet PO (21:34)
[2020-05-13] MEDS: ascorbic acid 500 mg Tablet 1000 MG PO (21:34)
[2020-05-13] MEDS: trazodone 50 mg Tablet PO (21:34)
[2020-05-13] MEDS: ziprasidone hcl 20 mg Capsule PO (21:49)
[2020-05-14] VITALS (17 sets, daily range): BP systolic 95–155; BP diastolic 59–87; PULSE 84–100; RESP 18–23; TEMP 36.7–37.1; O2SAT 92–100; BMI 22.0
[2020-05-14 01:36] LABS: Add Urine Microscopic? NO
[2020-05-14 01:55] LABS: Bilirubin Urine Neg (Negative); Blood Urine Neg (Negative); Glucose Urine UA Norm (Normal); Ketones Urine Negative (Negative); Leukocyte Esterase Urine Negative (Negative); Nitrate Urine Negative (Negative); Protein Urine Neg (Negative); Specific Gravity, Urine 1.005 (1.005-1.030); Urine Appearance Clear (CLEAR); Urine Color Straw (Yellow); Urobilinogen Urine Norm (Negative); pH Urine 5 (5-7)
[2020-05-14 02:17] LABS: Vancomycin Trough 23.6 ug/mL (10-15)
[2020-05-14] MEDS: piperacillin-tazobactam 3.375 GM in sodium chloride 0.9% (plus) 50 ML IV ×2 (02:43→09:02)
[2020-05-14] MEDS: enoxaparin 100 mg/mL Syringe 90 MG SUBCUT (06:11)
[2020-05-14] MEDS: vancomycin 1,500 MG/300 ML PIGGYBACK 200 MG IV (06:11)
[2020-05-14 06:24] LABS: Add Urine Culture? No; Bacteria Urine TRACE /hpf; Bilirubin Urine Neg (Negative); Blood Urine Neg (Negative); Glucose Urine UA Norm (Normal); Ketones Urine Negative (Negative); Leukocyte Esterase Urine Negative (Negative); Nitrate Urine Negative (Negative); Protein Urine Neg (Negative); Specific Gravity, Urine 1.005 (1.005-1.030); Squamous Epithelial Cell Urine 0-4 /hpf (0-5); Urine Appearance Clear (CLEAR); Urine Color Yellow (Yellow); Urobilinogen Urine Norm (Negative); pH Urine 6 (5-7)
[2020-05-14] MEDS: zinc gluconate 50 mg Tablet PO (08:25)
[2020-05-14] MEDS: FUROsemide 20 mg Tablet PO (08:25)
[2020-05-14] MEDS: famotidine 20 mg Tablet PEG-TUBE (08:25)
[2020-05-14] MEDS: atorvastatin 40 mg Tablet PT (08:26)
[2020-05-14] MEDS: tamsulosin 0.4 mg Capsule PEG-TUBE (08:26)
[2020-05-14] MEDS: ascorbic acid 500 mg Tablet 1000 MG PO (08:28)
--- NOTE | 2020-05-14 09:50 | PC.NUTR ---
NUTR TF RECOMMENDATIONS: Pulmocare with goal rate of 55 ml/hr providing 1980 kcal (88%), 83 g PRO (101%), and 1036 ml fluid (46%)(%NEEDS). Suggest starting TF at 25 ml/hr and increase by 10 ml Q6H as tolerated till goal rate is met. Suggest H2O flushes of 180 ml Q4H to approach fluid needs or per physician. BOLUS: 5-6 cans daily total over 3 feedings with 1 and 3/4 cup H2O flush after each feeding.
[2020-05-14] MEDS: iron sucrose 200 MG in sodium chloride 0.9% (100 ml) 100 ML 220 MG IV (09:56)
--- NOTE | 2020-05-14 10:19 | P.PN_ITS ---
Subjective Subjective: Interval history: Admitted overnight. This morning on examination patient lying comfortably in bed. Is on tracheostomy with 9 L HAG saturating 97%. He is able to communicate with me by writing on chart. He states he is not really sure how tracheostomy came out. Denies any nausea, vomiting, headache, definite is present. He states he gets PEG tube feeds and they are trying to increase his weight at present so that he can qualify for surgery. He denies any pain at present. Patient has remained hemodynamically stable and afebrile overnight. Vitals/I&O/Wt Last Vital Signs Temp 98.4 F 05/14/20 04:00 Pulse 100 05/14/20 09:33 Resp 18 05/14/20 09:33 BP 115/72 05/14/20 07:00 Pulse Ox 94 05/14/20 09:33 05/13/20 05/14/20 05/14/20 22:59 06:59 14:59 Intake Total 624 / 1548 50 / 1598 874 / 874 Output Total 475 / 475 525 / 1000 400 / 400 Balance 149 / 1073 -475 / 598 474 / 474 Weight last 48 hrs Weight 82.1 kg Weight 82.1 kg Weight 90.718 kg Physical Exam Narrative: EXAM NARRATIVE: General: No acute distress, AO x 2-3, tracheostomy in place HEENT: PERRLA, pupils bilaterally equal and reactive Chest: Bronchial breath sound bilaterally, occasional rhonchi bilaterally, coarse crackles present to the right mid and lower zone, equal good air entry bilaterally CVS: S1-S2 regular, no murmurs, no tachycardia, no gallops, no rubs Abdomen: Soft, nontender, no organomegaly, bowel sounds present Neuro: No focal deficits, no facial deformity, AO x 2-3, power 5/5 in all limbs, communicating through writing on the paper because of tracheostomy. Data : 05/13/20 09:53 05/13/20 09:53 Micro: Microbiology 05/13/20 13:40 Gram Stain - Final Sputum - Expectorated Sputum Sputum Culture - Preliminary 05/13/20 02:03 Bacterial Antigens - Final Urine,Voided 05/13/20 02:03 Legionella Urinary Antigen - Final Urine,Voided 05/12/20 21:07 Blood Culture - Preliminary Blood NEGATIVE TO DATE 05/12/20 21:05 Blood Culture - Preliminary Blood NEGATIVE TO DATE A&P Assessment and plan (1) Tracheostomy mechanical complication: Was either removed or became dislodged, has been a semirecurrent problem for patient during episodes of increased confusion and agitation since placement . Status: Acute (2) Acute respiratory distress: Secondary to above Status: Acute (3) Anticoagulated: Status: Acute (4) Hemorrhage from tracheostomy stoma: Related to removal of tracheostomy tube, subsequent efforts to replace temporary airway and impact of anticoagulation Status: Acute (5) Aspiration pneumonia: Currently felt due to bleeding from tracheostomy site. Has been taking feeds via PEG tube but cannot rule out aspiration of gastric contents. Status: Acute Qualifiers: Aspiration pneumonia type: unspecified Laterality: bilateral Lung location: lower lobe of lung Qualified Code(s): J69.0 - Pneumonitis due to inhalation of food and vomit (6) Sepsis: With tachycardia, tachypnea, respiratory distress, leukocytosis at presentation have to keep sepsis in differential however could see similar abnormalities both clinically and in laboratory studies secondary to loss of appropriate airway. Lactic acid was normal. Has received initiation of empiric antibiotic therapy. Status: Acute Qualifiers: Sepsis type: sepsis due to unspecified organism Sepsis acute organ dysfunction status: unspecified Qualified Code(s): A41.9 - Sepsis, unspecified organism (7) DVT (deep venous thrombosis): Right lower extremity DVT involving right common femoral, femoral, popliteal, peroneal and posterior tibial veins with lack of color blood flow noted. This was identified on May 05. Was transferred to [facility]. Unclear if had any invasive management but resumed on anticoagulation. Status: Inactive Qualifiers: Affected thrombotic vein of extremity: popliteal Chronicity: acute DVT location: lower extremity Laterality: right Qualified Code(s): I82.431 - Acute embolism and thrombosis of right popliteal vein (8) COPD (chronic obstructive pulmonary disease): Not currently acute but at risk for exacerbation given aspiration event Status: Chronic Qualifiers: COPD type: unspecified COPD Qualified Code(s): J44.9 - Chronic obstructive pulmonary disease, unspecified (9) Primary malignant neoplasm of supraglottis: Diagnosed in March of last year. Has received at least 1 cycle of cisplatin and etoposide. From what I can gather await dental extraction of remaining teeth before proceeding with cycle 2 and initiation of radiation therapy. Follows with Dr. Hernandez. Status: Chronic (10) Cardiomyopathy: With ejection fraction around 45% Status: Chronic Qualifiers: Cardiomyopathy type: unspecified Qualified Code(s): I42.9 - Cardiomyopathy, unspecified (11) Anemia: Status: Chronic Qualifiers: Anemia type: unspecified type Qualified Code(s): D64.9 - Anemia, unspecified (12) Feeding by G-tube: Status: Chronic (13) Insomnia: Has been exacerbated by difficulties taking usual medications via PEG tube from what I can gather and review of notes Status: Chronic Qualifiers: Insomnia type: unspecified Qualified Code(s): G47.00 - Insomnia, unspecified (14) Cognitive changes: 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 From what I can tell he has not had cognitive issues previously. He developed acute psychosis back in March when initially hospitalized for laryngeal mass. I do not know if this was related to medications, emotional response to cancer diagnosis, results of strokes that occurred that month or other process. No evidence of STREET VENDOR metastases. He required recurrent doses of antipsychotics and other sedating medications back in March as well as physical restraint for safety. Sounds like he has been having some degree of sundowning at home that has been escalating lately due to difficulty with sleeping. He was seen at neurology clinic on April 26 for follow-up from the strokes that occurred in March. Dose of Geodon was increased and then however unable to give it via the PEG tube and from what I can gather he is not swallowing much orally anymore. Status: Chronic Additional A&P Information Primary malignant neoplasm of supraglottis post tracheostomy: Admitted with mechanical complication: Pathology removed or got dislodged. Patient follows up with Dr. Hernandez. Has received chemoradiation. Tracheostomy placed in yesterday by ENT. Currently in place. Oxygen supplementation keeping saturation over 92%. Tracheostomy care. We will consult pulmonology for further tracheostomy care. Patient already has an extra trach collar at bedside if needed. We will get CT neck without contrast to the extent of the mass. Careful suction going forward because patient is on anticoagulation and quite possible that masses fragile because of anticoagulation. Acute hypoxic respiratory failure: Secondary to above along with possible aspiration pneumonia. Most likely secondary to aspirating blood or gastric content yesterday. Patient has elevated white count and procalcitonin. CT chest while patient is getting CT neck without contrast. For now continue patient with vancomycin and Zosyn. Stop levofloxacin. Check sputum culture from tracheostomy, urine Legionella, bacterial antigen, MRSA swab. Follow-up blood culture and urine culture. Recent history of DVT: Anticoagulated: For now continue with Lovenox 90 mg every 12 hourly. Monitor hemoglobin. We will request documents from [facility] regarding DVT. No concerns for PE at present. Anemia: Multifactorial because of bone marrow suppression related to chemotherapy, anemia of acute blood loss from tracheostomy site yesterday. Hemoglobin stable at present. Check iron panel, vitamin B12, folate, reticulocyte count. Patient had drop in hemoglobin in early April during prior hospital stay and concern was for acute blood loss anemia. He received transfusion of 2 units of packed red blood cells then. Hemoccult of stool was negative x2 and review of records did not demonstrate gross bleeding otherwise that I could find. Around the same time, patient had completed first cycle of cisplatin and etoposide. Decision was made to stop full anticoagulation at that time out of concern for bleeding necessitating transfusion. But ultimately anticoagulation had to be resumed due to development of extensive DVT found last week. Feeding PEG tube: Seems to be clogged at present. Will try to unclog it with soda as per protocol. Dietary consultation. For now start patient on home PEG tube feeds to can bolus 3 times a day with 100 cc free water flush once able to access the PEG tube. If PEG tube not working will consult surgery for further assistance. We will consult pulmonology for further assistance with tracheostomy. Unfortunately ENT is not available throughout the week. If any concerns for increasing mass or difficulty with tracheostomy care will most likely need to transfer patient to higher center with ENT available 24 x 7. Full code. Famotidine for PUD prophylaxis. Tube feeds. Coding Level of Care Code Acute Process Control Tech for Chg Fwd Diagnoses Tracheostomy mechanical complication J95.03 Acute respiratory distress R06.03 Anticoagulated Z79.01 Hemorrhage from tracheostomy stoma J95.01 Aspiration pneumonia J69.0 Aspiration pneumonia type: unspecified Laterality: bilateral Lung location: lower lobe of lung Sepsis A41.9 Sepsis type: sepsis due to unspecified organism Sepsis acute organ dysfunction status: unspecified DVT (deep venous thrombosis) I82.431 Affected thrombotic vein of extremity: popliteal Chronicity: acute DVT location: lower extremity Laterality: right COPD (chronic obstructive pulmonary disease) J44.9 COPD type: unspecified COPD Primary malignant neoplasm of supraglottis C32.1 Cardiomyopathy I42.9 Cardiomyopathy type: unspecified Anemia D64.9 Anemia type: unspecified type Feeding by G-tube Z93.1 Insomnia G47.00 Insomnia type: unspecified Cognitive changes R41.89
[2020-05-14 10:26] LABS: Basophils # 0.1 10^3/uL (0.0-0.1); Basophils % 0.9 %; Eosinophils % 0.4 %; Hematocrit 32.1 % (42.0-52.0); Lymphocytes # 1.8 10^3/uL (0.8-4.8); Lymphocytes % 18.1 %; Mean Corpuscular HGB Conc 31.2 g/dL (30.0-36.0); Mean Corpuscular Hemoglobin 28.3 pg (28.0-34.0); Mean Corpuscular Volume 90.9 fL (80-94); Mean Platelet Volume 8.9 fL (7.4-10.4); Monocytes # 0.9 10^3/uL (0.2-0.9); Monocytes % 8.6 %; Neutrophils # 7.07 10^3/uL (1.8-7.7); Neutrophils % 69.7 %; Nucleated Red Blood Cells % 0 %; Platelet Count 419 10^3/cmm (130-400); Red Blood Count 3.53 10^6/uL (4.1-5.3); Red Cell Distribution Width 14.6 % (12.1-15.1); White Blood Count 10.1 10^3/uL (4.0-10.0)
[2020-05-14 10:46] LABS: Procalcitonin 0.82 ng/mL (0-0.5)
[2020-05-14 10:57] LABS: Alanine Aminotransferase 11 U/L (0-41); Albumin Level 2.8 g/dL (3.5-5.2); Alkaline Phosphatase 111 IU/L (40-130); Aspartate Amino Transferase 16 U/L (0-40); Blood Urea Nitrogen 11 mg/dL (8-23); Calcium 8.3 mg/dL (8.5-10.5); Carbon Dioxide 27 mmol/L (22-29); Chloride 99 mmol/L (98-107); Globulin 3.2 g/dL (1.3-4.6); Glucose 87 mg/dL (65-115); Osmolality Calculated 285 mOsm/kg (285-295); Sodium 138 mmol/L (136-145); Total Bilirubin 0.4 mg/dL (0.15-1.2)
[2020-05-14 11:06] LABS: Anion Gap 15.5 (5-19); Potassium 3.5 mmol/L (3.5-5.1)
--- NOTE | 2020-05-14 12:51 | PM.PSYCN ---
Providers/Reason for Consult Consulting Physican/Specialty*: Xena Stoner DO Reason for Consult*: Evaluation for medication recommendations Attending Physician: Aubrey Lora MD Primary Care Provider: ESTHER Peña Psych Consult HPI History of Present Illness Hitesh Dai is a 60 year old male with past psychiatric history with history of supraglottic malignancy with tracheostomy placement for airway maintenance. He has had a recent stroke. He has reported episodes of confusion and agitation and has had his tracheostomy tube come out or removed it himself a few times. Patient is a difficult historian with no ability to speak easily at this time but agrees to have his provide collateral information and to shake his head yes or no to questions. He currently denies any depressive symptoms and denies any recent or past depressive episodes. His sitting bedside has reported a notable decrease in his interest and motivation in his usual activities. She also reports that he has been experiencing significant irritability in conjunction with low mood. He denies any history of suicide attempts or self-harm behavior and currently denies any suicidal ideation. Patient currently denies any perceptual disturbances, denies any auditory or visual hallucinations. He denies any past hallucinations but does report having periods of confusion where he feels out of control in the past. His sitting bedside states that he has had episodes where he becomes physically and verbally agitated. He reports being treated by primary care with Adriano for psychotic symptoms which appear to emanate from periods of confusion. Patient's reports that he was started on as needed Xanax by medical oncologist secondary to panic symptoms related to wearing a mask. Patient reports episodes of feeling air hunger, he denies any periods of anxiety but reports symptoms consistent with anxiety and panic symptoms from time to time, particularly when having to wear a mask. He denies any recent panic symptoms but does report past panic attacks. Otherwise, psychiatric review of systems is negative next Patient denies any past treatment by mental health professional, counselor or psychiatrist. Reports living with his and reports having a good support system. Review of Systems General: Reports: 10 or more systems reviewed and unremarkable except in HPI and below Meds Current Medications: Current Medications Generic Name Dose Route Start Last Admin Trade Name Freq PRN Reason Stop Dose Admin Albuterol/Ipratrop ium 3 ml 05/12/20 23:56 05/13/20 13:20 Ipratropium-Albu terol 3 Ml Neb INHALATION 3 ml Q6H PRN Administration SHORTNESS OF SHANNON TH Ascorbic Acid 1,000 mg 05/13/20 21:00 05/14/20 08:28 Ascorbic Acid 50 0 Mg Tablet PO 1,000 mg BID@ KEVIN Administration Atorvastatin Calci um 40 mg 05/13/20 09:00 05/14/20 08:26 Atorvastatin 40 Mg Tablet PT 40 mg DAILY KEVIN Administration Docusate Sodium 100 mg 05/13/20 09:00 05/14/20 08:28 Docusate Sodium 10 Mg/Ml (5ml) Liq PEG-TUBE Not Given BID [facility] Enoxaparin Sodium 90 mg 05/13/20 06:00 05/14/20 06:11 Enoxaparin 100 M g/Ml Syringe 1 mg/kg (90 mg) 90 mg SUBCUT Administration Q12H KEVIN Famotidine 20 mg 05/13/20 11:00 05/14/20 08:25 Famotidine 20 Mg Tablet PEG-TUBE 20 mg BID KEVIN Administration Folic Acid 1 mg 05/13/20 21:00 05/14/20 08:28 Folic Acid 1 Mg Tablet PO Not Given BID@ [facility] Furosemide 20 mg 05/14/20 08:00 05/14/20 08:25 Furosemide 20 Mg Tablet PO 20 mg DAILY@0800 KEVIN Administration Piperacillin Sod/T azobactam 50 mls @ 12.5 mls /hr 05/13/20 02:00 05/14/20 09:02 Sod 3.375 gm/ So dium Chloride IV 12.5 mls/hr Q8H KEVIN Administration Protocol Vancomycin/PEG/NAD A/Lysine/Water 1,500 mg in 300 m ls @ 200 mls/hr 05/14/20 06:00 05/14/20 07:41 Vancocin IV Infused Q12H KEVIN Infusion Iron Sucrose 200 m g/ Sodium 110 mls @ 220 mls /hr 05/14/20 10:00 05/14/20 09:56 Chloride IV 05/18/20 10:29 220 mls/hr Q24H KEVIN Administration Metoprolol Tartrat e 12.5 mg 05/13/20 09:00 05/14/20 08:26 Metoprolol Tartr ate 25 Mg Tablet PEG-TUBE Not Given BID@0900,2100 [facility] Tamsulosin HCl 0.4 mg 05/13/20 09:00 05/14/20 08:26 Tamsulosin 0.4 M g Capsule PEG-TUBE 0.4 mg DAILY KEVIN Administration Trazodone HCl 50 mg 05/13/20 21:00 05/13/20 21:34 Trazodone 50 Mg Tablet PO 50 mg DAILY@21 KEVIN Administration Zinc Gluconate 50 mg 05/14/20 08:00 05/14/20 08:25 Zinc Gluconate 5 0 Mg Tablet PO 50 mg DAILY@08 KEVIN Administration PFSH NPU PFSH: Medical History Acute psychosis (~03/2020) Anemia multifactorial related to inflammation and malignancy, anticoagulation, acute blood loss, no evidence gi losses as of 05/13/20 Cardiomyopathy (~03/2020) EF 45% with severe hypokinesis of the mid and apical septum and anteroseptal segments on echocardiogram done on March 2020. 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 Began 1st cycle of cisplatin/etoposide. Developed neutropenia and anemia. Tobacco abuse Vitamin D deficiency Surgical History History of biopsy (~03/2020) supraglottic mass, [facility] Port-A-Cath in place (~03/27/20) Dr Nelida WHITE S/P skin biopsy (~05/11/20) S/P tracheoplasty (~03/2020) [facility] Status post cervical disc replacement Status post insertion of percutaneous endoscopic gastrostomy (PEG) tube (~03/2020) [facility] Status post tonsillectomy Family History Brother Cancer Father Cancer Social History Smoking and tobacco status: former smoker Alcohol intake: never Household members: spouse Housing: Other Details: has home health Other Psychiatric History: Other Psychiatric History: Per above, denies any history of psychiatric treatment Denies any psychiatric hospitalizations Denies any history of suicide attempt or self-harm behavior Mental Status Exam MSE Comments: Appears older than stated age, calm, cooperative, good eye contact, wearing a hospital gown Psychomotor activity is neither increased nor decreased, occasionally shifting position in bed during the interview, no agitation Speech, patient was unable to verbalize responses I feel okay, constricted, not labile Alert and oriented to person, place, time, situation Memory and concentration appear to be intact per interview Thought process, difficult to fully assess but did not appear to be disorganized in his thoughts or behavior Thought content, no stated delusions, did not appear to be attending to any internal stimuli, no suicidal ideation, no homicidal ideation Insight and judgment appear to be intact Vitals/I&O/Wt Last Vital Signs Temp 98.4 F 05/14/20 04:00 Pulse 100 05/14/20 09:33 Resp 18 05/14/20 09:33 BP 115/72 05/14/20 07:00 Pulse Ox 94 05/14/20 09:33 05/13/20 05/14/20 05/14/20 22:59 06:59 14:59 Intake Total 624 / 1548 50 / 1598 874 / 874 Output Total 475 / 475 525 / 1000 400 / 400 Balance 149 / 1073 -475 / 598 474 / 474 Weight last 48 hrs Weight 82.1 kg Weight 82.1 kg Weight 90.718 kg Data NPU Micro: Micro: Microbiology 05/13/20 13:40 Gram Stain - Final Sputum - Expector ated Sputum Sputum Culture - P reliminary 05/13/20 02:03 Bacterial Antigens - Final Urine,Voided 05/13/20 02:03 Legionella Urinary Antigen - Final Urine,Voided 05/12/20 21:07 Blood Culture - Pr eliminary Blood NEGATIVE TO TUNDE E 05/12/20 21:05 Blood Culture - Pr eliminary Blood NEGATIVE TO TUNDE E Microbiology 05/13/20 13:40 Sputum - Expectorated Sputum Gram Stain - Final 05/13/20 13:40 Sputum - Expectorated Sputum Sputum Culture - Preliminary 05/13/20 02:03 Urine,Voided Bacterial Antigens - Final 05/13/20 02:03 Urine,Voided Legionella Urinary Antigen - Final 05/12/20 21:07 Blood Blood Culture - Preliminary NEGATIVE TO DATE 05/12/20 21:05 Blood Blood Culture - Preliminary NEGATIVE TO DATE A&P Assessment and plan (1) Depressive disorder: Status: Acute (2) Anxiety disorder: Status: Acute Additional A&P Information 60-year-old male with history of malignant supraglottic cancer presenting to the hospital after pulling tracheostomy from site causing bleeding which was exacerbated by anticoagulation from recent DVT. Psychiatry consulted to evaluate for medication management given observed neurovegetative signs which have been worsening as well as reported anxiety symptoms which appear to exacerbate sensation of air hunger and possibly contributing to episodes of pulling at tracheostomy and inability to tolerate treatments to include wearing a mask. Patient also noted to have had past psychotic episodes which are unclear as far as characterization but patient noted to have history of cognitive changes and has been treated with low-dose Geodon in the evening. Patient would likely benefit from starting a low-dose antidepressant targeting both mood symptoms and anxiety symptoms as well as changing formulation of antipsychotic given difficulty with administration with PEG tube. RECOMMENDATIONS: Inpatient psychiatric hospitalization is not indicated at this time, outpatient medication management and counseling on the least restrictive and appropriate level of care at this time START Lexapro 5 mg daily targeting depressive and anxiety symptoms START Risperdal M-Tab 0.5 mg at bedtime for augmentation of antidepressant as well as targeting psychotic symptoms Patient currently taking Xanax as needed and would encourage judicious use of this medication to avoid relative withdrawal or rebound insomnia given that he is already currently taking short acting Lunesta for sleep. Recommend outpatient counseling targeting development of adaptive coping strategies in the context of ongoing medical and life stressors. Psychiatry will continue to follow during this hospitalization. Attestations NPU Medical Necessity Statement*: Continues require hospitalization for medical stabilization Time Spent in Patient Care: Greater than 35 minutes (>than 50% of time spent in counselling and/or direct pt care on unit). Coding Level of Care Code Acute Rum Processing Operator for Lili Ahn Diagnoses Depressive disorder F32.9 Anxiety disorder F41.9
--- NOTE | 2020-05-14 13:05 | PM.DCS ---
Discharge Providers Date of Admission: 05/12/20 20:48 Date of Discharge: May 14, 2020 Attending Provider at Admission: Kate Christina MD Attending Provider at Discharge: Aubrey Lora MD Consults: ENT: Dr. Maher Psychiatric: Dr. Stoner Pulmonology: Dr. Farfan Primary Care Provider: Dr. Lynch Diagnoses at Discharge Discharge Diagnosis (1) Tracheostomy mechanical complication: Status: Acute (2) Acute respiratory distress: Status: Acute (3) Anticoagulated: Status: Acute (4) Hemorrhage from tracheostomy stoma: Status: Acute (5) Aspiration pneumonia: Status: Acute Qualifiers: Aspiration pneumonia type: unspecified Laterality: bilateral Lung location: lower lobe of lung Qualified Code(s): J69.0 - Pneumonitis due to inhalation of food and vomit (6) Sepsis: Status: Acute Qualifiers: Sepsis type: sepsis due to unspecified organism Sepsis acute organ dysfunction status: unspecified Qualified Code(s): A41.9 - Sepsis, unspecified organism (7) DVT (deep venous thrombosis): Status: Inactive Qualifiers: Affected thrombotic vein of extremity: popliteal Chronicity: acute DVT location: lower extremity Laterality: right Qualified Code(s): I82.431 - Acute embolism and thrombosis of right popliteal vein (8) COPD (chronic obstructive pulmonary disease): Status: Chronic Qualifiers: COPD type: unspecified COPD Qualified Code(s): J44.9 - Chronic obstructive pulmonary disease, unspecified (9) Primary malignant neoplasm of supraglottis: Status: Chronic Permanent problem details: small cell neuroendocrine, Stage HEAVEN (T3,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 Began 1st cycle of cisplatin/etoposide. Developed neutropenia and anemia. (10) Cardiomyopathy: Status: Chronic Permanent problem details: EF 45% with severe hypokinesis of the mid and apical septum and anteroseptal segments on echocardiogram done on March 2020. Qualifiers: Cardiomyopathy type: unspecified Qualified Code(s): I42.9 - Cardiomyopathy, unspecified (11) Anemia: Status: Chronic Permanent problem details: multifactorial related to inflammation and malignancy, anticoagulation, acute blood loss, no evidence gi losses as of 05/13/20 Qualifiers: Anemia type: unspecified type Qualified Code(s): D64.9 - Anemia, unspecified (12) Feeding by G-tube: Status: Chronic (13) Insomnia: Status: Chronic Qualifiers: Insomnia type: unspecified Qualified Code(s): G47.00 - Insomnia, unspecified (14) Cognitive changes: Status: Chronic Reason for Visit Reason for Visit: Pulled trach out Hospital Course Hospital Course Hitesh Dai is a 60 year old male with past medical history of 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 Patient is on Eliquis for his right lower extremity DVT. ENT able to replace the ET tube with 6.0 cuffed trach and patient was admitted to ICU for close monitoring. He was started on vancomycin and Zosyn for possible sepsis due to tachycardia, tachypnea, respiratory distress, leukocytosis and chest x-ray showing bilateral lower lobe infiltrates. For his history and brief. In March 2021 at [facility]; he underwent tracheostomy placement and biopsy of the mass with pathology showing invasive poorly differentiated carcinoma felt to be most consistent with small cell neuroendocrine carcinoma. He also underwent placement of PEG tube. His staging PET/CT on 03/18/2020 showed primary malignancy in the supraglottic larynx with local regional cervical lymph node involvement, indeterminate and sigmoid colon. His brain MRI showed multiple infarcts which were presumed to be embolic. There was suspected left ventricular thrombus. Initial echocardiogram had shown evidence of cardiomyopathy with severe hypokinesis of mid and apical septum and anteroseptal segments and with decreased event left ventricular ejection fraction at 45%. He began on anticoagulation with Lovenox and he developed right hemiparesis. Patient received 1 cycle of chemotherapy with cisplatin/etoposide. Later clinical course complicated by development of COVID-19 virus infection and had a limited course of treatment with remdesivir. Due to drop in hemoglobin it was opted to stop his Lovenox and limit further anticoagulation to full dose aspirin and discharged home on 04/09/2020. Patient used to smoke cigarettes 2 pack/day daily. On this admission patient was admitted to the ICU after tracheostomy tube was replaced by ENT physician in ER. Patient was started on broad-spectrum antibiotics for possible aspiration pneumonia. CT neck and CT chest was done to review the mass and and to review the consolidation. Patient responded to treatment well and has been on room air through tracheostomy for more than 12 hours. His antibiotics have been changed to oral. 4 episodes of recurrent pulling out of tracheostomy there was a concern for depression for which psychiatry was consulted and has psychiatric medications were readjusted. Patient's who is his primary caregiver was described in detail regarding trach care and schedule of PEG feeds. He supposed to do 2 cans of Osmolite 1.5, 3 times a day with 100 cc free water flush and to make sure that the medications are properly crushed before administration. During this admission the new diagnosis of basal cell carcinoma found on histopathology done recently from skin biopsy was discussed with patient's . She requested not to discuss the diagnosis with the for now. Patient is advised to follow-up with Dr. Hernandez regarding further work-up and possible and colonoscopy to rule out GI metastasis. Patient is to follow-up at [facility]. His psychiatric medications including Lunesta and ziprasidone have been stopped and he supposed to be taking Lexapro 5 mg and Risperdal 0.5 disintegrating sublingual tablets going forward along with his home dose of trazodone as per psychiatric recommendations. He supposed to take 5 more days of antibiotics including Augmentin levofloxacin to finish a course. He supposed to follow-up with pulmonology for possible PFT as an outpatient for work-up of COPD. Physical Exam Narrative: EXAM NARRATIVE: General: alert, NAD HEENT: conj clear, EOMI, PERRL, mmm, Neck: supple, no meningismus, 6.0 tracheostomy tube, minimal bleeding around the ostomy site Heme: no cervical LAP Pulmonary: Bilateral lower lobe crackles Cardiovascular: rrr, nl s1s2, no mrg Abdomen: soft, nt, nd, no r/g, bs+ Extremities: pulses +, no edema, no c/c : no CVA tenderness Skin: intact, no rash MSK: no back or neck pain Neurologic: Paralysis of right arm and right leg Discharge Data Data Completed and Pending: Completed Studies During Hospitalization Category Date Time Status CT chest wo con 7 1250 Routine Cat Scan 05/13/20 10:[address] neck wo con 70 490 Routine Cat Scan 05/13/20 10:30 Completed XR chest 1V katelyn ble [id number] Urgent Exams 05/12/20 16:05 Completed Pending at discharge Category Date Time Status Blood Culture Sta t Lab 05/12/20 21:07 Results Complete Blood Co unt w/Auto AM LABS Lab 05/15/20 04:00 Ordered Comprehensive Met abolic Panel AM LA BS Lab 05/15/20 04:00 Ordered Legionella Antige n STAT Routine Lab 05/13/20 02:03 Results MRSA by PCR Routi ne Lab 05/13/20 15:25 Received Sputum Culture an d Gram Stain Stat Lab 05/13/20 13:40 Results Urine Culture Sta t Lab 05/13/20 02:03 Results Labs from last 24 hours 05/14/20 05/14/20 05/14/20 10:10 10:10 01:32 WBC 10.1 H RBC 3.53 L Hgb 10.0 L Hct 32.1 L MCV 90.9 MCH 28.3 MCHC 31.2 RDW 14.6 Plt Count 419 H MPV 8.9 Neut % (Auto) 69.7 Lymph % (Auto) 18.1 [place] % (Auto) 8.6 Eos % (Auto) 0.4 Baso % (Auto) 0.9 Neut # (Auto) 7.07 Lymph # (Auto) 1.8 [place] # (Auto) 0.9 Eos # (Auto) 0.0 Baso # (Auto) 0.1 Nucleated RBC % (a uto) 0 Nucleated RBCs # 0.0 Sodium 138 Potassium 3.5 Chloride 99 Carbon Dioxide 27 Anion Gap 15.5 BUN 11 Creatinine 0.5 L GFR Calculation 169.0 H Glucose 87 Calculated Osmolal ity 285 Calcium 8.3 L Total Bilirubin 0.4 AST 16 ALT 11 Alkaline Phosphata se 111 Total Protein 6.0 L Albumin 2.8 L Globulin 3.2 Procalcitonin 0.82 H Urine Color Urine Appearance Urine pH Ur Specific Gravit y Urine Protein Urine Glucose (UA) Urine Ketones Urine Blood Urine Nitrate Urine Bilirubin Urine Urobilinogen Ur Leukocyte Marion ase Urine RBC Urine WBC Ur Squamous Epith Cells Amorphous Sediment Urine Bacteria Vancomycin Trough 23.6 H 05/14/20 05/13/20 05/12/20 00:25 02:03 17:10 WBC RBC Hgb Hct MCV MCH MCHC RDW Plt Count MPV Neut % (Auto) Lymph % (Auto) [place] % (Auto) Eos % (Auto) Baso % (Auto) Neut # (Auto) Lymph # (Auto) [place] # (Auto) Eos # (Auto) Baso # (Auto) Nucleated RBC % (a uto) Nucleated RBCs # Sodium Potassium Chloride Carbon Dioxide Anion Gap BUN Creatinine GFR Calculation Glucose Calculated Osmolal ity Calcium Total Bilirubin AST ALT Alkaline Phosphata se Total Protein Albumin Globulin Procalcitonin Urine Color Yellow Straw Urine Appearance Clear Clear Urine pH 6 5 Ur Specific Gravit y 1.005 1.005 Urine Protein Neg Neg Urine Glucose (UA) Norm Norm Urine Ketones Negative Negative Urine Blood Neg Neg Urine Nitrate Negative Negative Urine Bilirubin Neg Neg Urine Urobilinogen Norm Norm Ur Leukocyte Marion ase Negative Negative Urine RBC None Urine WBC None Ur Squamous Epith Cells 0-4 H Amorphous Sediment Not Reportable Urine Bacteria Trace Vancomycin Trough Cancelled Laboratory Results Impressions Chest X-Ray 05/12/20 16:05 Impression: 1. Development of bilateral lower lobe opacities which may represent acute pneumonia. 2. No change in tracheal tube and right Port-A-Cath. Chest CT 05/13/20 10:30 IMPRESSION: 1. Advanced chronic emphysematous changes. Volume loss right lower lobe. 2. Compressive atelectasis with air bronchograms in the right lower lobe posteriorly. Recommend correlation for aspiration pneumonia. 3. A few patchy infiltrates within the right upper lobe along the fissure and right upper lobe anteriorly. Recommend correlation for pneumonitis. Infiltrates are new since March 08, 2020 4. Tracheostomy. 5. No mediastinal or hilar lymphadenopathy. 6. Cholelithiasis. 7. Right adrenal lesion measuring 2.5 cm likely adenoma unchanged since March 08, 2020. Neck CT 05/13/20 10:30 IMPRESSION: 1. Tracheostomy appears in good position. No subglottic airway narrowing. 2. Again seen is the bulky supra glottic circumferential neoplasm which appears progressed compared to March 2020. This results in high-grade supraglottic stenosis similar to the prior examinations. 3. Bulky bilateral cervical lymphadenopathy also progressed from March 2020. 4. Previous postoperative changes in the cervical spine with ACDF C5-C6. Vitals: Last Vital Signs Temp 98.4 F 05/14/20 04:00 Pulse 100 05/14/20 09:33 Resp 18 05/14/20 09:33 BP 115/72 05/14/20 07:00 Pulse Ox 94 05/14/20 09:33 Discharge Plan Discharge Patient Disposition: Home Health Service Condition: Stable Prescriptions: New escitalopram oxalate 10 mg Tablet 5 mg PO DAILY 30 Days Qty: 30 RF: 0 amoxicillin-pot clavulanate [Augmentin] 875-125 mg tablet 1 tab PO BID Qty: 10 RF: 0 levofloxacin 250 mg/10 mL solution 500 mg PO DAILY 3 Days Qty: 100 RF: 0 risperidone 0.5 mg tablet,disintegrating 0.5 mg PO DAILY Qty: 30 RF: 0 Continued trazodone 50 mg tablet 50 mg PO DAILY@21 RF: 0 (DME) oxygen home See Rx Instructions .Route .MEDSUPPLY Qty: 1 RF: 0 lorazepam 1 mg tablet 1 mg PO TID PRN (Reason: agitation) RF: 0 ipratropium-albuterol 0.5 mg-3 mg(2.5 mg base)/3 mL Solution For Nebulization 3 ml inhalation Q6H PRN (Reason: Shortness Of Breath) Qty: 90 RF: 0 sennosides-docusate sodium [Stimulant Laxative Plus] 8.6-50 mg tablet 2 tab PO BID PRN (Reason: Constipation) RF: 0 prochlorperazine maleate 10 mg tablet 10 mg PO Q4H PRN (Reason: Nausea) RF: 0 albuterol sulfate [ProAir HFA] 90 mcg/actuation Hfa Aerosol Inhaler 2 puff INHALATION 6XD PRN (Reason: Shortness Of Breath) RF: 0 potassium gluconate 595 mg (99 mg) Tablet 595 mg PO DAILY@08 RF: 0 Tlt-Axk-Vvmb Tab 1 tab PO DAILY RF: 0 atorvastatin [Lipitor] 40 mg tablet 40 mg PO DAILY@08 RF: 0 polyethylene glycol 3350 17 gram powder in packet 17 g PO BID@ RF: 0 ascorbic acid (vitamin C) [Vitamin C] 500 mg tablet 1,000 mg PO BID@ RF: 0 tamsulosin [Flomax] 0.4 mg capsule 0.4 mg PO DAILY@08 RF: 0 pantoprazole [Protonix] 40 mg tablet,delayed release (DR/EC) 40 mg PO BID@ RF: 0 docusate sodium [DOK] 100 mg capsule 100 mg PO BID@ RF: 0 zinc gluconate 50 mg tablet 50 mg PO DAILY@08 RF: 0 folic acid 1 mg tablet 1 mg PO BID@ RF: 0 furosemide [Lasix] 20 mg tablet 10 mg PO DAILY@08 RF: 0 cholecalciferol (vitamin D3) 25 mcg (1,000 unit) capsule 25 mcg PO DAILY@08 RF: 0 metoprolol tartrate 25 mg tablet 12.5 mg PO BID@0800,2100 RF: 0 sucralfate 1 gram Tablet 1 g PO BID RF: 0 Eliquis 5 mg Tablet 10 mg PO BID RF: 0 Discontinued alprazolam 0.25 mg tablet 0.25 mg PO TID PRN (Reason: Anxiety) RF: 0 aspirin 325 mg tablet 325 mg PO DAILY@08 RF: 0 eszopiclone [Lunesta] 1 mg tablet 1 mg PO DAILY@21 RF: 0 ziprasidone HCl 20 mg Capsule 20 mg PO BEDTIME RF: 0 Discharge Orders: Discharge Order (Routine); Ordered 05/14/20 Ordered By: Aubrey Lora Referrals: DatarZan MD [Physician] - 2 weeks MIAN Jonas FNP [Primary Care Provider] - Vanita Goff MD [Referring] - 05/18/20 Linwood Hernandez MD [Hospitalist] - 7-[address] [facility], [Staff Physician] - 2 weeks Discharge Diet: Resume prior tube feeds Discharge Activity: Resume usual activity Activity Restrictions/Additional Instructions: Please follow-up with pulmonology in 2 weeks for further treatment of COPD. Please follow-up with your primary care provider on Sunday, May 18. Please follow-up with Dr. Hernandez within next 7 to 10 days. Please discuss with Dr. Hernandez regarding new diagnosis of basal cell carcinoma of the skin and possible need of colonoscopy as an outpatient for biopsy and ruling out a malignancy. Your psychiatric medications have been adjusted. Please do not take Lunesta and ziprasidone going forward. They have been changed to Lexapro and risperidone as discussed with you. Please take Augmentin and levofloxacin as antibiotics for 5 more days to finish the antibiotic course. Please continue anticoagulation as before. Please be careful with tracheostomy. Please continue trach care as before. For tube feeds you will be on Osmolite 1.5, 2 cans 3 times a day followed by 100 cc free water flush. Please make sure you crushed medications thoroughly before administering through the PEG tube. After each administration flush with 50 cc free water. Discharge Attestations Time Spent in Discharge Care*: greater than 30 min Specific Discharge Activities: educating patient, educating and/or supporting family/caregiver, discussing with pcp/other providers, discussing with family preservation caseworker/social workers/dc planners, documenting/other paperwork and evaluating patient/reviewing data Status at Discharge: Cognitive status at discharge: cognitively intact, Behavioral status at discharge: cooperative, Functional status at discharge: independent ambulation Overall status at discharge: patient is back to baseline Quality Metrics Clinical Quality Measures During this hospital stay, did patient experience: None Coding Level of Care Code Acute Upsetter Setter Up for Chg Fwd Diagnoses Tracheostomy mechanical complication J95.03 Acute respiratory distress R06.03 Anticoagulated Z79.01 Hemorrhage from tracheostomy stoma J95.01 Aspiration pneumonia J69.0 Aspiration pneumonia type: unspecified Laterality: bilateral Lung location: lower lobe of lung Sepsis A41.9 Sepsis type: sepsis due to unspecified organism Sepsis acute organ dysfunction status: unspecified DVT (deep venous thrombosis) I82.431 Affected thrombotic vein of extremity: popliteal Chronicity: acute DVT location: lower extremity Laterality: right COPD (chronic obstructive pulmonary disease) J44.9 COPD type: unspecified COPD Primary malignant neoplasm of supraglottis C32.1 Cardiomyopathy I42.9 Cardiomyopathy type: unspecified Anemia D64.9 Anemia type: unspecified type Feeding by G-tube Z93.1 Insomnia G47.00 Insomnia type: unspecified Cognitive changes R41.89
--- NOTE | 2020-05-14 13:24 | PC.CHAP ---
Pastoral Care Encounter/Spiritual Assessment Type of Contact [xx] Declined utility worker visit [] Patient/Family/Request visit [] Outpatient visit [] Follow-up visit [] Physician referral [] Code/Alert [] Routine visit [] Staff referral [] Actively dying [] Patient sleeping [] Family support [] [] Out of room [] Palliative care [] [] Receiving care in room [] Pre-surgical visit [] Trauma [] Long length of stay [] ICU visit [] Other: Relational/Emotional Strength [] Patient feels connected with others/family/visitors/staff [] Distress [] Loneliness/isolation [] Abandonment Spirituality of Patient [] Person of Radha [] Attends Yarsanism of their Radha [] Believes in Prayer [] Reads Bible or Alevism materials [] There are Spiritual issues to be addressed Sugar Controller Interventions [] Prayer [] Active listening [] Non-anxious presence [] Spiritual/emotional support [] Crisis/trauma care [] Spiritual counseling [] Bereavement support [] Provided bereavement packet [] Provided Bible/devotional materials [] Provided toy/stuffed animal, coloring book to patient or family member [] Provided Communion [] Anointing/[place] [] Salvation [] Completed spiritual assessment [] Other: Impact on Illness or Injury [] Angry [] Fearful [] Anxious [] Often cries [] Exhaustion [] Unable to work [] Unable to attend baptism [] Unable to walk/stand [] Unable to read [] Unable to drive [] Unable to eat/drink [] Unable to sleep [] Unable to be with family [] Patient intubated [] Other: Summary Family member with patient did not want a utility worker visit. Time spent with patient 1 minute
[2020-05-14] MEDS: escitalopram 10 mg Tablet 5 MG PO (13:41)
== END 2020-05-14 15:00 | disposition home health service (06) | DRG 871 ==
LOC: ER 20:46 → ICU 22:12
PROVIDERS: Internal Medicine Pulmonary Disease; Admitting Provider Hospitalist; Emergency Provider Family Medicine; PCP Nurse Practitioner Family; Visit Provider Student in an Organized Health Care Education/Training Program
DX: A41.9 Sepsis, unspecified organism (principal); J69.0 Pneumonitis due to inhalation of food and vomit; I42.9 Cardiomyopathy, unspecified; G47.33 Obstructive sleep apnea (adult) (pediatric); D64.9 Anemia, unspecified; Z86.718 Personal history of other venous thrombosis and embolism; J44.9 Chronic obstructive pulmonary disease, unspecified; C32.0 Malignant neoplasm of glottis; T85.838A Hemorrhage due to other internal prosthetic devices, implants and grafts, initial encounter; Y69 Unspecified misadventure during surgical and medical care; Y92.009 Unspecified place in unspecified non-institutional (private) residence as the place of occurrence of the external cause; Z93.0 Tracheostomy status; Z93.1 Gastrostomy status; Z79.01 Long term (current) use of anticoagulants; R06.03 Acute respiratory distress; Z87.891 Personal history of nicotine dependence; Z79.82 Long term (current) use of aspirin; Z86.16 Personal history of COVID-19; Z86.73 Personal history of transient ischemic attack (TIA), and cerebral infarction without residual deficits
CPT/HCPCS: 12345; 36415; 36591; 36600; 70490; 71045; 71250; 80053; 80202; 81001; 81003; 82803; 83540; 83550; 83605; 83880; 84145; 84443; 84484; 85025; 85610; 86403; 86850; 86900; 87040; 87070; 87086; 87205; 87449; 87641; 93005; 94640; 94664; 96372; 99283; 99292; J1642; J1650; J1756; J1956; J2543; J3370; J7030; J7050

== ENCOUNTER 2020-05-17 10:38 | Emergency (ER) | payer MEDICAID, SELFPAY ==
[2020-05-17 10:40] VITALS: BP 114/76; PULSE 88; RESP 18; TEMP 36.6; O2SAT 93; BMI 23.7
--- NOTE | 2020-05-17 10:50 | XR_ITS ---
WS: [id number] PORTABLE CHEST HISTORY: dyspnea/cough COMPARISON: 05/12/2020 RIGHT subclavian Port-A-Cath with tip in distal SVC. Tracheostomy remains in good position. Hyperexpanded lungs from emphysema. Interstitial reticulations have improved since the prior study of 05/12/2020. Benign granuloma at the RIGHT lung base. No pleural effusion or pneumothorax. Cardiac size: Normal. Mediastinum/Aorta: Normal mediastinum. No osseous abnormality seen. XR/XR chest 1V portable [id number] IMPRESSION: 1. Chronic emphysema with no pneumonia. Interstitial reticular airspace diseas e has improved since 05/12/2020. 2. Tracheostomy in good position.
--- NOTE | 2020-05-17 10:50 | XR_ITS ---
WS: [id number] SOFT TISSUE NECK 2 VIEW(S) TECHNIQUE: AP and lateral views of the neck in soft tissue technique are performed. HISTORY: hemoptysis, tracheostomy. COMPARISON: 05/13/2020. Soft tissue mass is again noted at the level of the larynx. Complete obliteration of the airway. Thes e changes were better seen on the recent CT of the neck on 05/13/2020. No apparent change. XR/XR soft tissue neck [id number] IMPRESSION: Patient has a known large soft tissue mass centered in the region of the larynx . Obstruction of the airway. Compared to the CT there has been no interval ogden ge.
--- NOTE | 2020-05-17 11:29 | ED_ITS ---
HPI - General Adult General: Chief complaint: General Medical Stated complaint: COUGHING UP BLOOD THROUGH TRACH Time Seen by Provider: 05/17/20 10:38 History of Present Illness: HPI narrative: 60-year-old male presents to the emergency room with complaint of hemoptysis. 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 He is on Eliquis because of multiple embolic strokes and is also concerned of a left ventricular thrombus. He has been taking Eliquis 10 mg twice daily instead of 5. He was recently in the hospital because you pulled his tracheostomy out ENT replaced it. Dr. Alejandra and seen in part he also been seeing Dr. Hernandez. Tracheostomy was placed at [place] although he never established with an oncologist there. He is normally on oxygen evidently the EMS report at 4 L/min but on 2 L/min here his sats remained in the upper 90s to 100%. Earlier this month the patient had a DVT in addition of the embolic strokes he has had. Finally on right side in the submandibular area there is a large amount of swelling with a eroding tumor. Suspect it may be an extension of his supraglottic laryngeal CA. This has not been biopsied to this point. Onset (ago): hour(s) Severity: moderate Relieving factors: none Exacerbating factors: none Associated symptoms: Reports cough and malaise; Deny chest pain, confusion, diaphoresis, decreased appetite, dyspnea, fevers/chills, headache(s), nausea, rash, palpitations, seizures, short of breath, syncope, vomiting or weakness Treatments prior to arrival: none Review of Systems Const: Reports: malaise; Denies: diaphoresis ENMT: Denies: throat pain, ear or mastoid pain, nasal discharge or nasal congestion Card: Denies: chest pain, palpitations or syncope Resp: Reports: productive cough and hemoptysis; Denies: dyspnea GI: Denies: nausea or vomiting : Denies: flank pain, dysuria, urinary frequency or urinary urgency Skin/Breast: Denies: rash Neuro: Denies: headache(s) or confusion [facility] ED PFSH: Medical History Acute psychosis (~03/2020) Anemia multifactorial related to inflammation and malignancy, anticoagulation, acute blood loss, no evidence gi losses as of 05/13/20 Cardiomyopathy (~03/2020) EF 45% with severe hypokinesis of the mid and apical septum and anteroseptal segments on echocardiogram done on March 2020. 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 Began 1st cycle of cisplatin/etoposide. Developed neutropenia and anemia. Tobacco abuse Vitamin D deficiency Surgical History History of biopsy (~03/2020) supraglottic mass, Lino Port-A-Cath in place (~03/27/20) Dr Nelida WHITE S/P skin biopsy (~05/11/20) S/P tracheoplasty (~03/2020) Lino Status post cervical disc replacement Status post insertion of percutaneous endoscopic gastrostomy (PEG) tube (~03/2020) Lino Status post tonsillectomy Family History Brother Cancer Father Cancer Social History Smoking and tobacco status: former smoker Alcohol intake: never Household members: spouse Housing: Other Details: has home health Physical Exam Const: COMMON NORMALS: no acute distress GENERAL APPEARANCE: cooperative and comfortable HENMT: COMMON NORMALS: normocephalic, atraumatic and hearing grossly normal bilaterally HEAD & SCALP: normocephalic and atraumatic Neck/C-Spine: OTHER: Right submandibular area there is a large amount of soft tissue swelling with a central eschar eroded area consistent with a basal cell CA or possible extension of the supraglottic tumor. Lymph: LYMPHATIC: no lymphadenopathy noted and no lymphedema noted Resp: COMMON NORMALS: normal respiratory effort, No retractions, No use of accessory muscles and clear to auscultation bilaterally AUSCULTATION: clear to auscultation bilaterally Cardio: COMMON NORMALS: regular rate, regular rhythm and No murmurs present (Cardio) RATE: regular rate RHYTHM: regular rhythm GI: COMMON NORMALS: Soft to palpation and No hepatosplenomegaly present AUSCULTATION: Yes normoactive bowel sounds PALPATION: Yes Soft to palpation, No Tenderness to palpation present (GI), No Guarding due to palpation present (GI) and Yes No hepatosplenomegaly present Extremity: COMMON NORMALS: normal to inspection, capillary refill normal, no clubbing, cyanosis or edema, no calf tenderness and no pedal edema Skin: COMMON NORMALS: no rashes or lesions noted GENERAL SKIN EXAM: no rashes or lesions noted Course Vital Signs: Vital signs: Vital Signs Temperature 97.8 F 05/17/20 10:40 Pulse Rate 87 05/17/20 14:44 Respiratory Rate 18 05/17/20 14:44 Blood Pressure 113/74 05/17/20 14:44 Pulse Oximetry 93 05/17/20 14:44 MDM - General Adult MDM Narrative: Medical decision making narrative: Hemoglobin is dropped by half a point. Discussed with Dr. Alejandra and with Dr. Hernandez there is really not anything at this point that we can do it in addition to show what he is already had. Discussed with the family they are still interested in aggressive treatment. Discussed Dr. Montelongo he feels the patient be in the ICU if admitted here. We do not have any ICU beds available and there is no timeline which we can reasonably expect one at this point we are ready boarding patients for the ICU in the emergency room. Also has decided to transfer the patient to [facility] is there the nearest facility with appropriate care that would accept the patient. Discussed with the patient he would prefer to stay here reassured him I would prefer to have him admitted here but since we do not have the appropriate level of care for a bed we cannot safely keep him here patient and family expressed understanding and consent to transfer Lab Data: Labs: Lab Results 05/17/20 05/17/20 05/17/20 Range/Units 11:35 11:35 11:35 WBC 14.9 H (4.0-10.0) 10^3/ uL RBC 3.39 L (4.1-5.3) 10^6/u L Hgb 9.7 L (11.7-16.6) g/dL Hct 30.7 L (42.0-52.0) % MCV 90.6 (80-94) fL MCH 28.6 (28.0-34.0) pg MCHC 31.6 (30.0-36.0) g/dL RDW 14.4 (12.1-15.1) % Plt Count 423 H (130-400) 10^3/c mm MPV 8.8 (7.4-10.4) fL Neut % (Auto) 79.2 % Lymph % (Auto) 10.9 % Irion % (Auto) 7.7 % Eos % (Auto) 0.2 % Baso % (Auto) 0.7 % Neut # (Auto) 11.79 H (1.8-7.7) 10^3/u L Lymph # (Auto) 1.6 (0.8-4.8) 10^3/u L Irion # (Auto) 1.2 H (0.2-0.9) 10^3/u L Eos # (Auto) 0.0 (0.0-0.8) 10^3/u L Baso # (Auto) 0.1 (0.0-0.1) 10^3/u L Nucleated RBC % (a uto) 0 % Nucleated RBCs # 0.0 /100WBC PT 17.00 H (12.1-14.9) SECO NDS INR 1.33 H (0.8-1.2) APTT 54.0 H (23.9-36.7) SECO NDS Sodium 135 L (136-145) mmol/L Potassium 4.2 (3.5-5.1) mmol/L Chloride 98 (98-107) mmol/L Carbon Dioxide 29 (22-29) mmol/L Anion Gap 12.2 (5-19) BUN 9 (8-23) mg/dL Creatinine 0.4 L (0.7-1.2) mg/dL GFR Calculation 218.7 H (90-130) mL/min Glucose 95 (65-115) mg/dL Calculated Osmolal ity 278 L (285-295) mOsm/k g Calcium 9.1 (8.5-10.5) mg/dL Total Bilirubin 0.3 (0.15-1.2) mg/dL AST 14 (0-40) U/L ALT 12 (0-41) U/L Alkaline Phosphata se 106 (40-130) IU/L Total Protein 6.5 L (6.6-8.7) g/dL Albumin 3.2 L (3.5-5.2) g/dL Globulin 3.3 (1.3-4.6) g/dL Discharge Plan Discharge Patient Disposition: Xfer Other Clinical Impression: Primary malignant neoplasm of supraglottis, Anemia, Hemoptysis, On continuous oral anticoagulation, Anxiety Condition: Stable Referrals: MIAN Jonas, [facility] [employer] [Primary Care Provider] - Coding Level of Care Code ED Travel Manager for Chg Fwd Exam Comprehensive
[2020-05-17 11:46] LABS: Basophils # 0.1 10^3/uL (0.0-0.1); Basophils % 0.7 %; Eosinophils % 0.2 %; Hematocrit 30.7 % (42.0-52.0); Hemoglobin 9.7 g/dL (11.7-16.6); Lymphocytes # 1.6 10^3/uL (0.8-4.8); Lymphocytes % 10.9 %; Mean Corpuscular HGB Conc 31.6 g/dL (30.0-36.0); Mean Corpuscular Hemoglobin 28.6 pg (28.0-34.0); Mean Corpuscular Volume 90.6 fL (80-94); Mean Platelet Volume 8.8 fL (7.4-10.4); Monocytes # 1.2 10^3/uL (0.2-0.9); Monocytes % 7.7 %; Neutrophils # 11.79 10^3/uL (1.8-7.7); Neutrophils % 79.2 %; Nucleated Red Blood Cells % 0 %; Platelet Count 423 10^3/cmm (130-400); Red Blood Count 3.39 10^6/uL (4.1-5.3); Red Cell Distribution Width 14.4 % (12.1-15.1); White Blood Count 14.9 10^3/uL (4.0-10.0)
[2020-05-17 11:59] LABS: INR 1.33 (0.8-1.2)
[2020-05-17 12:03] LABS: Alanine Aminotransferase 12 U/L (0-41); Albumin Level 3.2 g/dL (3.5-5.2); Alkaline Phosphatase 106 IU/L (40-130); Anion Gap 12.2 (5-19); Aspartate Amino Transferase 14 U/L (0-40); Blood Urea Nitrogen 9 mg/dL (8-23); Calcium 9.1 mg/dL (8.5-10.5); Carbon Dioxide 29 mmol/L (22-29); Chloride 98 mmol/L (98-107); Globulin 3.3 g/dL (1.3-4.6); Glomerular Filtration Rate 218.7 mL/min (90-130); Glucose 95 mg/dL (65-115); Osmolality Calculated 278 mOsm/kg (285-295); Potassium 4.2 mmol/L (3.5-5.1); Sodium 135 mmol/L (136-145); Total Bilirubin 0.3 mg/dL (0.15-1.2); Total Protein 6.5 g/dL (6.6-8.7)
[2020-05-17 13:06] VITALS: RESP 18; O2SAT 98
[2020-05-17] MEDS: morphine 4 mg/mL SDV 1 mL IVP (13:06)
[2020-05-17 14:44] VITALS: BP 113/74; PULSE 87; RESP 18; O2SAT 93
== END 2020-05-17 17:00 | disposition other institution (70) ==
PROVIDERS: Emergency Provider Family Medicine; PCP Nurse Practitioner Family
DX: R04.2 Hemoptysis (principal); D64.9 Anemia, unspecified; C32.1 Malignant neoplasm of supraglottis; F41.9 Anxiety disorder, unspecified; Z79.01 Long term (current) use of anticoagulants; J44.9 Chronic obstructive pulmonary disease, unspecified; Z86.73 Personal history of transient ischemic attack (TIA), and cerebral infarction without residual deficits; Z93.0 Tracheostomy status; Z87.891 Personal history of nicotine dependence
CPT/HCPCS: 70360; 71045; 80053; 85025; 85610; 85730; 94799; 96374; 99285; J2270

== ENCOUNTER 2020-05-21 06:59 | Outpatient (RCR) | payer MEDICAID, SELFPAY ==
--- NOTE | 2020-05-21 13:29 | ONC FU_ITS ---
Dr. 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 History of Present Illness: This is a 60-year-old man who had presented with a large mass involving the supraglottic larynx, biopsy of which showed poorly differentiated carcinoma felt to be most consistent with small cell neuroendocrine carcinoma. By clinical evaluation his disease stage was HEAVEN (T3, N2c, M0). He was initially admitted on 03/10/2020 after presenting to the emergency room with weakness and confusion. He had been having worsening sore throat, hoarseness, cough, and difficulty swallowing. His neck CT showed the large mass involving the epiglottis with associated airway obstruction. His clinical course was complicated by acute psychosis. He was then transferred to [facility] where he underwent tracheostomy placement and biopsy of the mass with pathology showing invasive poorly differentiated carcinoma felt to be most consistent with small cell neuroendocrine carcinoma. He also underwent placement of PEG tube. His staging PET/CT on 03/18/2020 showed primary malignancy in the supraglottic larynx with local regional cervical lymph node involvement. There was no evidence of other metastatic disease. Indeterminate uptake was noted in the sigmoid colon. His brain MRI showed multiple infarcts which were presumed to be embolic. There was suspected left ventricular thrombus. His initial echocardiogram had shown evidence of cardiomyopathy with severe hypokinesis of the mid and apical septum and anteroseptal segments and with decreased left ventricular ejection fraction at 45%. He began on anticoagulation with Lovenox, but during that time he had developed right hemiparesis. His clinical course at that time also was complicated by tracheitis. He returned to the [facility] on 03/26/2020 and the following day he underwent placement of Port-A-Cath venous access device and he began cycle 1 of chemotherapy with cisplatin/etoposide. The original plan was then to add concurrent radiation beginning with the second cycle of chemotherapy. He tolerated the chemotherapy without acute toxicity. However, his further clinical course was complicated by development of COVID-19 virus infection. He had a limited course of treatment with remdesivir, as at that point he was developing neutropenia from the chemotherapy. He was treated with Neupogen. His granulocyte count yumi was 800. During that time there was a drop in his hemoglobin from a baseline of 12 g to as low as 8.0 g on 04/04/2020. He was transfused PRBC. Acute blood loss was suspected, though never documented. However, it was opted to stop his Lovenox and to limit further anticoagulation to full dose aspirin. He was discharged home on 04/09/2020. He then continued with cycle 2 of cisplatin/etoposide on 04/19/2020. His radiation had to be deferred because he was unable to lie flat for treatment. On 05/05/2020 he was seen in the emergency room with swelling of the right leg, and he was confirmed by Doppler to have deep vein thrombosis involving the right common femoral, femoral, popliteal, peroneal, and posterior tibial veins. He was admitted to [facility] where he underwent a thrombectomy procedure. He was discharged home on anticoagulation with apixaban, and he was taken off aspirin. On 05/12/2020 he was admitted to the hospital again after presenting to the emergency room with bleeding from his tracheostomy. His tracheostomy tube had come out and his was unable to get it put back in. The tube was able to be replaced in the emergency room by Dr. Alejandra. A repeat neck CT fortunately showed bulky supraglottic circumferential neoplasm which appeared to have progressed compared to the March 2020 study. There was associated high-grade supraglottic stenosis. Also noted was bulky bilateral cervical lymphadenopathy which also had progressed from the March study. He was discharged home on antibiotic coverage with Augmentin. He continued apixaban 5 mg twice daily. He has a prior history of degenerative arthritis of the cervical spine. He has history of smoking up to 2 packs of cigarettes daily, but he has quit. He does not drink alcohol. He is seen for a follow-up visit. He continues have very limited activity. His ECOG score is 3. His appetite has been okay. He is tolerating 2 cans of tube feeding 3 times a day. He has not had fever. He does have some sweating at night. He has been bringing up thick, yellow, creamy phlegm from the tracheostomy tube, but he says his breathing has been okay as long as he is upright. He is still unable to lie flat. He is having to sleep in a recliner. He does not complain of chest pain. He is not having nausea. Bowel and bladder function remain adequate. He has no significant joint or bone pain. He does not complain of headache or dizziness. He has persistent weakness on the right side. Medications: Amoxicillin-Pot Clavulanate 1 (875-125 mg) Tablet Oral b.i.d. for 7 days, Aspirin 1 (325 mg) Tablet Oral daily, Carafate 1 (1 g) Tablet Oral ac (bid), Cholecalciferol Capsule Oral, Docusate Sodium 1 (100 mg) Tablet Oral b.i.d., Doxycycline Hyclate 1 (100 mg) Tablet Oral b.i.d. for 7 days, Dulcolax 1 (10 mg) Suppository Rectal, Eliquis (5 mg) Tablet Oral daily, Folic Acid 1 Tablet (of 1 mg) Oral daily, Geodon 1 Capsule (of 20 mg) Oral daily, Ipratropium-Albuterol 3 mL (of 0.5-2.5 (3) mg/3mL) Solution Inhalation q 6 hours PRN, Lactulose 30 mL (of 20 g/30mL) Solution Oral q 8 hours PRN, Lipitor (80 mg) Tablet Oral Take as Directed, Metoprolol Tartrate 1 (25 mg) Tablet Oral b.i.d., MiraLax 1 Packet (of 17 ) Powder Oral daily, Nicotine 1 (21-14-7 mg/24hr) Kit Transdermal q 24 hours, oxyCODONE HCl 1 Tablet (of 5 mg) Oral q 4 hours PRN, Pantoprazole Sodium 1 Tablet (of 40 mg) Tablet, enteric coated Oral b.i.d., Vitamin C 2 Tablet (of 500 mg) Capsule Oral b.i.d., Zinc 1 (50 mg) Tablet Oral daily Allergies: Cephalexin Vital Signs: Performed on May 21, 2020 08:30 Height - 76.00 in Weight - 196.6 lbs (LOW) BSA - 2.20 sq.m BMI - 23.93 Temperature - 97.7 F (LOW) Pulse - 92 /min Respiration - 20 /min BP - 100/59 mm(hg) O2 Sat - 96 % Pain - 5 Fatigue - 2 Physical Examination: Constitutional - He appears generally weak, Eyes - Sclerae nonicteric. Conjunctivae clear, ENMT - No lesions noted in the oral cavity, Hematologic/Lymphatic - There is palpable cervical adenopathy bilaterally, measuring the range of 2 to 3 cm. There is no clavicular or axillary adenopathy noted, Respiratory - Lungs sound clear with diminished air movement bilaterally, Cardiovascular - Heart rhythm is regular. There is no murmur, gallop, or rub noted, Abdomen - Soft. Liver and spleen are not enlarged. There is no abdominal mass or ascites noted and there is no inguinal adenopathy, Extremities - Mild edema, Neurologic - There is residual right hemiparesis. Lab/Imaging: His laboratory studies from 05/17/2020 included CBC showing hemoglobin 9.7 g, white blood cell count 14,900, and platelet count 423,000. Comprehensive metabolic profile was unremarkable except for decreased albumin at 3.2 g/dL. Problem List: 1. Poorly differentiated carcinoma of the supraglottic larynx, pathology felt to be most consistent with small cell neuroendocrine carcinoma. By clinical evaluation, his disease stage was HEAVEN (T3, N2c, M0). 2. He underwent tracheostomy placement for associated airway obstruction. 3. His clinical course was complicated by multiple cerebral infarcts, presumed to be embolic. He had associated right hemiparesis. He began on anticoagulation with Lovenox, but that subsequently was discontinued due to suspected acute blood loss. 4. He began cycle 1 of chemotherapy with cisplatin/etoposide on 03/27/2020. He tolerated it without acute toxicity. 5. His further clinical course was complicated by COVID-19 virus infection. 6. He has pre-existing degenerative disease of the cervical spine. Problems Addressed with this Encounter and Plan: 1. 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 He had associated airway obstruction, requiring tracheostomy placement. He began cycle 1 of cisplatin/etoposide chemotherapy on 03/27/2020. He tolerated it without acute toxicity. He subsequently developed neutropenia, but he had adequate recovery. He was able to continue with cycle 2 of chemotherapy on 04/19/2020. His radiation had to be deferred, as he was unable to lie flat for treatment. Thus far he has been able to tolerate the chemotherapy with acceptable toxicity. However, his repeat neck CT scan from 05/13/2020 does show increase in the supraglottic mass and in bilateral cervical lymphadenopathy, consistent with disease progression. Overall, his condition and prognosis appear very poor. He has had disease progression on his first-line chemotherapy and he was not able to undergo radiation because he could not lie flat for the treatment. I have been in contact with the pathology department at [facility], and we will be requesting next generation sequencing on his biopsy. In the meantime, I also will plan to contact Dr. Kvng Lucas at [facility] regarding recommendations for further treatment. 2. He has cancer related thromboembolism which has included multiple cerebral infarcts, presumed embolic, and extensive deep vein thrombosis of the right leg. He is now back on anticoagulation with apixaban. 3. He has been significantly anemic. This may just be secondary to chemotherapy. Thus far there has been no documented GI blood loss. 3. He has evidence of cardiomyopathy by echocardiogram. There was suspected left ventricular thrombus, but this was not able to be confirmed on his transesophageal echocardiogram. 4. He had a suspicious looking pigmented skin lesion in the lower facial area on the right side. Biopsy did confirm basal cell carcinoma. Signed By: Linwood Hernandez M.D. <<Signature on File>>
== END 2020-05-30 23:59 | disposition home or self-care (01) ==
LOC: ONCMED 06:59
PROVIDERS: PCP Nurse Practitioner Family; Visit Provider Internal Medicine Medical Oncology
DX: C32.1 Malignant neoplasm of supraglottis (principal); C79.2 Secondary malignant neoplasm of skin; M50.30 Other cervical disc degeneration, unspecified cervical region; D50.0 Iron deficiency anemia secondary to blood loss (chronic); I25.5 Ischemic cardiomyopathy; I63.40 Cerebral infarction due to embolism of unspecified cerebral artery; I82.401 Acute embolism and thrombosis of unspecified deep veins of right lower extremity; Z79.01 Long term (current) use of anticoagulants; Z86.73 Personal history of transient ischemic attack (TIA), and cerebral infarction without residual deficits; Z86.16 Personal history of COVID-19; Z79.899 Other long term (current) drug therapy
CPT/HCPCS: 99215